=== PATIENT | female | born 1955 | race Caucasian/White ===

== ENCOUNTER → 2018-02-16 15:56 | Outpatient (CLI) | payer OTHER, SELFPAY ==
[2018-02-16 09:47] VITALS: BMI 30.2
[2018-02-16 16:03] LABS: Glucose, Dipstick Normal (Normal); Ketone-Dipstick Negative (Negative); Leukocyte Esterase-Dipstick 100 /ul (Negative); Nitrite-Dipstick Positive (Negative); Occult Blood-Urine 250 /ul (Negative); Protein-Dipstick 30 mg/dl (Negative); Urine Clarity Sl. Cloudy (Clear); Urine Urobilinogen 12 mg/dl (Normal); Urine pH 6.5 (5.0 - 8.0)
[2018-02-16 16:20] LABS: Color, Urine SEE COMMENT BELOW (Yellow); Urine Bilirubin Dipstick 6 mg/dL (Negative)
[2018-02-16 16:24] LABS: Bacteria 2+ /hpf (None Seen); Mucous, Urine RARE /hpf (<or=2+); Red Blood Cells-Urine 5-10 SEEN /hpf (0-5); Squamous Epithelial Cells - UA 0-5 SEEN /hpf (5-10); White Blood Cells 0-5 SEEN /hpf (0-5)
== END ==
PROVIDERS: Family Provider Family Medicine; PCP Family Medicine; Referring Provider Physician Assistant Surgical; Visit Provider Physician Assistant Surgical
DX: R30.0 Dysuria (principal)
CPT/HCPCS: 81001; 87077; 87086; 87088; 87186

== ENCOUNTER → 2018-07-12 | Outpatient (CLI) | payer OTHER, SELFPAY ==
[2018-07-12 07:46] VITALS: BMI 30.8
== END | disposition home or self-care (01) ==
LOC: LABSPEC 13:54
PROVIDERS: Family Provider Family Medicine; PCP Family Medicine; Referring Provider Physician Assistant Surgical; Visit Provider Physician Assistant Surgical
DX: R30.0 Dysuria (principal)
CPT/HCPCS: 87086; 87088; 87186

== ENCOUNTER 2018-11-14 14:32 | Observation (INO) | payer OTHER, SELFPAY ==
[2018-07-12 07:46] VITALS: BMI 30.8
[2018-11-14 14:33] VITALS: BP 156/66; PULSE 76; RESP 36; TEMP 36.4; O2SAT 100; BMI 31.8
[2018-11-14 14:57] VITALS: BP 124/77; PULSE 73; RESP 18; O2SAT 100
[2018-11-14 15:16] LABS: Absolute Neutrophil Count 6.4 X10^3/uL (2.0-7.7); Basophil# 0.06 X10^3/uL; Basophil% 0.6 % (0-1); Eosinophils% 1.1 % (0-5); Lymphocyte % 23.6 % (19-41); Mean Corp Hgb Conc 28.6 g/dL (32-36); Mean Corpuscular Hgb 20.1 pg (27.0-32.0); Mean Corpuscular Volume 70.4 fL (81-99); Mean Platelet Vol. 9.6 fl (6.2-12.0); Monocyte% 5.4 % (0-10); NRBC Flagged by Analyzer 0 % (0-5); Neutrophil % 68.8 % (47-70); Platelet Count 393 K/mm3 (150-450); RBC Distribution Width CV 15.8 % (11.6-14.6); RBC Distribution Width SD 39.7 fl (35.1-43.9); Red Blood Count 4.97 M/mm3 (4.2-5.4); White Blood Count 9.3 K/mm3 (4.4-11.0)
[2018-11-14] MEDS: Ondansetron 4 MG/2 ML Vial IV (15:16)
[2018-11-14] MEDS: Meclizine HCl 25 MG Tablet PO (15:16)
[2018-11-14] MEDS: DiphenhydrAMINE 50 MG/ML Syringe 12.5 MG IV (15:16)
[2018-11-14] MEDS: 0.9% Normal Saline 1,000 ML 1000 ML IV (15:16)
--- NOTE | 2018-11-14 15:28 | ED.VISSUMM ---
- ER Visit Summary Date of Service: 11/14/18 Chief Complaint: Dizziness History of Present Illness: The patient is a 63 F who has a sudden onset of dizziness today. She was sitting and she felt like she was on a boat. She then had nausea and vomiting associated with this. She has no history of this in the past. She denies any headache. No other recent illnesses. She only takes magnesium at home. She has no cardiac history. No chest pain. Physical Examination: Vital signs reviewed. HEENT exam unremarkable, except for nystagmus bilaterally did exacerbate her symptoms. Heart is regular rate and rhythm without murmurs. Lungs are clear to auscultation. Abdomen is soft and nontender. Extremities reveal no edema. Skin exam normal. Neurologic exam normal. Test Results: Hemoglobin 10, creatinine normal. Glucose 160. Liver enzymes normal. CAT scan of the head reveals chronic changes Emergency Department Course and Treatment: The patient was given normal saline, Benadryl IV, Zofran, Phenergan, Antivert and Valium. The patient was still vertiginous and had a hard time sitting up even with these medications. When she lays on her left hand side this is improved. I feel that this is just positional vertigo. With her symptoms I feel that she needs to be admitted for further evaluation. I spoke with the hospitalist and the patient will be admitted to observation Treatment Plan: [] Disposition: Discharge Impression: Intractable vertigo This note was generated with [employer] dictation software. It may contain incorrect words, spelling, and punctuation that were not noted in review of the chart prior to signing ED Disposition - Plan for ED Patient: Disposition: Acute Care Hospital [facility]
[2018-11-14 15:32] LABS: ALB/GLOB Ratio 1.1 RATIO (0.9-2.4); AST(SGOT) 17 U/L (15-37); Alanine Aminotransfer ALT/SGPT 17 U/L (13-56); Albumin, Serum 4.1 g/dL (3.2-5.0); Alkaline Phosphatase 77 U/L (45-117); Anion Gap 9 (5-15); BUN 18 mg/dL (7-18); BUN/Creat Ratio 26.4 RATIO (10-20); Chloride 106 mmol/L (98-107); Creatinine, Serum 0.68 mg/dL (0.55-1.02); EST Glomerular Filtration Rate 92 mL/min (>60); Est Glom Filt Rate - Afr Amer 111 mL/min (>60); Estimated Creatinine Clearance 69.14 ml/min; Globulin 3.8 g/dL (2.2-4.2); Glucose 160 mg/dL (74-106); Potassium 3.6 mmol/L (3.5-5.1); Protein, Total 7.9 g/dL (6.4-8.2); Sodium Level 139 mmol/L (136-145)
--- NOTE | 2018-11-14 16:00 | CT_ITS ---
STUDY: CT BRAIN WITHOUT CONTRAST REASON FOR EXAM: Female, 63 years old. Sudden onset dizziness. Nausea and vomiting. Hypertension. RADIATION DOSAGE (If Supplied By Facility): CTDIvol = ( 44.99 ) mGy, DLP = ( 829.85 ) mGycm TECHNIQUE: Transaxial CT imaging of the brain was performed without administration of intravenous contrast material. Individualized dose optimization techniques were used for this CT. COMPARISON: No relevant priors. FINDINGS: Normal soft tissue structures. Normal calvarium. Normal size ventricles and extra-axial spaces for the patient's age. Normal white matter tracts of the cerebral hemispheres. There is a large remote infarct in the right basal ganglia. Normal left basal ganglia and bilateral thalami. Normal brainstem. Normal cerebellum. There is no intracranial hemorrhage. There are no findings of an acute ischemic infarction. There is mild mucoperiosteal reaction within the ethmoid air cells and right maxillary sinus. CT/Brain/Head without Contrast IMPRESSION: 1. Remote right basal ganglia infarct. There is no evidence of acute intracranial or calvarial abnormality. 2. Sinusitis. Electronically Signed: Salvatore Vaz DO at 16:19 EDT Tel [phone], Service support ,
[2018-11-14] MEDS: proMETHazine 25 MG/ML Syringe 12.5 MG IV (16:40)
[2018-11-14 16:41] VITALS: BP 153/65; PULSE 73; RESP 16; O2SAT 95
[2018-11-14] MEDS: diazePAM 5 MG Tablet 2.5 MG PO (17:43)
[2018-11-14 18:48] VITALS: BP 153/59; PULSE 71; RESP 18; O2SAT 99
--- NOTE | 2018-11-14 18:57 | HP.PCM_ITS ---
<Jeremi Luna - Last Filed: 11/14/18 18:57> Problem List (1) Vertigo Status: Acute (2) CVA (cerebral vascular accident) Status: Chronic (3) Asthma Status: Chronic History of Present Illness Date of Admission: 11/14/18 Chief Complaint: vertigo The patient is a 63 year old F with pmhx of asthma who presents to the ER with c/o vertigo. This began at 1000 today. She was sitting and playing with her kid when suddenly she felt that vertigo that she describes as feeling like she is on a boat. She has been very nauseous and vomiting. All movements made it worse. She laid on the floor and was able to find relief laying on her left side and not moving, with her eyes closed. She has not had any recent illness or infection. She has no slurred speech, no facial droop, no focal weakness, no numbness or tingling, and no headache. In the ER she was given benadryl, meclizine, zofran, phenergan, and valium. She has had little relief with these. CT brain shows an old stroke, she was not aware of ever having a stroke. She denies drug use. Spouse is present and reports otherwise she has seemed her normal.[] Past Medical History Past Medical History (Chronic Problems): Chronic Problems (Last Reviewed 07/12/18 @ 07:46 by Daniela Aguirre) CVA (cerebral vascular accident) (Chronic) Asthma (Chronic) Medical History: Medical History (Last Reviewed 07/12/18 @ 07:46 by Daniela Aguirre) Arthritis M19.90 Asthma J45.909 Difficulty balancing R29.818 Hay fever J30.1 History of hysterectomy Z90.710 Neck pain M54.2 Shortness of breath R06.02 Stomach ulcer K25.9 Stroke I63.9 Allergies codeine Allergy (Verified 11/14/18 14:35) Vomiting Home Medications: Ambulatory Orders Medication Instructions Recorded Magnesium Oxide [Magox 400] 1,200 mg PO DAILY 11/14/18 Surgical History: Surgical History (Last Reviewed 07/12/18 @ 07:46 by Daniela Aguirre) History of cholecystectomy Z90.49 History of tonsillectomy Z90.89 Surgical History: cholecystectomy, hysterectomy, tonsillectomy Psychiatric History: No pertinent psych hx [employer]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 Denies: Abdominal Pain, Diarrhea Genitourinary: Denies: Dysuria Musculoskeletal: Denies: Joint Pain, Joint Tenderness Skin: Denies: Rash, Wounds Neurological: Reports: - - Vertigo. Denies: Blurred vision, Double vision, Change in Speech, Slurred speech, Confusion, Difficulty swallowing, Focal weakness, Headaches, Numbness, Tingling Psychiatric: Denies: Anxiety, Depression, Homicidal Ideations, Suicidal Ideations Hematologic/ Lymphatic: Denies: Easy Bruising, Easy Bleeding VTE Information - Inpt Only VTE Present on Admission: No VTE Mechan Device Prophylaxis: None VTE Pharm Prophylaxis ordered?: Yes Patient Problems: Active and Suspected Problems (Last Reviewed 07/12/18 @ 07:46 by Daniela Aguirre) Vertigo (Acute) - Physical Exam General: Alert, Oriented x3, Cooperative HEENT: Atraumatic, PERRLA, EOMI, Normocephalic Neck: Supple, No JVD, Negative Carotid Bruits Lungs: Clear to auscultation, Normal air movement Cardiovascular: Regular rate, No murmurs Abdomen: Bowel Sounds Present, Soft, Non Tender Extremities: No edema, Capillary Refill Less than 3 Seconds Skin: No rashes, No breakdown Musculoskeletal: No Tenderness to Palpation of Joints or Extremities Neurological: Cranial nerves II-XII grossly intact Psych/Mental Status: Normal Affect, Appropriate, Alert and oriented to time, place, person, mood and affect Vital Signs Temp Pulse Resp BP Pulse Ox 97.5 F L 71 18 153/59 H 99 11/14/18 14:33 11/14/18 18:48 11/14/18 18:48 11/14/18 18:48 11/14/18 18:48 Oxygen Delivery Method Room Air Weight: 180 lb Body Mass Index (BMI) 31.8 Intake and Output for Last 24 Hours 11/12/18 11/13/18 11/14/18 23:59 23:59 23:59 Intake Total 1000 / 1000 Balance 1000 / 1000 Laboratory Tests Past 24 Hrs 11/14/18 11/14/18 14:35 14:35 WBC 9.3 RBC 4.97 Hgb 10.0 L Hct 35.0 L MCV 70.4 L MCH 20.1 L MCHC 28.6 L RDW Std Deviation 39.7 RDW Coeff of Jj 15.8 H Plt Count 393 MPV 9.6 Immature Gran % (Auto) 0.500 Neut % (Auto) 68.8 Lymph % (Auto) 23.6 Mellette % (Auto) 5.4 Eos % (Auto) 1.1 Baso % (Auto) 0.6 Absolute Neuts (auto) 6.4 Absolute Lymphs (auto) 2.20 Nucleated RBC % 0 Sodium 139 Potassium 3.6 Chloride 106 Carbon Dioxide 24.0 Anion Gap 9 BUN 18 Creatinine 0.68 Estim Creat Clear Calc 69.14 Est GFR (MDRD) Af Amer 111 Est GFR (MDRD) Non-Af 92 BUN/Creatinine Ratio 26.4 H Glucose 160 H Calcium 9.0 Total Bilirubin 0.50 AST 17 ALT 17 Alkaline Phosphatase 77 Total Protein 7.9 Albumin 4.1 Globulin 3.8 Albumin/Globulin Ratio 1.1 Assessment/Plan All Active Problems (Last Reviewed 07/12/18 @ 07:46 by Daniela Aguirre) Vertigo (Acute) Impacted cerumen, right ear (Acute) Urinary tract infection (Acute) 1. Vertigo - suspect peripheral. CT shows old stroke and sinusitis. Pt without hx of stroke. Start aspirin/statin. PTOT evals, vestibular therapy. PRN meclizine, zofran/phenergan. Consider MRI brain in AM. 2. Prior CVA - start asa/statin 3. Asthma - no exacerbation - prn albuterol 4. Microcytic anemia - check iron/tibc/ferritin 5. hyperglycemia - suspect 2/2 stress response. Reckeck in AM. Consider A1C. + fm hx Diabetes. DVT ppx: Lovenox DC planning: PTOT. This patient was seen by Jeremi Luna PA-C under the supervision of Dr. John. <Bahman John F - Last Filed: 11/14/18 20:54> History of Present Illness The patient is a 63 year old F [] Past Medical History Medical History: Medical History (Last Reviewed 07/12/18 @ 07:46 by Daniela Aguirre) Arthritis M19.90 Asthma J45.909 Difficulty balancing R29.818 Hay fever J30.1 History of hysterectomy Z90.710 Neck pain M54.2 Shortness of breath R06.02 Stomach ulcer K25.9 Stroke I63.9 Allergies codeine Allergy (Verified 11/14/18 14:35) Vomiting Surgical History: Surgical History (Last Reviewed 07/12/18 @ 07:46 by Daniela Aguirre) History of cholecystectomy Z90.49 History of tonsillectomy Z90.89 - Physical Exam Vital Signs Temp Pulse Resp BP Pulse Ox 97.8 F 83 16 151/64 H 98 11/14/18 19:29 11/14/18 19:29 11/14/18 19:29 11/14/18 19:29 11/14/18 19:29 Oxygen Delivery Method Room Air Weight: 195 lb 1.745 oz Body Mass Index (BMI) 34.5 Intake and Output for Last 24 Hours 11/12/18 11/13/18 11/14/18 23:59 23:59 23:59 Intake Total 1000 / 1000 Balance 1000 / 1000 Laboratory Tests Past 24 Hrs 11/14/18 11/14/18 14:35 14:35 WBC 9.3 RBC 4.97 Hgb 10.0 L Hct 35.0 L MCV 70.4 L MCH 20.1 L MCHC 28.6 L RDW Std Deviation 39.7 RDW Coeff of Jj 15.8 H Plt Count 393 MPV 9.6 Immature Gran % (Auto) 0.500 Neut % (Auto) 68.8 Lymph % (Auto) 23.6 Mellette % (Auto) 5.4 Eos % (Auto) 1.1 Baso % (Auto) 0.6 Absolute Neuts (auto) 6.4 Absolute Lymphs (auto) 2.20 Nucleated RBC % 0 Sodium 139 Potassium 3.6 Chloride 106 Carbon Dioxide 24.0 Anion Gap 9 BUN 18 Creatinine 0.68 Estim Creat Clear Calc 69.14 Est GFR (MDRD) Af Amer 111 Est GFR (MDRD) Non-Af 92 BUN/Creatinine Ratio 26.4 H Glucose 160 H Calcium 9.0 Total Bilirubin 0.50 AST 17 ALT 17 Alkaline Phosphatase 77 Total Protein 7.9 Albumin 4.1 Globulin 3.8 Albumin/Globulin Ratio 1.1 Code Visit Addendum: Dr. John I personally examined the patient and reviewed the chart. I agree with the above. 63-year-old female with sudden onset of dizziness today. She said that she felt like she was on a boat. Her symptoms resolve if she lies on her left side. She does have a horizontal nystagmus on exam however she does not tolerate a lot of manipulation to be able to do any type of other diagnostic work-up or manipulation such as a Lyric-Hallpike and Pat maneuver. She states that she would like to see how tonight goes with the meclizine and rest does not improve then try those maneuvers in the morning. She did receive multiple doses of medications in the ER and still remains vertiginous therefore will monitor. Also of note she has microcytic anemia, her hemoglobin is 10 and in 2014 he was in range of 14. We will check a fecal occult stool and proceed with iron studies. OBSV E&M: [id number] Initial observation care L2
[2018-11-14 19:22] VITALS: BMI 34.5
[2018-11-14 19:25] VITALS: BMI 34.6
[2018-11-14 19:29] VITALS: BP 151/64; PULSE 83; RESP 16; TEMP 36.6; O2SAT 98
[2018-11-14] MEDS: 0.9% Normal Saline 1,000 ML 100 ML IV (20:52)
[2018-11-15] MEDS: Meclizine HCl 25 MG Tablet PO ×3 (00:19→18:03)
[2018-11-15] MEDS: 0.9% NaCl Peripheral Flush Adult/Peds IV ×4 (00:19→18:04)
[2018-11-15] MEDS: Ondansetron 4 MG/2 ML Vial IV ×2 (00:19→10:04)
[2018-11-15 01:55] VITALS: BP 146/57; PULSE 72; RESP 16; TEMP 36.7; O2SAT 95
[2018-11-15 06:09] LABS: Absolute Neutrophil Count 4.8 X10^3/uL (2.0-7.7); Basophil# 0.05 X10^3/uL; Basophil% 0.7 % (0-1); Eosinophil# 0.12 X10^3/uL; Eosinophils% 1.7 % (0-5); Hemoglobin 8.7 g/dL (12.0-15.0); Lymphocyte % 23.4 % (19-41); Mean Corp Hgb Conc 28.1 g/dL (32-36); Mean Corpuscular Hgb 19.7 pg (27.0-32.0); Mean Corpuscular Volume 70.3 fL (81-99); Mean Platelet Vol. 9.6 fl (6.2-12.0); Monocyte# 0.59 X10^3/uL; Monocyte% 8.1 % (0-10); NRBC Flagged by Analyzer 0 % (0-5); Neutrophil # 4.78 X10^3/uL (2.7-7.7); Neutrophil % 65.7 % (47-70); Platelet Count 293 K/mm3 (150-450); RBC Distribution Width CV 15.9 % (11.6-14.6); RBC Distribution Width SD 40.1 fl (35.1-43.9); Red Blood Count 4.41 M/mm3 (4.2-5.4); White Blood Count 7.3 K/mm3 (4.4-11.0)
[2018-11-15] MEDS: 0.9% Normal Saline 1,000 ML 100 ML IV (06:31)
[2018-11-15 06:32] LABS: Anion Gap 6 (5-15); BUN 11 mg/dL (7-18); BUN/Creat Ratio 22.6 RATIO (10-20); Calcium,Total 8.2 mg/dL (8.5-10.1); Chloride 110 mmol/L (98-107); Creatinine, Serum 0.49 mg/dL (0.55-1.02); EST Glomerular Filtration Rate 136 mL/min (>60); Est Glom Filt Rate - Afr Amer 165 mL/min (>60); Estimated Creatinine Clearance 95.95 ml/min; Ferritin 4 ng/mL (8-252); Glucose 91 mg/dL (74-106); Iron 16 ug/dL (50-170); Iron Binding Capacity,Total 368 ug/dL (250-450); PERCENT IRON SATURATION 4.3 % (15.0-55.0); Potassium 3.8 mmol/L (3.5-5.1); Sodium Level 143 mmol/L (136-145)
[2018-11-15 07:20] VITALS: BP 160/51; PULSE 59; RESP 14; TEMP 36.9; O2SAT 95
[2018-11-15 07:26] VITALS: PULSE 59; RESP 14; O2SAT 95
--- NOTE | 2018-11-15 08:39 | MRI_ITS ---
STUDY: MRI BRAIN WITHOUT CONTRAST REASON FOR EXAM: Female, 63 years old. Vertigo TECHNIQUE: Standardized multiplanar fat and water weighted pulse sequences were obtained. COMPARISON: CT November 14, 2018 FINDINGS: Normal size of the ventricles and extra-axial spaces for the patient's age. There are a limited number of small white matter hyperintensities, distributed throughout the deep white matter tracts of the cerebral hemispheres, consistent with mild chronic white matter ischemic changes. There is no evidence for recent intracranial ischemia or other cause of cytotoxic edema on diffusion weighted imaging (DWI). Normal T2* images of the brain without demonstrated susceptibility artifact. There is no demonstrated hemosiderin stain. There is a 1.2 cm dilated perivascular space or colloid cyst of the right temporal lobe and basal ganglia. Normal thalami. There is no extra-axial fluid accumulation. Normal flow voids within the major intracranial circulation suggesting patency by spin echo criteria. Normal sella turcica, pituitary gland, infundibular stalk, optic chiasm and hypothalamus. Normal tectal plate and pineal gland. Normal midbrain, juli and medulla. Normal cerebellum. Normal basal cisterns. Normal bilateral temporal bones. Normal bilateral internal auditory canals. No demonstrated orbital abnormality, within the constraints of a routine brain study. Normal visualized paranasal sinuses. Normal calvarium and skull base. Normal visualized soft tissue structures. Normal visualized upper cervical spine. MRI/Brain without Contrast IMPRESSION: Involutional changes of the brain, as described above. No acute intracranial abnormality. Sinusitis. Electronically Signed: Ta Martinez MD at 12:55 EDT , Service support ,
[2018-11-15] MEDS: Enoxaparin 40 MG/0.4 ML Syringe SC (10:04)
--- NOTE | 2018-11-15 10:15 | CASEMGMT ---
RN CM NURSERY MANAGER CM to room to meet with patient for initial transition planning/care coordination assessment. ARNIE RIVERA introduced self and role at [facility]. Pt voices understanding and consents to assessment at this time. Pt resting in bed in no distress at this time. Pt is A/O at this time and answers all questions appropriately. Care providers, pharmacy, and demographics verified/updated at this time. PCP: [facility] used to see Dr Alexsander Browne but states has not been in to see him for about 4 years. Pt states this is who she would like to see after discharge for any follow-up appts. Pt made aware she may not be currently active with them as a patient and she may need to get established as a new patient. She voices understanding. Specialists: None Preferred [facility]acy: [facility] Insurance: [employer] Prescription Benefit: Yes Living Will/HPOA: has LW and HCPOA, who is her , Bjorn Ha LNOK: Living Arrangements: Lives in 2-story home. Has bedroom and bathroom on 2nd floor. States I take the stairs slowly. Independent prior to vertigo and hospitalization. Transportation: Pt states drives self and states no transportation concerns at this time. also drives. DME: Denies using any DME and denies needs. HHC/SNF: No history of either and denies needs. No needs identified. Discussed OP therapy and she states she may be agreeable, depending on how much insurance covers and her [id number] cost. She states she does not know what OP therapy facility she would go to. Pt made aware script for OP therapy could be obtained from MD and given to her and she can decide where she would like to go and discuss financials with OP facility and make decision then. She voices understanding. Pt wishes to return home and states has no concerns with going home at time of discharge. CM to follow for further discharge planning/needs. Pt voices no further concerns/needs at this time. Advised pt to ask for CM if any further questions/concerns/needs arise. Voices understanding. PLAN: Home w/spousal support and possible OP therapy. Gracie BRAND RN, CM
[2018-11-15 10:22] VITALS: BP 148/56; PULSE 60; RESP 16; TEMP 36.9; O2SAT 97
[2018-11-15] MEDS: LORazepam 2 MG/ML Syringe 1 MG IV (11:19)
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
[2018-11-15 14:46] VITALS: BP 150/58; PULSE 60; RESP 16; TEMP 36.9; O2SAT 99
[2018-11-15 20:50] VITALS: BP 157/58; PULSE 63; RESP 16; TEMP 37.2; O2SAT 95
[2018-11-16] MEDS: Meclizine HCl 25 MG Tablet PO ×3 (03:26→21:00)
[2018-11-16 03:27] VITALS: BP 155/60; PULSE 63; RESP 16; TEMP 36.6; O2SAT 96
[2018-11-16 10:10] VITALS: BP 131/49; PULSE 87; RESP 16; TEMP 36.8; O2SAT 98
[2018-11-16] MEDS: Enoxaparin 40 MG/0.4 ML Syringe SC (10:14)
[2018-11-16] MEDS: Iron Polysaccharide Complex 150 MG CAPSULE PO (10:14)
--- NOTE | 2018-11-16 10:49 | DCINST_ITS ---
- Discharge Diagnoses Current Active Problems: Current Active and Chronic Problems (Last Reviewed 07/12/18 @ 07:46 by Daniela Aguirre) Vertigo (Acute) CVA (cerebral vascular accident) (Chronic) Asthma (Chronic) You will use the following diet at home:: Cardiac Your food should be the consistency of: Regular Your liquids should be the consistency of: Regular/Thin Discharge Activity: Return to Normal Activity, - - May not drive if experiencing vertigo or requiring meclizine. Additional Instructions: Pursue outpatient PT and OT for additional vestibular therapy. Allergies/Adverse Reactions: Allergies codeine Allergy (Verified 11/14/18 14:35) Vomiting Medications to take at Discharge Magnesium Oxide [Magox 400] 1,200 mg PO DAILY 11/14/18 Iron Polysaccharide Complex [Ferrex 150] 150 mg PO DAILYCM #30 cap 11/16/18 Meclizine HCl [Antivert] 25 mg PO TID PRN PRN #30 tab 11/16/18 Ondansetron HCl [Zofran] 4 mg PO Q6H PRN PRN #20 tab 11/16/18 The following prescriptions were given: Meclizine HCl [Antivert] 25 mg PO TID PRN PRN #30 tab PRN Reason: Vertigo [facility] Iron Polysaccharide Complex [Ferrex 150] 150 mg PO DAILYCM #30 cap Transmission Status: [facility] Ondansetron HCl [Zofran] 4 mg PO Q6H PRN PRN #20 tab PRN Reason: Nausea [facility] Primary Care Physician: Alexsander Browne DO [Primary Care Provider] - Please follow up with your Primary Care Physician in: 1-2 weeks Test Results: Test results from this visit will be discussed in further detail at your follow- up appointment, if applicable. Proposed Discharge Date: 11/16/18
--- NOTE | 2018-11-16 13:12 | DS.PCM_ITS ---
<Jeremi Luna - Last Filed: 11/16/18 13:12> Discharge Date and Diagnosis - Problem List Patient Problems: Active and Suspected Problems (Last Reviewed 07/12/18 @ 07:46 by Daniela Aguirre) Vertigo (Acute) Date of Admission: 11/14/18 Date of Discharge: 11/16/18 - Primary Discharge Diagnosis Active and Suspected Problems (Last Reviewed 07/12/18 @ 07:46 by Daniela Aguirre) Vertigo (Acute) - BPPV Iron deficiency anemia Hx CVA Asthma - Secondary Discharge Diagnosis Chronic Problems (Last Reviewed 07/12/18 @ 07:46 by Daniela Aguirre) CVA (cerebral vascular accident) (Chronic) Asthma (Chronic) Hospital Course and Treatment Imaging Results: CT/Brain/Head without Contrast IMPRESSION: 1. Remote right basal ganglia infarct. There is no evidence of acute intracranial or calvarial abnormality. 2. Sinusitis. MRI/Brain without Contrast IMPRESSION: Involutional changes of the brain, as described above. No acute intracranial abnormality. Sinusitis. Operations: None Procedures: None Summary of Care Provided: Hospital course: The patient is a 63 year old F with past medical history of asthma who presented to the emergency room with complaints of vertigo. This began suddenly the day of presentation at about 10:00 in the morning. She was sitting and playing with her kids when she suddenly felt a sensation described as being like she was on a boat. She had severe nausea and was vomiting. She had to sit completely still laying on her left side in order to cut herself from feeling this. She denied recent illness or infection. She had no slurred speech, facial droop, focal weakness, numbness or tingling, no headache. She came to the emergency room was given Benadryl meclizine, Zofran, Phenergan and Valium with little relief. She had severe nystagmus on exam. CT of the brain demonstrated that she had an old stroke that she was unaware of. The patient was admitted with concern for acute CVA versus peripheral vertigo. She underwent an MRI the following day which did not show any acute stroke. Patient had some mild improvement with vestibular therapy and with PRN medications. She was kept for another day as she still had marked positional vertigo especially with sitting up and standing making walking difficult. PT and OT were provided. Outpatient PT and OT were recommended. She was given a prescription for outpatient PT and OT following day and was discharged home in stable condition. She will need follow-up with her PCP in 1 to 2 weeks. This patient was seen by Jeremi Luna PA-C under the supervision of Doctor Hughes. [] Patient Problems: Active and Suspected Problems (Last Reviewed 07/12/18 @ 07:46 by Daniela Aguirre) Vertigo (Acute) - Physical Exam General: Alert, Oriented x3, Cooperative HEENT: Atraumatic, PERRLA, EOMI, Normocephalic Neck: Supple, No JVD, Negative Carotid Bruits Lungs: Clear to auscultation, Normal air movement Cardiovascular: Regular rate, No murmurs Abdomen: Bowel Sounds Present, Soft, Non Tender Extremities: No edema, Capillary Refill Less than 3 Seconds Skin: No rashes, No breakdown Musculoskeletal: No Tenderness to Palpation of Joints or Extremities Neurological: Cranial nerves II-XII grossly intact Psych/Mental Status: Normal Affect, Appropriate, Alert and oriented to time, place, person, mood and affect Vital Signs Temp Pulse Resp BP Pulse Ox 98.2 F 87 16 131/49 H 98 11/16/18 10:10 11/16/18 10:10 11/16/18 10:10 11/16/18 10:10 11/16/18 10:10 Oxygen Delivery Method Room Air Weight: 195 lb 1.745 oz Body Mass Index (BMI) 34.5 Intake and Output for Last 24 Hours 11/14/18 11/15/18 11/16/18 23:59 23:59 23:59 Intake Total 1000 / 1200 2583.33 / 2820.33 337 / 337 Output Total 1999 / 2900 900 / 900 Balance 1000 / 1200 583.33 / -79.67 -563 / -563 Discharge Diet: Low fat/ Low Cholesterol, 2000 mg Sodium Diet Discharge Activity: Return to Normal Activity, - - May not drive if experiencing vertigo or requiring meclizine. Home Medications: Medications to take at Discharge Magnesium Oxide [Magox 400] 1,200 mg PO DAILY 11/14/18 Iron Polysaccharide Complex [Ferrex 150] 150 mg PO DAILYCM #30 cap 11/16/18 Meclizine HCl [Antivert] 25 mg PO TID PRN PRN #30 tab 11/16/18 Ondansetron HCl [Zofran] 4 mg PO Q6H PRN PRN #20 tab 11/16/18 Following Prescrptions Were Given to Patient: Meclizine HCl [Antivert] 25 mg PO TID PRN PRN #30 tab PRN Reason: Vertigo [facility] Iron Polysaccharide Complex [Ferrex 150] 150 mg PO DAILYCM #30 cap Transmission Status: Received by [facility] 181 Ondansetron HCl [Zofran] 4 mg PO Q6H PRN PRN #20 tab PRN Reason: Nausea Transmission Status: Received by [facility] 181 Primary Care Physician: Alexsander Browne DO [Primary Care Provider] - Please follow up with your Primary Care Physician in: 1-2 weeks Additional Instructions: Report for outpatient PT and OT as soon as possible. Disposition: Home Minutes spent on discharge:: 35 Patient Condition:: Stable Medical Necessity - Tobacco Use Smoking Status: Never smoker Tobacco Use: Non-smoker, Secondhand Meaningful Use Info Meaningful Use Diagnoses (Choose all that apply): None applicable <Angel Hughes Yeni - Last Filed: 11/16/18 13:47> Discharge Date and Diagnosis - Primary Discharge Diagnosis Active and Suspected Problems (Last Reviewed 07/12/18 @ 07:46 by Daniela Aguirre) Vertigo (Acute) - Secondary Discharge Diagnosis Chronic Problems (Last Reviewed 07/12/18 @ 07:46 by Daniela Aguirre) CVA (cerebral vascular accident) (Chronic) Asthma (Chronic) Hospital Course and Treatment Summary of Care Provided: Hospitalist note: Discharge summary above reviewed and I concur with the above discharge and treatment plan. Patient was admitted for vertigo which is probably due to peripheral vertigo secondary to BPPV. There is a concern that patient may have acute stroke because of the significant vertigo and also imbalance and tendency to fall to the left side. CT scan brain done on admission and showed no acute findings. Because of her history of stroke and concerning symptoms of vertigo with imbalance, MRI brain done and again showed no evidence of acute infarct or hemorrhage. Patient was treated with Antivert, IV fluids and antiemetics. Her symptoms improved. She had no focal deficit on physical examination. She was found to have iron deficiency anemia. She was asymptomatic and she denied shortness of breath, weakness, palpitation or dizziness except the spinning sensation which was related to the vertigo. Patient denies any bleeding from body orifices including melena, hematochezia or hematemesis. Her serum iron, iron saturation and ferritin was very low. She was started on iron supplement. It was recommended that she should go to see her PCP and she should be referred to GI as outpatient for work-up for anemia. Patient discharged home in a stable medical condition, discharged on Antivert as needed, discharged on iron supplement, recommended to have a PCP as outpatient in 1 to 2 weeks and referral to GI as outpatient for work-up for anemia. This note was generated with [employer] dictation software. It may contain incorrect words, spelling, and punctuation that were not noted in checking the note before signing. - Physical Exam Vital Signs Temp Pulse Resp BP Pulse Ox 98.2 F 87 16 131/49 H 98 11/16/18 10:10 11/16/18 10:10 11/16/18 10:10 11/16/18 10:10 11/16/18 10:10 Oxygen Delivery Method Room Air Weight: 195 lb 1.745 oz Body Mass Index (BMI) 34.5 Intake and Output for Last 24 Hours 11/14/18 11/15/18 11/16/18 23:59 23:59 23:59 Intake Total 1000 / 1200 2583.33 / 2820.33 337 / 337 Output Total 2000 / 2900 900 / 900 Balance 1000 / 1200 583.33 / -79.67 -563 / -563 Disposition: Home Minutes spent on discharge:: 25 Patient Condition:: Stable Meaningful Use Info Meaningful Use Diagnoses (Choose all that apply): None applicable Code Visit OBSV E&M: 04498 Observation care discharge
[2018-11-16 15:30] VITALS: BP 165/57; PULSE 79; RESP 16; TEMP 36.9; O2SAT 97
[2018-11-16] MEDS: Acetaminophen 325 MG Tablet 650 MG PO (15:40)
--- NOTE | 2018-11-16 16:05 | PN_ITS ---
<Jeremi Luna - Last Filed: 11/16/18 16:05> Patient Problems: Active and Suspected Problems (Last Reviewed 07/12/18 @ 07:46 by Daniela Aguirre) Vertigo (Acute) Subjective: Patient with improved vertigo. However later before she planned for discharge, she was unsteady and dizzy sitting up on the side of the bed and could not ambulate. Pat maneuver failed with therapy. Ongoing nausea. She said she would crawl everywhere if she went home. - Physical Exam General: Alert, Oriented x3, Cooperative HEENT: Atraumatic, PERRLA, EOMI, Normocephalic Neck: Supple, No JVD, Negative Carotid Bruits Lungs: Clear to auscultation, Normal air movement Cardiovascular: Regular rate, No murmurs Abdomen: Bowel Sounds Present, Soft, Non Tender Extremities: No edema, Capillary Refill Less than 3 Seconds Skin: No rashes, No breakdown Musculoskeletal: No Tenderness to Palpation of Joints or Extremities Neurological: Cranial nerves II-XII grossly intact Psych/Mental Status: Normal Affect, Appropriate Vital Signs Temp Pulse Resp BP Pulse Ox 98.2 F 87 16 131/49 H 98 11/16/18 10:10 11/16/18 10:10 11/16/18 10:10 11/16/18 10:10 11/16/18 10:10 Oxygen Delivery Method Room Air Weight: 195 lb 1.745 oz Body Mass Index (BMI) 34.5 Intake and Output for Last 24 Hours 11/14/18 11/15/18 11/16/18 23:59 23:59 23:59 Intake Total 1000 / 1200 2583.33 / 2820.33 837 / 837 Output Total 1999 / 2900 900 / 900 Balance 1000 / 1200 583.33 / -79.67 -63 / -63 Medical Necessity - Tobacco Use Smoking Status: Never smoker Tobacco Use: Non-smoker, Secondhand Assessment/Plan All Active Problems (Last Reviewed 07/12/18 @ 07:46 by Daniela Aguirre) Vertigo (Acute) 1. Vertigo - BPPV. Continue PTOT, Pat maneuvers, prn meclizine and antiemetics. Stroke ruled out. No further nystagmus noted today. Unfortunately too dizzy to walk. 2. Prior CVA - start asa/statin 3. Asthma - no exacerbation - prn albuterol 4. Microcytic anemia - iron studies c/w iron deficiency. Continue iron. Stool occult pending. Outpatient follow up for referral to gastroenterology. 5. hyperglycemia - suspect 2/2 stress response. resolved. DVT ppx: Lovenox DC planning: PTOT. Pt cannot walk, she may need to go to long-term. This patient was seen by Jeremi Luan PA-C under the supervision of Dr. Hughes. <Angel Hughes E - Last Filed: 11/17/18 10:17> - Physical Exam Vital Signs Temp Pulse Resp BP Pulse Ox 98.5 F 72 16 152/54 H 98 11/17/18 08:42 11/17/18 08:42 11/17/18 08:42 11/17/18 08:42 11/17/18 08:42 Oxygen Delivery Method Room Air Weight: 195 lb 1.745 oz Body Mass Index (BMI) 34.5 Intake and Output for Last 24 Hours 11/15/18 11/16/18 11/17/18 23:59 23:59 23:59 Intake Total 2583.33 / 2820.33 1437 / 1687 450 / 450 Output Total 2000 / 2900 900 / 1500 600 / 600 Balance 583.33 / -79.67 537 / 187 -150 / -150 Assessment/Plan Hospitalist note: This note is for encounter on November 16, 2018. Patient was discharged home but when she was n about to go home, she started feeling dizzy, spinning with nausea and difficulty ambulating. Discharge was canceled. Hospitalist note: I am seeing this patient in conjunction with Jeremi Luna. I independently seen and examined the patient. Initially, patient was seen and examined and she mentioned that she feels better. She was discharged but when she was about to go home, she started feeling dizzy again, spinning sensation with nausea and vomiting and she had very difficult time to ambulate. Discharge was canceled. Her vital signs were stable. - Physical Exam General: Alert, Oriented x3, Cooperative, No apparent distress. HEENT: Atraumatic, PERRLA, EOMI. Neck: Supple, No JVD, Negative Carotid Bruits, Trachea Midline, Thyroid Normal. Lungs: Clear to auscultation, Normal air movement, No rhonchi, No wheeze, No rales. Cardiovascular: Regular rate, Regular Rhythm, Normal S1, Normal S2, PMI Normal. Abdomen: Bowel Sounds Present, Soft, Non Tender, Non-Distended, No Hepato-splenomegaly. Extremities: No clubbing, No cyanosis, No edema Skin: No rashes, No breakdown Neurological: Cranial nerves are intact, minimal nystagmus on the right side, normal power and tone of all limbs. Assessment and plan: #1 vertigo: Likely due to BPPV, peripheral. CT scan brain without acute findings, revealed old/remote stroke. She has no focal deficit on physical exam. MRI performed and showed no acute infarct or hemorrhage. Plan to continue Antivert. #2 iron deficiency anemia: It is microcytic anemia. Patient did mention that she does have hemorrhoids and sometimes she has minimal streaks of blood covering her stool. No major bleeding. Her iron studies are low including serum iron, ferritin and iron saturation. She states that she does use ibuprofen for arthritis but not heavily and she complains of occasional heartburn and epigastric discomfort. She denied melena. Recommended to avoid using NSAIDs, follow-up with a PCP and referral to GI as outpatient for upper EGD. #3 other chronic medical problems: Stable, continue current medications as above. This note was generated with [employer] dictation software. It may contain incorrect words, spelling, and punctuation that were not noted in checking the note before signing. Code Visit OBSV E&M: 08416 Subsequent observation care L2
[2018-11-16 21:00] VITALS: BP 138/84; PULSE 64; RESP 16; TEMP 36.8; O2SAT 95
[2018-11-17 03:50] VITALS: BP 146/56; PULSE 63; RESP 16; TEMP 36.5; O2SAT 95
[2018-11-17] MEDS: Meclizine HCl 25 MG Tablet PO ×2 (03:57→11:04)
[2018-11-17 08:42] VITALS: BP 152/54; PULSE 72; RESP 16; TEMP 36.9; O2SAT 98
[2018-11-17] MEDS: Enoxaparin 40 MG/0.4 ML Syringe SC (08:44)
[2018-11-17] MEDS: Iron Polysaccharide Complex 150 MG CAPSULE PO (08:44)
[2018-11-17] MEDS: Ondansetron ODT 4 MG Tablet PO (11:04)
[2018-11-17 13:27] VITALS: BP 161/64; PULSE 76; RESP 16; TEMP 36.8; O2SAT 98
== END 2018-11-17 13:40 | disposition home or self-care (01) ==
LOC: ED 15:27 → MS3 20:24
PROVIDERS: Admitting Provider Family Medicine; Emergency Provider Emergency Medicine; Family Provider Family Medicine; PCP Family Medicine; Referring Provider Family Medicine; Visit Provider Hospitalist
DX: H81.10 Benign paroxysmal vertigo, unspecified ear (principal); J44.9 Chronic obstructive pulmonary disease, unspecified; M19.90 Unspecified osteoarthritis, unspecified site; Z86.73 Personal history of transient ischemic attack (TIA), and cerebral infarction without residual deficits; D50.9 Iron deficiency anemia, unspecified; R73.9 Hyperglycemia, unspecified; K64.9 Unspecified hemorrhoids
CPT/HCPCS: 36415; 70450; 70551; 80048; 80053; 82728; 83540; 83550; 85025; 96361; 96365; 96372; 96375; 96376; 97116; 97162; 97530; 99218; 99285; J1756; J7030; A4216; G0378; J2405

== ENCOUNTER 2018-12-06 12:00 | Outpatient (RCR) | payer OTHER, SELFPAY ==
--- NOTE | 2018-11-20 15:37 | HP.PTEVAL_ITS ---
Patient's Visit Information ELIS MCARTHUR is a 63 year old F referred to Physical Therapy by JEZ Dunn with a diagnosis of vertigo. Date of Evaluation: 11/20/18 Physical Therapist: Harish Valdez, AARONT, OCS, CSCS - Visit Plan Frequency: 2x /Week Duration: 4-6 Weeks Plan: 2x/week for 4-6 weeks as needed for ... 1. progression of VOR and adaptation, monitor positional as I did treat her with R kelsey today. 2. MSQ as needed and when tolerated. 3. Balance safety and training. - Subjective Findings: Trying to stay upright. Last morning last week she started spinning while sitting. Without warning or reason. Lied on floor and called . Lied on floor with left side down and spinning stopped but came back if she moved. Got nauseous. Went to ER adn they did Catscan and MRI. No stroke. Given meds for nausea and vertigo whcih helped. Was in hospital and relesed Sunday afternoon due to insurance. Still unable to walk. Now 3 days later is walking slightly better but still needs walker. Can feel OK if head is still. 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 No falls. No need for walker prior to this. - Pain ROLON Pain Intensity (Out of 10): 0 Pain Intensity Range: 0, 2 - Objective Balance is poor in stand and sit but Ok at walker. Even sitting balance after being dizzy is off and tends to the right. Trasnfers require UE adn CGA. Ambulation with walker requires CGA. c/s AROM is hesitant but ROM is WFL. Doesn't want to mve head. UE AROM WFL and strength is symmetrical. Sensation EU WNL to gross light touch. - B hallpike but dizzy with R hallpike and treated with R kelesy today. Oculomotor: no nystagmus with gaze or head turns. c onvergence is normal. - skew eye deviation. Pursuit adn saccades are slow and asymptomatic. VOR is immediately symptomatic and 4/10 for 1 minute horizontal after 30 seconds. Vertical is 7/10 for 3-5 minutes. 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 Goal Time Frame: 4-6 Weeks Goal 4:: Ascend and descend steps without rail safely Goal Time Frame: 4-6 Weeks - Rehabilitation Potential Physical Therapy Diagnosis: Likely vestibular hypofunction. Rehabilitation Potential: Good - Anticipated Interventions Patient/Client Instruction: Educate patient on: Condition, Plan of Care For the Purpose of:: To increase tolerance to activity/condition/position, To improve ability of physical actions for home/community/work/leisure, To improve balance Therapeutic Exercise to Include: Balance training, Gait and locomotor training Comment: adaptationa dn habituation For the Purpose of:: To increase tolerance to activity/condition/position, To improve balance, To improve safety with gait Thank you for the opportunity to evaluate your patient. For Medicare and Medicare HMO plans, please review the plan of care and approve it. It will need to be FAXED BACK to us at [phone] for Medicare purposes. For Medicare only, by signing this I certify the plan of care. Please let me know if there are questions or concerns regarding this plan of care. Physician Signature: Date:
--- NOTE | 2019-01-30 16:40 | HP.PTDCNRP_ITS ---
HP - Discharge Summary (1) - Patient Information ELIS MCARTHUR was seen in my office for initial evaluation on 11/20/18. The following Plan of Care was established for this patient: Initial Frequency: 2x /Week Initial Duration: 4-6 Weeks - Anticipated Interventions Patient/Client Instruction: Educate patient on: Condition, Plan of Care For the Purpose of:: To increase tolerance to activity/condition/position, To im prove ability of physical actions for home/community/work/leisure, To improve balance Therapeutic Exercise to Include: Balance training, Gait and locomotor training For the Purpose of:: To increase tolerance to activity/condition/position, To improve balance, To improve safety with gait This patient was last seen in our office 12/06/18. Pertinent comments regarding their Physical therapy will appear below: Pt seen for 5 visits of POC and was 95% better. She was to f/u one last time two weeks later but did not attend. At this point, it has been over 6 weeks and I will discontinue due to nonattendance At this point I will be discontinuing this patient from physical therapy. I would be happy to see this patient again in the future if found appropriate by the physician. Thank you! Harish Valdez, DPT, OCS, CSCS
== END 2018-12-06 19:00 | disposition home or self-care (01) ==
LOC: PT 12:00
PROVIDERS: Family Provider Family Medicine; PCP Family Medicine; Referring Provider Physician Assistant; Visit Provider Physician Assistant
DX: R42 Dizziness and giddiness (principal); Z86.73 Personal history of transient ischemic attack (TIA), and cerebral infarction without residual deficits
CPT/HCPCS: 97110; 97162; 97530

== ENCOUNTER → 2018-12-27 | Outpatient (CLI) | payer OTHER, SELFPAY ==
[2018-12-26 16:01] VITALS: BMI 34.5
--- NOTE | 2018-12-27 08:50 | EKG12_ITS ---
Test Reason : Blood Pressure : / mmHG Vent. Rate : 074 BPM Atrial Rate : 074 BPM P-R Int : 144 ms QRS Dur : 092 ms QT Int : 376 ms P-R-T Axes : 014 039 051 degrees QTc Int : 417 ms Normal sinus rhythm Normal ECG Confirmed by NUBIA SINGH, GREGG ([id number]), loan expeditor MEGAN GARSIA ([id number]) on 12/30/2018 9:41:35 AM Referred By: Adam Husain Confirmed By:GREGG DELACRUZ MD
[2018-12-27 13:00] LABS: Cholesterol 197 mg/dL (200); High Density Lipoprotein 60 mg/dL; Triglycerides 122 mg/dL; Very Low Density Lipoprotein 24 mg/dL (5-40)
== END | disposition home or self-care (01) ==
PROVIDERS: Family Provider Internal Medicine; PCP Internal Medicine; Referring Provider Internal Medicine; Visit Provider Internal Medicine
DX: I10 Essential (primary) hypertension (principal)
CPT/HCPCS: 36415; 80061; 93005

== ENCOUNTER → 2019-01-13 | Outpatient (CLI) | payer OTHER, SELFPAY ==
[2018-12-26 16:01] VITALS: BMI 34.5
--- NOTE | 2019-01-13 16:07 | BI_ITS ---
MAMMOGRAPHY - BILATERAL SCREENING REASON FOR EXAM: Female, 63 years old. Routine annual screening examination. PERTINENT HISTORY: Aunt with breast cancer. Right breast lump. TECHNIQUE: Digital bilateral breast lashae (3D mammographic acquisition) in the CC and MLO projections. 2-D mediolateral oblique (MLO) and craniocaudad (CC) views of both breasts were obtained. CAD: Full Field Digital Mammography with Computer Added Detection was performed. COMPARISON: Comparison is made with prior study dated April 08, 2007. FINDINGS: Breast Composition: There are scattered areas of fibroglandular density. There are no dominant masses or suspicious calcifications. No other significant abnormalities are identified. There has been no significant change since the prior study. BI/SCREEN MAMM (CAD) W/LASHAE BILAT IMPRESSION: Stable bilateral screening mammogram. With the patient's history of a palpable lump in the retroareolar region of the right breast, correlation with ultrasound is recommended. ASSESSMENT CATEGORY: BIRADS Category 0: Incomplete. Need additional imaging evaluation. A letter regarding these results will be sent to the patient by the facility within 30 days. Approximately 10% of breast cancers are not detected by mammography. A normal mammogram should not delay biopsy of a clinically suspicious abnormality. [id number] Electronically Signed: Derek Gould, at 8:21 EST , Service support ,
== END | disposition home or self-care (01) ==
LOC: OPBI 16:06
PROVIDERS: Family Provider Internal Medicine; PCP Internal Medicine; Referring Provider Internal Medicine; Visit Provider Internal Medicine
DX: Z12.31 Encounter for screening mammogram for malignant neoplasm of breast (principal)
CPT/HCPCS: 77063; 77067

== ENCOUNTER → 2019-01-15 14:26 | Outpatient (CLI) | payer OTHER, SELFPAY ==
[2018-12-26 16:01] VITALS: BMI 34.5
--- NOTE | 2019-01-15 14:28 | US_ITS ---
STUDY: ULTRASOUND BREAST - RIGHT REASON FOR EXAM: Female, 63 years old. Palpable lump in the right breast. TECHNIQUE: Axial and longitudinal images of the RIGHT breast were performed with a high resolution ultrasound transducer. # OF IMAGES: 9 COMPARISON: Comparison is made with prior mammogram dated January 13, 2019. FINDINGS: RIGHT Breast: There is a 3 mm x 5 mm x 2 mm cyst at the 9:00 position of the breast at 1 cm from the nipple. US/Breast Limited Unilateral IMPRESSION: 3 mm x 5 mm x 2 mm cyst at the 9:00 position of the breast at 1 cm from nipple. ASSESSMENT CATEGORY: BIRADS Category 2: Benign. A letter regarding these results will be sent to the patient by the facility within 30 days. Electronically Signed: Derek Gould, at 13:17 EST , Service support ,
== END ==
PROVIDERS: Family Provider Internal Medicine; PCP Internal Medicine; Referring Provider Internal Medicine; Visit Provider Internal Medicine
DX: N63.10 Unspecified lump in the right breast, unspecified quadrant (principal)
CPT/HCPCS: 76642

== ENCOUNTER → 2019-01-22 17:35 | Outpatient (CLI) | payer OTHER, SELFPAY ==
[2019-01-22 16:30] VITALS: BMI 34.5
[2019-01-22 17:36] LABS: Bacteria 0 SEEN /hpf (None Seen); Mucous, Urine 0 SEEN /hpf (<or=2+); Red Blood Cells-Urine 0 SEEN /hpf (0-5)
[2019-01-22 18:24] LABS: Color, Urine Yellow (Yellow); Glucose, Dipstick Normal (Normal); Ketone-Dipstick Negative (Negative); Leukocyte Esterase-Dipstick 25 /ul (Negative); Nitrite-Dipstick Negative (Negative); Occult Blood-Urine Negative /ul (Negative); Protein-Dipstick Negative (Negative); Specific Gravity, Urine 1.015 (1.002-1.030); Urine Bilirubin Dipstick Negative (Negative); Urine Clarity Clear (Clear); Urine Urobilinogen Normal (Normal); Urine pH 6.5 (5.0 - 8.0)
[2019-01-22 18:36] LABS: Squamous Epithelial Cells - UA 0-5 SEEN /hpf (5-10); White Blood Cells 0-5 SEEN /hpf (0-5)
== END ==
PROVIDERS: Family Provider Internal Medicine; PCP Internal Medicine; Visit Provider Internal Medicine
DX: R30.0 Dysuria (principal)
CPT/HCPCS: 81001; 87086

== ENCOUNTER → 2019-01-31 08:59 | Outpatient (CLI) | payer OTHER, SELFPAY ==
[2019-01-22 16:30] VITALS: BMI 34.5
[2019-01-31 12:23] LABS: Anion Gap 1 (5-15); BUN 16 mg/dL (7-18); BUN/Creat Ratio 30.4 RATIO (10-20); Calcium,Total 8.5 mg/dL (8.5-10.1); Chloride 105 mmol/L (98-107); Creatinine, Serum 0.53 mg/dL (0.55-1.02); EST Glomerular Filtration Rate 124 mL/min (>60); Est Glom Filt Rate - Afr Amer 150 mL/min (>60); Glucose 92 mg/dL (74-106); Potassium 3.9 mmol/L (3.5-5.1); Sodium Level 139 mmol/L (136-145)
== END ==
PROVIDERS: Family Provider Internal Medicine; PCP Internal Medicine; Visit Provider Internal Medicine
DX: I10 Essential (primary) hypertension (principal)
CPT/HCPCS: 36415; 80048

== ENCOUNTER → 2019-02-11 13:36 | Outpatient (CLI) | payer OTHER, SELFPAY ==
[2019-01-22 16:30] VITALS: BMI 34.5
--- NOTE | 2019-02-11 13:54 | CT_ITS ---
STUDY: CT ABDOMEN AND PELVIS WITH CONTRAST REASON FOR EXAM: Female, 63 years old. Ileal cecal cancer. RADIATION DOSAGE (If Supplied By Facility): CTDIvol = ( 15.33 ) mGy, DLP = ( 1060.67 ) mGycm TECHNIQUE: Transaxial images were obtained from the dome of the diaphragm to the symphysis pubis with oral contrast. 100ML ISOVUE 370 was administered. Sagittal and coronal images were reconstructed. Individualized dose optimization techniques were used for this CT. COMPARISON: None. FINDINGS: The visualized lung bases are unremarkable. The visualized portions of the heart are within normal limits. Normal liver. There are surgical clips in the gallbladder fossa consistent with a prior cholecystectomy. Normal spleen. Normal pancreas. Normal bilateral adrenal glands. No acute abnormalities of the kidneys. Very numerous small bilateral renal cysts. No hydronephrosis. No gross stones. Symmetric contrast enhancement. Normal visualized stomach. Normal small intestine. Normal colon. There may be thickening in the area of the ileocecal valve which could represent the neoplasm found on colonoscopy, but there is no adnexal mass. No evidence for local invasion or adenopathy. The appendix is visualized and appears normal. There is diffuse atherosclerotic calcification of the abdominal aorta, without a demonstrated aneurysm. Normal inferior vena cava. Normal retroperitoneum. Nondistended urinary bladder. There is absence of the uterus consistent with a prior hysterectomy. Normal abdominal wall. Normal osseous structures. CT/Abdomen/Pelvis WITH Contrast IMPRESSION: No definite acute abnormality. Possible thickening in the area of the ileocecal valve, but no actual mass or local invasion. Correlate with colonoscopy findings. Electronically Signed: David Shi MD at 21:32 EST , Service support ,
[2019-02-11 14:49] LABS: Hematocrit 38.9 % (37-47); Hemoglobin 11.7 g/dL (12.0-15.0); Mean Corp Hgb Conc 30.1 g/dL (32-36); Mean Corpuscular Hgb 22.4 pg (27.0-32.0); Mean Corpuscular Volume 74.4 fL (81-99); Mean Platelet Vol. 9.2 fl (6.2-12.0); Platelet Count 387 K/mm3 (150-450); Red Blood Count 5.23 M/mm3 (4.2-5.4); White Blood Count 8.7 K/mm3 (4.4-11.0)
[2019-02-11 15:15] LABS: ALB/GLOB Ratio 1.1 RATIO (0.9-2.4); AST(SGOT) 19 U/L (15-37); Alanine Aminotransfer ALT/SGPT 19 U/L (13-56); Albumin, Serum 4.2 g/dL (3.2-5.0); Alkaline Phosphatase 85 U/L (45-117); Anion Gap 4 (5-15); BUN 11 mg/dL (7-18); BUN/Creat Ratio 15.9 RATIO (10-20); Chloride 98 mmol/L (98-107); Creatinine, Serum 0.69 mg/dL (0.55-1.02); EST Glomerular Filtration Rate 91 mL/min (>60); Est Glom Filt Rate - Afr Amer 110 mL/min (>60); Globulin 3.9 g/dL (2.2-4.2); Glucose 90 mg/dL (74-106); Potassium 3.9 mmol/L (3.5-5.1); Protein, Total 8.1 g/dL (6.4-8.2); Sodium Level 134 mmol/L (136-145)
[2019-02-13 14:05] LABS: Carcinoembryonic Antigen 4.7 ng/mL (0.0-4.7)
== END ==
PROVIDERS: Family Provider Internal Medicine; PCP Internal Medicine; Referring Provider Colon & Rectal Surgery; Visit Provider Colon & Rectal Surgery
DX: C18.0 Malignant neoplasm of cecum (principal)
CPT/HCPCS: 36415; 74177; 80053; 82378; 85027; Q9967

== ENCOUNTER → 2019-02-20 23:12 | Outpatient (CLI) | payer OTHER, SELFPAY ==
[2019-01-22 16:30] VITALS: BMI 34.5
== END ==
PROVIDERS: Family Provider Internal Medicine; PCP Internal Medicine; Referring Provider Internal Medicine; Visit Provider Internal Medicine
DX: G47.30 Sleep apnea, unspecified (principal)
CPT/HCPCS: 95811

== ENCOUNTER → 2019-02-25 12:32 | Outpatient (CLI) | payer OTHER, SELFPAY ==
[2019-01-22 16:30] VITALS: BMI 34.5
--- NOTE | 2019-02-25 12:36 | ECHOD_ITS ---
Reason For Study: MURMUR Procedure This was a 2D Doppler, Color Flow transthoracic echocardiogram. The study was technically difficult. Exam performed in department. Left Ventricle Normal LV size. Mild concentric left ventricular hypertrophy. Left ventricular systolic function is normal. The estimated ejection fraction is 70 %. Diastolic function is indeterminate. No regional wall motion abnormalities noted. Right Ventricle Normal RV size. Normal systolic function. Atria Normal left atrium. Normal right atrium. No doppler evidence for ASD. Mitral Valve There is mild to moderate mitral annular calcification. Extension of the mitral annular calcification onto the base of the posterior mitral valve leaflet. Mild focal mitral valve calcification of the anterior leaflet. Mild (1+) mitral valve insufficiency. Tricuspid Valve Normal tricuspid valve. Trivial tricuspid valve insufficiency. Right ventricular systolic pressure estimated to be 17 mmHg. Aortic Valve Trisinus/trileaflet aortic valve. Mild focal aortic valve thickening. Mild focal aortic valve calcification. Mild aortic stenosis. Pulmonic Valve The pulmonic valve is not well visualized. Trivial pulmonic valve insufficiency. Great Vessels Normal sized aortic root. Pericardium/Pleural No pericardial effusion. MMode/2D Measurements & Calculations LVIDd: 3.9 cm IVSd: 1.4 cm LVOT diam: 2.0 cm LVIDs: 1.8 cm LVPWd: 1.4 cm LVOT area: 3.2 cm2 RVDd: 3.2 cm FS: 52.6 % Ao root diam: 3.0 cm LAV(MOD-bp): 32.7 ml Aortic Valve Planimetry: 1.7 cm2 LAV(MOD-bp) Indexed: 17.5 ml/m2 LAV(MOD-sp2): 39.6 ml LAV(MOD-sp4): 23.4 ml LA dimension(2D): 3.7 cm LA A4 area: 11.1 cm2 RA A4 area: 10.8 cm2 Time Measurements MV dec time: 0.34 sec Doppler Measurements & Calculations MV E max jhonathan: 69.5 cm/sec Lat Peak E' Jhonathan: 8.0 cm/sec Med Peak E' Jhonathan: 3.9 cm/sec MV A max jhonathan: 95.2 cm/sec E/E' lat: 8.7 E/E' med: 18.0 MV E/A: 0.73 Ao V2 max: 213.0 cm/sec LV V1 max: 115.2 cm/sec SV(LVOT): 71.7 ml Ao max P.2 mmHg LV V1 max P.3 mmHg Ao V2 mean: 160.8 cm/sec LV V1 mean P.9 mmHg Ao mean P.1 mmHg LV V1 mean: 81.1 cm/sec Ao V2 VTI: 43.0 cm LV V1 VTI: 22.8 cm XIOMY(I,D): 1.7 cm2 XIOMY(V,D): 1.7 cm2 PA V2 max: 113.6 cm/sec TR max jhonathan: 187.0 cm/sec TR max P.0 mmHg Interpretation Summary The study was technically difficult. Left ventricular systolic function is normal. The estimated ejection fraction is 70 %. Mild concentric left ventricular hypertrophy. There is mild to moderate mitral annular calcification. Extension of the mitral annular calcification onto the base of the posterior mitral valve leaflet. Mild focal mitral valve calcification of the anterior leaflet. Mild (1+) mitral valve insufficiency. Trivial tricuspid valve insufficiency. Mild aortic stenosis. Trivial pulmonic valve insufficiency. Right ventricular systolic pressure estimated to be 17 mmHg. Diastolic function is indeterminate. Ordering Physician: Efren Prescott Referring Physician: Adam Husain Performed By: Yokasta Arriaza, IGLESIA, RVT
== END ==
PROVIDERS: Family Provider Internal Medicine; PCP Internal Medicine; Referring Provider Colon & Rectal Surgery; Visit Provider Colon & Rectal Surgery
DX: R01.1 Cardiac murmur, unspecified (principal)
CPT/HCPCS: 93306

== ENCOUNTER → 2019-04-09 | Outpatient (CLI) | payer OTHER, SELFPAY ==
[2019-03-26 15:56] VITALS: BMI 33.0
== END | disposition home or self-care (01) ==
PROVIDERS: PCP Internal Medicine; Referring Provider Nurse Practitioner Acute Care; Visit Provider Nurse Practitioner Acute Care
DX: J45.909 Unspecified asthma, uncomplicated (principal)
CPT/HCPCS: 87633

== ENCOUNTER → 2019-06-18 08:24 | Outpatient (CLI) | payer MEDICARE, OTHER, SELFPAY ==
[2019-03-17 09:08] VITALS: BMI 33.0
[2019-03-26 15:56] VITALS: BMI 33.0
--- NOTE | 2019-06-19 08:03 | PFT ---
INTRODUCTION: The patient is a 64-year-old female that presents for pulmonary function studies secondary to a diagnosis of asthma. Respiratory therapy reports good patient effort. Bronchodilators were used during testing. INTERPRETATION: Forced expiration spirometry demonstrates the presence of a mild large airways obstructive ventilatory defect. There was a significant response to aerosolized bronchodilators noted both in FEV1 and FVC. Spirograms are of good quality and plateau normally. Body plethysmography was performed and reveals lung volumes to be within normal limits. Diffusing capacity by single breath CO is also within normal limits. IMPRESSION: Fully reversible mild large airways obstructive ventilatory defect with preserved lung volumes and diffusing capacity, consistent with a diagnosis of asthma.
== END ==
PROVIDERS: PCP Internal Medicine; Referring Provider Nurse Practitioner Acute Care; Visit Provider Nurse Practitioner Acute Care
DX: J45.909 Unspecified asthma, uncomplicated (principal)
CPT/HCPCS: 94060; 94726; 94729

== ENCOUNTER → 2019-08-27 | Outpatient (CLI) | payer MEDICARE, OTHER, SELFPAY ==
[2019-08-27 10:43] VITALS: BMI 33.0
--- NOTE | 2019-08-27 11:48 | RAD_ITS ---
STUDY: X-RAY - PELVIS AND LEFT HIP REASON FOR EXAM: Left hip pain, mostly posterior, for one year, no specific injury. TECHNIQUE: 2 views of the pelvis and hip. COMPARISON: None. FINDINGS: There are pelvic phleboliths. There is enthesopathy of the left greater trochanter. Normal bilateral iliac wings, sacroiliac joints and visualized sacrum. Normal bilateral superior and inferior pubic rami. Normal pubic symphysis. Normal bilateral ischial tuberosities. Normal visualized femoral head. Normal acetabulum. There are marginal osteophytes of the left femoral head and medial left hip joint space narrowing. RAD/HIP, UNI W/ Pelvis 2-3 Views IMPRESSION: Left hip arthrosis. Electronically Signed: Dimas Olivas MD at 14:33 EDT Tel , Service support ,
[2019-08-27 12:40] LABS: Hemoglobin 13.2 g/dL (12.0-15.0); Mean Corp Hgb Conc 30.7 g/dL (32-36); Mean Corpuscular Hgb 25.4 pg (27.0-32.0); Mean Corpuscular Volume 82.9 fL (81-99); Mean Platelet Vol. 9.9 fl (6.2-12.0); Platelet Count 276 K/mm3 (150-450); RBC Distribution Width CV 15.8 % (11.6-14.6); RBC Distribution Width SD 45.5 fl (35.1-43.9); Red Blood Count 5.19 M/mm3 (4.2-5.4); White Blood Count 6.7 K/mm3 (4.4-11.0)
[2019-08-27 12:42] LABS: Erythrocyte Sedimentation Rate 11 mm/hr (0-30)
[2019-08-27 13:29] LABS: CRP 4.78 mg/L (0.0-3.0); Rheumatoid Factor < 10.0 IU/mL (<15)
[2019-08-27 13:30] LABS: ALB/GLOB Ratio 1.2 RATIO (0.9-2.4); AST(SGOT) 22 U/L (15-37); Alanine Aminotransfer ALT/SGPT 20 U/L (13-56); Albumin, Serum 4.3 g/dL (3.2-5.0); Alkaline Phosphatase 85 U/L (45-117); Anion Gap 8 (5-15); BUN 21 mg/dL (7-18); BUN/Creat Ratio 31.5 RATIO (10-20); Calcium,Total 8.9 mg/dL (8.5-10.1); Chloride 98 mmol/L (98-107); Creatinine, Serum 0.67 mg/dL (0.55-1.02); EST Glomerular Filtration Rate 95 mL/min (>60); Est Glom Filt Rate - Afr Amer 114 mL/min (>60); Globulin 3.6 g/dL (2.2-4.2); Glucose 92 mg/dL (74-106); Potassium 4.2 mmol/L (3.5-5.1); Protein, Total 7.9 g/dL (6.4-8.2); Sodium Level 136 mmol/L (136-145)
[2019-08-30 16:10] LABS: Carcinoembryonic Antigen 1.3 ng/mL (0.0-4.7)
== END | disposition home or self-care (01) ==
PROVIDERS: Colon & Rectal Surgery; PCP Internal Medicine; Referring Provider Internal Medicine; Visit Provider Internal Medicine
DX: M19.90 Unspecified osteoarthritis, unspecified site (principal); M25.552 Pain in left hip; Z85.038 Personal history of other malignant neoplasm of large intestine
CPT/HCPCS: 36415; 73502; 80053; 82378; 85027; 85652; 86140; 86431

== ENCOUNTER → 2019-09-08 | Outpatient (CLI) | payer MEDICARE, OTHER, SELFPAY ==
[2019-08-27 10:43] VITALS: BMI 33.0
--- NOTE | 2019-09-08 12:22 | RAD_ITS ---
STUDY: X-RAY - LUMBAR SPINE REASON FOR EXAM: Female, 64 years old. LEFT HIP PAIN RADIATING DOWN LEG TECHNIQUE: 3 view(s) of the lumbar spine were obtained. COMPARISON: None FINDINGS: Normal lumbar lordosis. There is no substantial scoliosis. There is a grade 1 anterolisthesis of L4 relative to L5. There is diffuse demineralization with multi-level endplate spondylosis. There is narrowing of the L4-5 and L5-S1 disc spaces. There are calcified plaques of the abdominal aorta and common iliac arteries. RAD/Lumbar Spine 2 or 3 Views IMPRESSION: Degenerative changes of the spine, as detailed above. Grade 1 anterolisthesis of L4 relative to L5. Electronically Signed: Bjorn Rios MD at 23:47 EDT , Service support ,
== END | disposition home or self-care (01) ==
LOC: RAD 12:20
PROVIDERS: PCP Internal Medicine; Referring Provider Anesthesiology Pain Medicine; Visit Provider Anesthesiology Pain Medicine
DX: M54.5 Low back pain (principal)
CPT/HCPCS: 72100

== ENCOUNTER → 2019-11-27 | Outpatient (CLI) | payer MEDICARE, OTHER, SELFPAY ==
[2019-11-26 09:05] VITALS: BMI 33.0
--- NOTE | 2019-11-27 16:08 | CT_ITS ---
STUDY: CT ABDOMEN AND PELVIS WITH CONTRAST REASON FOR EXAM: Female, 64 years old. ABDOMINAL PAIN. hx of colon ca RADIATION DOSAGE (If Supplied By Facility): CTDIvol = ( 16.64 ) mGy, DLP = ( 1129.56 ) mGycm TECHNIQUE: Transaxial images were obtained from the dome of the diaphragm to the symphysis pubis with oral contrast. Oral and IV Readi-CAT and 100mL Isovue-300 was administered. Sagittal and coronal images were reconstructed. Individualized dose optimization techniques were used for this CT. COMPARISON: 02/11/2019 FINDINGS: The visualized lung bases are unremarkable. The visualized portions of the heart are within normal limits. Normal liver. There are surgical clips in the gallbladder fossa consistent with a prior cholecystectomy. Normal spleen. Normal pancreas. Normal bilateral adrenal glands. Normal right kidney. Normal left kidney. Normal visualized stomach. Normal small intestine. Normal colon. There is non-visualization of the appendix. Normal abdominal aorta. Normal inferior vena cava. Normal retroperitoneum. Normal urinary bladder. Moderate-sized umbilical hernia containing fat and a short segment of small bowel without bowel obstruction. Normal osseous structures. CT/Abdomen/Pelvis WITH Contrast IMPRESSION: No acute abnormality. Electronically Signed: Cristi Gillespie MD at 17:07 EDT Tel , Service support ,
[2019-11-27 16:10] LABS: CREATININE FINGERSTICK < 0.6 mg/dL (0.55-1.02); EGFR FINGERSTICK > 60.0000 mL/min (>60)
== END | disposition home or self-care (01) ==
LOC: CT 15:40
PROVIDERS: PCP Internal Medicine; Referring Provider Nurse Practitioner Family; Visit Provider Nurse Practitioner Family
DX: C18.9 Malignant neoplasm of colon, unspecified (principal); K46.9 Unspecified abdominal hernia without obstruction or gangrene; R10.9 Unspecified abdominal pain
CPT/HCPCS: 74177; Q9967

== ENCOUNTER 2019-12-19 12:00 | Outpatient (RCR) | payer MEDICARE, OTHER, SELFPAY ==
[2019-11-26 09:05] VITALS: BMI 33.0
--- NOTE | 2019-12-05 15:44 | HP.PTEVAL_ITS ---
Patient's Visit Information ELIS MCARTHUR is a 64 year old F referred to Physical Therapy by Dr. Juanjo Carpenter MD with a diagnosis of BACK PAIN AND HIP PAIN. Date of Evaluation: 12/05/19 Physical Therapist: Samy Olivarez PT, Cert MDT, OCS - Visit Plan Frequency: 1-2x /Week Duration: 2-4 Weeks Plan: PT INTERVETIONS FOCUS ON HEP FOR DLS,POSTURAL EX'S,ROM HIP AND STRENGTHENING. WILL RECHECK IN 2 WEEKS FOR HEP - Subjective This 64 y/o female presents with physical therapy with hip and back pain.Patient has hip pain for about 1 year and back pain many years but has been intermttant. Patient location of hip pain in groin region and L-S symmtrical. Patient seen DR Whitt did injection in hip. Prescribed melocicam. Did x-rays in hip spurs and DDD in lumbar .Patient has lateral thigh parathesia.Aggraveting walking,standing,carry buckets ,bending lifting. Alleviation factors sitting,resting. Patient sleeping is affects . Patient has no trauma except fx sacral. Bowel/bladder -. Coughing/sneezing-. 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 SOCAIL: . 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 GAIT: reciprocal pattern,antalgic left leg. NEURO: parathesia left lateral thigh,reflexes L3-4,L4-5,L5-S1 1/3. PROM HIP: hip flexion 100 degrees ,ER 25 degrees,IR 45 degrees,hip abd 35 degrees. LUMBAR ROM: flexion min loss,extension min loss,side glides min loss. MMT: quads/hams 4/5,hip flexion /abd 4-/5,ankle 5/5 - Special Tests L/S Slump test left side: Negative L/S Slump test right side: Negative L/S Left Straight Leg Raise: Negative L/S Right Straight Leg Raise: Negative Lumbar Standing: Flexion - Mechanical Response: No effect Lumbar Standing: Flexion - Symptoms During Testing: No effect Lumbar Standing: Flexion - Symptoms After Testing: No effect Lumbar Standing: Extension - Mechanical Response: No effect Lumbar Standing: Extension - Symptoms During Testing: Increases Lumbar Standing: Extension - Symptoms After Testing: Worse Lumbar Standing: Right Side Glides - Mechanical Response: No effect Lumbar Standing: Right Side Barlow - Symptoms During Testing: No effect Lumbar Standing: Right Side Barlow - Symptoms After Testing: No effect Lumbar Standing: Left Side Barlow - Mechanical Response: No effect Lumbar Standing: Left Side Barlow - Symptoms During Testing: No effect Lumbar Standing: Left Side Barlow - Symptoms After Testing: No effect L Hip Scour: Positive L Hip Quadrant - Intraarticular Pathology: Negative L Hip FADDIR - Labrum: Negative L Hip Trendelenberg - Glut Medius: Negative L Hip Allyn - IT Band: Negative L Hip Resisted Exernal Derotation Test - GT Pain Syndrome: Positive - Goals Goal 1:: Patient to be I with HEP Goal Time Frame: 4-6 Weeks Goal 2:: Patient to improve gait pattern with less antalgic gait by 75% or > to improve function. Goal Time Frame: 4-6 Weeks Goal 3:: Patient decrease hip and back by 50% or > to improve function with walking and standing Goal Time Frame: 4-6 Weeks Goal 4:: Patient to improve hip and lumbar ROM for function of recovery with less pain. Goal Time Frame: 4-6 Weeks Goal 5:: Patient to improve LFES score 5 points or > to improve function and ADL'S Goal Time Frame: 4-6 Weeks - Rehabilitation Potential Physical Therapy Diagnosis: Patient has left hip pain with x-rays showing narrowing and osteophytes with decrease ROM ,decrease strength and antalgic gait along with lumbar pain affects ADL's and function thus benifit from skilled PT Rehabilitation Potential: Good - Anticipated Interventions Patient/Client Instruction: Educate patient on: Condition, Plan of Care For the Purpose of:: To decrease pain, To increase ROM, To improve muscle performance and motor function, To increase tolerance to activity/condition/position, To improve performance and independence with ADL's, To improve ability of physical actions for home/community/work/leisure, To improve gait and locomotor functions, To improve health of tissue, To decrease soft tissue restriction, To increase flexibility/ROM, To improve ability to perform tasks related to life management Therapeutic Exercise to Include: Strength training, Endurance training, Flexibilty training, Active ROM, Dynamic Lumbar Stabilization For the Purpose of:: To decrease pain, To increase ROM, To improve muscle performance and motor function, To increase tolerance to activity/condition/position, To improve ability of physical actions for home/community/work/leisure, To improve health of tissue, To decrease soft tissue restriction, To increase flexibility/ROM, To reduce risk of recurrence, To improve ability to perform tasks related to life management Thank you for the opportunity to evaluate your patient. For Medicare and Medicare HMO plans, please review the plan of care and approve it. It will need to be FAXED BACK to us at [phone] for Medicare purposes. For Medicare only, by signing this I certify the plan of care. Please let me know if there are questions or concerns regarding this plan of care. Physician Signature: Date:
--- NOTE | 2019-12-19 12:27 | HP.PTDCSUM ---
It has been my pleasure to treat ELIS MCARTHUR referred by Dr. Juanjo Carpenter MD, with the diagnosis of BACK PAIN AND HIP PAIN for a total of 2 visit(s). Discharge Date: 12/19/19 Please see the following information for a summary of their discharge status. Subjective: Patient plans to have abdomiinal surgery for hernia. THus had to modified ex's with no abdominal activation Bilateral Back Pain Intensity (Out of 10): 2 Right Hip Pain Intensity (Out of 10): 2 % Improvement: 25 Objective/Function: POSTURE: MILD FOWARD POSTURE. GAIT: RECIPRACLA PATTERN. MMT: 4/5,hips 4-/5 Goal 1:: Patient to be I with HEP Goal Progress: Progressing Goal 2:: Patient to improve gait pattern with less antalgic gait by 75% or > to improve function. Goal Progress: Progressing Goal 3:: Patient decrease hip and back by 50% or > to improve function with walking and standing Goal Progress: Progressing Goal 4:: Patient to improve hip and lumbar ROM for function of recovery with less pain. Goal Progress: Progressing Goal 5:: Patient to improve LFES score 5 points or > to improve function and ADL'S Goal Progress: Progressing Plan: D/C Discharge Comments: d/c from abdominal surgery If there are questions or concerns regarding this patient's physical therapy, please feel free to call me at [phone]. Thank you for the referral of this patient. Sincerely, Samy Olivarez, PT, Cert MDT, OCS
== END 2019-12-19 19:00 | disposition home or self-care (01) ==
LOC: PT 12:00
PROVIDERS: PCP Internal Medicine; Referring Provider Anesthesiology Pain Medicine; Visit Provider Anesthesiology Pain Medicine
DX: M54.9 Dorsalgia, unspecified (principal); M25.559 Pain in unspecified hip
CPT/HCPCS: 97110; 97162; 97164

== ENCOUNTER 2020-01-19 09:43 | Inpatient (IN) | payer MEDICARE, OTHER, SELFPAY ==
[2019-12-18 07:57] VITALS: BMI 35.9
--- NOTE | 2020-01-07 10:30 | EKG12_ITS ---
Test Reason : PRE OP Blood Pressure : / mmHG Vent. Rate : 070 BPM Atrial Rate : 070 BPM P-R Int : 136 ms QRS Dur : 092 ms QT Int : 388 ms P-R-T Axes : 031 054 054 degrees QTc Int : 419 ms Normal sinus rhythm Normal ECG Confirmed by NUBIA SINGH, GREGG ([id number]), editor city MEGAN GARSIA ([id number]) on 01/08/2020 12:53:02 PM Referred By: Chase Wooetn Confirmed By:GREGG DELACRUZ MD
[2020-01-07 11:18] LABS: Hematocrit 46.1 % (37-47); Hemoglobin 14.7 g/dL (12.0-15.0); Mean Corp Hgb Conc 31.9 g/dL (32-36); Mean Corpuscular Volume 84.7 fL (81-99); Mean Platelet Vol. 9.3 fl (6.2-12.0); Platelet Count 292 K/mm3 (150-450); RBC Distribution Width CV 13.9 % (11.6-14.6); RBC Distribution Width SD 42.8 fl (35.1-43.9); Red Blood Count 5.44 M/mm3 (4.2-5.4); White Blood Count 7.8 K/mm3 (4.4-11.0)
[2020-01-07 11:42] LABS: Anion Gap 6 (5-15); BUN 19 mg/dL (7-18); BUN/Creat Ratio 28.9 RATIO (10-20); Chloride 104 mmol/L (98-107); Creatinine, Serum 0.66 mg/dL (0.55-1.02); EST Glomerular Filtration Rate 96 mL/min (>60); Est Glom Filt Rate - Afr Amer 116 mL/min (>60); Glucose 91 mg/dL (74-106); Sodium Level 140 mmol/L (136-145)
[2020-01-19] VITALS (11 sets, daily range): BP systolic 96–148; BP diastolic 51–88; PULSE 62–92; RESP 16–18; TEMP 36.1–37.3; O2SAT 94–100; BMI 35.6; BMI 38.0
--- NOTE | 2020-01-19 | HERN_PTH ---
PATIENT: ELIS MCARTHUR LOC: MS3 U#:[id number] AGE/SX: 64/F ROOM: NH318 RE01/20/[address]: Dr. Chase Wooten MD : [id number] BED: 1 DIS: 01/21/2020 SPEC #: [id number] RECD: 01/19/20 11:16 STATUS: RIKI REAdolfo #: [id number] ENID: 01/19/20 00:[address]: Chase Wooten DEPT: SURGICAL PATHOLOGY RECD BY: Rudy Do ENTERED: 01/19/20 11:16 SP TYPE: Hernia OTHR DR: Dr. Adam Husain MD Tissues: HERNIA Procedures: Surgery Specimen Level II HEADER OPERATION: ERAS, open with conversion to laparoscopic incisional ventral PRE-OP DIAGNOSIS: Ventral incisional hernia TISSUE SUBMITTED: Incisional ventral hernia sac and skin MICROSCOPIC DIAGNOSIS Soft tissue of ventral abdomen, excision: Skin with chronic inflammation and suture granulomas. Hernia sac with fibrosis and mild chronic inflammation. AM:johann 01/20/20 MICROSCOPIC DESCRIPTION Slides are reviewed. GROSS DESCRIPTION Received in fixative is one container labeled with the patient's name and designated incisional ventral hernia sac and skin. The specimen consists of an irregular fragment of elongated light kumar skin measuring 5.2 x 0.5 cm. Attached to this is an irregular fragment of pink-kumar soft tissue that on sectioning does not reveal mass lesions. Also present in the specimen container is an irregular fragment of pink-kumar fibrofatty tissue measuring 4 cm in length and 0.2 cm in average diameter. The fragment of skin measures 6.5 x 4 x 2 cm. Rn Surgery sections are submitted in one cassette. / AM:johann 01/19/20 TC:3 CPT: 95751
--- NOTE | 2020-01-19 06:15 | PCM.HP.BLA ---
Problem List (1) Ventral incisional hernia without obstruction or gangrene Status: Acute History and Physical Date of Admission: 01/19/20 Intake Visit Reasons: UMBILICAL HERNIA Chief Complaint: hernia [employer] Required: No Is patient in pain?: No Allergies codeine Allergy (Verified 12/18/19 07:58) Vomiting Medications aspirin 81 mg tablet,delayed release 81 mg PO DAILY 12/17/18 [History Confirmed 12/18/19] krill oil 500 mg capsule mg PO cap 12/17/18 [History Confirmed 12/18/19] albuterol sulfate 90 mcg/actuation aerosol inhaler 2 puff INHALATION Q6H PRN 12/26/18 [History Confirmed 12/18/19] blood pressure monitor See Rx Instructions .ROUTE .MEDSUPPLY #1 ea 12/26/18 [Rx Confirmed 12/18/19] hydrochlorothiazide 25 mg tablet 25 mg PO DAILY #90 tab 02/25/19 [Rx Confirmed 12/18/19] naproxen 500 mg tablet 500 mg PO BID PRN #180 tab 06/25/19 [Rx Confirmed 12/18/19] albuterol sulfate 90 mcg/actuation aerosol inhaler 2 puff INHALATION Q4H PRN #3 ea 07/30/19 [Rx Confirmed 12/18/19] losartan 100 mg tablet 100 mg PO DAILY #90 tab 08/27/19 [Rx Confirmed 12/18/19] amlodipine 5 mg tablet 5 mg PO DAILY #90 tab 10/03/19 [Rx Confirmed 12/18/19] loratadine 10 mg tablet 10 mg PO DAILY 11/26/19 [History Confirmed 12/18/19] PENDING SALE TO [facility] Medical History (Updated 12/18/19 @ 16:[address] Chase Wooten MD) Ventral incisional hernia without obstruction or gangrene (Acute) High blood pressure (Chronic) Frequent headaches (Chronic) Chronic bronchitis (Chronic) UTI (urinary tract infection) (Resolved) Arthritis (Chronic) Shortness of breath (Acute) Hay fever (Chronic) Stomach ulcer (Acute) Stroke (Acute) Asthma (Chronic) Difficulty balancing (Acute) Neck pain (Chronic) Colon cancer (Acute) removal of ascending colon (Acute) Surgical History (Updated 12/18/19 @ 07:56 by Krystin Franks) S/P colectomy (Acute) History of cystocele (Acute) History of ankle surgery (Acute) History of cholecystectomy (Acute) History of hysterectomy (Acute) History of tonsillectomy (Acute) Family History Mother Arthritis Parkinson disease Hypertension Father Heart disease Hypertension Social History (Updated 12/18/19 @ 16:[address] Cahse Wooten MD) Smoking Status: Never smoker alcohol intake: never substance use type: does not use what type of physical activity do you participate in: none HPI HPI HPI: ELIS MCARTHUR, is a 64 F who presents to the office today for surgical consultation regarding a ventral incisional hernia. The patient is referred by her primary care physician Dr. Husain and a written copy my surgical consult recommendations will return to her. Patient apparently had a colonoscopy done by Dr. Kwame Castaneda then was referred to Dr. Prescott. Apparently he did an open right colectomy February 2019. This was for stage II colon cancer. The patient did not require additional treatment. Unfortunately the patient has had a complete dehiscence of her abdominal incision. She has had a remote cholecystectomy in the year 1999. She had a CT scan done of the abdomen at the [facility] November 27, 2019. This suggested a moderate sized umbilical hernia containing fat and short segment of small bowel. However on my review the patient actually has complete disruption of her ventral incision. She had a vertical supraumbilical midline incision. The patient is noted to be 203 pounds with a BMI of 35.9. 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 She has to do significant lifting and straining. She was instructed immediately after her colon surgery that she could lift up to 40 pounds. HPI HPI HPI: ELIS MCARTHUR, is a 64 F who presents to the office today for ROS General General: Yes weight change, fatigue and colon cancer; no appetite, breast cancer or weakness HEENT HEENT: No difficulty swallowing, eye injury, eye surgery, swollen glands or hoarseness Endo Endocrine: No thyroid disease, diabetes mellitus, thyroid cancer, Hair loss, heat intolerance or cold intolerance Skin Skin: No rash or changing moles Breast Breast: No left breast lump, right breast lump, nipple discharge, breast pain, abnormal mammogram, abnormal US or breast enlargement Musc Musculoskeletal: Yes back problems and arthritis; no rheumatoid arthritis, gout or joint pain Cardio Cardiovascular: Yes murmur and high blood pressure; no pacemaker, heart disease, atrial fibrillation, heart attack, heart stent, palpitations, shortness of breat with exertion or chest pain Psych Psychiatric: No depression, anxiety or hearing voices Resp Respiratory: No shortness of breath, Yes sleep apnea, Yes cough, No COPD, Yes asthma, No emphysema, No wheezing Gastro Gastrointestinal: No abdominal pain, No nausea or vomiting, Yes diarrhea, Yes constipation, No blood in stool, Yes acid reflux, No hemorrhoids, No ulcers, No gallbladder problem, No black,tarry stools Josesito Hematologic: No blood thinners, No blood disorders, No bleeding, No anemia, No blood clots Neuro Neurologic: No system reviewed and no additional complaints, except as docu, No as per HPI, No abnormal walking, No abnormal hearing, No abnormal movements, No abnormal speech, No behavioral changes, No burning sensations, No confusion, No seizure-like activity, No unsteadiness, No dizziness, No localized weakness, No frequent falls, No headache(s), No lack of coordination, No loss of vision, No memory loss, Yes numbness, No other visual disturbances, No radiating pain, No restless legs, No sensory deficit, No fainting, Yes tingling, No tremor(s), No weakness, No other Exam Const General: cooperative, comfortable, no acute distress Nutritional Appearance: obese Orientation: alert, awake [facility] Head: normal to inspection Eyes General: appearance normal, both eyes and all related structures Neck Neck: normal visual inspection Chest Breast Palpation: No nipple discharge Resp Effort & Inspection: normal respiratory effort Auscultation: clear to auscultation bilaterally Cardio Rate: regular rate Rhythm: regular rhythm Heart Sounds: murmur GI Other: Supraumbilical midline incision almost toward the xiphoid. Complete disruption of the repair with a large ventral hernia. Fascial defect noted. No hepatomegaly. Nontender. Bowel sounds present unremarkable. Other: Groin solid Musc Cervical Spine: normal cervical lordosis Skin General: no rashes or lesions noted Neuro Cognition: normal cognition Extrem General: no calf tenderness Psych Affect: normal affect Assessment & Plan Problems 1. Ventral incisional hernia without obstruction or gangrene K43.2 Plan Postoperative ventral incisional hernia related to outside hospital open right colectomy. I discussed with the patient recommendations for hybrid approach. I would want to get clean uncomplicated access to the abdomen through a small vertical incision likely close to the umbilicus. I then anticipate converting to a laparoscopic approach. I anticipate approximation of the fascia and then likely placement of mesh in a laparoscopic fashion. I have extensively discussed with her technique, benefit, risk, alternatives. The patient is aware that her body habitus does place her at increased risk. I would anticipate performing a tap block at the same time to facilitate her comfort. I anticipate using components of an ERAS technique to facilitate her recovery. She has had an opportunity to ask and have questions answered. We will schedule procedure at her discretion. I anticipate utilizing abdominal binder post procedure and she will have an extended weight lifting restriction. I appreciate the opportunity of assisting with her surgical care. We will schedule procedure at her discretion. Copy: Dr. Adam Wooten M.D., F.A.C.S. Coding Level of Care Code 59044 Diagnoses Ventral incisional hernia without obstruction or gangrene K43.2 Patient denies any changes in her health or wellbeing. She has not had any episodes of bowel obstruction. She otherwise states that she feels well. She has had an additional opportunity to ask and have questions answered. We will proceed with hybrid open and laparoscopic ventral incisional herniorrhaphy. We will utilize a ERAS technique Chase Wooten M.D., F.A.C.S. Procedure Criteria Procedure Type: Elective COVID Risk Discussion: The surgeon/proceduralist and patient have discussed in detail the risk of exposure to and/or potential harm posed by the COVID-19 virus with having a surgery/procedure at this time versus the risk of delaying the surgery/procedure. It is not possible to know either the risk of delaying the surgery or procedure or chance of getting an infection with perfect accuracy, but a joint decision was made between the patient and the surgeon/proceduralist to proceed at this time with the scheduled surgery/procedure as indicated on the consent form.
--- NOTE | 2020-01-19 06:18 | DCINST_ITS ---
Discharge Diet: Light diet - advance as tolerated - if you have questions about your diet instructions, please talk to you doctor. Discharge Activity: May Not Drive - for 1 week or while taking narcotic pain medicine. May shower in (days): 1 Lifting Restrictions: 10 pounds Call your doctor if your incision/area has: Continuous Slow Oozing, Sudden Increased Bleeding, Increased Pain/ Swelling, Increased Redness, Foul Smelling Discharge Call your doctor if you observe: Fever of 101 or Higher Suture Line Care: Avoid Pulling/Pushing, Avoid Pinching/Bending Additional Dressing/Incision Instructions:: Change or remove dressing in 2 days. Leave steri-strips in place for 1 week. Allergies/Adverse Reactions: Allergies codeine Allergy (Verified 01/02/20 13:52) Vomiting hydroxyzine [From Vistaril] Adverse Reaction (Verified 01/02/20 14:17) Vomiting meperidine [From Demerol] Adverse Reaction (Verified 01/02/20 14:17) Vomiting PAIN MEDS Adverse Reaction (Uncoded 01/02/20 14:17) Vomiting Medications to take at Discharge aspirin 81 mg tablet,delayed release 81 mg PO DAILY 12/17/18 krill oil 500 mg capsule 500 mg PO DAILY cap 12/17/18 hydrochlorothiazide 25 mg tablet 25 mg PO DAILY #90 tab 02/25/19 naproxen 500 mg tablet 500 mg PO BID PRN #180 tab 06/25/19 albuterol sulfate 90 mcg/actuation aerosol inhaler 2 puff INHALATION Q4H PRN #3 ea 07/30/19 losartan 100 mg tablet 100 mg PO DAILY #90 tab 08/27/19 amlodipine 5 mg tablet 5 mg PO DAILY #90 tab 10/03/19 loratadine 10 mg tablet 10 mg PO DAILY 11/26/19 Meloxicam [Mobic] 7.5 mg PO DAILY 01/02/20 Primary Care Physician: Adam Husain MD [Primary Care Provider] - Test Results: Test results from this visit will be discussed in further detail at your follow- up appointment, if applicable. Please Follow Up With: Chase Wooten MD - [phone] When: Call for appt. May be virtual or phone or onsite
[2020-01-19 06:36] LABS: Bedside Glucose 104 mg/dL (70-110)
[2020-01-19] MEDS: Lactated Ringers 1,000 ML 40 ML IV (07:07)
[2020-01-19] MEDS: Magnesium Sulfate 4gm/100mL 4 GM/100 ML IV.SOLN. IV (07:08)
[2020-01-19] MEDS: Gabapentin 600 MG Tablet PO (07:12)
[2020-01-19] MEDS: Acetaminophen 500 MG Tablet 1000 MG PO (07:13)
[2020-01-19] MEDS: Cefazolin 2 GM in 0.9% Normal Saline 100 ML IV (07:25)
--- NOTE | 2020-01-19 09:48 | OP.PCM_ITS ---
Problem List (1) Ventral incisional hernia without obstruction or gangrene Status: Acute Report of Operation Date of Procedure: 01/19/20 Pre-Operative Diagnosis: Symptomatic epigastric ventral incisional hernia Post-Operative Diagnosis: Complete fascial dehiscence supra umbilical ventral incisional hernia Surgery/Procedure Performed:: Hybrid open with conversion to laparoscopic ventral incisional herniorrhaphy. Bilateral tap block. Ventral light ST mesh, size 20.3 cm x 25.4 cm, reference [id number]. Lot number [id number]. Expiry date 04/25/2020 Description of Surgical Findings:: Timeout and informed consent was obtained. 64-year-old female was taken to the operating place upon the table underwent general endotracheal intubation esthesia. Ancef 2 g were given intravenously. The abdomen was sterilely prepped and draped. Ioban draping was used as well. Throughout the procedure Exparel 20 cc mixed with 30 cc of 0.25% Marcaine diluted to 100 cc was used as a local anesthetic and utilized for the bilateral tap block. At the umbilicus a vertical incision was created approximately 2 cm sharp dissection was used to identify the hernia sac the son catheter was inserted exploration laparoscopically revealed that the entire epigastric ventral incision that had been used by an outside hospital had completely dehisced. I placed 3 5 mm ports in direct visitation in the left lateral abdomen. I then performed a bilateral tap block with a local. This was done with a 25-gauge needle and carefully inspected laparoscopically. Having accomplished that I then attempted to appr oximate the fascial defect using a 0 V-Loc suture. That suture however fractured and it became apparent that due to the patient's body habitus that this was not going to be effective. So I then converted back to an open procedure excising some of the skin scar and hernia sac just high enough to where I could see the apex of the defect. I used a #1 Prolene in a running fashion approximated the fascia. I then inserted the mesh after placing 4 corner sutures of 2-0 Prolene. I finished closing the fascial defect with the Prolene the abdomen was then reinsufflated. The mesh was unfurled assuring that the nonadherent side was adjacent to the bowel. Using an 11 blade and made stab incisions and parachuted the mesh up to the abdominal wall using the 4 corner sutures of 2-0 Prolene. Excellent positioning was achieved. Those knots were then secured. I then used secure strap at 2 cm intervals around the entire periphery of the mesh. As this was a very sizable piece of mesh I did have to use a third secure strap in order to complete the mesh and assure good fixation. The patient's body habitus places her at increased risk for recurrence. The fascial defect correct was quite sizable at an estimated 12 x 8 cm. At the completion the mesh appeared to be in very good position with excellent apposition. The mesh was copiously irrigated with saline to activate the surface. The greater omentum nicely placed overlying the small bowel. The abdomen was then allowed to deflate through an antiviral valve. Trochars were removed. Skin edges approximated with running or interrupted subdermal 4-0 Monocryl. Steri-Strips Telfa OpSite dressings applied. Sponge and instrument and needle counts were reported the surgeon to be correct. Blood loss minimal. Specimen includes a portion of skin and hernia sac. Drains none. Blood loss minimal. The patient was taken to the recovery room in satisfactory condition without apparent complication. Chase Wooten M.D., F.A.C.S. Type of Anesthesia:: General Anesthesiologist: Gary Wylie
[2020-01-19] MEDS: BUPIVACAINE LIPOSOME/PF 20 ML VIAL OPERA.SITE (09:55)
[2020-01-19] MEDS: Bupivacaine 0.25% 30 ML Vial ×2 (09:55)
[2020-01-19] MEDS: 0.9% Normal Saline (Pres. free 10 ML Vial (09:55)
[2020-01-19] MEDS: Lactated Ringers 1,000 ML 60 ML IV (12:20)
[2020-01-19] MEDS: Naproxen 250 MG Tablet 500 MG PO (14:39)
[2020-01-19] MEDS: Ondansetron 4 MG/2 ML Vial IV (15:56)
[2020-01-19] MEDS: Morphine 2 MG/ML Syringe IV ×2 (15:57→21:27)
--- NOTE | 2020-01-19 16:01 | NURSING ---
pt stood at bedside and became nauseas w/ dry heaves, extremely painful, pt felt like she was going to pass out (visual frausto darkening) pt assisted back to bed w/ 2 assists, medicated for nausea, then pain when pain was still rating high after 7-8 minutes back in bed pt did do I.S. while dangling at beside
--- NOTE | 2020-01-19 16:33 | PCM.PN.BLA ---
Progress Note With attempt to get out of bed patient became vasovagal. She has some mild right mid lateral abdominal pain. The left side is asymptomatic. She is not been able to urinate yet Mild nausea no vomiting We will continue with care. Clearly she needs to be hospitalized overnight. Ongoing need for IV fluids and observation and pain management. Chase Wooten M.D., F.A.C.S. STROKE Vital Signs/Narrative: Vital Signs Temp Pulse Resp BP Pulse Ox 01/19/20 14:20 97.9 F 92 18 137/68 H 95
[2020-01-20] VITALS (8 sets, daily range): BP systolic 113–143; BP diastolic 48–68; PULSE 66–91; RESP 16–18; TEMP 36.8–37.1; O2SAT 92–96
[2020-01-20] MEDS: Morphine 2 MG/ML Syringe IV ×2 (05:02→09:44)
[2020-01-20] MEDS: Enoxaparin 40 MG/0.4 ML Syringe SC (05:11)
--- NOTE | 2020-01-20 06:09 | PCM.PN.SRG ---
Patient Problems: Active and Suspected Problems (Last Updated 12/18/19 @ 07:57 by Krystin Franks) Ventral incisional hernia without obstruction or gangrene (Acute) Subjective: Having right lateral abdominal wall pain from an incomplete tap block. Mid abdomen and left is extremely comfortable. No current nausea. Some light headedness when standing. No flatus. - Physical Exam Vitals/I&O's: Vital Signs Temp Pulse Resp BP Pulse Ox 98.3 F 73 18 143/68 H 94 01/20/20 02:30 01/20/20 02:30 01/20/20 02:30 01/20/20 02:30 01/20/20 02:30 Oxygen Flow Rate (L/min) 2 Oxygen Delivery Method CPAP Weight: 214 lb 8.156 oz Body Mass Index (BMI) 38.0 Intake and Output for Last 24 Hours 01/18/20 01/19/20 01/20/20 23:59 23:59 23:59 Intake Total 788.67 / 788.67 Output Total 150 / 150 200 / 200 Balance 638.67 / 638.67 -180 / -180 General: Alert, Oriented x3, Cooperative, No apparent distress Abdomen: Soft, Non Tender, Hypoactive Bowel Sounds Laboratory Results 01/19/20 06:32: POC Glucose 104 Current Medications Acetaminophen (Acetaminophen 325 Mg Tablet) 650 mg PO Q6H PRN PRN PRN Reason: Pain Score 1-10 Albuterol Sulfate (Albuterol 2.5 Mg/3 Ml Vial.Neb.) 2.5 mg INHALATION Q4H PRN PRN Reason: shortness of breath or wheezin Amlodipine Besylate (Amlodipine 5 Mg Tablet) 5 mg PO DAILY [facility] Aspirin (Aspirin E.C. 81 Mg Tablet) 81 mg PO DAILY [facility] Enoxaparin Sodium (Enoxaparin 40 Mg/0.4 Ml Syringe) 40 mg SC DAILY@0600 [facility] Last Admin: 01/20/20 05:11 Dose: 40 mg Documented by: Hydrochlorothiazide (Hydrochlorothiazide 25 Mg Tablet) 25 mg PO DAILY [facility] Lactated Ringer's () 1,000 mls @ 60 mls/hr IV .[id number] [facility] Last Admin: 01/19/20 12:20 Dose: 60 mls/hr Documented by: Loratadine (Loratadine 10 Mg Tablet) 10 mg PO DAILY [facility] Losartan Potassium (Losartan Potassium 100 Mg Tablet) 100 mg PO DAILY [facility] Meloxicam (Meloxicam 7.5 Mg Tablet) 7.5 mg PO DAILY [facility] Morphine Sulfate (Morphine 2 Mg/Ml Syringe) 2 - 4 mg IV Q2H PRN PRN PRN Reason: Pain Score 1-10 Last Admin: 01/20/20 05:02 Dose: 2 mg Documented by: Morphine Sulfate (Morphine 4 Mg/Ml Syringe) 2 - 4 mg IV Q2H PRN PRN PRN Reason: Pain Score 1-10 Naproxen (Naproxen 250 Mg Tablet) 500 mg PO BID PRN PRN Reason: pain 1-10 Last Admin: 01/19/20 14:39 Dose: 500 mg Documented by: Ondansetron HCl (Ondansetron 4 Mg/2 Ml Vial) 4 mg IV Q8H PRN PRN PRN Reason: NAUSEA Last Admin: 01/19/20 15:56 Dose: 4 mg Documented by: Oxycodone HCl (Oxycodone 5 Mg Tablet) 5 - 10 mg PO Q4H PRN PRN PRN Reason: Pain Score 6-10 Sodium Chloride (0.9% Saline Lock 10 Ml Syringe) 10 - 40 ml IV UD PRN PRN Reason: SALINE FLUSH Medical Necessity - Tobacco Use Smoking Status: Never smoker Tobacco Use: Non-smoker Assessment/Plan All Active Problems (Last Updated 12/18/19 @ 07:57 by Krystin Franks) Ventral incisional hernia without obstruction or gangrene (Acute) S/P colectomy (Acute) History of cystocele (Acute) History of ankle surgery (Acute) Colon cancer (Acute) RAHEEL (obstructive sleep apnea) (Acute) UTI (urinary tract infection) (Resolved) Shortness of breath (Acute) Stomach ulcer (Acute) Stroke (Acute) Difficulty balancing (Acute) Vertigo (Acute) Will initiate clear liquids. Need to mobilize patient. Patient was encouraged to work through the discomfort. Pending progress possible discharge later today. Chase Wooten M.D., F.A.C.S.
[2020-01-20] MEDS: Lactated Ringers 1,000 ML 60 ML IV ×2 (07:38→22:54)
[2020-01-20] MEDS: Losartan Potassium 100 MG Tablet PO (09:44)
[2020-01-20] MEDS: Naproxen 250 MG Tablet 500 MG PO (09:44)
[2020-01-20] MEDS: 0.9% Saline Lock 10 ML Syringe IV ×2 (09:44→09:58)
[2020-01-20] MEDS: Meloxicam 7.5 MG Tablet PO (09:44)
[2020-01-20] MEDS: hydroCHLOROthiazide 25 MG Tablet PO (09:44)
[2020-01-20] MEDS: amLODIPine 5 MG Tablet PO (09:44)
[2020-01-20] MEDS: Aspirin E.C. 81 MG Tablet PO (09:44)
[2020-01-20] MEDS: Loratadine 10 MG Tablet PO (09:45)
[2020-01-20] MEDS: Ondansetron 4 MG/2 ML Vial IV (09:58)
[2020-01-20] MEDS: Lactulose 20 GM/30 ML UDC PO (12:19)
[2020-01-20] MEDS: Acetaminophen 325 MG Tablet 650 MG PO ×2 (13:15→20:19)
[2020-01-20] MEDS: traMADol 50 MG Tablet PO ×2 (14:45→21:52)
--- NOTE | 2020-01-20 20:31 | NURSING ---
01/19 pt walked in hallways, tolerated well; however stating she feels an increase in pain with movement. pt medicated with tylenol after ambulation
[2020-01-21 02:20] VITALS: BP 143/55; PULSE 66; RESP 18; TEMP 36.6; O2SAT 95
--- NOTE | 2020-01-21 03:47 | NURSING ---
Addendum entered by José Miguel Mejias 01/21/20 04:44: this RN went back in to medicate pt for nausea. pt was asleep and did not receive zofran Original Note: 01/[address] pt amb[address] hallways at this time with [employer]CHARD [employer]. pt stated that she felt nauseous with movement, but no real increase in pain. zofran on APR available to be given
[2020-01-21] MEDS: Enoxaparin 40 MG/0.4 ML Syringe SC (05:31)
[2020-01-21] MEDS: Acetaminophen 325 MG Tablet 650 MG PO (05:34)
--- NOTE | 2020-01-21 06:07 | PN.SURG_ITS ---
Patient Problems: Active and Suspected Problems (Last Updated 12/18/19 @ 07:57 by Krystin Franks) Ventral incisional hernia without obstruction or gangrene (Acute) Subjective: She states that she is feeling much better. She is comfortable at rest. She has had flatus and a bowel movement. Nausea has resolved. - Physical Exam Vitals/I&O's: Vital Signs Temp Pulse Resp BP Pulse Ox 97.9 F 66 18 143/55 H 95 01/21/20 02:20 01/21/20 02:20 01/21/20 02:20 01/21/20 02:20 01/21/20 02:20 Oxygen Flow Rate (L/min) 2 Oxygen Delivery Method Bi-pap Weight: 214 lb 8.156 oz Body Mass Index (BMI) 38.0 Intake and Output for Last 24 Hours 01/19/20 01/20/20 01/21/20 23:59 23:59 23:59 Intake Total 788.67 / 788.67 3556 / 3556 300 / 300 Output Total 150 / 150 1850 / 1850 Balance 638.67 / 638.67 1706 / 1706 300 / 300 Abdomen: Soft, Non Tender Current Medications Acetaminophen (Acetaminophen 325 Mg Tablet) 650 mg PO Q6H PRN PRN PRN Reason: Pain Score 1-10 Last Admin: 01/21/20 05:34 Dose: 650 mg Documented by: Albuterol Sulfate (Albuterol 2.5 Mg/3 Ml Vial.Neb.) 2.5 mg INHALATION Q4H PRN PRN Reason: shortness of breath or wheezin Amlodipine Besylate (Amlodipine 5 Mg Tablet) 5 mg PO DAILY [facility] Last Admin: 01/20/20 09:44 Dose: 5 mg Documented by: Aspirin (Aspirin E.C. 81 Mg Tablet) 81 mg PO DAILY [facility] Last Admin: 01/20/20 09:44 Dose: 81 mg Documented by: Enoxaparin Sodium (Enoxaparin 40 Mg/0.4 Ml Syringe) 40 mg SC DAILY@0600 [facility] Last Admin: 01/21/20 05:31 Dose: 40 mg Documented by: Hydrochlorothiazide (Hydrochlorothiazide 25 Mg Tablet) 25 mg PO DAILY [facility] Last Admin: 01/20/20 09:44 Dose: 25 mg Documented by: Loratadine (Loratadine 10 Mg Tablet) 10 mg PO DAILY [facility] Last Admin: 01/20/20 09:45 Dose: 10 mg Documented by: Losartan Potassium (Losartan Potassium 100 Mg Tablet) 100 mg PO DAILY [facility] Last Admin: 01/20/20 09:44 Dose: 100 mg Documented by: Meloxicam (Meloxicam 7.5 Mg Tablet) 7.5 mg PO DAILY [facility] Last Admin: 01/20/20 09:44 Dose: 7.5 mg Documented by: Morphine Sulfate (Morphine 2 Mg/Ml Syringe) 2 - 4 mg IV Q2H PRN PRN PRN Reason: Pain Score 1-10 Last Admin: 01/20/20 09:44 Dose: 2 mg Documented by: Morphine Sulfate (Morphine 4 Mg/Ml Syringe) 2 - 4 mg IV Q2H PRN PRN PRN Reason: Pain Score 1-10 Ondansetron HCl (Ondansetron 4 Mg/2 Ml Vial) 4 mg IV Q8H PRN PRN PRN Reason: NAUSEA Last Admin: 01/20/20 09:58 Dose: 4 mg Documented by: Oxycodone HCl (Oxycodone 5 Mg Tablet) 5 - 10 mg PO Q4H PRN PRN PRN Reason: Pain Score 6-10 Sodium Chloride (0.9% Saline Lock 10 Ml Syringe) 10 - 40 ml IV UD PRN PRN Reason: SALINE FLUSH Last Admin: 01/20/20 09:58 Dose: 10 ml Documented by: Tramadol HCl (Tramadol 50 Mg Tablet) 50 - 100 mg PO Q6H PRN PRN PRN Reason: Pain Score 6-10 Last Admin: 01/20/20 21:52 Dose: 50 mg Documented by: Medical Necessity - Tobacco Use Smoking Status: Never smoker Tobacco Use: Non-smoker Assessment/Plan All Active Problems (Last Updated 12/18/19 @ 07:57 by Krystin Franks) Ventral incisional hernia without obstruction or gangrene (Acute) S/P colectomy (Acute) History of cystocele (Acute) History of ankle surgery (Acute) Colon cancer (Acute) RAHEEL (obstructive sleep apnea) (Acute) UTI (urinary tract infection) (Resolved) Shortness of breath (Acute) Stomach ulcer (Acute) Stroke (Acute) Difficulty balancing (Acute) Vertigo (Acute) Plan for discharge today. The patient has been given extensive discharge instructions. Follow-up in the office at 10 days possible virtual visit.
[2020-01-21] MEDS: 0.9% Saline Lock 10 ML Syringe IV ×2 (07:43→10:24)
[2020-01-21 07:44] VITALS: BP 119/55; PULSE 71; RESP 18; TEMP 36.7; O2SAT 96
[2020-01-21] MEDS: traMADol 50 MG Tablet PO (07:51)
[2020-01-21 08:45] VITALS: PULSE 72
[2020-01-21] MEDS: Ondansetron 4 MG/2 ML Vial IV (10:24)
--- NOTE | 2020-01-21 10:25 | CASEMGMT ---
RN CM Face to Face with patient for initial transition planning/care coordination assessment. RN CM introduced self and role at [facility]. Patient sitting in chair, alert and oriented. Patient willing to participate in assessment and is able to answer all questions appropriately. Care providers, pharmacy, and demographics verified. Patient wishes to discharge home, denies need for home health at this time. Patient states she has no further needs or concerns at this time. CM to follow for discharge planning needs that may arise. PCP: Lisha Specialists: Sugar, surgeon Obed [facility] Benefit: yes Living Will/HPOA: yes, Bjorn Ha LNOK: Living Arrangements: Patient lives with in a 2 story home. Patient states she is independent and able to ambulate stairs. Transportation: self/ DME/HHC: Patient states she has cane, walker, shower chair, and cpap at home. Patient denies previous HHC. Disposition Plan: Patient to discharge home with family support and follow-up plans in place. Noris BRAND, RN, CM
[2020-01-21 10:39] VITALS: BP 130/58; PULSE 80; RESP 18; TEMP 36.5; O2SAT 91
--- NOTE | 2020-01-21 11:52 | PHA.DC.MC ---
Pharmacy Service has performed discharge medication reconciliation and counseling for this patient. 1. ONDANSETRON 4MG PO Q8H PRN NAUSEA 2. TRAMADOL 50MG PO Q6H PRN PAIN/FEVER FOR 4 DAYS The patient's discharge medication list was reviewed for discrepancies and discrepancies were resolved. Home Medications aspirin 81 mg tablet,delayed release 81 mg PO DAILY 12/17/18 krill oil 500 mg capsule 500 mg PO DAILY cap 12/17/18 hydrochlorothiazide 25 mg tablet 25 mg PO DAILY #90 tab 02/25/19 naproxen 500 mg tablet 500 mg PO BID PRN #180 tab 06/25/19 albuterol sulfate 90 mcg/actuation aerosol inhaler 2 puff INHALATION Q4H PRN #3 ea 07/30/19 losartan 100 mg tablet 100 mg PO DAILY #90 tab 08/27/19 amlodipine 5 mg tablet 5 mg PO DAILY #90 tab 10/03/19 loratadine 10 mg tablet 10 mg PO DAILY 11/26/19 Meloxicam [Mobic] 7.5 mg PO DAILY 01/02/20 Ondansetron HCl [Zofran] 4 mg PO Q8H PRN PRN #10 tab 01/21/20 traMADol [Ultram] 50 mg PO Q6H PRN PRN 4 Days #16 tab 01/21/20 The patient was counseled on the following discharge medications and changes in medications for homegoing were reviewed. The Reason for Use, instructions for use, and potential side effects were reviewed for all new medications. The patient's questions regarding all of their medications were answered. The patient was able to verbally demonstrate an understanding of their discharge medications.
== END 2020-01-21 12:38 | disposition home or self-care (01) | DRG 354 ==
LOC: SDC 01-20 09:46 → MS3 01-20 09:46
PROVIDERS: Admitting Provider Surgery; PCP Internal Medicine; Referring Provider Surgery; Visit Provider Surgery
PROC: 0WQF4ZZ Repair Abdominal Wall, Percutaneous Endoscopic Approach (ICD-10-PCS; CPT 49560; principal; 2020-01-19 07:10)
DX: K43.2 Incisional hernia without obstruction or gangrene (principal); T81.32XA Disruption of internal operation (surgical) wound, not elsewhere classified, initial encounter; I10 Essential (primary) hypertension; M19.90 Unspecified osteoarthritis, unspecified site; J45.909 Unspecified asthma, uncomplicated; Z86.73 Personal history of transient ischemic attack (TIA), and cerebral infarction without residual deficits; Z90.49 Acquired absence of other specified parts of digestive tract; Z79.51 Long term (current) use of inhaled steroids; Z79.899 Other long term (current) drug therapy; Z85.038 Personal history of other malignant neoplasm of large intestine; E66.9 Obesity, unspecified; D50.9 Iron deficiency anemia, unspecified; Z68.35 Body mass index [BMI] 35.0-35.9, adult
CPT/HCPCS: 49560; 49568; 36415; 80048; 82962; 85027; 87426; 88302; 93005; 99251; C9803; J7050; J7120; A4216; C1781; G0463; J2405; J3490

== ENCOUNTER → 2020-02-03 17:23 | Outpatient (CLI) | payer MEDICARE, OTHER, SELFPAY ==
[2020-02-03 10:54] VITALS: BMI 33.0
== END ==
PROVIDERS: PCP Internal Medicine; Referring Provider Internal Medicine Critical Care Medicine; Visit Provider Internal Medicine Critical Care Medicine
DX: J45.909 Unspecified asthma, uncomplicated (principal)
CPT/HCPCS: 87633; 87635; C9803; U0002

== ENCOUNTER → 2020-02-23 09:16 | Outpatient (CLI) | payer MEDICARE, OTHER, SELFPAY ==
[2020-02-06 14:04] VITALS: BMI 34.5
[2020-02-23 12:16] LABS: Hematocrit 46.3 % (37-47); Hemoglobin 14.3 g/dL (12.0-15.0); Mean Corp Hgb Conc 30.9 g/dL (32-36); Mean Corpuscular Hgb 26.6 pg (27.0-32.0); Mean Corpuscular Volume 86.2 fL (81-99); Mean Platelet Vol. 9.1 fl (6.2-12.0); Platelet Count 291 K/mm3 (150-450); RBC Distribution Width CV 13.8 % (11.6-14.6); RBC Distribution Width SD 43.2 fl (35.1-43.9); Red Blood Count 5.37 M/mm3 (4.2-5.4); White Blood Count 7.8 K/mm3 (4.4-11.0)
[2020-02-23 12:31] LABS: AST(SGOT) 12 U/L (15-37); Alanine Aminotransfer ALT/SGPT 14 U/L (13-56); Albumin, Serum 3.7 g/dL (3.2-5.0); Alkaline Phosphatase 79 U/L (45-117); Anion Gap 6 (5-15); BUN 15 mg/dL (7-18); BUN/Creat Ratio 24.5 RATIO (10-20); Calcium,Total 8.9 mg/dL (8.5-10.1); Chloride 105 mmol/L (98-107); Creatinine, Serum 0.61 mg/dL (0.55-1.02); EST Glomerular Filtration Rate 104 mL/min (>60); Est Glom Filt Rate - Afr Amer 126 mL/min (>60); Globulin 3.7 g/dL (2.2-4.2); Glucose 118 mg/dL (74-106); Potassium 3.4 mmol/L (3.5-5.1); Protein, Total 7.4 g/dL (6.4-8.2); Sodium Level 142 mmol/L (136-145)
[2020-02-24 11:39] LABS: Carcinoembryonic Antigen 1.4 ng/mL (0.0-4.7)
== END ==
PROVIDERS: PCP Internal Medicine; Referring Provider Colon & Rectal Surgery; Visit Provider Colon & Rectal Surgery
DX: Z85.038 Personal history of other malignant neoplasm of large intestine (principal)
CPT/HCPCS: 36415; 80053; 82378; 85027

== ENCOUNTER → 2020-03-03 | Outpatient (CLI) | payer MEDICARE, OTHER, SELFPAY ==
[2020-03-03 11:25] LABS: Mucous, Urine 0 SEEN /hpf (<or=2+); Red Blood Cells-Urine 0 SEEN /hpf (0-5)
[2020-03-03 13:03] LABS: Color, Urine Yellow (Yellow); Glucose, Dipstick Normal (Normal); Ketone-Dipstick Negative (Negative); Leukocyte Esterase-Dipstick 25 /ul (Negative); Nitrite-Dipstick Negative (Negative); Occult Blood-Urine Negative /ul (Negative); Protein-Dipstick Negative (Negative); Specific Gravity, Urine 1.015 (1.002-1.030); Urine Bilirubin Dipstick Negative (Negative); Urine Clarity Clear (Clear); Urine Urobilinogen Normal (Normal); Urine pH 6.5 (5.0 - 8.0)
[2020-03-03 14:29] LABS: Bacteria 1+ /hpf (None Seen); Squamous Epithelial Cells - UA 0-5 SEEN /hpf (5-10); Transitional Epithelial - Ur 0-5 SEEN /hpf (0-5); White Blood Cells 0-5 SEEN /hpf (0-5)
== END | disposition home or self-care (01) ==
LOC: LABSPEC 11:06
PROVIDERS: PCP Internal Medicine; Referring Provider Nurse Practitioner Family; Visit Provider Nurse Practitioner Family
DX: N30.00 Acute cystitis without hematuria (principal); R30.0 Dysuria
CPT/HCPCS: 81001; 87077; 87086; 87088; 87186

== ENCOUNTER 2020-04-29 15:43 | Outpatient (RCR) | payer MEDICARE, OTHER, SELFPAY ==
[2020-04-29] MEDS: COVID-19 VACC, MRNA(PFIZER)/PF 30 MCG/0.3 ML SYRINGE IM (11:31)
[2020-05-20] MEDS: COVID-19 VACC, MRNA(PFIZER)/PF 30 MCG/0.3 ML SYRINGE IM (07:04)
== END 2020-04-29 23:59 ==
LOC: IMMUN 15:43
PROVIDERS: PCP Internal Medicine; Visit Provider Family Medicine
DX: Z23 Encounter for immunization (principal)
CPT/HCPCS: 0001A; 0002A

== ENCOUNTER → 2020-05-05 11:02 | Outpatient (CLI) | payer MEDICARE, OTHER, SELFPAY ==
[2020-05-05 10:11] VITALS: BMI 37.0
[2020-05-05 12:28] LABS: Absolute Lymphocyte Count 1.73 X10^3/uL (0.83-4.51); Absolute Neutrophil Count 3.8 X10^3/uL (2.0-7.7); Basophil# 0.09 X10^3/uL; Basophil% 1.3 % (0-1); Eosinophil# 0.42 X10^3/uL; Eosinophils% 6.2 % (0-5); Hematocrit 45.6 % (37-47); Hemoglobin 14.5 g/dL (12.0-15.0); Lymphocyte # 1.73 X10^3/ul (4.0); Lymphocyte % 25.6 % (19-41); Mean Corp Hgb Conc 31.8 g/dL (32-36); Mean Corpuscular Hgb 27.6 pg (27.0-32.0); Mean Corpuscular Volume 86.9 fL (81-99); Mean Platelet Vol. 9.6 fl (6.2-12.0); Monocyte# 0.72 X10^3/uL; Monocyte% 10.6 % (0-10); NRBC Flagged by Analyzer 0 % (0-5); Neutrophil # 3.78 X10^3/uL (2.7-7.7); Neutrophil % 55.9 % (47-70); Platelet Count 290 K/mm3 (150-450); RBC Distribution Width CV 14.7 % (11.6-14.6); RBC Distribution Width SD 47.2 fl (35.1-43.9); Red Blood Count 5.25 M/mm3 (4.2-5.4); White Blood Count 6.8 K/mm3 (4.4-11.0)
[2020-05-08 03:07] LABS: Bermuda Grass <0.10 kU/L (Class 0); Bluegrass, Kentucky 0.82 kU/L (Class II); Cat Hair/Dander, Standard <0.10 kU/L (Class 0); D farinae Mite 6.26 kU/L (Class IV); D pteronyssinus 8.43 kU/L (Class IV); Dog Epithelia <0.10 kU/L (Class 0); Elm, American White <0.10 kU/L (Class 0); Oak, White <0.10 kU/L (Class 0); Plantain, English <0.10 kU/L (Class 0); Ragweed, Short/Common 0.88 kU/L (Class II)
[2020-05-08 08:46] LABS: Mouse Urine 0.16 kU/L (Class 0/I)
[2020-05-09 16:07] LABS: Aspirgillus flavus Negative (Neg:<1:1); Aspirgillus fumigatus Negative (Neg:<1:1); Aspirgillus niger Negative (Neg:<1:1); Cytoplasmic Ab (C-ANCA) <1:20 titer (Neg:<1:20)
[2020-05-10 07:31] LABS: Immunoglobulin E 63 IU/mL (6-495); Perinuclear Ab (P-ANCA) <1:20 titer (Neg:<1:20)
== END ==
PROVIDERS: PCP Internal Medicine; Referring Provider Nurse Practitioner Acute Care; Visit Provider Nurse Practitioner Acute Care
DX: J45.909 Unspecified asthma, uncomplicated (principal); K43.2 Incisional hernia without obstruction or gangrene
CPT/HCPCS: 36415; 82785; 85025; 86003; 86256; 86606

== ENCOUNTER → 2020-07-23 11:00 | Outpatient (CLI) | payer MEDICARE, OTHER, SELFPAY ==
[2020-05-19 12:43] VITALS: BMI 37.2
[2020-07-23 11:07] LABS: Bacteria 0 SEEN /hpf (None Seen); Mucous, Urine 0 SEEN /hpf (<or=2+); White Blood Cells 0 SEEN /hpf (0-5)
[2020-07-23 11:28] LABS: Color, Urine Yellow (Yellow); Glucose, Dipstick Normal (Normal); Ketone-Dipstick Negative (Negative); Leukocyte Esterase-Dipstick Negative /ul (Negative); Nitrite-Dipstick Negative (Negative); Occult Blood-Urine 10 /ul (Negative); Protein-Dipstick Negative (Negative); Urine Bilirubin Dipstick Negative (Negative); Urine Clarity Clear (Clear); Urine Urobilinogen Normal (Normal)
[2020-07-23 11:33] LABS: Squamous Epithelial Cells - UA 0-5 SEEN /hpf (5-10)
[2020-07-23 11:34] LABS: Red Blood Cells-Urine 0-5 SEEN /hpf (0-5)
== END ==
PROVIDERS: PCP Internal Medicine
DX: R31.9 Hematuria, unspecified (principal)
CPT/HCPCS: 36415; 81001

== ENCOUNTER → 2020-08-04 08:50 | Outpatient (CLI) | payer MEDICARE, OTHER, SELFPAY ==
[2020-07-27 10:20] VITALS: BMI 37.7
--- NOTE | 2020-08-04 08:53 | US_ITS ---
STUDY: THYROID ULTRASOUND REASON FOR EXAM: Female, 65 years old. Left thyroid nodule. TECHNIQUE: Ultrasound evaluation of the thyroid was performed with real-time and static ramsey-scale imaging. COMPARISON: None. FINDINGS: RIGHT LOBE: The right lobe of the thyroid gland measures 3.9 cm x 1.2 cm x 1.2 cm. There is a homogeneous echotexture. There is a 3 mm x 3 mm x 8 mm hypoechoic solid nodule in the upper pole of the right lobe. LEFT LOBE: The left lobe of the thyroid gland measures 3.7 cm x 1.5 cm x 0.9 cm. There is a homogeneous echotexture. There are no demonstrated solid, cystic or complex lesions. ISTHMUS: The isthmus measures 2.1 mm. There is a 1.3 cm x 0.6 cm x 0.3 cm benign appearing lymph node lateral to the left lobe of the thyroid. US/Thyroid IMPRESSION: 3 mm x 3 mm x 8 mm hypoechoic solid nodule in the upper pole of the right lobe of the thyroid. Benign appearing 1.3 cm x 0.6 cm x 0.3 cm lymph node lateral to the left lobe of the thyroid. Electronically Signed: Derek Gould MD at 15:30 EDT , Service support ,
--- NOTE | 2020-08-04 08:58 | BI_ITS ---
MAMMOGRAPHY - BILATERAL SCREENING REASON FOR EXAM: Female, 65 years old. Routine annual screening examination. PERTINENT HISTORY: Aunt with breast cancer. TECHNIQUE: Digital bilateral breast lashae (3D mammographic acquisition) in the CC and MLO projections. 2-D mediolateral oblique (MLO) and craniocaudad (CC) views of both breasts were obtained. CAD: Full Field Digital Mammography with Computer Added Detection was performed. COMPARISON: Comparison is made with prior examination dated 01/13/2019 . FINDINGS: Breast Composition: There are scattered areas of fibroglandular density. There are no dominant masses or suspicious calcifications. No other significant abnormalities are identified. There has been no significant change since the prior study. BI/SCRN MAMM (CAD)W/LASHAE BILAT IMPRESSION: Stable bilateral screening mammogram. Yearly follow-up mammogram recommended. (A) ASSESSMENT CATEGORY: BIRADS Category 1: Negative. A letter regarding these results will be sent to the patient by the facility within 30 days. Approximately 10% of breast cancers are not detected by mammography. A normal mammogram should not delay biopsy of a clinically suspicious abnormality. [id number] Electronically Signed: Derek Gould MD at 10:02 EDT , Service support ,
== END ==
PROVIDERS: PCP Internal Medicine; Referring Provider Nurse Practitioner Family; Visit Provider Nurse Practitioner Family
DX: E04.1 Nontoxic single thyroid nodule (principal); I10 Essential (primary) hypertension; Z12.31 Encounter for screening mammogram for malignant neoplasm of breast; Z85.038 Personal history of other malignant neoplasm of large intestine
CPT/HCPCS: 36415; 76536; 77063; 77067; 80053; 82378; 84439; 84443; 85027

== ENCOUNTER → 2020-08-04 09:55 | Outpatient (CLI) | payer MEDICARE, OTHER, SELFPAY ==
[2020-07-27 10:20] VITALS: BMI 37.7
[2020-08-04 12:04] LABS: Hematocrit 44.7 % (37-47); Hemoglobin 14.2 g/dL (12.0-15.0); Mean Corp Hgb Conc 31.8 g/dL (32-36); Mean Corpuscular Volume 88.2 fL (81-99); Mean Platelet Vol. 9.7 fl (6.2-12.0); Platelet Count 271 K/mm3 (150-450); RBC Distribution Width CV 13.5 % (11.6-14.6); RBC Distribution Width SD 43.4 fl (35.1-43.9); Red Blood Count 5.07 M/mm3 (4.2-5.4); White Blood Count 6.3 K/mm3 (4.4-11.0)
[2020-08-04 12:24] LABS: ALB/GLOB Ratio 1.1 RATIO (0.9-2.4); AST(SGOT) 16 U/L (15-37); Alanine Aminotransfer ALT/SGPT 19 U/L (13-56); Albumin, Serum 3.8 g/dL (3.2-5.0); Alkaline Phosphatase 68 U/L (45-117); Anion Gap 6 (5-15); BUN 17 mg/dL (7-18); BUN/Creat Ratio 27.2 RATIO (10-20); Calcium,Total 9.1 mg/dL (8.5-10.1); Chloride 105 mmol/L (98-107); Creatinine, Serum 0.62 mg/dL (0.55-1.02); EST Glomerular Filtration Rate 101 mL/min (>60); Est Glom Filt Rate - Afr Amer 123 mL/min (>60); Globulin 3.5 g/dL (2.2-4.2); Glucose 105 mg/dL (74-106); Potassium 3.8 mmol/L (3.5-5.1); Protein, Total 7.3 g/dL (6.4-8.2); Sodium Level 141 mmol/L (136-145)
[2020-08-04 12:26] LABS: T4 Free Direct 0.76 ng/dL (0.76-1.46); Thyroid Stim Hormone (TSH) 2.24 uIU/mL (0.358-3.74)
[2020-08-05 08:43] LABS: Carcinoembryonic Antigen 1.1 ng/mL (0.0-4.7)
== END ==
PROVIDERS: Nurse Practitioner Family; PCP Internal Medicine; Referring Provider Colon & Rectal Surgery; Visit Provider Colon & Rectal Surgery
DX: Z85.038 Personal history of other malignant neoplasm of large intestine (principal)
CPT/HCPCS: 36415; 80053; 82378; 84439; 84443; 85027

== ENCOUNTER 2020-09-03 10:37 | Emergency (ER) | payer MEDICARE, OTHER, SELFPAY ==
[2020-08-16 06:31] VITALS: BMI 39.3
[2020-09-03 10:41] VITALS: BP 166/109; PULSE 90; RESP 16; TEMP 36.6; O2SAT 98; BMI 79.4
--- NOTE | 2020-09-03 10:50 | RAD_ITS ---
STUDY: X-RAY - LEFT KNEE REASON FOR EXAM: Female, 65 years old. Knee pain TECHNIQUE: 4 view(s) of the knee. COMPARISON: None. FINDINGS: Normal visualized distal femur. Normal visualized proximal tibia and fibula. Normal proximal tibiofibular articulation. Normal medial femorotibial compartment. Normal lateral femorotibial compartment. Normal patellofemoral articulation. The soft tissue structures are unremarkable. RAD/Knee 4 or More Views IMPRESSION: Normal x-ray examination of the knee. Electronically Signed: Derek Gould MD at 12:49 EDT , Service support ,
--- NOTE | 2020-09-03 10:51 | VDLE_ITS ---
Reason For Study: Swlling Procedure LEFT This is a venous duplex using B-mode, color GSV is normal. flow and spectral Doppler. CFV is compressible, spontaneous, phasic, Exam performed portable in ED. competent, and demonstrates normal A preliminary report was called and/or faxed augmentation. to [facility]. FV is compressible, spontaneous, phasic, competent and demonstrates normal augmentation. POP V is compressible, spontaneous, phasic, competent and demonstrates normal augmentation. T/P Trunk is compressible. PTV is compressible. LT PerV is compressible. Acute deep vein thrombosis is noted in the left SoleusV. Nonvascularized structure noted in the left popliteal fossa measuring approximently 1.87 x 2.17 x 4.87 cm. VL/Venous Duplex US, Unilateral Interpretation Summary Left great saphenous vein appears patent and compressible segmentally. Acute de ep venous thrombosis left soleus vein Complex nonvascular left popliteal fossa structure measuring 1.87 x 2.17 x 4.87 cm. This would be consistent with a complex Escamilla's cyst. Clinical correlation would be appropria te Ordering Physician: Delon Roblero Referring Physician: Adam Husain Performed By: Noris Zaldivar RVT
--- NOTE | 2020-09-03 10:51 | ED.VIS.LOWEX ---
HPI History of Present Illness Chief Complaint: Lower Extremity Injury Narrative Narrative: 65-year-old female presenting with left knee pain. She states that it started behind her knee and now radiates down her leg. She is ambulatory with antalgic gait. She admits to a history of arthritis. Yesterday she felt as if she twisted her knee awkwardly. Patient denies history of DVT/PE. She has no numbness or tingling. [facility] Medical History Arthritis Asthma Chronic bronchitis Colon cancer Difficulty balancing Frequent headaches Hay fever High blood pressure HTN (hypertension) Neck pain removal of ascending colon Shortness of breath Stomach ulcer Stroke Thyroid nodule UTI (urinary tract infection) Ventral incisional hernia without obstruction or gangrene Home Medications aspirin 81 mg tablet,delayed release 81 mg PO DAILY 12/17/18 [History Last Taken 01/18/20] krill oil 500 mg capsule 500 mg PO DAILY cap 12/17/18 [History Last Taken 01/18/20] naproxen 500 mg tablet 500 mg PO BID PRN #180 tab 06/25/19 [Rx Last Taken 01/18/20] loratadine 10 mg tablet 10 mg PO DAILY 11/26/19 [History Last Taken 01/18/20] meloxicam 7.5 mg PO DAILY 01/02/20 [History Last Taken 01/18/20] albuterol sulfate 90 mcg/actuation aerosol inhaler 2 puff INHALATION Q4H PRN #8.5 g 02/03/20 [Rx Last Taken Unknown] hydrochlorothiazide 25 mg tablet 25 mg PO DAILY #90 tab 02/06/20 [Rx Last Taken Unknown] losartan 100 mg tablet 100 mg PO DAILY #90 tab 02/06/20 [Rx Last Taken Unknown] fluticasone propionate 50 mcg/actuation nasal spray,suspension 2 spray INTRANASAL DAILY #16 gm 05/19/20 [Rx Last Taken Unknown] amlodipine 5 mg tablet 10 mg PO DAILY tab 08/16/20 [History Last Taken Unknown] fluticasone propionate 220 mcg/actuation HFA aerosol inhaler 2 puff INHALATION BID #12 g 08/16/20 [Rx Last Taken Unknown] montelukast 10 mg tablet 10 mg PO DAILY #30 tab 08/16/20 [Rx Last Taken Unknown] apixaban [Eliquis DVT-PE Treat 30D Start] 5 mg PO BID 30 Days #60 tab 09/03/20 [Rx Last Taken Unknown] Allergy/AdvReac Type Severity Reaction Status Date / Time codeine Allergy Vomiting Verified 09/03/20 10:39 hydroxyzine [From Vistaril] AdvReac Vomiting Verified 09/03/20 10:39 meperidine [From Demerol] AdvReac Vomiting Verified 09/03/20 10:39 PAIN MEDS AdvReac Vomiting Uncoded 09/03/20 10:39 Family History Mother Arthritis Parkinson disease Hypertension Father Heart disease Hypertension Surgical History History of ankle surgery History of cholecystectomy History of cystocele History of hysterectomy History of tonsillectomy S/P colectomy Social History Smoking Status: Never smoker alcohol intake: never substance use type: does not use what type of physical activity do you participate in: none ROS ROS ED Constitutional Constitutional ED: Denies fever(s) or subjective Eyes Eyes: Denies blurry vision or diplopia ENT ENT ED: Denies rhinorrhea or sore throat Cardiovascular Cardiovascular: Denies chest pain or palpitations Respiratory/Chest Respiratory/Chest: Denies cough or dyspnea Gastrointestinal Gastrointestinal: Denies abdominal pain, nausea or vomiting Genitourinary Genitourinary ED: Denies dysuria or hematuria Musculoskeletal Musculoskeletal: Reports other Details: Left knee and calf pain Integumentary Denies abscess or rash Neurologic Neurologic: Denies headache(s) or paresthesias Psychiatric Psychiatric: Denies anxiety or depression EXAM Physical Exam Const Vital Signs: 09/03/20 10:41 Temperature 97.9 F Temperature Source Temporal Pulse Rate 90 Respiratory Rate 16 Blood Pressure 166/109 H Blood Pressure Mean 128 Pulse Ox 98 Oxygen Delivery Method Room Air Positive well nourished General Appearance ED: NAD HEENT normocephalic and atraumatic Eyes PERRL Resp normal respiratory effort and clear to auscultation bilaterally Cardio regular rate, regular rhythm and no murmurs GI non-tender Palpation: soft Extremity Extremity Narrative: Tenderness to palpation posterior left knee. There is also tenderness in the medial aspect of the calf. No cords palpated. Compartments are soft. Neuro oriented x3 Sensorium / Orientation: alert Psych mental status grossly normal Skin Lesions: no lesions Rashes: no rashes MDM MDM MDM Narrative Medical decision making narrative: Patient presenting with left knee pain which is now descended into her leg. She has trouble walking secondary to pain. X-ray of the left knee on my interpretation shows no acute bony abnormality. Patient had venous Doppler of the left lower extremity which showed acute venous thrombosis of the left soleus vein as well as a popliteal Escamilla's cyst. Patient will be started on Eliquis with first dose in the ED. I did speak with her primary care physician to arrange follow-up. Patient given precautions given that she will be on a anticoagulant. Patient stable for discharge at this time. Impression 1. Acute left soleus DVT Radiography Diagnostic Testing: Radiology Impression Knee X-Ray 09/03/20 10:50 IMPRESSION: Normal x-ray examination of the knee. Electronically Signed: Derek Gould MD at 12:49 EDT , Service support , Venous Doppler Study 09/03/20 10:51 Interpretation Summary Left great saphenous vein appears patent and compressible segmentally. Acute deep venous thrombosis left soleus vein Complex nonvascular left popliteal fossa structure measuring 1.87 x 2.17 x 4.87 cm. This would be consistent with a complex Escamilla's cyst. Clinical correlation would be appropriate Ordering Physician: Delon Roblero Referring Physician: Adam Husain Performed By: Noris Zaldivar RVT Discharge Plan Triage Chief Complaint: Lower Extremity Injury ED Provider: Delon Roblero Dx/Rx/DC Orders Instructions: ED Deep Vein Thrombosis (DVT) Prescriptions: New Kait DVT-PE Treat 30D Start 5 mg (74 tabs) tablets,dose pack 5 mg PO BID 30 Days Qty: 60 RF: 0 No Action aspirin [Adult Low Dose Aspirin] 81 mg tablet,delayed release (DR/EC) 81 mg PO DAILY RF: 0 krill oil 500 mg capsule 500 mg PO DAILY RF: 0 naproxen 500 mg tablet 500 mg PO BID PRN (Reason: pain) Qty: 180 RF: 3 albuterol sulfate [Ventolin HFA] 90 mcg/actuation HFA aerosol inhaler 2 puff INHALATION Q4H PRN (Reason: shortness of breath or wheezing) Qty: 8.5 RF: 6 loratadine [Claritin] 10 mg tablet 10 mg PO DAILY RF: 0 hydrochlorothiazide 25 mg tablet 25 mg PO DAILY Qty: 90 RF: 3 losartan 100 mg tablet 100 mg PO DAILY Qty: 90 RF: 3 fluticasone propionate 50 mcg/actuation spray,suspension 2 spray INTRANASAL DAILY Qty: 16 RF: 3 amlodipine 5 mg tablet 10 mg PO DAILY RF: 0 Flovent HFA 220 mcg/actuation HFA aerosol inhaler 2 puff inhalation BID Qty: 12 RF: 3 montelukast [Singulair] 10 mg tablet 10 mg PO DAILY Qty: 30 RF: 3 meloxicam 7.5 MG tablet 7.5 mg PO DAILY RF: 0 Primary Care Provider: Adam Husain Referrals: Adam Husain MD [Primary Care Provider] - Disposition Disposition: Home, Self Care Discharge Date/Time: 09/03/20 13:53
--- NOTE | 2020-09-03 13:52 | ED.RN ---
pt refusing walker at this time, states she has one at home
== END 2020-09-03 13:53 | disposition home or self-care (01) ==
PROVIDERS: Emergency Provider Student in an Organized Health Care Education/Training Program; PCP Internal Medicine
DX: I82.462 Acute embolism and thrombosis of left calf muscular vein (principal); M71.22 Synovial cyst of popliteal space [Baker], left knee; M19.90 Unspecified osteoarthritis, unspecified site; Z79.51 Long term (current) use of inhaled steroids; Z79.899 Other long term (current) drug therapy
CPT/HCPCS: 73564; 93971; 99282

== ENCOUNTER → 2021-02-23 09:10 | Outpatient (CLI) | payer MEDICARE, OTHER, SELFPAY ==
--- NOTE | 2021-02-23 09:16 | BD_ITS ---
STUDY: DUAL ENERGY X-RAY ABSORPTIOMETRY / DXA REASON FOR EXAM: Female, 65 years old. Screening -- . TECHNIQUE: Bone Mineral Density (BMD) measurements of lumbar spine and bilateral hips were obtained. COMPARISON: None. FINDINGS: Lumbar Spine (L1-L4): g/cm2 (1.011) / T-score (-0.3) / Z-score (1.5) Findings are suggestive of normal bone density with a low fracture risk. Left Femur Total: g/cm2 (0.965) / T-score (0.2) / Z-score (1.5) Left Femoral Neck: g/cm2 (0.89) / T-score (0.4) / Z-score (2.0) Right Femur Total: g/cm2 (0.867) / T-score (-0.6) / Z-score (0.7) Right Femoral Neck: g/cm2 (0.746) / T-score (-0.9) / Z-score (0.7) BD/Dexa Bone Density Study IMPRESSION: The patient is considered normal as outlined below according to World [employer] Organization (WHO) criteria with a low fracture risk. Reference Information: The T-score is the number of standard deviations above or below the standard which is normal for young adults at their peak bone mineral density. The World Health Organization (WHO) interprets the T-scores as follows: Above -1 Normal bone density Between -1 and -2.5 Osteopenia Equal to / or below -2.5 Osteoporosis As a practical clinical guideline, osteopenia may be graded as follows: Mild -1 through -1.5 Moderate -1.6 through -2.0 Severe -2.1 through -2.4 The Z-score is the number of standard deviations above or below age-matched controls. A Z-score of less than -1.5 would be considered abnormal. References: 1. NIH Osteoporosis and Related Bone Diseases www osteo.org 2. International Society for Clinical Densitometry www iscd.org 3. National Osteoporosis Foundation www nof.org Electronically Signed: Derek Gould MD at 15:35 EST , Service support ,
== END ==
PROVIDERS: PCP Internal Medicine; Referring Provider Nurse Practitioner Family; Visit Provider Nurse Practitioner Family
DX: Z13.820 Encounter for screening for osteoporosis (principal); Z78.0 Asymptomatic menopausal state
CPT/HCPCS: 77080

== ENCOUNTER 2021-06-08 13:14 | Outpatient (CLI) | payer MEDICARE, OTHER, SELFPAY ==
--- NOTE | 2021-06-08 13:20 | CT_ITS ---
STUDY: CT LEFT LOWER EXTREMITY WITHOUT CONTRAST REASON FOR EXAM: Left knee osteoarthritis, surgical planning. TECHNIQUE: Transaxial CT imaging of the lower extremity was performed. Coronal and sagittal images were reformatted. Individualized dose optimization techniques were used for this CT. COMPARISON: Radiographs 09/03/2020. FINDINGS: Knee: There are marginal osteophytes and joint space narrowing of the medial femorotibial compartment (coronal reconstruction 48). There are very small marginal osteophytes with preservation of joint space of the lateral femorotibial compartment. There is joint space narrowing of the lateral aspect of the patellofemoral compartment (axial image 283). There is a small joint effusion. There is vascular calcification. Hip: There are marginal osteophytes and joint space narrowing of the left hip (coronal reconstruction 44). There is enthesopathy of the greater trochanter. Ankle: There is joint space narrowing of the posterior medial tibiotalar articulation (sagittal reconstruction 28). There are intra-articular bodies in the tibiotalar articulation (coronal reconstructions 31-33)). Normal posterior subtalar articulation. There is joint space narrowing of the talonavicular articulation (sagittal reconstruction 26). There is a posterior calcaneal enthesophyte. CT/Extremity Lower without Contra IMPRESSION: Left knee osteoarthritis. Electronically Signed: Dimas Olivas MD at 14:56 EDT ,
== END 2021-06-08 23:59 | disposition home or self-care (01) ==
LOC: CT 13:17
PROVIDERS: PCP Internal Medicine; Referring Provider Orthopaedic Surgery; Visit Provider Orthopaedic Surgery
DX: M17.12 Unilateral primary osteoarthritis, left knee (principal)
CPT/HCPCS: 73700

== ENCOUNTER 2021-07-18 14:59 | Observation (INO) | payer MEDICARE, OTHER, SELFPAY ==
--- NOTE | 2021-06-07 15:21 | NURSING ---
pre-op physician appt. cancelled today 06/07/21 per PA. no orders present at PAT
--- NOTE | 2021-06-10 12:11 | EKG12_ITS ---
Test Reason : PREOP Blood Pressure : / mmHG Vent. Rate : 081 BPM Atrial Rate : 081 BPM P-R Int : 162 ms QRS Dur : 092 ms QT Int : 364 ms P-R-T Axes : 000 010 028 degrees QTc Int : 422 ms Normal sinus rhythm Normal ECG Confirmed by CORTEZ SINGH, FRANC ([id number]), editor & co founder MEGAN GARSIA ([id number]) on 06/13/2021 1:44:23 PM Referred By: JOSE GUADALUPE Confirmed By:JUSTIN TORO MD
[2021-06-10 12:57] LABS: Hematocrit 42.5 % (37-47); Hemoglobin 13.8 g/dL (12.0-15.0); Mean Corp Hgb Conc 32.5 g/dL (32-36); Mean Corpuscular Hgb 27.4 pg (27.0-32.0); Mean Corpuscular Volume 84.3 fL (81-99); Mean Platelet Vol. 9.6 fl (6.2-12.0); Platelet Count 334 K/mm3 (150-450); RBC Distribution Width CV 14.5 % (11.6-14.6); RBC Distribution Width SD 44.3 fl (35.1-43.9); Red Blood Count 5.04 M/mm3 (4.2-5.4); White Blood Count 8.4 K/mm3 (4.4-11.0)
[2021-06-10 13:32] LABS: Anion Gap 5 (5-15); BUN 15 mg/dL (7-18); BUN/Creat Ratio 22.9 RATIO (10-20); Calcium,Total 8.9 mg/dL (8.5-10.1); Chloride 104 mmol/L (98-107); Creatinine, Serum 0.65 mg/dL (0.55-1.02); EST Glomerular Filtration Rate 96 mL/min (>60); Est Glom Filt Rate - Afr Amer 116 mL/min (>60); Glucose 91 mg/dL (74-106); Magnesium 2.2 mg/dL (1.6-2.6); Potassium 3.4 mmol/L (3.5-5.1); Sodium Level 140 mmol/L (136-145)
--- NOTE | 2021-07-11 14:34 | NURSING ---
At PAT phone interview on 07/11/21, pt states she had her MRSA/MSSA swab completed at [facility] on 07/07/21. Unable to locate results in pt's chart. Marimar in Microbiology located results; she stated it was entered incorrectly; Marimar faxed the results to [facility] and results placed on pt's paper chart. Dr Rebollar's office notified as the ordering doctor on the Lab report was not Keturah. Results faxed to Ketuarh's office. Reulsts Negative MRSA; Negative MSSA.
[2021-07-18] VITALS (21 sets, daily range): BP systolic 99–166; BP diastolic 47–88; PULSE 63–97; RESP 12–18; TEMP 36.4–37.1; O2SAT 88–100; BMI 36.3
--- NOTE | 2021-07-18 | KNEE_PTH ---
PATIENT: ELIS MCARTHUR LOC: [id number] U#:[id number] AGE/SX: 66/F [place] [facility] [facility] [place]: Dr. Jimmy Rebollar DO : 1955 BED: 1 DIS: 07/19/2021 SPEC #: [id number] RECD: 07/19/21 10:27 STATUS: RIKI REAdolfo #: [id number] ENID: 07/18/21 00:[address]: Jimmy Rebollar DEPT: SURGICAL PATHOLOGY RECD BY: Rudy Do ENTERED: 07/19/21 10:27 SP TYPE: TOTAL KNEE OTHR DR: Dr. Adam Husain MD Tissues: Knee, NOS Procedures: Decalcification bone/plaque Surgery Specimen Level IV HEADER OPERATION: ERAS, total knee replacement robotic arm assist PRE-OP DIAGNOSIS: Osteoarthritis left knee TISSUE SUBMITTED: Debrided bone and tissue left knee MICROSCOPIC DIAGNOSIS Bone and tissue of left knee, total knee resection: Degenerative joint disease. AM:johann 07/22/2021 MICROSCOPIC DESCRIPTION Slides are reviewed. GROSS DESCRIPTION Received is one container designated debrided bone and tissue left knee. The specimen consists of multiple fragments of kumar-yellow bone measuring in aggregate 9 x 10 x 3 cm. No soft tissue is identified. A number of bony fragments contain articular surfaces consistent with tibial plateau and femoral condyle and displaying prominent osteophyte formation and cartilage erosion. Appliance Service Representative sections are submitted in two cassettes after decalcification. / SJ:johann 07/19/2021 TC:5 CPT: 61605, 68601
[2021-07-18 08:01] LABS: Bedside Glucose 101 mg/dL (74-106)
[2021-07-18] MEDS: Gabapentin 600 MG Tablet PO (08:05)
[2021-07-18] MEDS: Acetaminophen 500 MG Tablet 1000 MG PO ×3 (08:05→21:41)
[2021-07-18] MEDS: Celecoxib 200 MG Capsule 400 MG PO (08:06)
[2021-07-18] MEDS: Lactated Ringers 1,000 ML 15 ML IV (08:08)
--- NOTE | 2021-07-18 09:12 | RAD_ITS ---
STUDY: X-RAY - LEFT KNEE REASON FOR EXAM: Postoperative evaluation of left total knee arthroplasty. TECHNIQUE: 2 view(s) of the knee. COMPARISON: Radiographs . FINDINGS: There is a left total knee arthroplasty without evidence of complication. There is postoperative gas in the soft tissues and overlying skin maliha. There is vascular calcification. RAD/Knee 1 or 2 Views IMPRESSION: Uncomplicated left total knee arthroplasty. Electronically Signed: Dimas Olivas MD at 12:51 EDT ,
[2021-07-18] MEDS: Cefazolin 2 GM in 0.9% Normal Saline 100 ML IV (09:54)
[2021-07-18] MEDS: Lactated Ringers 1,000 ML 125 ML IV (11:00)
--- NOTE | 2021-07-18 11:04 | PCM.OPRPT ---
Report of Operation Date of Procedure: 07/18/21 Pre-Operative Diagnosis: OA left knee Post-Operative Diagnosis: same Surgery/Procedure Performed:: Left TKR Description of Surgical Findings:: Report of Operation Date of Procedure: 07/18/2021 Preoperative Diagnosis: [left ] knee primary osteoarthritis Postoperative Diagnosis: [left ] knee primary osteoarthritis Operation: Robotic Assisted Knee Total Arthroplasty, [left ] knee Surgeon: Dr Jimmy Rebollar DO Occupational Therapist Rehab Manager: Lobo Diop PA-C Anesthesia: spinal Anesthesiologist: Marquise Hill M.D. Findings: Stable knee with good patella tracking Specimen(s): Bony cuts Complications: No intraoperative complications Estimated Blood Loss: 20 cc IV Fluids: 1000 cc crystalloid Implants Used: 1. Dionisio Triathlon press-fit CR size 4 femur 2. Dionisio Triathlon size 4 tibia 3. 35 mm patella 4. 9 mm CS polyethylene Brief History Operative Indications: [ (66 y/o female) ] with history of [ left ] knee osteoarthrosis with radiographic findings with loss of joint space, osteophyte formation and subchondral sclerosis. Failed conservative measures as mentioned in the H&P. Discussion of total knee arthroplasty as well as risk and benefits were discussed with the patient including but not limited to blood loss, DVTs, PEs, neurovascular damage, general risk of anesthesia including loss of life, and stiffness or instability were also discussed with the patient. Patient demonstrated understanding and was able to sign informed consent. Procedure: On the date of procedure, patient's [ left ] lower extremity was marked in the preoperative area. The patient was then taken back to the operating room where that patient was placed on the table in the supine position. All bony prominences were identified and well-padded. Anesthesia assumed control of the C-spine and airway throughout the remainder of the procedure. A tourniquet was placed on the [left ] upper thigh and the leg was prepped in a sterile fashion. The surgeon then scrubbed at this time. Upon reentering the room, the [ left ] lower extremity was draped in a standard orthopedic fashion. A timeout was then called and everyone agreed upon the side, the site, the procedure to be performed, patient's identity and antibiotics given. Esmarch bandage was used to exsanguinate the extremity and the tourniquet was placed up to 250 mmHg with the knee in flexion. A midline skin incision was made and a sharp dissection was taken down through skin, subcutaneous tissue and fat. The standard medial parapatellar incision was made and the patella was subluxed laterally. An appropriate deep MCL release was done and the fat pad was resected. Our attention was then directed to the patella. The patella was everted and a flat resection was made. The knee was then flexed up and 2 femoral pins were placed inside the incision and 2 tibial pins were placed outside the incision in the medial tibia bicortically. Once this was completed, the 2 checkpoints in the femur and tibia were placed. Knee was then flexed up and the bony landmarks were registered. Once the was completed, the knee taken through range of motion and manually stressed allowing us to plan for an appropriate tibial cut. The robotic arm was brought into the field sterilely and checkpoint and saw were registered. Based on the patient's deformity, the tibial cut was made in [2 degrees varus ]. At this time, the tensioner was then placed in the joint and ligament tension was checked at 90 degrees and full extension. Based on the patient's ligamentous tension, appropriate adjustments were made to the operative plan and ligament releases were done. Once we were happy with our operative plan with balanced flexion and extension gaps, our attention was directed to the femur. The robot was brought into the field sterilely and registered. Posterior condylar cuts, anterior chamfer cuts and anterior cuts were appropriately made for a [ size 4 ] femur. When these were completed, the saws were switched out in the distal femoral and posterior chamfer cuts were made. Protecting the soft tissue throughout this time. A [ size 4 ] base plate was selected. The knee was flexed to 90 degrees and soft tissues and posterior osteophytes were removed from the joint. 40 cc of the periarticular injection was injected into the posterior medial corner of the joint. The appropriate trials were then placed on the femur and tibia. A trial polyethylene was trialed to ensure proper balancing and stability of the knee. The appropriate tibial internal rotation was then marked with a bovie. Our attention was then directed to the patella. The lug holes were drilled and the patella trial was placed. Patellar tracking was checked and deemed appropriate. Once we were happy, lug holes were drilled for the femur and trial components were removed. The tibia was subluxed and pinned into place and the keel was punched and drilled appropriately. Final components were verified and opened. The wound was copiously irrigated with normal saline. The components were impacted into place with the tibia, femur and finally the patella. The trial poly component was placed and the knee was placed in full extension. The tracking, alignment and balance were verified and a [ 9 mm CS ] polyethylene component was placed. Once the final components were placed an Irrisept lavage was performed and the wound was copiously irrigated with normal saline solution and the periarticular injection was given. the wound was closed in a layer-degroot fashion using #1 vicryl interrupted sutures for the arthrotomy, 2-0 interrupted vicryl suture for the subcuticular layer and maliha for final skin closure. A sterile compressive dressing was then placed. The patient was then awakened from anesthesia, transferred to the [facility] and transferred to the PACU for recovery. My physician surgical first assistant was a vital part of this case. He was important in appropriate retraction during the case, and protection of soft tissues during bony cuts. His intimate knowledge of the case and my steps aided in safe and expedient completion of the procedure as well as appropriate position of the leg during the case. He was also vital in assisting with closure under my direct supervision. Due to the complexity of this case, robotic arm was used to assist in the surgery to improve accuracy and clinical outcomes. Post-op Plan: DVT ppx; ASA 81 mg BID, thigh high compression stockings Follow up: in office in 2 weeks for wound check PT: to start POD #0 at hospital, outpatient PT should be arranged. Preoperative antibiotic: Ancef 2 grams IV Jimmy Rebollar DO Surgeon: Jimmy Rebollar tripe cooker: Lobo Diop Type of Anesthesia: Spinal Anesthesiologist: Marquise Hill Estimated Blood Loss (mL): 20 cc Fluids Replaced: 1000 cc crystalloid Admit VTE Documentation VTE Present on Admission: No VTE Mechan Device Prophylaxis: SCD's and Thigh High RITA Hose VTE Pharm Prophylaxis ordered?: Yes
[2021-07-18] MEDS: Lactated Ringers 1,000 ML 999 ML IV (11:45)
--- NOTE | 2021-07-18 12:10 | EKG12_ITS ---
Test Reason : POSTOP CP Blood Pressure : / mmHG Vent. Rate : 082 BPM Atrial Rate : 082 BPM P-R Int : 174 ms QRS Dur : 094 ms QT Int : 416 ms P-R-T Axes : 053 022 043 degrees QTc Int : 486 ms Normal sinus rhythm Normal ECG When compared with ECG of 10-JUN-2021 12:14, QT has lengthened Confirmed by MARTIN SINGH, CK ([id number]), editor trade journal MEGAN GARSIA ([id number]) on 07/21/2021 11:32:51 AM Referred By: Jimmy Rebollar Confirmed By:CK SALAZAR MD
--- NOTE | 2021-07-18 12:10 | SUR.PHASEI ---
pt with nausea, zofran at 1147. Dr grider at bedside to do block at 1200, pt starts dry heaving and having pain at stomach area. EKG taken, NSR. pt states felt better at 1210. Pt operative knee bleeding from incision site. Per Dr Rebollar change dressing, place a weighted sand bag on knee. Dressing changed and sand bag placed on knee.
[2021-07-18] MEDS: Aspirin 81 MG TAB.CHEW PO (16:49)
[2021-07-18] MEDS: Budesonide Respules 0.5 MG/2 ML AMPUL.NEB. INHALATION (19:49)
[2021-07-18] MEDS: APIXABAN 5 MG TABLET PO (21:40)
[2021-07-18] MEDS: Losartan Potassium 100 MG Tablet PO (21:40)
[2021-07-18] MEDS: Gabapentin 300 MG Capsule PO (21:50)
[2021-07-18] MEDS: Ketorolac 15 MG/ML Vial IV (22:32)
[2021-07-18] MEDS: 0.9% Saline Lock 10 ML Syringe IV (22:32)
[2021-07-19 02:15] VITALS: BP 113/50; PULSE 68; RESP 18; TEMP 36.2; O2SAT 94
[2021-07-19 05:06] LABS: Hematocrit 34.3 % (37-47); Hemoglobin 11.1 g/dL (12.0-15.0); Mean Corp Hgb Conc 32.4 g/dL (32-36); Mean Corpuscular Hgb 27.7 pg (27.0-32.0); Mean Corpuscular Volume 85.5 fL (81-99); Mean Platelet Vol. 9.9 fl (6.2-12.0); Platelet Count 284 K/mm3 (150-450); RBC Distribution Width CV 13.6 % (11.6-14.6); Red Blood Count 4.01 M/mm3 (4.2-5.4); White Blood Count 13.9 K/mm3 (4.4-11.0)
[2021-07-19 05:27] LABS: Anion Gap 5 (5-15); BUN 10 mg/dL (7-18); BUN/Creat Ratio 21.6 RATIO (10-20); Calcium,Total 8.1 mg/dL (8.5-10.1); Chloride 103 mmol/L (98-107); Creatinine, Serum 0.46 mg/dL (0.55-1.02); EST Glomerular Filtration Rate 143 mL/min (>60); Est Glom Filt Rate - Afr Amer 173 mL/min (>60); Estimated Creatinine Clearance 47.14 ml/min; Glucose 146 mg/dL (74-106); Potassium 4.2 mmol/L (3.5-5.1); Sodium Level 137 mmol/L (136-145)
[2021-07-19] MEDS: Acetaminophen 500 MG Tablet 1000 MG PO ×2 (06:24→14:16)
[2021-07-19 07:26] VITALS: BP 120/67; PULSE 76; RESP 16; TEMP 36.5; O2SAT 97
--- NOTE | 2021-07-19 07:42 | PN.ORTHO_ITS ---
Subjective Subjective Patient sitting at bedside. Patient states her pain is been very well managed patient reports she did have some bleeding from the bottom of her incision immediately postoperatively. Patient states she has had no bleeding to her knowledge at this time. Patient denies any chest pain, shortness of breath, calf pain, nausea vomiting. Patient reports she has been up and ambulated on the knee with assistance. Patient does states she is getting occasional muscle cramps in her legs. Patient feels she is otherwise doing well and is ready for discharge home. Patient is unable to tolerate any form of narcotic pain medication due to severe uncontrollable nausea and vomiting. Patient will be using Tylenol Extra Strength 1000 mg every 8, Neurontin 300 mg 3 times daily. Patient is unable to use any type of an oral anti-inflammatory as she is on anticoagulation. Patient will also use Flexeril 10 mg for her leg cramps every 8 hours as needed Objective Data Objective Data Vital Signs: Vital Signs Temp Pulse Resp BP Pulse Ox 97.7 F L 76 16 120/67 97 07/19/21 07:26 07/19/21 07:26 07/19/21 07:26 07/19/21 07:26 07/19/21 07:26 Oxygen Flow Rate (L/min) 2 Oxygen Delivery Method Room Air Weight: 96.162 kg Body Mass Index (BMI) 36.3 Intake & Output: Intake and Output for Last 24 Hours 07/17/21 07/18/21 07/19/21 23:59 23:59 23:59 Intake Total 1562 / 1802 876 / 876 Output Total 350 / 350 Balance 1212 / 1452 876 / 876 Lab / Micro Data Result Diagrams: 07/19/21 04:29 07/19/21 04:29 Labs: Laboratory Results - last 24 hr 07/18/21 07:56: POC Glucose 101 07/19/21 04:29: WBC 13.9 H, RBC 4.01 L, Hgb 11.1 L, Hct 34.3 L, MCV 85.5, MCH 27.7, MCHC 32.4, RDW Std Deviation 43.0, RDW Coeff of Jj 13.6, Plt Count 284, MPV 9.9 07/19/21 04:29: Sodium 137, Potassium 4.2, Chloride 103, Carbon Dioxide 29.0, Anion Gap 5, BUN 10, Creatinine 0.46 L, Estim Creat Clear Calc 47.14, Est GFR (MDRD) Af Amer 173, Est GFR (MDRD) Non-Af 143, BUN/Creatinine Ratio 21.6 H, Glucose 146 H, Calcium 8.1 L Micro: Microbiology 06/10/21 12:20 Swab (Method) Nasal Screen MRSA/MSSA - Final Radiography Diagnostic Testing: Radiology Impression Knee X-Ray 07/18/21 09:12 IMPRESSION: Uncomplicated left total knee arthroplasty. Electronically Signed: Dimas Olivas MD at 12:51 EDT , Physical Exam Narrative Upon exam, I found patient sitting comfortably in a chair at bedside. Patient's left leg elevated. Patient's left knee's dressing was clean dry intact. Patient did have a Polar Care in place. Patient had no calf pain. Neurovascular she is otherwise intact. Patient did lower her leg to 90 degrees and was able to flex and extend with good motion postoperatively. Patient did develop some cramping however in her left thigh. Patient is afebrile. Patient is in no respiratory distress and speaking in full sentences. Patient has excellent range of motion of the upper extremities without limitations. Const alert and oriented x3 Eyes PERRL Neuro CN's II-XII intact bilaterally Psych mental status grossly normal and affect normal Assessment & Plan Assessment/Plan (1) Status post total knee replacement, left: PLAN: 1. Pain control, with Tylenol extra strength 1000 mg every 8 hours, gabapentin 300 mg 1 p.o. 3 times daily, Flexeril 10 mg 1 p.o. every 8 hours as needed for muscle cramps 2. Resume and continue Eliquis and aspirin as prescribed preoperatively for postop DVT prophylaxis 3. Encourage incentive spirometry 4. Discharge home today 5. Change dressing prior to discharge home 6. Begin physical therapy at [facility] as scheduled 7. Follow-up with Lobo Diop PA-C as scheduled for postop visit
[2021-07-19 07:45] VITALS: PULSE 72; RESP 18
--- NOTE | 2021-07-19 07:53 | EX.PCM.DISCH ---
Discharge Instructions Diet Discharge Diet: No restrictions Activity Discharge Activity: May Not Drive, May Shower and Use Walker May shower in (days): 3 May resume sexual activity in: No Restrictions Ice area for (Minutes): 30 Weight Bearing Status: Weight bearing as tolerated Keep extremity elevated above heart level: Operative Extremity Dressing / Incision Call your doctor if your incision/area has: Continuous Slow Oozing, Sudden Increased Bleeding, Increased Pain/ Swelling, Increased Redness, Foul Smelling Discharge and Swelling at the incision site Call your doctor if you observe: Fever of 101 or Higher and Coldness, Increased Pain Change Dressing in: do not change dressing Remove Dressing in: 1 week Follow Up Care Please Follow Up With: krystina Diop When: as scheduled Test Results: Test results from this visit will be discussed in further detail at your follow-up appointment, if applicable. Discharge Plan Admission Admit Date/Time: 07/18/21 14:59 Primary Reason for Your Visit: Left total knee replacement Attending Provider: Jimmy Rebollar Primary Care Provider: Adam Husain Discharge Orders/Prescriptions Prescriptions: New acetaminophen 500 mg Tablet 1,000 mg PO Q8 30 Days Qty: 180 RF: 0 cyclobenzaprine 10 mg Tablet 10 mg PO TID PRN PRN (Reason: Cramp) 7 Days Qty: 20 RF: 0 Continued aspirin [Adult Low Dose Aspirin] 81 mg tablet,delayed release (DR/EC) 81 mg PO DAILY RF: 0 montelukast [Singulair] 10 mg tablet 10 mg PO DAILY Qty: 90 RF: 3 loratadine [Claritin] 10 mg tablet 10 mg PO DAILY Qty: 90 RF: 3 hydrochlorothiazide 25 mg tablet 25 mg PO DAILY Qty: 90 RF: 3 d-mannose 500 mg capsule 500 mg PO BID RF: 0 gabapentin 300 mg capsule 300 mg PO BID Qty: 90 RF: 1 valsartan 320 mg tablet 320 mg PO QHS Qty: 90 RF: 3 pantoprazole [Protonix] 40 mg tablet,delayed release (DR/EC) 40 mg PO DAILY Qty: 90 RF: 3 albuterol sulfate [ProAir HFA] 90 mcg/actuation HFA aerosol inhaler 2 puff INHALATION PRN PRN (Reason: ASTHMA) RF: 0 cholecalciferol (vitamin D3) [Vitamin D3] 25 mcg (1,000 unit) Tablet 25 mcg PO DAILY RF: 0 Flovent HFA 220 mcg/actuation HFA aerosol inhaler 1 puff inhalation DAILY RF: 0 Eliquis 5 mg tablet 5 mg PO BID RF: 0 No Action amlodipine 10 mg tablet 10 mg PO DAILY RF: 0 Referrals / Follow Up: Adam Husain MD [Primary Care Provider] - Disposition Disposition (needs filled in before D/C Order can be placed): Home, Self Care
[2021-07-19] MEDS: cycloBENZAPRine HCl 10 MG Tablet PO (07:55)
[2021-07-19] MEDS: Budesonide Respules 0.5 MG/2 ML AMPUL.NEB. INHALATION (07:55)
[2021-07-19] MEDS: Aspirin 81 MG TAB.CHEW PO (07:55)
[2021-07-19] MEDS: Loratadine 10 MG Tablet PO (10:39)
[2021-07-19] MEDS: APIXABAN 5 MG TABLET PO (10:39)
[2021-07-19] MEDS: amLODIPine 10 MG Tablet PO (10:39)
[2021-07-19] MEDS: hydroCHLOROthiazide 25 MG Tablet PO (10:39)
[2021-07-19] MEDS: Montelukast 10 MG Tablet PO (10:40)
[2021-07-19] MEDS: Cholecalciferol (VIT D3) 25 MCG TABLET (1,000 UNITS) PO (10:40)
[2021-07-19] MEDS: Pantoprazole Sodium 40 MG Tablet PO (10:40)
[2021-07-19] MEDS: Gabapentin 300 MG Capsule PO (10:44)
--- NOTE | 2021-07-19 13:12 | CASEMGMT ---
ARNIE RIVERA Assessment: Face to Face with pt for initial transition planning/care coordination assessment. RN NICOLE introduced self and role at [facility], pt voices understanding and consents to assessment. Pt is A/O x4 and answers all questions appropriately at this time. Pt sitting up in chair in no distress. Care providers, pharmacy, and demographics verified/updated. Admitting Dx: L total knee robotic PCP:Lisha Specialists:Keturah, sherly; Pauline, pain mgmt; marquez Danielle Preferred Pharmacy: [facility] Retail Insurance: MCR, MMO Prescription Benefit: yes LW/HPOA: Pt states she has a LW/DPOA and it is her . She is aware this is not on file at [facility] and she may bring in to be scanned into her chart. LNOK: Bjorn Ha, Living Arrangements: Pt lives with in a two story home with 3 steps to enter. Pt reports she was I in ADL's prior to surgery. Transportation: Pt drives self and denies concerns with transportation. Pt will provide transportation until she can drive again. DME/HHC/SNF: Pt has a FWW but normally does not use [facility]. Pt denies hx of HHC or SNF stays. Pt states no concerns with going home at time of dc. SHe has her therapy set up for Sunday at [facility]. Pt states no further concerns/needs. CM to follow. Advised pt to ask CM if any further question/concerns/needs arise, voices understanding. Pt Goal: Home Plan: Home with outpt therapy set up.
[2021-07-19 13:31] VITALS: O2SAT 95
[2021-07-19 13:51] VITALS: BP 108/43; PULSE 74; RESP 16; TEMP 36.7; O2SAT 98
== END 2021-07-19 16:04 | disposition home or self-care (01) ==
LOC: SDC 15:14 → MS3 15:14
PROVIDERS: Anesthesiology; Admitting Provider Orthopaedic Surgery; PCP Internal Medicine; Referring Provider Orthopaedic Surgery; Visit Provider Orthopaedic Surgery
PROC: 0SRD0JZ Replacement of Left Knee Joint with Synthetic Substitute, Open Approach (ICD-10-PCS; CPT 27447; principal; 2021-07-18 09:30)
DX: M17.12 Unilateral primary osteoarthritis, left knee (principal); G47.33 Obstructive sleep apnea (adult) (pediatric); J45.909 Unspecified asthma, uncomplicated; Z79.899 Other long term (current) drug therapy; K21.9 Gastro-esophageal reflux disease without esophagitis; I10 Essential (primary) hypertension; Z86.718 Personal history of other venous thrombosis and embolism; Z79.01 Long term (current) use of anticoagulants
CPT/HCPCS: 27447; 01402; S2900; 64447; 36415; 73560; 80048; 82962; 83735; 85027; 87081; 88305; 88311; 93005; 94640; 96374; 97162; 97166; 97530; 99218; 99251; C1776; J7120; A4216; G0378; G0463; J3475

== ENCOUNTER → 2021-08-05 | Outpatient (CLI) | payer MEDICARE, OTHER, SELFPAY ==
--- NOTE | 2021-08-05 14:54 | US_ITS ---
STUDY: THYROID ULTRASOUND REASON FOR EXAM: Female, 66 years old. compare thyroid nodule and lymph node 2020 TECHNIQUE: Ultrasound evaluation of the thyroid was performed with real-time and static ramsey-scale imaging. COMPARISON: 6.9. FINDINGS: RIGHT LOBE: The right lobe of the thyroid gland measures 3.7 x 1.4 cm. There is a homogeneous echotexture. Single mid nodule is visualized measuring 3 x 4 x 2 mm. This has irregular margins. The lesion is solid with irregular margins and grupo nodular doppler flow. LEFT LOBE: The left lobe of the thyroid gland measures 3.4 x 1.3 cm. There is a homogeneous echotexture. There are no demonstrated solid, cystic or complex lesions. ISTHMUS: The isthmus measures 2 mm. Left neck lymph node measures 12 x 8 x 4 mm. US/Thyroid IMPRESSION: Stable right thyroid nodule. However, This nodule is solid or almost completely solid, hypoechoic, [id number], is lobulated or irregular and contains no echogenic foci. TI-RADS points: 6. TI-RADS category: TR4. This nodule is moderately suspicious but no FNA or follow-up is necessary given the small size of this nodule. Stable left neck lymph node. Electronically Signed: Morro Mendoza MD at 21:27 EDT ,
== END | disposition home or self-care (01) ==
LOC: US 14:53
PROVIDERS: PCP Internal Medicine; Referring Provider Internal Medicine Endocrinology, Diabetes & Metabolism; Visit Provider Internal Medicine Endocrinology, Diabetes & Metabolism
DX: E04.9 Nontoxic goiter, unspecified (principal)
CPT/HCPCS: 76536

== ENCOUNTER → 2021-08-23 | Outpatient (CLI) | payer MEDICARE, OTHER, SELFPAY ==
--- NOTE | 2021-08-23 07:09 | BI_ITS ---
MAMMOGRAPHY - BILATERAL SCREENING REASON FOR EXAM: Female, 66 years old. Routine annual screening examination. PERTINENT HISTORY: Aunt with breast cancer. TECHNIQUE: Digital bilateral breast lashae (3D mammographic acquisition) in the CC and MLO projections. 2-D mediolateral oblique (MLO) and craniocaudad (CC) views of both breasts were obtained. CAD: Full Field Digital Mammography with Computer Added Detection was performed. COMPARISON: Comparison is made with prior examination dated 08/04/2020 and 01/13/2019. FINDINGS: Breast Composition: The breasts are almost entirely fatty. There are no dominant masses or suspicious calcifications. No other significant abnormalities are identified. There has been no significant change since the prior study. BI/SCRN MAMM (CAD)W/LASHAE BILAT IMPRESSION: Stable bilateral screening mammogram. Yearly follow-up mammogram recommended. (A) ASSESSMENT CATEGORY: BIRADS Category 1: Negative. A letter regarding these results will be sent to the patient by the facility within 30 days. Approximately 10% of breast cancers are not detected by mammography. A normal mammogram should not delay biopsy of a clinically suspicious abnormality. [id number] Electronically Signed: Derek Gould MD at 8:31 EDT ,
--- NOTE | 2021-08-23 07:29 | CT_ITS ---
STUDY: CT CHEST, ABDOMEN T PELVIS WITH CONTRAST REASON FOR EXAM: Female, 66 years old. H/o colon cancer; surveillance. Prior colectomy. RADIATION DOSAGE (If Supplied By Facility): CTDIvol = ( 19.23 ) mGy, DLP = ( 2018.74 ) mGycm TECHNIQUE: Transaxial imaging was performed following intravenous administration of Oral and amp; IV Readi-CAT and amp; 75mL Isovue-370. Individualized dose optimization techniques were used for this CT. COMPARISON: Comparison is made with prior examination dated 11/27/2019. FINDINGS: CHEST The lungs are normal. There is no demonstrated pleural abnormality. There are calcifications of the coronary arteries. Normal mediastinum. Normal hilar regions. Normal unenhanced pulmonary arteries. There is atherosclerotic calcification of the aortic arch with tortuosity and elongation of the aortic arch and descending thoracic aorta. There are multi-level degenerative changes of the thoracic spine. Diffuse fatty infiltration of the liver. ABDOMEN There is decreased attenuation of the liver consistent with steatosis. There are surgical clips in the gallbladder fossa consistent with a prior cholecystectomy. Normal spleen. Normal pancreas. Normal bilateral adrenal glands. Right renal cysts. The largest measures 1.3 cm. There is a 9 mm cyst in the upper pole of the left kidney. 1 cm cyst in the anterior apical. Smaller cysts are also seen in the lower pole. The largest cyst measures 1.5 cm. There is a small hiatal hernia. Normal small intestine. Normal colon. There is non-visualization of the appendix. There is diffuse atherosclerotic calcification of the abdominal aorta, without a demonstrated aneurysm. Normal inferior vena cava. There is borderline retroperitoneal lymphadenopathy with enlarged nodes no greater than 10mm in the short axis diameter. PELVIS Normal urinary bladder. Patient is status post hysterectomy. There is no pelvic fluid. There is no pelvic lymphadenopathy or mass lesion. There is diffuse atherosclerotic calcification of the pelvic arteries. Normal abdominal wall. There are degenerative changes of the visualized lumbar spine. CT/CT Chest, Abd, Pel w/Contrast IMPRESSION: Diffuse fatty infiltration of the liver. Small bilateral renal cysts. Electronically Signed: Derek Gould MD at 14:03 EDT ,
== END | disposition home or self-care (01) ==
LOC: CT 07:07
PROVIDERS: PCP Internal Medicine; Visit Provider Nurse Practitioner Family
DX: Z12.31 Encounter for screening mammogram for malignant neoplasm of breast (principal); C18.9 Malignant neoplasm of colon, unspecified
CPT/HCPCS: 71260; 74177; 77063; 77067; Q9967

== ENCOUNTER → 2022-01-02 | Outpatient (CLI) | payer MEDICARE, OTHER, SELFPAY ==
--- NOTE | 2022-01-02 12:54 | CDU_ITS ---
Reason For Study: Carotid bruit, hx of CVA Rt. Velocities/BP Lt. Velocities/BP Prox CCA 65.5/13.5 cm/sec. Prox CCA 77.3/17.9 cm/sec. Mid CCA 57.9/11.6 cm/sec. Mid CCA 77.3/14.6 cm/sec. Dist CCA 55.1/12.6 cm/sec. Dist CCA 77.3/19 cm/sec. Prox ICA 57/12.6 cm/sec. Prox ICA 71.6/17.6 cm/sec. Mid ICA 60.7/16.3 cm/sec. Mid ICA 98.2/23.2 cm/sec. Dist ICA 78.9/23.4 cm/sec. Dist ICA 87.5/17 cm/sec. Rt. ICA/CCA = 1.36. Lt. ICA/CCA = 1.27. Prox ECA 104.7/12.4 cm/sec. Prox ECA 96.1/13.9 cm/sec. Rt. Vert. 78.4/12.4 cm/sec. Lt. Vert. 68.1/17 cm/sec. Right Extracranial There is heterogeneous, smooth atherosclerotic plaque noted in the right common carotid artery. There is heterogeneous, smooth atherosclerotic plaque noted in the right internal carotid artery. There is intimal thickening but no significant atherosclerotic plaque noted in the right external carotid artery. Antegrade flow is noted in the right vertebral artery. Left Extracranial There is intimal thickening but no significant atherosclerotic plaque noted in the left common carotid artery. There is intimal thickening but no significant atherosclerotic plaque noted in the left internal carotid artery. There is intimal thickening but no significant atherosclerotic plaque noted in the left external carotid artery. Antegrade flow is noted in the left vertebral artery. Procedure Carotid Duplex [id number]. This is a Carotid Duplex examination using B-mode, color flow and specral Doppler. Exam performed in department. VL/Carotid Duplex Ultrasound Interpretation Summary Mild (<50%) stenosis right extracranial internal carotid. Normal left extracranial internal carotid. Patent and antegrade vertebrals bilaterally. Ordering Physician: Adam Husain Referring Physician: Adam Husain Performed By: Noris Zaldivar RVT
== END | disposition home or self-care (01) ==
PROVIDERS: PCP Internal Medicine; Referring Provider Internal Medicine; Visit Provider Internal Medicine
DX: R09.89 Other specified symptoms and signs involving the circulatory and respiratory systems (principal); Z86.73 Personal history of transient ischemic attack (TIA), and cerebral infarction without residual deficits
CPT/HCPCS: 93880

== ENCOUNTER → 2022-03-15 | Outpatient (CLI) | payer MEDICARE, OTHER, SELFPAY ==
[2022-03-15 12:47] LABS: Absolute Lymphocyte Count 1.67 X10^3/uL (0.83-4.51); Basophil# 0.05 X10^3/uL; Basophil% 0.7 % (0-1); Eosinophil# 0.16 X10^3/uL; Eosinophils% 2.2 % (0-5); Hematocrit 46.2 % (37-47); Hemoglobin 14.6 g/dL (12.0-15.0); Lymphocyte # 1.67 X10^3/ul (0.83-4.51); Lymphocyte % 22.6 % (19-41); Mean Corp Hgb Conc 31.6 g/dL (32-36); Mean Corpuscular Hgb 26.3 pg (27.0-32.0); Mean Corpuscular Volume 83.2 fL (81-99); Mean Platelet Vol. 9.4 fl (6.2-12.0); Monocyte# 0.51 X10^3/uL; Monocyte% 6.9 % (0-10); NRBC Flagged by Analyzer 0 % (0-5); Neutrophil # 4.99 X10^3/uL (2.7-7.7); Neutrophil % 67.3 % (47-70); Platelet Count 310 K/mm3 (150-450); RBC Distribution Width CV 14.1 % (11.6-14.6); RBC Distribution Width SD 42.2 fl (35.1-43.9); Red Blood Count 5.55 M/mm3 (4.2-5.4); White Blood Count 7.4 K/mm3 (4.4-11.0)
[2022-03-15 13:27] LABS: AST(SGOT) 14 U/L (15-37); Alanine Aminotransfer ALT/SGPT 16 U/L (13-56); Alkaline Phosphatase 95 U/L (45-117); Anion Gap 6 (5-15); BUN 14 mg/dL (7-18); BUN/Creat Ratio 21.7 RATIO (10-20); Calcium,Total 9.5 mg/dL (8.5-10.1); Chloride 103 mmol/L (98-107); Creatinine, Serum 0.64 mg/dL (0.55-1.02); EST Glomerular Filtration Rate 98 mL/min (>60); Est Glom Filt Rate - Afr Amer 118 mL/min (>60); Globulin 3.9 g/dL (2.2-4.2); Glucose 102 mg/dL (74-106); Potassium 4.1 mmol/L (3.5-5.1); Protein, Total 7.9 g/dL (6.4-8.2); Sodium Level 138 mmol/L (136-145)
== END | disposition home or self-care (01) ==
LOC: BIMLAB 10:30
PROVIDERS: PCP Internal Medicine; Referring Provider Internal Medicine; Visit Provider Internal Medicine
DX: Z01.818 Encounter for other preprocedural examination (principal)
CPT/HCPCS: 36415; 80053; 85025

== ENCOUNTER 2022-04-12 12:12 | Observation (INO) | payer MEDICARE, OTHER, SELFPAY ==
--- NOTE | 2022-03-27 22:57 | PCM.HP.BLA ---
History and Physical History and Physical? Patient Name: Lety Ha : 1955 From:? CORA SMITH PA-C? DATE OF SURGERY:? 04/12/2022 SCHEDULED PROCEDURE:? Left total hip arthroplasty HISTORY OF PRESENT ILLNESS: Preoperative history and physical exam was performed on March 27, 2022.? This is a 66-year-old female who is had ongoing pain with her left hip for approximately 3 years.? She states the pain has been progressively been getting worse.? Pain has been intermittent, aching, sharp.? At worst her pain can reach 7/10.? She has increased pain going up and down stairs and standing.? She complains of left groin pain.? She does have start up pain.? Pain does occasionally wake her at nighttime.? Patient has difficulty putting on her socks and shoes due to the pain.? She also has difficulty with housework.? Patient has tripped/stumbled secondary to the pain.? She feels unsafe climbing on chairs or on long walks.? She has attempted rest, elevation and previous corticosteroid injections for both hips and lumbar spine.? She had no improvement from the injections.? She has attempted oral medications including [id number] extra strength Tylenol.? Patient has been through previous physical therapy and care tech without relief in symptoms.? She denies previous surgery on the left hip.? She has used a cane on occasion for ambulatory assistance.? After failing conservative measures and discussing treatment options with Dr. Efren Hassan, the patient does wish to proceed with a left total hip arthroplasty.? Patient has previous history of DVT, hypertension, and previous stroke.? She has had previous colon cancer and asthma.? We are obtaining surgical clearance from the primary care physician Dr. 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 She is on Eliquis in which they recommended stopping 2 days prior to surgery and resuming postoperative day #1.? Patient currently denies any recent chest pain, shortness of breath, fevers chills or recent infections.? She has had lab work obtained.? Patient has had previous narcotics for previous total knee arthroplasty and she reports severe vomiting with all narcotics.? She only use Tylenol after the total knee replacement. REVIEW OF SYSTEMS: Review Of Systems: Constitutional: Denies change in appetite, fever,or weight change. Cardiovasular: Reports heart murmur, but denies chest pain and irregular heartbeat. Respiratory: Reports cough and pneumonia, but denies shortness of breath, tuberculosis and wheezing. Gastrointestinal: Denies constipation, diarrhea, heartburn, nausea, rectal itching, bloody stools and vomiting. Genitourinary: Denies incontinence. Musculoskeletal: Reports leg swelling, but denies pain, trouble walking and weakness. Skin: Reports history of shingles, but denies Raynaud's and tattoo. Neurological: Reports difficulty with balance and numbness/tingling but denies ambulatory dysfunction, dizziness and tremor. Psychiatric: Denies anxiety, insomnia and stress. Hematologic/Lymphatic: Denies anemia, bleeding/bruising tendency and past transfusion. Reviewed and updated. PAST MEDICAL HISTORY: Advance Care Plan: Other Directive, LIVING WILL Effective Date: 10/14/2020 Other Directive, POA Effective Date: 10/14/2020 Past Medical History: Medical Problems: Arthritis, Asthma Cancer - COLON History Of Blood Clots/ DVT, High Blood Pressure, Stroke Accidents: LT Wrist FX - (09/01/2019) FALL Fracture - LT MIDDLE AND RING FINGER FX Surgical Hx: Tonsillectomy - (1962) [facility] Tubal Ligation - (1981) [facility] Hysterectomy - (1987) [facility] Gallbladder - (1999) [place] Colon Resection - ASENDING Hernia Repair - (12/2019) LT Knee, Total Joint Replacement - (07/18/2021) Dr Joseline Rebollar @ [facility] Anesthesia Complications: Nausea Difficulty Breathing - COUPLE DAYS AFTER Assistive Devices: Glasses Reviewed and updated. SOCIAL HISTORY: Social History: Marital: .Occupation: [employer].Work Status: Currently Working.Hand Dominance: Right-handed. Personal Habits:? Cigarette Use: Never Smoked Cigarettes.Smokeless Tobacco: Never Used Smokeless Tobacco.E-Cigarette Use: Never used.Alcohol: Occasionally.Drug Use: Denies Use.Enjoy Exercising: Exercises 1-3 X/Week. Reviewed, no changes. VITALS: Ht: 63.8 Wt: 193lb Wt k.545 BMI: 33.3 BP: 124/68 Pulse: 79 Resp: 16 T: 97.5 T: 36.4C Pain Level: 4 O2SatR: 99 ALLERGIES: Tramadol Hydrocodone? MEDICATIONS: Hydrochlorothiazide 25 mg 1po qday, Amlodipine Besylate 5 mg 1po qday, Valsartan 320 mg 1 by mouth every day, Montelukast Sodium 10 mg 1 by mouth every day, Flovent HFA 220 mcg/Act 1po qday, Albuterol Inhaler? 2 puffs as needed, D-Mannose 500 mg 1po qday, Claritin 10 mg by mouth once daily, Eliquis 5 mg 1 by mouth twice a day, Magnesium Oxide 400 mg 1 by mouth every day, Pantoprazole Sodium 40 mg 1 by mouth every day, Potassium Citrate ER 10 Meq (1080 MG) 99 mg once daily PRE-OP EXAM:? General appearance:NORMAL? ? ? Other: Eyes: Conjunctivae and lids: NORMAL? Pupils: ERR Ears, Nose, Mouth, and Throat: NORMAL? Other: Inspection of lips, teeth and gums: NORMAL? ?Other: Neck: Examination of neck: no masses noted. Respiratory: Assessment of respiratory effort: NORMAL? ?Other: ?Auscultation of lungs: clear to auscultation no wheezes, rhonchi or rales. Cardiovascular:? Auscultation of heart: regular rate and rhythm, no murmurs, gallops or rubs. PHYSICAL EXAMINATION: Patient does walk with an antalgic gait? left hip patient has tenderness to palpation over the lateral aspect.? She has flexion 80 with obligatory external rotation, internal rotation neutral, external rotation 20. IMAGING STUDIES: Previous x-rays of the left hip reveal joint space narrowing, subchondral sclerosis, osteophyte formation consistent with moderate to severe stage IV osteoarthritis IMPRESSION: 1.? Severe left hip osteoarthritis 2.? Asthma 3.? Hypertension 4.? History of previous DVT 5.? Stroke 6.? Previous history of colon cancer PLAN: Dr. Efren Hassan did discuss and review with the patient all treatment options including surgical versus nonsurgical options.? Patient does wish to proceed with the above-stated procedure.? Potential risks, benefits, and complications of the procedure were discussed in detail including but not limited to , infection, nerve and blood vessel damage, persistent pain, numbness, tingling, paresthesias, blood clot, pulmonary embolism, and requirement for possible further surgery.? The patient expressed full understanding and has no further questions for the doctor.? Patient does agree to proceed with the above-stated procedure and has signed the surgery consent form. We discussed the current risks associated with COVID 19.? This does include the risk of exposure while in the hospital.? Patient was reassured local hospitals have low infection rates and are taking all necessary precautions to avoid exposure to patients.? In addition, we discussed strategies that can be used to help limit exposure including those that limit the patient's time in the hospital.? Also using strategies to limit the patient's need for continued inpatient services after being discharged from the hospital.? Patient was notified that we will need to comply with any screening or testing the hospital wishes to perform or that surgery may be delayed for any positive results. This dictation was created using voice recognition software. Phonetic and/or grammatical errors may exist. ___? I have re-examined the patient.? There are no clinical changes since date of exam. ___? See progress notes for changes. ___? Dictated on admission Date: ? ? ?Time: Signature:
--- NOTE | 2022-03-31 09:07 | EKG12_ITS ---
Test Reason : PREOP Blood Pressure : / mmHG Vent. Rate : 078 BPM Atrial Rate : 078 BPM P-R Int : 146 ms QRS Dur : 082 ms QT Int : 374 ms P-R-T Axes : 013 023 032 degrees QTc Int : 426 ms Normal sinus rhythm Normal ECG Confirmed by MARTIN SINGH, CK ([id number]), editorial project manager MEGAN GARSIA ([id number]) on 04/04/2022 8:59:00 AM Referred By: Efren Hassan Confirmed By:CK SALAZAR MD
[2022-04-04 09:00] LABS: Magnesium 2.5 mg/dL (1.6-2.6)
[2022-04-05 09:59] LABS: Carcinoembryonic Antigen 1.1 ng/mL (0.0-4.7)
[2022-04-12] VITALS (14 sets, daily range): BP systolic 90–142; BP diastolic 39–66; PULSE 73–90; RESP 12–18; TEMP 36.2–37.5; O2SAT 94–100; BMI 34.0
--- NOTE | 2022-04-12 07:00 | OP.PCM_ITS ---
Report of Operation Date of Procedure: 04/12/22 Pre-Operative Diagnosis: Left hip primary osteoarthritis Post-Operative Diagnosis: Left hip primary osteoarthritis Surgery/Procedure Performed:: Left minimally invasive direct anterior hip replacement Description of Surgical Findings:: Stable hip with equal leg lengths Surgeon: Efren Hassan greenhouse or nursery transplanter: Milton Coronado Type of Anesthesia: General (Patient has history of spinal stenosis) Anesthesiologist: Tyrell Cardona Special Medications: 2 g Ancef, 2 g TXA lavage and wound prior to closure, 10 mg Decadron, joint cocktail (5 mg Duramorph, 30 mL of 0.5% Ropivicaine, 1000 units of epinephrine, 30 mg of Toradol) Specimen's removed: Bony cuts Estimated Blood Loss (mL): 250 Fluids Replaced: 1200 mL Description of Procedure: Components used: 1. Insignia Monmouth femoral stem size 2 high offset 2. Monmouth trident 2 acetabular shell size 50 mm 3. [place]mouth X3 polyethylene D 4. Dionisio Biolox delta 36 mm, -2.5 mm femoral head Brief history operative indications: 66yo female who failed conservative measures for their hip osteoarthritis. X- rays were consistent with osteoarthritis including joint space narrowing, osteophyte formation and subchondral cysts. Total hip replacement was discussed with the patient with risks and benefits including but not limited to blood loss, DVTs, PEs, neurovascular damage, dislocation, general risks of anesthesia including loss of life. Patient demonstrated an understanding medical clearance is obtained the patient was consented for surgery. Procedure: On the date of procedure the patient's L hip was marked in the preoperative area. Patient was then taken back to the operating room where anesthesia assumed control of the C-spine and airway and administered anesthetic. Patient was transferred to the operating table and placed in the supine position. The hips were placed at the break of the bed and a sacral bump was placed. L The lower extremity was then prepped out in a sterile fashion using chlorhexidine while the surgeon scrubbed. The PA was vital in the positioning of the patient. Upon reentering the room the left lower extremity was draped in the standard orthopedic fashion and the incision was marked. A timeout was called and everyone agreed upon the side, the site, the procedure be performed, antibody given, and patient's identity. At this time incision was made through skin, subcutaneous tissue, and fat down to fascia. The fascia was then incised and the TFL was retracted laterally. A retractor was placed on the lateral border of the femoral neck. Attention was directed to the inferior portion of the approach and all crossing vessels were identified and appropriately coagulated. A retractor was then placed on the medial portion of the femoral neck. The anterior capsule was then cleared of all soft tissue and then H shaped capsulotomy was made. The retractors were then placed inside the capsule. The femoral neck was identified and a cleanup cut was made. At this time a power corkscrew was used to remove the femoral head. Attention was then turned toward the acetabulum where the soft tissues were appropriately retracted and the acetabulum was sequentially reamed to 50 mm. A 50 mm cup was then selected and impacted into place. Acetabular liner was impacted into place and locking mechanism was verified. The position of the acetabular cup was then verified under live fluoroscopy. Attention was then turned to the femur. Soft tissue releases on the medial and lateral femoral neck were appropriately done, the leg was externally rotated and lateralized. A Devries retractor was placed medially and proximally to the greater trochanter this allowed appropriate visualization and exposure of the femoral canal. Rongeour was then used to remove excess lateral bone. A canal finder and entry broach were used to open the proximal canal. Once we verified we were down the femoral canal we subsequently broached up to a size 2 femur. The appropriate neck was placed in the previously selected head was trialed with a -2.5 mm neck. Traction was pulled and the hip was reduced with internal rotation. Once it was appropriately reduced and stability was checked. There was minimal shuck, equal leg lengths and appropriate stability with hyperextension and external rotation as well as with 90? flexion and internal rotation. Fluoroscopy was then also used to verify the position of the components and leg lengths using the contralateral side for comparison. The trial components were then dislocated the proximal femur was again exposed and the components were removed from the wound. The final components were verified and opened. The wound was copiously irrigated out with normal saline. The acetabulum was checked for any residual debris. The final components were placed and impacted. Traction and internal rotation were again used to reduce the hip. After adequate reduction the hip remained stable with appropriate leg lengths. The final components were once again checked with live fluoroscopy and were found to be satisfactory. The wound was then copiously irrigated with normal saline once more, and hemostasis was obtained. Closure was then done using #1 Vicryl runner to close the fascia. A 2-0 vicryl interuppted sutures were used to close the subcutaneous skin. A 3-0 Monocryl and Steri-Strips were used for final skin closure. A Silverlon dressing was placed. Patient was awakened by anesthesia and transferred to the [place]. Patient was then transferred to the PACU for recovery. During the course of the procedure the physician heel lining paster (PE) played a vital role. Their intimate knowledge of my steps in the procedure aided in safe and expedient completion of the procedure. The PE played a vital rolls in posit ioning particularly in obtaining the appropriate positioning of the sacral bump. The PE was also vital in the retraction of soft tissues during the exposure and especially the femoral work as this is a vital part of the procedure to prevent complications and fractures. The PE was also vital and protecting soft tissues during times of bony cuts and reaming. He also played a vital role in closure with my direct supervision. The PE was also important during reduction and dislocation of the joint and trials intraoperatively. Postoperative plan: Patient will get 24 hours postop antibiotics. Patient will get in-house physical therapy and will be weight-bear as tolerated. Patient will follow up in office in 2 weeks for a wound check and x-rays. DVT prophylaxis: Resume Eliquis 5 mg twice daily postop day 1. Complications No intraoperative complications Admit VTE Documentation VTE Present on Admission: No VTE Mechan Device Prophylaxis: SCD's and Thigh High RITA Hose VTE Pharm Prophylaxis ordered?: Yes
[2022-04-12] MEDS: Lactated Ringers 1,000 ML 999 ML IV (07:30)
[2022-04-12] MEDS: Magnesium 1 GM over 15 mins IV (07:40)
[2022-04-12] MEDS: Acetaminophen 500 MG Tablet 1000 MG PO ×3 (07:45→20:31)
[2022-04-12] MEDS: Celecoxib 200 MG Capsule 400 MG PO (07:45)
[2022-04-12] MEDS: Gabapentin 600 MG Tablet PO (07:46)
--- NOTE | 2022-04-12 09:40 | HIP_PTH ---
PATIENT: ELIS MCARTHUR LOC: MS3 U#:[id number] AGE/SX: 66/F ROOM: [facility] [place] RE04/12/[address]: Dr. Efren Hassan MD : 1955 BED: 1 DIS: 04/13/2022 SPEC #: [id number] RECD: 04/12/22 14:21 STATUS: RIKI REAdolfo #: [id number] ENID: 04/12/22 09:[address]: Efren Hassan DEPT: SURGICAL PATHOLOGY RECD BY: Phoebe Schuler ENTERED: 04/13/22 08:41 SP TYPE: TOTAL HIP OTHR DR: MD Dr. Lorenzo Reddy MD Dr. Prakash Chand, MD Tissues: Hip, NOS Procedures: Decalcification bone/plaque Surgery Specimen Level IV HEADER OPERATION: ERAS, direct anterior total hip arthroplasty PRE-OP DIAGNOSIS: Severe left hip osteoarthritis TISSUE SUBMITTED: Bone and soft tissue left hip MICROSCOPIC DIAGNOSIS Bone and tissue of left hip, total hip resection: Degenerative joint disease. AM:johann 04/19/2022 MICROSCOPIC DESCRIPTION Slides are reviewed. GROSS DESCRIPTION Received is one container labeled with the patient's name and designated bone and soft tissue of left hip. The specimen consists of a kumar femoral head measuring 4.5 x 4.5 x 4.0 cm. Also present in the container is a detached piece of bone consistent with femoral neck measuring 3.5 x 4.0 x 2.0 cm. The articular surface displays prominent osteophyte formation and bone erosion. Also present in the specimen container are multiple irregular fragments of bone reamings and pink-yellow soft tissue measuring in aggregate 6.5 x 5.5 x 2.0 cm. Back Maker sections are submitted in two cassettes as follows: 1 - soft tissue, 2 - bone after decalcification. / SJ:johann 04/13/2022 TC:3 CPT: 98706, 11487
[2022-04-12] MEDS: Cefazolin 2 GM in 0.9% Normal Saline 100 ML IV (09:47)
[2022-04-12] MEDS: dexAMETHasone 10 MG/ML Vial IV (09:55)
--- NOTE | 2022-04-12 10:40 | RAD_ITS ---
STUDY: X-RAY - PELVIS AND LEFT HIP REASON FOR EXAM: Female, 66 years old. Intraoperative digital documentation views of the left total hip arthroplasty. TECHNIQUE: 2 intraoperative digital documentation views of the pelvis and hip. COMPARISON: August 27, 2019. FINDINGS: 2 intraoperative digital documentation views show new left total hip arthroplasty in anatomic alignment without complications. RAD/Hip 1 view with Pelvis IMPRESSION: Intraoperative operative digital documentation views of left total hip arthroplasty. Electronically Signed: Lobo Salazar, at 12:47 EST ,
--- NOTE | 2022-04-12 12:04 | RAD_ITS ---
STUDY: X-RAY - PELVIS AND LEFT HIP REASON FOR EXAM: Female, 66 years old. Post Op -- AP both hips on single joy/lateral of op hip PACU TECHNIQUE: 3 views of the pelvis and hip. COMPARISON: None. FINDINGS: The patient is status post left total hip replacement. There is good alignment. Postoperative soft tissue changes. Degenerative changes of symphysis pubis. Calcified phleboliths. RAD/Hip Min 2 Views (Portable) IMPRESSION: Status post left total hip replacement. There is good alignment. Electronically Signed: Derek Gould MD at 12:54 EST ,
[2022-04-12] MEDS: Lactated Ringers 1,000 ML 125 ML IV (12:42)
[2022-04-12] MEDS: Montelukast 10 MG Tablet PO (14:17)
[2022-04-12] MEDS: Senna/Docusate Sodium 1 Tablet 2 TABLET PO ×2 (14:17→20:31)
[2022-04-12] MEDS: Famotidine 20 MG Tablet PO (14:18)
[2022-04-12] MEDS: hydroCHLOROthiazide 25 MG Tablet PO (14:18)
[2022-04-12] MEDS: Loratadine 10 MG Tablet PO (14:18)
--- NOTE | 2022-04-12 14:27 | PCM.PN.HOSP ---
Reason for Visit Reason for Visit: Diagnoses Encounter for other preprocedural examination (04/12/22) Subjective Subjective Consult for post-op medical management: 66-year-old with past medical history of CVA, hypertension, history of recurrent DVT who comes in for elective left total hip arthroplasty. Patient has had ongoing pain in his left hip for 3 years that has been progressive. It was affecting her activities of daily living. Patient underwent elective left hip replacement today. She was seen in the immediate postop period. She was on 4 L of oxygen, oxygen sat was 97% Objective Data Objective Data Vital Signs: Vital Signs Temp Pulse Resp BP Pulse Ox O2 Del Method O2 Flow Rate 97.5 F L 85 16 119/60 100 Nasal Cannula 4 04/12/22 14:05 04/12/22 14:05 04/12/22 14:05 04/12/22 14:05 04/12/22 14:05 04/12/22 14:05 04/12/22 14:05 Oxygen Flow Rate (L/min) 4 Oxygen Delivery Method Nasal Cannula Weight: 87 kg Body Mass Index (BMI) 34.0 Intake & Output: Intake and Output for Last 24 Hours 04/10/22 04/11/22 04/12/22 23:59 23:59 23:59 Intake Total 3332 / 3332 Balance 3332 / 3332 Lab / Micro Data Micro: Microbiology 04/04/22 08:00 Swab (Method) Nasal Screen MRSA/MSSA - Final Radiography Diagnostic Testing: Radiology Impression Hip/Pelvis X-Ray 04/12/22 10:40 IMPRESSION: Intraoperative operative digital documentation views of left total hip arthroplasty. Electronically Signed: Lobo Salazar, at 12:47 EST , Hip X-Ray 04/12/22 12:04 IMPRESSION: Status post left total hip replacement. There is good alignment. Electronically Signed: Derek Gould MD at 12:54 EST , Physical Exam Narrative Physical exam: General: Alert, Oriented x3, Cooperative, obese, on 4 L of oxygen HEENT: Atraumatic Oral: Moist Mucosa Neck: Supple Lungs: Diminished to auscultation Cardiovascular: HS I+II, regular, no murmurs Abdomen: Bowel Sounds Present, Soft, Non Tender Extremities: No edema Skin: No rashes, No breakdown Neurological: Grossly intact Psych/Mental Status: Appropriate Assessment & Plan Assessment/Plan (1) Left hip pain: PLAN: Plan 1.POD #0, status post left minimally invasive direct anterior hip replacement Pain is fairly controlled, continue with current pain regimen PT/OT to evaluate per orthopedics recommendation 2. Acute hypoxia, noted in the immediate postop., likely related to atelectasis Patient is currently on 4 L of oxygen, encourage use of incentive spirometer, wean off for SPO2 more than 94% 3. Hypertension, controlled, on continue with amlodipine, hydrochlorothiazide, losartan 4. History of DVT, off Eliquis for surgery, will follow-up on orthopedics recommendations 5. Colon cancer, status post resection in 2020, follows with oncology in the outpatient 6. History of CVA, stable 7. Asthma, not in acute exacerbation/RAHEEL, continue with home BiPAP, breathing treatments as needed 8. DVT PPx- per orthopedic team Charges/Coding Visit Charges Office Visits / Consults: 97337 OP Consult L5
[2022-04-12] MEDS: Ensure Surgery 237 ML LIQUID PO (16:53)
[2022-04-12] MEDS: Ketorolac 15 MG/ML Vial IV (16:55)
[2022-04-12] MEDS: Cefazolin 1 GM/50 ML BAG IV (17:34)
[2022-04-12] MEDS: Losartan Potassium 100 MG Tablet PO (20:31)
[2022-04-13] MEDS: Ketorolac 15 MG/ML Vial IV ×2 (00:04→12:34)
[2022-04-13] MEDS: 0.9% Saline Lock 10 ML Syringe IV ×2 (00:04→12:34)
[2022-04-13] MEDS: Cefazolin 1 GM/50 ML BAG IV (01:44)
[2022-04-13 01:49] VITALS: BP 121/49; PULSE 76; RESP 16; TEMP 36.6; O2SAT 96
[2022-04-13] MEDS: APIXABAN 5 MG TABLET PO (05:44)
[2022-04-13] MEDS: Acetaminophen 500 MG Tablet 1000 MG PO (05:44)
[2022-04-13 05:49] VITALS: BP 122/48; PULSE 64; RESP 16; TEMP 37.1; O2SAT 97
[2022-04-13 06:13] LABS: Hematocrit 35.9 % (37-47); Hemoglobin 11.5 g/dL (12.0-15.0); Mean Corpuscular Hgb 26.9 pg (27.0-32.0); Mean Corpuscular Volume 84.1 fL (81-99); Mean Platelet Vol. 9.4 fl (6.2-12.0); Platelet Count 266 K/mm3 (150-450); RBC Distribution Width CV 14.1 % (11.6-14.6); RBC Distribution Width SD 43.3 fl (35.1-43.9); Red Blood Count 4.27 M/mm3 (4.2-5.4); White Blood Count 14.3 K/mm3 (4.4-11.0)
[2022-04-13 06:49] LABS: Anion Gap 6 (5-15); BUN 13 mg/dL (7-18); Calcium,Total 8.2 mg/dL (8.5-10.1); Chloride 102 mmol/L (98-107); Creatinine, Serum 0.52 mg/dL (0.55-1.02); EST Glomerular Filtration Rate 125 mL/min (>60); Est Glom Filt Rate - Afr Amer 151 mL/min (>60); Estimated Creatinine Clearance 45.16 ml/min; Glucose 132 mg/dL (74-106); Sodium Level 139 mmol/L (136-145)
--- NOTE | 2022-04-13 07:40 | PCM.PN.HOSP ---
Reason for Visit Reason for Visit: Diagnoses Malignant neoplasm of colon, unspecified (04/12/22) Pain in left hip (04/12/22) Encounter for other preprocedural examination (04/12/22) Objective Data Objective Data Vital Signs: Vital Signs Temp Pulse Resp BP Pulse Ox O2 Del Method O2 Flow Rate 98.7 F 64 16 122/48 H 97 Room Air 4 04/13/22 05:49 04/13/22 05:49 04/13/22 05:49 04/13/22 05:49 04/13/22 05:49 04/13/22 05:49 04/12/22 15:35 Oxygen Flow Rate (L/min) 4 Oxygen Delivery Method Room Air Weight: 191 lb 12.835 oz Body Mass Index (BMI) 34.0 Intake & Output: Intake and Output for Last 24 Hours 04/11/22 04/12/22 04/13/22 23:59 23:59 23:59 Intake Total 4732.00 / 4732.00 100 / 100 Balance 4732.00 / 4732.00 100 / 100 Lab / Micro Data Result Diagrams: 04/13/22 05:40 04/13/22 05:40 Labs: Laboratory Results - last 24 hr 04/13/22 05:40: WBC 14.3 H, RBC 4.27, Hgb 11.5 L, Hct 35.9 L, MCV 84.1, MCH 26.9 L, MCHC 32.0, RDW Std Deviation 43.3, RDW Coeff of Jj 14.1, Plt Count 266, MPV 9.4 04/13/22 05:40: Sodium 139, Potassium 4.0, Chloride 102, Carbon Dioxide 31.0, Anion Gap 6, BUN 13, Creatinine 0.52 L, Estim Creat Clear Calc 45.16, Est GFR (MDRD) Af Amer 151, Est GFR (MDRD) Non-Af 125, BUN/Creatinine Ratio 25.0 H, Glucose 132 H, Calcium 8.2 L Micro: Microbiology 04/04/22 08:00 Swab (Method) Nasal Screen MRSA/MSSA - Final Radiography Diagnostic Testing: Radiology Impression Hip/Pelvis X-Ray 04/12/22 10:40 IMPRESSION: Intraoperative operative digital documentation views of left total hip arthroplasty. Hip X-Ray 04/12/22 12:04 IMPRESSION: Status post left total hip replacement. There is good alignment. Physical Exam Narrative Seen and examined. Patient is sitting on the Recliner. Very comfortable. Denies left hip pain. Physical exam General: Alert, Oriented x3, Cooperative HEENT: Atraumatic, PERRLA, EOMI, Normocephalic Oral: Oral mucosa moist. No Gingival or Mucosal Lesions/ Ulcerations Neck: Supple, No JVD, Negative Carotid Bruits Lungs: Air entry diminished in bilateral lung bases. No crepitation/rhonchi Cardiovascular: Regular rate, Regular Rhythm, Normal S1, Normal S2, No murmurs Abdomen: Bowel Sounds Present, Soft, Non Tender, Non-Distended : No renal angle tenderness. No suprapubic tenderness. Extremities: No edema, Capillary Refill Less than 3 Seconds Skin: No rashes, No breakdown Musculoskeletal: Left hip surgical dressing is dry. No hematoma or bruise. No significant pain in flexion or extension left hip. Neurological: Cranial nerves II-XII grossly intact, DTR 2+/4 and Symmetrical, Neuro grossly intact Psych/Mental Status: Normal Affect, Appropriate. Assessment & Plan Assessment/Plan (1) Left hip pain: PLAN: Plan This is a 66-year-old female was admitted under orthopedic service for elective left total hip arthroplasty 1.left hip primary osteoarthritis, resistant to medical management, status post left minimally invasive direct anterior hip replacement: Pain is well controlled. Patient is ready for going home. PT and OT. Orthopedic surgery note reviewed. Patient is medically stable for discharge. Outpatient follow-up with orthopedic surgeon. 2. Acute hypoxia, noted in the immediate postop., likely related to atelectasis: Patient was on 4 L of oxygen yesterday. Acute hypoxia resolved. Advised to continue incentive spirometry. 3. Hypertension, controlled, on continue with amlodipine, hydrochlorothiazide, losartan 4. History of DVT, off Eliquis for surgery, will follow-up on orthopedics recommendations 5. Colon cancer, status post resection in 2020, follows with oncology in the outpatient 6. History of CVA, stable 7. Asthma, not in acute exacerbation/RAHEEL, continue with home BiPAP, breathing treatments as needed 8. DVT PPx- per orthopedic team Patient is getting discharged today. Hospitalist team will sign off Charges/Coding Visit Charges Inpatient E&M: 55414 Subs Hosp L2
[2022-04-13 07:50] VITALS: O2SAT 96
[2022-04-13] MEDS: Ensure Surgery 237 ML LIQUID PO ×2 (07:53→12:35)
[2022-04-13] MEDS: Cholecalciferol (VIT D3) 25 MCG TABLET (1,000 UNITS) PO (09:07)
[2022-04-13] MEDS: Montelukast 10 MG Tablet PO (09:07)
[2022-04-13] MEDS: Senna/Docusate Sodium 1 Tablet 2 TABLET PO (09:07)
[2022-04-13] MEDS: Loratadine 10 MG Tablet PO (09:07)
[2022-04-13] MEDS: Pantoprazole Sodium 40 MG Tablet PO (09:07)
[2022-04-13] MEDS: hydroCHLOROthiazide 25 MG Tablet PO (09:07)
[2022-04-13] MEDS: Famotidine 20 MG Tablet PO (09:07)
[2022-04-13] MEDS: amLODIPine 10 MG Tablet PO (09:07)
[2022-04-13 09:31] VITALS: O2SAT 98
--- NOTE | 2022-04-13 09:36 | PCM.PN.ORT ---
Subjective Subjective The patient was sitting in bedside chair upon examination. Patient denies any chest pain, shortness of breath, dizziness, lightheadedness, nausea or vomiting, or calf pain. Pain is controlled on medications. No adverse overnight events. Patient had some postoperative hypoxia yesterday but has been saturating at 96% on room air. Denies any chest pain or shortness of breath. She has been working on incentive spirometer. She does have history of sleep apnea. Patient did tolerate therapy yesterday well. She has severe side effects to all narcotics and is only taking Tylenol. She does state soreness in the left thigh. She denies any calf pain. She does have previous history of DVT in which she takes Eliquis. Objective Data Objective Data Vital Signs: Vital Signs Temp Pulse Resp BP Pulse Ox O2 Del Method O2 Flow Rate 98.7 F 64 16 122/48 H 96 Room Air 4 04/13/22 05:49 04/13/22 05:49 04/13/22 05:49 04/13/22 05:49 04/13/22 07:50 04/13/22 09:32 04/12/22 15:35 Oxygen Flow Rate (L/min) 4 Oxygen Delivery Method Room Air Weight: 87 kg Body Mass Index (BMI) 34.0 Intake & Output: Intake and Output for Last 24 Hours 04/11/22 04/12/22 04/13/22 23:59 23:59 23:59 Intake Total 4732.00 / 4732.00 100 / 100 Balance 4732.00 / 4732.00 100 / 100 Lab / Micro Data Result Diagrams: 04/13/22 05:40 04/13/22 05:40 Labs: Laboratory Results - last 24 hr 04/13/22 05:40: WBC 14.3 H, RBC 4.27, Hgb 11.5 L, Hct 35.9 L, MCV 84.1, MCH 26.9 L, MCHC 32.0, RDW Std Deviation 43.3, RDW Coeff of Jj 14.1, Plt Count 266, MPV 9.4 04/13/22 05:40: Sodium 139, Potassium 4.0, Chloride 102, Carbon Dioxide 31.0, Anion Gap 6, BUN 13, Creatinine 0.52 L, Estim Creat Clear Calc 45.16, Est GFR (MDRD) Af Amer 151, Est GFR (MDRD) Non-Af 125, BUN/Creatinine Ratio 25.0 H, Glucose 132 H, Calcium 8.2 L Micro: Microbiology 04/04/22 08:00 Swab (Method) Nasal Screen MRSA/MSSA - Final Radiography Diagnostic Testing: Radiology Impression Hip/Pelvis X-Ray 04/12/22 10:40 IMPRESSION: Intraoperative operative digital documentation views of left total hip arthroplasty. Electronically Signed: Lobo Salazar, at 12:47 EST , Hip X-Ray 04/12/22 12:04 IMPRESSION: Status post left total hip replacement. There is good alignment. Electronically Signed: Derek Gould MD at 12:54 EST , Physical Exam Narrative Vital signs stable and afebrile. Left thigh is soft and supple RITA hose and SCDs are in place bilaterally Patient is able to plantarflex and dorsiflex actively. Sensation is intact to light touch to saphenous, sural, superficial and deep peroneal, and tibial distribution. Dressing is clean dry and intact. There is some reactive erythema over the proximal incision. I did explain to the patient that once the Mepilex dressing is removed she should use a 4 x 4 gauze pad to protect the proximal incision for 4 weeks postoperatively. Negative Homans bilaterally, negative signs and symptoms of DVT. Const alert, oriented x3 and no apparent distress Assessment & Plan Assessment/Plan (1) S/P total left hip arthroplasty: PLAN: 1. S/P left direct anterior total hip arthroplasty POD #1 2. Continue Pain Medications: Tylenol only. Patient has severe reactions to all narcotics. She is also on Eliquis and has history of previous stroke and are avoiding nonsteroidal anti-inflammatories postoperatively. 3. DVT Prophylaxis: Patient has resumed her Eliquis 4. PT/OT: Weightbearing as tolerated with walker 5. H & H: 11.5/35.9, asymptomatic. Postoperative anemia secondary to acute blood loss from surgery without any intra operative complications. 6. Reactive leukocytosis: Currently 14.3, afebrile. Patient did receive Decadron intraoperatively 7. Continue postoperative medical treatment per medicine 8. Encouraged Incentive Spirometry 9. Disposition: Patient overall is doing very well this morning. Plan will be for discharge home today as long as patient tolerates physical therapy, pain is well controlled, and medically stable. Patient does have outpatient physical therapy established. She will follow-up per postop instructions. I did explain to her that if she has any complications upon discharge she is to contact our office. Also discussed her Mepilex dressing and after removing it 5 days postoperatively she will use a 4 x 4 dressing over the proximal incision to protect this from the skin pannus. I have reviewed the [place] Automated Rx Reporting System (OARRS) report for this patient for refill pattern and other prescriber involvement as part of the appropriate surveillance for the provision of acute and chronic controlled medications. The report was requested and reviewed on the date of this entry and was considered in the prescribing process. This dictation was created using voice recognition software. Phonetic and/or grammatical errors may exist.
[2022-04-13 09:40] VITALS: BP 125/51; PULSE 67; RESP 14; TEMP 36.8; O2SAT 97
--- NOTE | 2022-04-13 09:41 | DCINST_ITS ---
Discharge Instructions Diet Discharge Diet: No restrictions Activity Discharge Activity: May Not Drive (while taking narcotic pain medications.) May shower in (days): 1 (only if incision is dry and without drainage. Do NOT soak/submerge in tub/pool/anthony/stream/hot tub.)) Ice area for (Minutes): 20 (Every 1-2 hours while awake[address] place barrier between ice and skin.) Weight Bearing Status: Weight bearing as tolerated Keep extremity elevated above heart level: Operative Extremity Additional Activity Instructions:: Follow [facility] Post-op Instructions. Once postoperative dressing has been removed only use gentle soap and water over the incision. Do not use any ointments, Neosporin, salves, alcohol pads over the incision for 6 weeks postoperatively. Do not submerge underwater for 6 weeks postoperatively. Wear elastic stockings for 2 weeks. Do NOT use alcohol with narcotic pain medication. Do NOT make important decisions while taking narcotic medication. If you have problems with taking your medication (rash, itching, nausea, etc.) call the office at once. Dressing / Incision Call your doctor if your incision/area has: Continuous Slow Oozing, Sudden Increased Bleeding, Increased Pain/ Swelling, Increased Redness and Foul Smelling Discharge Call your doctor if you observe: Fever of 101 or Higher, Shortness of breath, Chest pain, Calf discomfort and Uncontrolled pain Remove Dressing in: 4 days (Remove dressing on April 17, 2022. After dressing has been removed use 4 x 4 gauze pad to protect the proximal incision for 4 weeks postoperatively) Additional Dressing/Incision Instructions:: Follow [facility] Post-op Instructions. Once postoperative dressing has been removed, only use gentle soap and water over the incision. Do not use any ointments, Neosporin, salves, alcohol pads over the incision for 6 weeks postoperatively. Do not submerge underwater for 6 weeks postoperatively. Continue with RITA hose/elastic stockings for 2 weeks postoperatively. May remove at nighttime but needs to be placed back on the leg during the day. Do NOT use alcohol with narcotic pain medication. Do NOT make important decisions while taking narcotic medication. If you have p roblems with taking your medication (rash, itching, nausea, etc.) call the office at once. Follow Up Care Test Results: Test results from this visit will be discussed in further detail at your follow- up appointment, if applicable. Discharge Plan Admission Admit Date/Time: 04/12/22 12:12 Attending Provider: Efren Hassan Primary Care Provider: Adam Husain Consulting Providers: Lorenzo Larose ; Ian Campbell Discharge Orders/Prescriptions Prescriptions: New acetaminophen 500 mg Tablet 1,000 mg PO Q8 14 Days Qty: 84 0RF Rx Instructions: Do not take more than 3000 mg Tylenol in a 24-hour period. sennosides-docusate sodium [Stool Softener-Stimulant Laxat] 8.6-50 mg Tablet 2 tab PO BID Qty: 0 0RF Rx Instructions: Take until first bowel movement, then as needed Continued d-mannose 500 mg capsule 500 mg PO BID pantoprazole [Protonix] 40 mg tablet,delayed release (DR/EC) 40 mg PO DAILY Qty: 90 3RF hydrochlorothiazide 25 mg tablet 25 mg PO DAILY Qty: 90 3RF albuterol sulfate [ProAir HFA] 90 mcg/actuation HFA aerosol inhaler 2 puff INHALATION PRN PRN (Reason: ASTHMA) Label Comments: INHALE 2 PUFFS BY MOUTH EVERY 4 TO 6 HOURS cholecalciferol (vitamin D3) [Vitamin D3] 25 mcg (1,000 unit) Tablet 25 mcg PO DAILY fluticasone propionate [Flovent HFA] 220 mcg/actuation HFA aerosol inhaler 1 inh inhalation PRN PRN (Reason: SOB) amlodipine 10 mg tablet 10 mg PO DAILY Qty: 90 3RF loratadine [Claritin] 10 mg tablet 10 mg PO DAILY Qty: 90 3RF montelukast [Singulair] 10 mg tablet 10 mg PO DAILY Qty: 90 3RF valsartan 320 mg tablet 320 mg PO QHS Qty: 90 3RF Eliquis 5 mg tablet 5 mg PO BID Qty: 180 0RF Referrals / Follow Up: Physical,Therapy [Other] - 04/17/22 10:30 am Adam Husain MD [Primary Care Provider] - Milton Coronado PA-C [Med Staff - [facility] Practice [facility]] - 04/27/22 3:15 pm Disposition Disposition (needs filled in before D/C Order can be placed): Home, Self Care
--- NOTE | 2022-04-13 10:20 | CASEMGMT ---
ARNIE RIVERA DC Planning Assessment: Face to Face with patient for initial transition planning/care coordination assessment. ARNIE RIVERA introduced self and role at [facility], pt voices understanding.?Pt alert, sitting up in chair, oriented x4, and agreeable to participating in assessment. Care providers, pharmacy,?and demographics verified. ? Admitting dx: Lt total hip PCP: Lisha Specialists: Kiran (oncology), Shashi (pulmonary) Preferred Pharmacy: [facility] Insurance: MCR A/B, MMO Prescription Benefit:?yes Living Will/HPOA: None. Pt states she is interested in completing these but will do so after discharge. 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 Pt states she has a half bath on the first floor and plans to sleep in her recliner and stay on the first floor upon returning home. Pt states she also has three small steps to enter and denies any concerns with navigating. Transportation: Pt drives and her spouse also able to assist. DME: wheeled walker, cane, raised toilet seat, ice handler and sock aid. cpap HHC/SNF: denies Plan: Pt plans to return home at discharge. States she has an oupt tx appointment scheduled for Sunday morning. Pt denies any additional questions or concerns at this time. Pt also states she has been on Eliquis prior to admission and denies any concern with paying the co-pay. No additional needs identified. Jamie Nick RN CM
--- NOTE | 2022-04-13 10:29 | PHA.DC.MR ---
Pharmacy Service has performed discharge medication reconciliation for this patient. The patient's discharge medication list was reviewed for discrepancies and discrepancies were resolved. Home Medications d-mannose 500 mg capsule 500 mg PO BID urinary 03/01/21 albuterol sulfate 90 mcg/actuation aerosol inhaler (ProAir HFA) 2 puff inhalation PRN PRN ASTHMA 06/07/21 cholecalciferol (vitamin D3) 25 mcg (1,000 unit) tablet (Vitamin D3) 25 mcg PO DAILY 06/07/21 pantoprazole 40 mg tablet,delayed release (Protonix) 40 mg PO DAILY #90 tabs 06/14/21 amlodipine 10 mg tablet 10 mg PO DAILY #90 tabs 08/04/21 loratadine 10 mg tablet (Claritin) 10 mg PO DAILY #90 tabs 08/16/21 montelukast 10 mg tablet (Singulair) 10 mg PO DAILY #90 tabs 08/16/21 valsartan 320 mg tablet 320 mg PO QHS #90 tabs 10/20/21 hydrochlorothiazide 25 mg tablet 25 mg PO DAILY #90 tabs 12/07/21 apixaban 5 mg tablet (Eliquis) 5 mg PO BID #180 tabs 02/01/22 fluticasone propionate 220 mcg/actuation HFA aerosol inhaler (Flovent HFA) 1 inh inhalation PRN PRN SOB 03/29/22 acetaminophen 500 mg tablet 1,000 mg PO Q8 14 days #84 tabs 04/13/22 sennosides 8.6 mg-docusate sodium 50 mg tablet (Stool Softener-Stimulant Laxative) 2 tab PO BID #0 tabs 04/13/22
--- NOTE | 2022-04-13 11:43 | CASEMGMT ---
Social Work Per RNCM assessment, pt does not have advance directives and does not want to speak with SW to receive information during this hospital visit. GIL Mcmahon
[2022-04-13 12:30] VITALS: BP 112/54; PULSE 83; RESP 14; TEMP 37.1; O2SAT 100
== END 2022-04-13 13:35 | disposition home or self-care (01) ==
LOC: SDC 12:12 → MS3 12:12
PROVIDERS: Anesthesiology; Internal Medicine Hematology & Oncology; Admitting Provider Specialist; PCP Internal Medicine; Referring Provider Specialist; Visit Provider Specialist
PROC: (CPT 27284; principal; 2022-04-12 09:15)
DX: M16.12 Unilateral primary osteoarthritis, left hip (principal); Z96.659 Presence of unspecified artificial knee joint; I10 Essential (primary) hypertension; Z79.899 Other long term (current) drug therapy; J45.909 Unspecified asthma, uncomplicated; Z86.718 Personal history of other venous thrombosis and embolism; Z79.01 Long term (current) use of anticoagulants; Z85.038 Personal history of other malignant neoplasm of large intestine; Z86.73 Personal history of transient ischemic attack (TIA), and cerebral infarction without residual deficits
CPT/HCPCS: 27130; 01214; 36415; 73501; 73502; 76000; 80048; 82378; 83735; 85027; 87081; 88305; 88311; 93005; 94668; 94762; 96361; 96365; 96366; 96375; 96376; 97110; 97116; 97162; 97166; 97535; 99221; 99252; C1776; J7120; A4216; G0378; G0463; J3475

== ENCOUNTER → 2022-06-19 | Outpatient (CLI) | payer MEDICARE, OTHER, SELFPAY ==
[2022-06-19 12:18] LABS: Absolute Lymphocyte Count 2.18 X10^3/uL (0.83-4.51); Absolute Neutrophil Count 4.9 X10^3/uL (2.0-7.7); Basophil# 0.08 X10^3/uL; Eosinophil# 0.29 X10^3/uL; Eosinophils% 3.6 % (0-5); Hematocrit 46.6 % (37-47); Hemoglobin 14.5 g/dL (12.0-15.0); Lymphocyte # 2.18 X10^3/ul (0.83-4.51); Lymphocyte % 26.8 % (19-41); Mean Corp Hgb Conc 31.1 g/dL (32-36); Mean Corpuscular Hgb 26.2 pg (27.0-32.0); Mean Corpuscular Volume 84.3 fL (81-99); Mean Platelet Vol. 9.2 fl (6.2-12.0); Monocyte# 0.62 X10^3/uL; Monocyte% 7.6 % (0-10); NRBC Flagged by Analyzer 0 % (0-5); Neutrophil # 4.93 X10^3/uL (2.7-7.7); Neutrophil % 60.8 % (47-70); Platelet Count 345 K/mm3 (150-450); RBC Distribution Width CV 13.3 % (11.6-14.6); Red Blood Count 5.53 M/mm3 (4.2-5.4); White Blood Count 8.1 K/mm3 (4.4-11.0)
[2022-06-19 13:03] LABS: T4 Free Direct 0.92 ng/dL (0.76-1.46); Thyroid Stim Hormone (TSH) 1.77 uIU/mL (0.358-3.74)
== END | disposition home or self-care (01) ==
LOC: BIMLAB 10:52
PROVIDERS: PCP Internal Medicine; Visit Provider Internal Medicine
DX: R42 Dizziness and giddiness (principal); I10 Essential (primary) hypertension; Z13.29 Encounter for screening for other suspected endocrine disorder
CPT/HCPCS: 36415; 84439; 84443; 85025

== ENCOUNTER → 2022-07-12 | Outpatient (CLI) | payer MEDICARE, OTHER, SELFPAY ==
--- NOTE | 2022-07-12 15:50 | RAD_ITS ---
EXAM: XR LUMBOSACRAL SPINE, 2 OR 3 VIEWS CLINICAL INDICATION: RADICULOPATHY TECHNIQUE: Frontal and lateral views of the lumbar spine and sacrum. COMPARISON: No relevant prior studies available. FINDINGS: VERTEBRAE: Grade 1 degenerative anterolisthesis of L4 on L5 and of L5 on S1 with moderate degenerative disease L5-S1. Preserved vertebral body height. No fracture. No spondylolisthesis. Preservation of the normal lumbar lordosis. No significant facet arthropathy. DISC SPACES: No acute findings. Disc spaces are maintained. VASCULATURE: Atherosclerotic calcifications of the nonenlarged abdominal aorta. Multiple phlebolith in the pelvis. Cartilage intact. GASTROINTESTINAL TRACT: Unremarkable as visualized. Included bowel gas pattern is non-obstructive. OTHER FINDINGS: Left total hip arthroplasty identified, incompletely imaged on this study. RAD/Lumbar Spine 2 or 3 Views IMPRESSION: 1. No acute or healing fracture. 2. Grade 1 degenerative anterolisthesis at the lower levels of lumbar spine with moderate degenerative disease L5-S1. If concerned for radiculopathy, consider further investigation with MRI lumbar spine . Electronically Signed: Moy Metcalf MD at 4:21 EDT ,
== END | disposition home or self-care (01) ==
LOC: MTRAD 15:48
PROVIDERS: PCP Internal Medicine; Referring Provider Physician Assistant Surgical; Visit Provider Physician Assistant Surgical
DX: M54.16 Radiculopathy, lumbar region (principal)
CPT/HCPCS: 72100

== ENCOUNTER → 2022-08-16 | Outpatient (CLI) | payer MEDICARE, OTHER, SELFPAY ==
[2022-08-16 16:44] LABS: Creatinine, Serum 0.57 mg/dL (0.55-1.02); EST Glomerular Filtration Rate 113 mL/min (>60); Est Glom Filt Rate - Afr Amer 136 mL/min (>60)
== END | disposition home or self-care (01) ==
LOC: BIMLAB 14:44
PROVIDERS: PCP Internal Medicine; Referring Provider Physician Assistant Surgical; Visit Provider Physician Assistant Surgical
DX: N28.9 Disorder of kidney and ureter, unspecified (principal)
CPT/HCPCS: 36415; 82565

== ENCOUNTER → 2022-08-21 | Outpatient (CLI) | payer MEDICARE, OTHER, SELFPAY ==
--- NOTE | 2022-08-21 12:45 | RAD_ITS ---
CLINICAL HISTORY: Female, 67 years old. Chronic right hip pain. PROCEDURE: ARTHROGRAM - RIGHT HIP CONSENT: The procedure as well as the benefits and possible complications including infection and bleeding which point the patient. Informed consent was obtained. FLUOROSCOPY TIME (if supplied): (42nd) minutes/seconds. 6.39 mGy Injection Information: 10 cc of dilute MR contrast. Number of images obtained: One TECHNIQUE: (All elements of maximal sterile barrier technique followed, including US elements as applicable) The patient was in the supine position. The overlying skin was prepped and draped in usual sterile fashion. Under direct fluoroscopic guidance, a 22-gauge spinal needle was placed into the hip joint. 2 cc of Isovue-300 was injected for confirmation. Following this, 10 cc of dilute MR contrast was injected. RAD/Arthrogram Hip IMPRESSION: Right hip arthrogram for MRI examination. Electronically Signed: Derek Gould MD at 14:12 EDT ,
[2022-08-21] MEDS: Lidocaine 2% (5ml sdv) 5 ML VIAL.MPF INFILT (12:55)
[2022-08-21] MEDS: Gadoterate meglumine 2.5 MMOL 10 ML, Iopamidol 5 ML, Lidocaine 1% (20 ml mdv) 5 ML, Epi... INTRAARTIC (12:55)
[2022-08-21] MEDS: Iopamidol 10 ML in Syringe 1 EACH 600 ML INTRAARTIC (12:55)
--- NOTE | 2022-08-21 13:29 | MRI_ITS ---
STUDY: MRI ARTHROGRAM OF RIGHT HIP REASON FOR EXAM: Female, 67 years old. Pain. TECHNIQUE: Standardized fat and water weighted pulse sequences were obtained in all 3 orthogonal planes. COMPARISON: Pelvis and hip x-rays dated June 30, 2022 showing left total hip arthroplasty. FINDINGS: Adequate joint distention with contrast. Mild arthrosis of the right hip with a small left hip joint effusion. Normal gluteus minimus, medius and iliopsoas tendons and distal insertions. Minimal greater trochanteric bursitis (coronal series 4 image 6). Normal superior and inferior pubic rami. Normal pubic symphysis. Normal ischial tuberosity. Normal origin of the hamstring tendons. Normal visualized iliac wing, sacroiliac joint, and sacral ala. Normal visualized soft tissue structures of the pelvis. MRI/Lower Ext/Jt Only/W Contrast IMPRESSION: Minimal right greater trochanteric bursitis. Mild arthrosis of the right hip with small joint effusion. No other abnormality. Electronically Signed: Lobo Salazar MD at 12:24 EDT ,
== END | disposition home or self-care (01) ==
LOC: RAD 12:05
PROVIDERS: PCP Internal Medicine; Referring Provider Physician Assistant Surgical; Visit Provider Physician Assistant Surgical
DX: S70.01XD Contusion of right hip, subsequent encounter (principal); M25.551 Pain in right hip; X58.XXXD Exposure to other specified factors, subsequent encounter; G89.29 Other chronic pain
CPT/HCPCS: 27093; 73525; 73722; Q9967

== ENCOUNTER → 2022-08-25 | Outpatient (CLI) | payer MEDICARE, OTHER, SELFPAY ==
--- NOTE | 2022-08-25 09:37 | BI_ITS ---
MAMMOGRAPHY - BILATERAL SCREENING REASON FOR EXAM: Female, 67 years old. Routine annual screening examination. PERTINENT HISTORY: Aunt with breast cancer. TECHNIQUE: Digital bilateral breast lashae (3D mammographic acquisition) in the CC and MLO projections. 2-D mediolateral oblique (MLO) and craniocaudad (CC) views of both breasts were obtained. CAD: Full Field Digital Mammography with Computer Added Detection was performed. COMPARISON: Comparison is made with prior study August 23, 2021 and August 04, 2020. FINDINGS: Breast Composition: The breasts are almost entirely fatty. There are no dominant masses or suspicious calcifications. No other significant abnormalities are identified. There has been no significant change since the prior study. BI/SCRN MAMM (CAD)W/LASHAE BILAT IMPRESSION: Stable bilateral screening mammogram. Yearly follow-up mammogram recommended. (A) ASSESSMENT CATEGORY: BIRADS Category 1: Negative. A letter regarding these results will be sent to the patient by the facility within 30 days. Approximately 10% of breast cancers are not detected by mammography. A normal mammogram should not delay biopsy of a clinically suspicious abnormality. [id number] Electronically Signed: Derek Gould MD at 11:10 EDT ,
== END | disposition home or self-care (01) ==
PROVIDERS: PCP Internal Medicine; Referring Provider Internal Medicine Hematology & Oncology; Visit Provider Internal Medicine Hematology & Oncology
DX: Z12.31 Encounter for screening mammogram for malignant neoplasm of breast (principal)
CPT/HCPCS: 77063; 77067

== ENCOUNTER → 2022-08-28 | Outpatient (CLI) | payer MEDICARE, OTHER, SELFPAY ==
[2022-08-28 12:27] LABS: Absolute Lymphocyte Count 1.97 X10^3/uL (0.83-4.51); Absolute Neutrophil Count 4.2 X10^3/uL (2.0-7.7); Basophil# 0.07 X10^3/uL; Eosinophils% 2.8 % (0-5); Hematocrit 44.4 % (37-47); Hemoglobin 14.1 g/dL (12.0-15.0); Lymphocyte # 1.97 X10^3/ul (0.83-4.51); Lymphocyte % 27.9 % (19-41); Mean Corp Hgb Conc 31.8 g/dL (32-36); Mean Corpuscular Hgb 26.5 pg (27.0-32.0); Mean Corpuscular Volume 83.5 fL (81-99); Mean Platelet Vol. 9.2 fl (6.2-12.0); Monocyte# 0.56 X10^3/uL; Monocyte% 7.9 % (0-10); NRBC Flagged by Analyzer 0 % (0-5); Neutrophil # 4.22 X10^3/uL (2.7-7.7); Neutrophil % 59.8 % (47-70); Platelet Count 317 K/mm3 (150-450); RBC Distribution Width SD 45.1 fl (35.1-43.9); Red Blood Count 5.32 M/mm3 (4.2-5.4); White Blood Count 7.1 K/mm3 (4.4-11.0)
[2022-08-28 12:49] LABS: ALB/GLOB Ratio 0.9 RATIO (0.9-2.4); AST(SGOT) 15 U/L (15-37); Alanine Aminotransfer ALT/SGPT 12 U/L (13-56); Albumin, Serum 3.6 g/dL (3.2-5.0); Alkaline Phosphatase 85 U/L (45-117); Anion Gap 3 (5-15); BUN 13 mg/dL (7-18); Calcium,Total 9.2 mg/dL (8.5-10.1); Chloride 106 mmol/L (98-107); Creatinine, Serum 0.59 mg/dL (0.55-1.02); EST Glomerular Filtration Rate 108 mL/min (>60); Est Glom Filt Rate - Afr Amer 130 mL/min (>60); Globulin 3.8 g/dL (2.2-4.2); Glucose 107 mg/dL (74-106); Potassium 4.3 mmol/L (3.5-5.1); Protein, Total 7.4 g/dL (6.4-8.2); Sodium Level 140 mmol/L (136-145)
== END | disposition home or self-care (01) ==
LOC: BIMLAB 10:16
PROVIDERS: PCP Internal Medicine; Referring Provider Internal Medicine; Visit Provider Internal Medicine
DX: K58.9 Irritable bowel syndrome, unspecified (principal)
CPT/HCPCS: 36415; 80053; 85025

== ENCOUNTER → 2022-10-19 | Outpatient (CLI) | payer MEDICARE, OTHER, SELFPAY ==
--- NOTE | 2022-10-19 16:28 | CT_ITS ---
ACR Level 3 findings have been noted. An addendum which confirms receipt of the report will follow. STUDY: CT CHEST, ABDOMEN T PELVIS WITH CONTRAST REASON FOR EXAM: Female, 67 years old. h/o colon ca; bilat lower quad abd pain; rectal bleeding RADIATION DOSAGE (If Supplied By Facility): CTDIvol = ( 19.53 ) mGy, DLP = ( 1824.55 ) mGycm TECHNIQUE: Transaxial imaging was performed following intravenous administration of Oral and amp; IV Gastrografin and amp; 100mL Isovue-300. Individualized dose optimization techniques were used for this CT. COMPARISON: 11/27/2019 CT abdomen and pelvis, 08/23/2021 CT chest FINDINGS: CHEST Stable 10 mm smoothly marginated nodule posterior lingula. No new nodules or pulmonary masses. No consolidations. No pleural effusions. Normal heart and pericardium. Normal mediastinum. Normal hilar regions. Normal aorta arch and descending thoracic aorta. No acute or aggressive osseous abnormality. ABDOMEN Normal liver. Cholecystectomy. Normal spleen. Normal pancreas. Normal bilateral adrenal glands. Normal right kidney. Normal left kidney. Normal visualized stomach. Normal small intestine. Surgical changes to the right colon. Sigmoid diverticulosis with mild wall thickening and minimal adjacent stranding, partially obscured by artifact from the left hip prosthesis. Appendix is not seen, likely resected. Normal abdominal aorta. Normal inferior vena cava. Normal retroperitoneum. Small fat-containing supraumbilical hernia. No acute or aggressive osseous abnormality. PELVIS 1.2 cm soft tissue lesion in the bladder near the right trigone with 5 mm lesion near the left trigone. There is no pelvic fluid. There is no pelvic lymphadenopathy or mass lesion. Normal visualized pelvic arteries. Normal lower abdominal wall. No acute or aggressive osseous abnormality. Interval left hip replacement with significant beam hardening artifact. CT/CT Chest, Abd, Pel w/Contrast IMPRESSION: No acute findings in the thorax. Stable 10 mm smoothly marginated nodule in the posterior lingula. With history of colon cancer a further follow-up chest CT is recommended in 6 and 12 months. Sigmoid diverticulosis with mild changes of acute sigmoid diverticulitis. No abscess or free air. Abnormal soft tissue lesions in the bladder. Recommend cystoscopic correlation to exclude neoplasia. Electronically Signed: Ad Cifuentes MD at 15:54 EDT ,
== END | disposition home or self-care (01) ==
LOC: CT 16:27
PROVIDERS: PCP Internal Medicine; Referring Provider Nurse Practitioner Family; Visit Provider Nurse Practitioner Family
DX: Z85.038 Personal history of other malignant neoplasm of large intestine (principal); R10.32 Left lower quadrant pain; R10.31 Right lower quadrant pain
CPT/HCPCS: 71260; 74177; Q9967

== ENCOUNTER 2022-11-28 09:01 | Outpatient (CLI) | payer MEDICARE, OTHER, SELFPAY ==
[2022-11-28 09:46] LABS: Hematocrit 45.7 % (37-47); Hemoglobin 14.2 g/dL (12.0-15.0); Mean Corp Hgb Conc 31.1 g/dL (32-36); Mean Corpuscular Hgb 26.5 pg (27.0-32.0); Mean Corpuscular Volume 85.4 fL (81-99); Mean Platelet Vol. 9.3 fl (6.2-12.0); Platelet Count 376 K/mm3 (150-450); RBC Distribution Width CV 13.7 % (11.6-14.6); RBC Distribution Width SD 42.6 fl (35.1-43.9); Red Blood Count 5.35 M/mm3 (4.2-5.4); White Blood Count 8.1 K/mm3 (4.4-11.0)
[2022-11-28 10:35] LABS: Anion Gap 4 (5-15); BUN 16 mg/dL (7-18); Calcium,Total 9.2 mg/dL (8.5-10.1); Chloride 104 mmol/L (98-107); Creatinine, Serum 0.59 mg/dL (0.55-1.02); EST Glomerular Filtration Rate 107 mL/min (>60); Est Glom Filt Rate - Afr Amer 130 mL/min (>60); Glucose 113 mg/dL (74-106); Potassium 4.1 mmol/L (3.5-5.1); Sodium Level 138 mmol/L (136-145)
== END 2022-11-28 23:59 | disposition home or self-care (01) ==
PROVIDERS: PCP Internal Medicine; Referring Provider Urology; Visit Provider Urology
DX: Z01.812 Encounter for preprocedural laboratory examination (principal); D41.4 Neoplasm of uncertain behavior of bladder
CPT/HCPCS: 36415; 80048; 85027

== ENCOUNTER → 2022-12-15 | Outpatient (CLI) | payer MEDICARE, OTHER, SELFPAY ==
--- NOTE | 2022-12-15 09:15 | BLA_PTH ---
PATIENT: ELIS MCARTHUR LOC: [facility] U#:[id number] AGE/SX: 67/F ROOM: RE12/15/[address]: Dr. Michael Sen MD : 1955 BED: DIS: 12/15/2022 SPEC #: [id number] RECD: 12/15/22 10:53 STATUS: RIKI REAdolfo #: [id number] ENID: 12/15/22 09:[address]: Michael Sen DEPT: SURGICAL PATHOLOGY RECD BY: Rudy Do ENTERED: 12/18/22 10:54 SP TYPE: BLADDER BX OTHR DR: Dr. Adam Husain MD [facility] Tissues: Urinary bladder, NOS Procedures: Surgery Specimen Level V HEADER OPERATION: Bilateral transurethral resection of medium bladder tumor with Olymp[employer] PRE-OP DIAGNOSIS: Neoplasm of bladder TISSUE SUBMITTED: Bladder biopsy MICROSCOPIC DIAGNOSIS Urinary bladder tumor, transurethral resection: Papillary urothelial carcinoma. See synoptic report below. AM:johann 12/19/2022 COMMENT BLADDER CANCER (TUR) SUMMARY Procedure: Transurethral resection of bladder tumor (TURBT) Tumor site: Not specified Histologic type: Papillary urothelial carcinoma Associated epithelial lesions: None identified Histologic grade: 1/3 (WHO low grade) Tumor configuration: Papillary Muscularis propria presence: Not present Lymphvascular invasion: Not identified Tumor extension: Tumor confined to urothelium. Additional pathologic findings: Focal dystrophic microcalcifications. PATHOLOGIC STAGE: Ta Nx Mx The above summary is in compliance with [employer] of [place] [employer] (CAP) Cancer Protocols Checklist and [place] Joint Committee on Cancer (AJCC), Staging Manual, 8th Ed. Case has been reviewed in consultation with Dr. Hernandez who concurs with the above diagnosis. IDC:SJ MICROSCOPIC DESCRIPTION Slides are reviewed. GROSS DESCRIPTION Received in fixative is one container labeled with the patient's name and designated bladder biopsy. The specimen consists of multiple irregular fragments of kumar-brown soft tissue that in aggregate measure 2.5 x 1.0 x 0.2 cm. The specimen is totally submitted in one cassette. / SJ:johann 12/18/2022 TC:0 CPT: 10184
== END | disposition home or self-care (01) ==
PROVIDERS: PCP Internal Medicine; Visit Provider Urology
DX: D09.0 Carcinoma in situ of bladder (principal)
CPT/HCPCS: 88305; 88307

== ENCOUNTER 2023-01-16 07:10 | Day surgery (SDC) | payer MEDICARE, OTHER, SELFPAY ==
[2023-01-16] VITALS (7 sets, daily range): BP systolic 96–139; BP diastolic 55–100; PULSE 71–83; RESP 16–18; TEMP 36.7–37; O2SAT 96–100; BMI 36.3
--- NOTE | 2023-01-16 07:21 | PCM.HP.BLA ---
History and Physical Date of Admission: 01/16/23 Date of Service: 01/05/23 MR#: [id number] Acct: [id number] Name: ELIS MCARTHUR Rep #: [id number] : 1955 Provider: Dr. Julieta Leblanc MD Age/Sex: 67/F Location: [facility] Status: Signed Intake Vital Signs 10/24/2308:34 01/05/2313:56 Height 5 ft 4 in 5 ft 4 in Weight: 215 lb BMI 36.8 BP 156/78 H Blood Pressure Location Rt brachial Position Sitting Respiration 17 Pulse 88 Pulse Source Monitor Pulse Oximetry (%) 97 Oxygen Delivery Method room air Intake Visit Reasons: COLONOSCOPY Chief Complaint: colonoscopy Allergies codeine Allergy (Verified 01/08/23 08:37) VomitingOpioids - Morphine Analogues Allergy (Verified 01/08/23 08:37) Vomitinghydroxyzine [From Vistaril] Adverse Reaction (Verified 01/08/23 08:37) Vomitingmeperidine [From Demerol] Adverse Reaction (Verified 01/08/23 08:37) Vomiting Medications d-mannose 500 mg capsule 500 mg PO BID urinary 03/01/21 [History Confirmed 01/08/23] albuterol sulfate 90 mcg/actuation aerosol inhaler (ProAir HFA) 2 puff inhalation PRN PRN ASTHMA 06/07/21 [History Confirmed 01/08/23] cholecalciferol (vitamin D3) 25 mcg (1,000 unit) tablet (Vitamin D3) 25 mcg PO DAILY 06/07/21 [History Confirmed 01/08/23] amlodipine 10 mg tablet 10 mg PO DAILY #90 tabs 06/19/22 [Rx Confirmed 01/08/23] apixaban 5 mg tablet (Eliquis) 5 mg PO BID #180 tabs 06/19/22 [Rx Confirmed 01/08/23] hydrochlorothiazide 25 mg tablet 25 mg PO DAILY #90 tabs 06/19/22 [Rx Confirmed 01/08/23] loratadine 10 mg tablet (Claritin) 10 mg PO DAILY #90 tabs 06/19/22 [Rx Confirmed 01/08/23] montelukast 10 mg tablet (Singulair) 10 mg PO DAILY #90 tabs 06/19/22 [Rx Confirmed 01/08/23] pantoprazole 40 mg tablet,delayed release (Protonix) 40 mg PO DAILY #90 tabs 06/19/22 [Rx Confirmed 01/08/23] valsartan 320 mg tablet 320 mg PO QHS #90 tabs 06/19/22 [Rx Confirmed 01/08/23] fluticasone propionate 220 mcg/actuation HFA aerosol inhaler (Flovent HFA) 1 inh inhalation BID #12 grams 08/10/22 [Rx Confirmed 01/08/23] calcium carbonate 600 mg calcium (1,500 mg) tablet (Calcium) 600 mg PO DAILY 12/28/22 [History Confirmed 01/08/23] magnesium oxide 400 mg PO DAILY 12/28/22 [History Confirmed 01/08/23] [facility] Medical History Ambulates with cane Anemia Arthritis Asthma Asthma Back pain Escamilla's cyst of knee Bladder cancer Cancer Carotid bruit Chronic bronchitis Chronic cough CPAP (continuous positive airway pressure) dependence Cramp in lower leg Difficulty balancing DVT (deep venous thrombosis) Elevated d-dimer Enlarged lymph node in neck Flu vaccine need Frequent headaches Gastric reflux GERD (gastroesophageal reflux disease) Hay fever High blood pressure History of colon cancer History of colon cancer History of CVA (cerebrovascular accident) History of echocardiogram History of edema History of IBS History of irregular heartbeat History of steroid therapy History of stress test HTN (hypertension) IBS (irritable bowel syndrome) Injury of head and neck Left knee pain Left leg DVT Leg cramps Leukocytosis Malaise and fatigue Migraine headache Neck pain Nodular goiter Non-smoker Obesity (BMI 30-39.9) Petechiae Post-menopausal Preoperative evaluation to rule out surgical contraindication Recurrent deep vein thrombosis (DVT) removal of ascending colon Restless legs Restless legs syndrome Screening for thyroid disorder Shortness of breath Stomach ulcer Stroke Stroke/cerebrovascular accident Thyroid nodule UTI (urinary tract infection) Ventral incisional hernia without obstruction or gangrene Wears glasses Surgical History History of ankle surgery History of cholecystectomy History of cystocele History of hip replacement, total History of hysterectomy History of tonsillectomy Hx of total knee arthroplasty S/P colectomy Status post total knee replacement, left Family History Mother Arthritis Parkinson disease HypertensionFather Heart disease Hypertension Social History Smoking Status: Never smoker alcohol intake: never substance use type: does not use what type of physical activity do you participate in: none HPI HPI HPI: 67-year-old female presents for colonoscopy, history of colon cancer. Patient had colon cancer back in 2019 and had a right hemicolectomy at [facility]. Patient had a repeat screening in [address] Castaneda which was negative. Patient states has been having issues with diarrhea and constipation states in July she had increased diarrhea and did have some blood but patient does have internal hemorrhoids. Patient states her diarrhea is improved but she still has a cycle between constipation and diarrhea. Patient is also on Eliquis due to good left leg DVT in 2020 with no identify but will cause. Patient states she does occasionally get some lower abdominal pressure which typically improves after bowel movement. Patient states 3 weeks ago she was also diagnosed with bladder cancer and had a cystoscopy for removal. ROS General General: Yes weight change, fatigue and colon cancer; No appetite or breast cancer HEENT HEENT: No difficulty swallowing, eye injury, eye surgery, swollen glands or hoarseness Endo Endocrine: No thyroid disease, diabetes mellitus, thyroid cancer, Hair loss, heat intolerance or cold intolerance Skin Skin: No rash or changing moles Musc Musculoskeletal: Yes back problems and arthritis; No rheumatoid arthritis, gout or joint pain Cardio Cardiovascular: Yes murmur and high blood pressure; No pacemaker, heart disease, atrial fibrillation, heart attack, heart stent, palpitations, shortness of breat with exertion or chest pain Psych Psychiatric: No depression, anxiety or hearing voices Resp Respiratory: No shortness of breath, Yes sleep apnea, Yes cough, No COPD, Yes asthma, No emphysema and No wheezing Gastro Gastrointestinal: No abdominal pain, No nausea or vomiting, Yes diarrhea, Yes constipation, No blood in stool, Yes acid reflux, Yes hemorrhoids, No ulcers, No gallbladder problem and No black,tarry stools Josesito Hematologic: Yes blood thinners, No blood disorders, No bleeding, No anemia and Yes blood clots Neuro Neurologic: No numbness and No tingling Exam Const General: cooperative, healthy appearing, comfortable and no acute distress [facility] Head: normocephalic and atraumatic Neck Neck: supple Resp Effort & Inspection: normal respiratory effort Cardio Rate: regular rate GI Inspection: non-distended Palpation: soft, no hernias and nontender Skin General: no rashes or lesions noted Neuro General: CN's II-XI intact bilaterally Extrem General: normal to inspection Psych Mental Status: mental status grossly normal Attitude: cooperative Assessment and Plan Assessment and Plan (1) Colon cancer: Status: Chronic Qualifiers: Colon location: unspecified part of colon Qualified Code(s): C18.9 - Malignant neoplasm of colon, unspecified Comment: stage II-node neg--2019 right hemicolectomy, with normal colonoscopy 2020 (2) Diarrhea: Status: Acute (3) Constipation: Status: Acute Orders: Orders Colonoscopy 01/16/23 Plan Patient has been having diarrhea/constipation/change in bowel habits we will plan to do a colonoscopy sooner than her scheduled one in 2023. I have discussed the above with the patient. I have offered the patient colonoscopy for evaluation. I have explained the risks/benefits of the procedure and described the procedure. I have discussed the risks with the patient, including but not limited to: infection, bleeding, perforation of the GI tract requiring emergency surgery, inability to complete the procedure, injury to any internal organs, complications of anesthesia, etc. - the patient understands and agrees to proceed. I have answered all the patient's questions to the patient's satisfaction and the patient has no further questions. The patient has been given instructions for the colon cleansing preparation.1 day clears MiraLAX Dulcolax split prep Julieta Leblanc M.D. Pager: [phone] [facility] [address] [place] [address], [address] [place] [address] Office: [phone] Coding Level of Care Code Off vis,new,level 3 Diagnoses Malignant neoplasm of colon, unspecified part of colon C18.9 Colon location: unspecified part of colon Diarrhea R19.7 Constipation K59.00 01/08/23 1043 <Electronically signed by Julieta Leblanc MD> Date Julieta Leblanc MD
[2023-01-16] MEDS: Lactated Ringers 1,000 ML 15 ML IV (07:46)
--- NOTE | 2023-01-16 09:09 | OP.CCLET_ITS ---
01/16/2023 Adam Husain MD [address] [place] [address] [place] [address] Re : Colonoscopy procedure for Lety Leland Dear Dr. Husain This procedure was performed on Monday, January 16, 2023. My impressions and recommendations are as follows: Impressions : - Hemorrhoids found on perianal exam. - Non-bleeding internal hemorrhoids. - The examination was otherwise normal. - No specimens collected. Recommendations : - Discharge patient to home. - Resume previous diet. - Continue present medications. - Repeat colonoscopy in 3 - 5 years for surveillance. My findings are described in the full procedure note, which is enclosed. If I can be of further assistance, please feel free to contact me at Doctor phone number(s): , Work: . Sincerely, MD Julieta Arroyo MD 01/16/2023 9:09:33 AM This report has been signed electronically.
--- NOTE | 2023-01-16 09:09 | OP.COLON_ITS ---
Patient Name: Lety Ha Procedure Date: 01/16/2023 8:36 AM Date of : 1955 Age: 67 Procedure: Colonoscopy Indications: Constipation, Diarrhea Providers: Julieta Leblanc MD Medicines: Monitored Anesthesia Care Patient Profile: This is a 67 year old female. Last Colonoscopy: 2020. Complications: No immediate complications. Procedure: Pre-Anesthesia Assessment: - Prior to the procedure, a History and Physical was performed, and patient medications and allergies were reviewed. The patient's tolerance of previous anesthesia was also reviewed. The risks and benefits of the procedure and the sedation options and risks were discussed with the patient. All questions were answered, and informed consent was obtained. Prior Anticoagulants: The patient has taken no anticoagulant or antiplatelet agents. ASA Grade Assessment: Per anesthesia. After reviewing the risks and benefits, the patient was deemed in satisfactory condition to undergo the procedure. After I obtained informed consent, the scope was passed under direct vision. Throughout the procedure, the patient's blood pressure, pulse, and oxygen saturations were monitored continuously. The Colonoscope was introduced through the anus and advanced to the ileocolonic anastomosis. The colonoscopy was performed without difficulty. The patient tolerated the procedure well. The quality of the bowel preparation was good. Scope In: 8:45:54 AM Scope Withdrawal Time 0 hours 7 minutes 5 seconds Scope Out: 9:00:52 AM Total Procedure Duration Time 0 hours 14 minutes 58 seconds Findings: Hemorrhoids were found on perianal exam. Non-bleeding internal hemorrhoids were found. The hemorrhoids were Grade I (internal hemorrhoids that do not prolapse). The exam was otherwise without abnormality. Impression: - Hemorrhoids found on perianal exam. - Non-bleeding internal hemorrhoids. - The examination was otherwise normal. - No specimens collected. Recommendation: - Discharge patient to home. - Resume previous diet. - Continue present medications. - Repeat colonoscopy in 3 - 5 years for surveillance. Procedure Code(s): --- Professional --- 04620, Colonoscopy, flexible; diagnostic, including collection of specimen(s) by brushing or washing, when performed (separate procedure) Diagnosis Code(s): --- Professional --- K64.0, First degree hemorrhoids K59.00, Constipation, unspecified R19.7, Diarrhea, unspecified CPT copyright 2021 [employer]. All rights reserved. The codes documented in this report are preliminary and upon community midwife review may be revised to meet current compliance requirements. MD Julieta Arroyo MD 01/16/2023 9:09:33 AM This report has been signed electronically. Number of Addenda: 0 Note Initiated On: 01/16/2023 8:36 AM
== END 2023-01-16 09:39 | disposition home or self-care (01) ==
LOC: EN 07:11 → AC 07:12
PROVIDERS: PCP Internal Medicine; Referring Provider Internal Medicine; Visit Provider Surgery
PROC: 0DJD8ZZ Inspection of Lower Intestinal Tract, Via Natural or Artificial Opening Endoscopic (ICD-10-PCS; CPT 45378; principal; 2023-01-16 08:25)
DX: K64.0 First degree hemorrhoids (principal); E66.9 Obesity, unspecified; Z68.36 Body mass index [BMI] 36.0-36.9, adult; I10 Essential (primary) hypertension; Z79.899 Other long term (current) drug therapy; J45.909 Unspecified asthma, uncomplicated; Z85.038 Personal history of other malignant neoplasm of large intestine; Z79.01 Long term (current) use of anticoagulants; Z86.718 Personal history of other venous thrombosis and embolism; K21.9 Gastro-esophageal reflux disease without esophagitis; Z98.0 Intestinal bypass and anastomosis status; Z85.51 Personal history of malignant neoplasm of bladder
CPT/HCPCS: 45378; J7120; J2405

== ENCOUNTER → 2023-03-27 | Outpatient (CLI) | payer MEDICARE, OTHER, SELFPAY ==
--- OUTSIDE RECORDS SUMMARY | 2023-03-27 09:23 | XMS RPT_ITS | CCD ---
Author Name Unknown Address [address] [place] [address] Organization [employer] Allergies Allergy Classification Reported Allergen(s) Allergy Type Date of Onset Reaction(s) Facility (1 source) codeine; Translations: [CODEINE] Drug Allergy 5 [facility] Repository (1 source) Grass pollen; Translations: [GRASS POLLEN] Propensity to adverse reactions to drug (disorder) 5 [facility] Repository (1 source) meperidine; Translations: [OPIOIDS-MEPERID INE AND RELATED] Drug Allergy 5 [facility] Repository (1 source) mold extract; Translations: [MOLD] Drug Allergy 5 [facility] Repository Results Test Name Value Interpretation Reference Range Facil ity Encounters Encounter Date Encounter Type Care Provider Facility Start: 11-30-2016 End: 12-01-2016 [facility] Summary Purpose Family History No Family History Records FoundNo Family History Records Found Advance Directives No Advanced Directives Records FoundNo Advanced Directives Records Found Additional Source Comments INFORMATION SOURCE (unrecogn ized section and content) DATE CREATED AUTHOR AUTHOR'S ORGANIZ ATION 03/12/2019 [facility] ([place]) FOR RECORDS PERTAINING TO PATIENTS WHO ARE OR HAVE BEEN ENROLLED IN A CHEMICAL DEPENDENCY/SUBSTANCEABUSE PROGRAM, SOME INFORMATION MAY BE OMITTED. This clinical summary was aggregated from multiple sources. Caution should be exercised in using it in the provision of clinical care. This summary normalizes information from multiple sources, and as a consequence, information in this document may materially change the coding, format and clinical context of patient data. In addition, data may be omitted in some cases. CLINICAL DECISIONS SHOULD BE BASED ON THE PRIMARY CLINICAL RECORDS. [employer] [facility]. provides no warranty or guarantee of the accuracy or completeness of information in this document.
[2023-03-27 12:11] LABS: Absolute Lymphocyte Count 1.85 X10^3/uL (0.83-4.51); Absolute Neutrophil Count 4.3 X10^3/uL (2.0-7.7); Basophil# 0.07 X10^3/uL; Eosinophil# 0.14 X10^3/uL; Hematocrit 45.5 % (37-47); Hemoglobin 14.1 g/dL (12.0-15.0); Lymphocyte # 1.85 X10^3/ul (0.83-4.51); Lymphocyte % 26.2 % (19-41); Mean Corpuscular Hgb 26.5 pg (27.0-32.0); Mean Corpuscular Volume 85.4 fL (81-99); Mean Platelet Vol. 9.8 fl (6.2-12.0); Monocyte# 0.63 X10^3/uL; Monocyte% 8.9 % (0-10); NRBC Flagged by Analyzer 0 % (0-5); Neutrophil # 4.33 X10^3/uL (2.7-7.7); Neutrophil % 61.3 % (47-70); Platelet Count 332 K/mm3 (150-450); RBC Distribution Width CV 13.6 % (11.6-14.6); RBC Distribution Width SD 42.3 fl (35.1-43.9); Red Blood Count 5.33 M/mm3 (4.2-5.4); White Blood Count 7.1 K/mm3 (4.4-11.0)
[2023-03-27 12:44] LABS: BNP,B-Type NATRIURETIC PEPTIDE 11.7 pg/mL (0-100)
[2023-03-27 12:53] LABS: Anion Gap 8 (5-15); BUN 13 mg/dL (7-18); Calcium,Total 9.6 mg/dL (8.5-10.1); Chloride 103 mmol/L (98-107); Creatinine, Serum 0.65 mg/dL (0.55-1.02); EST Glomerular Filtration Rate 96 mL/min (>60); Est Glom Filt Rate - Afr Amer 116 mL/min (>60); Glucose 126 mg/dL (74-106); Potassium 3.8 mmol/L (3.5-5.1); Sodium Level 139 mmol/L (136-145)
== END | disposition home or self-care (01) ==
LOC: BIMLAB 09:02
PROVIDERS: PCP Internal Medicine; Referring Provider Nurse Practitioner; Visit Provider Nurse Practitioner
DX: R42 Dizziness and giddiness (principal); R06.09 Other forms of dyspnea; D64.9 Anemia, unspecified; I10 Essential (primary) hypertension
CPT/HCPCS: 36415; 80048; 83880; 85025

== ENCOUNTER → 2023-04-04 | Outpatient (CLI) | payer MEDICARE, OTHER, SELFPAY ==
--- NOTE | 2023-04-04 13:07 | CT_ITS ---
STUDY: CT CHEST WITHOUT CONTRAST REASON FOR EXAM: Female, 67 years old. Lung nodule f/u, dyspnea. History of colon carcinoma. RADIATION DOSAGE (If Supplied By Facility): CTDIvol = ( 14.92 ) mGy, DLP = ( 440.73 ) mGycm TECHNIQUE: Transaxial imaging was performed without the administration of intravenous contrast material. Multiplanar coronal and sagittal images were reformatted. Individualized dose optimization techniques were used for this CT. COMPARISON: Comparison is made with prior study October 19, 2022. FINDINGS: CHEST Once again, there is a 1 cm well-defined marginated nodule in the posterior aspect of the left upper lobe as seen on axial image #37 and coronal image #51. There is no demonstrated pleural abnormality. There are calcifications of the coronary arteries. Normal mediastinum. Normal hilar regions. Normal unenhanced pulmonary arteries. There is atherosclerotic calcification of the aortic arch. There are multi-level degenerative changes of the thoracic spine. Fatty infiltration of the liver. Small hiatal hernia. CT/Chest without Contrast IMPRESSION: Stable 1 cm well-defined nodule in the posterior aspect of the left upper lobe. Fatty infiltration of the liver. Electronically Signed: Derek Gould MD at 13:55 EST ,
--- OUTSIDE RECORDS SUMMARY | 2023-04-04 17:46 | XMS RPT_ITS | CCD ---
Author Name Unknown Address [address] [place] [address] Organization [employer] Allergies Allergy Classification Reported Allergen(s) Allergy Type Date of Onset Reaction(s) Facility (1 source) codeine; Translations: [CODEINE] Drug Allergy 5 [facility] Repository (1 source) Grass pollen; Translations: [GRASS POLLEN] Propensity to adverse reactions to drug (disorder) 5 [facility] Repository (1 source) meperidine; Translations: [OPIOIDS-MEPERID INE AND RELATED] Drug Allergy 5 [facility] Repository (1 source) mold extract; Translations: [MOLD] Drug Allergy 5 [facility] Repository Results Test Name Value Interpretation Reference Range Facil ity Encounters Encounter Date Encounter Type Care Provider Facility Start: 11-30-2016 End: 12-01-2016 [facility] Summary Purpose Family History No Family History Records FoundNo Family History Records Found Advance Directives No Advanced Directives Records FoundNo Advanced Directives Records Found Additional Source Comments INFORMATION SOURCE (unrecogn ized section and content) DATE CREATED AUTHOR AUTHOR'S ORGANIZ ATION 03/12/2019 [facility] ([place]) FOR RECORDS PERTAINING TO PATIENTS WHO ARE [...] BE BASED ON THE PRIMARY CLINICAL RECORDS. [employer] [facility]. provides no warranty or guarantee of the accuracy or completeness of information in this document.
== END | disposition home or self-care (01) ==
LOC: CT 13:06
PROVIDERS: PCP Internal Medicine; Referring Provider Nurse Practitioner; Visit Provider Nurse Practitioner
DX: R91.1 Solitary pulmonary nodule (principal)
CPT/HCPCS: 71250

== ENCOUNTER 2023-04-16 08:56 | Outpatient (CLI) | payer MEDICARE, OTHER, SELFPAY ==
--- OUTSIDE RECORDS SUMMARY | 2023-04-16 09:20 | XMS RPT_ITS | CCD ---
Author Name Unknown Address [address] [place] [address] Organization [facility] Allergies Allergy Classification Reported Allergen(s) Allergy Type Date of Onset Reaction(s) Facility (1 source) codeine; Translations: [CODEINE] Drug Allergy 5 [facility] Repository (1 source) Grass pollen; Translations: [GRASS POLLEN] Propensity to adverse reactions to drug (disorder) 5 [facility] Repository (1 source) meperidine; Translations: [OPIOIDS-MEPERID INE AND RELATED] Drug Allergy 5 [facility] Repository (1 source) mold extract; Translations: [MOLD] Drug Allergy 5 [facility] Repository Results Test Name Value Interpretation Reference Range Facil ity Encounters Encounter Date Encounter Type Care Provider Facility Start: 11-30-2016 End: 12-01-2016 [facility] Summary Purpose Family History No Family History Records FoundNo Family History Records Found Advance Directives No Advanced Directives Records FoundNo Advanced Directives Records Found Additional Source Comments INFORMATION SOURCE (unrecogn ized section and content) DATE CREATED AUTHOR AUTHOR'S ORGANIZ ATION 03/12/2019 [facility] ([place]) FOR RECORDS PERTAINING TO [...] BE BASED ON THE PRIMARY CLINICAL RECORDS. [employer] [facility]. provides no warranty or guarantee of the accuracy or completeness of information in this document.
[2023-04-16 12:43] LABS: AST(SGOT) 21 U/L (15-37); Alanine Aminotransfer ALT/SGPT 21 U/L (13-56); Albumin, Serum 3.8 g/dL (3.2-5.0); Alkaline Phosphatase 75 U/L (45-117); Bilirubin, Direct 0.15 mg/dL (0.00-0.30); Cholesterol 197 mg/dL (200); Globulin 3.6 g/dL (2.2-4.2); High Density Lipoprotein 54 mg/dL; Protein, Total 7.4 g/dL (6.4-8.2); Triglycerides 179 mg/dL; Very Low Density Lipoprotein 36 mg/dL (5-40)
[2023-04-16 12:49] LABS: Hemoglobin A1c 5.8 % (3.8-5.6)
[2023-04-17 04:07] LABS: Carcinoembryonic Antigen 1.2 ng/mL (0.0-4.7)
== END 2023-04-16 23:59 | disposition home or self-care (01) ==
LOC: BIMLAB 08:57
PROVIDERS: Internal Medicine Hematology & Oncology; PCP Internal Medicine; Referring Provider Nurse Practitioner; Visit Provider Nurse Practitioner
DX: C18.9 Malignant neoplasm of colon, unspecified (principal); K76.0 Fatty (change of) liver, not elsewhere classified; Z79.899 Other long term (current) drug therapy
CPT/HCPCS: 36415; 80061; 80076; 82378; 83036

== ENCOUNTER → 2023-04-26 | Outpatient (CLI) | payer MEDICARE, OTHER, SELFPAY ==
--- NOTE | 2023-04-26 07:18 | ECHOCS_ITS ---
Reason For Study: Chest Pain Procedure This was a 2D Doppler, Color Flow transthoracic echocardiogram. The study was technically difficult. Contrast injection was performed. Exam performed in department. Left Ventricle Normal LV size. Left ventricular systolic function is normal. The estimated ejection fraction is 65 %. No regional wall motion abnormalities noted. Right Ventricle Normal RV size. Normal systolic function. Atria Normal left atrium. Normal right atrium. Mitral Valve There is mild to moderate mitral annular calcification. Tricuspid Valve Normal tricuspid valve. Mild tricuspid valve insufficiency. Pulmonary artery systolic pressure is 21 mmHg. Aortic Valve Trisinus/trileaflet aortic valve. Mild focal aortic valve calcification. Peak aortic valve gradient 20 mmHg. Mean aortic valve gradient 11 mmHg. Pulmonic Valve The pulmonic valve is not well visualized. Great Vessels Normal aortic root. The pulmonary artery is normal size. Normal inferior vena cava. Pericardium/Pleural No pericardial effusion. Medication 20 gauge I.V. with prn adaptor inserted into right arm. Diluted definity 1ml given slow IV push to enhance endocardial definition. Performed a rapid injection of agitated mix of 9 cc saline and 1cc air to assess for atrial septal defect. MMode/2D Measurements & Calculations LVIDd: 4.2 cm IVSd: 1.1 cm LVOT diam: 2.0 cm LVIDs: 2.2 cm LVPWd: 0.98 cm RVDd: 3.5 cm FS: 46.9 % LVOT area: 3.1 cm2 Ao root diam: 3.2 cm LAV(MOD-bp): 62.1 ml LVAd ap4: 31.9 cm2 LA dimension: 4.2 cm LAV(MOD-bp) Indexed: 30.8 ml/m2 LVLd ap4: 7.4 cm LAV(MOD-sp2): 65.3 ml EDV(MOD-sp4): 110.6 ml LAV(MOD-sp4): 58.0 ml EDV(sp4-el): 116.7 ml LVAs ap4: 16.0 cm2 LVLs ap4: 5.9 cm ESV(MOD-sp4): 37.3 ml ESV(sp4-el): 36.5 ml EF(MOD-sp4): 66.2 % EF(sp4-el): 68.7 % SV(MOD-sp4): 73.3 ml SV(sp4-el): 80.2 ml LA A4 area: 19.5 cm2 RA A4 area: 15.1 cm2 TAPSE: 2.2 cm Time Measurements MV dec time: 0.23 sec Doppler Measurements & Calculations MV E max jhonathan: 105.6 cm/sec Lat Peak E' Jhonathan: 10.2 cm/sec Med Peak E' Jhonathan: 8.0 cm/sec MV A max johnathan: 103.6 cm/sec E/E' lat: 10.3 E/E' med: 13.2 MV E/A: 1.0 MV V2 max: 117.3 cm/sec MV P1/2t max jhonathan: 116.8 cm/sec Ao V2 max: 226.4 cm/sec MV max P.5 mmHg MV P1/2t: 74.0 msec Ao max P.6 mmHg MV V2 mean: 68.4 cm/sec MV dec slope: 462.7 cm/sec2 Ao V2 mean: 153.3 cm/sec MV mean P.2 mmHg MVA(P1/2t): 3.0 cm2 Ao mean P.9 mmHg MV V2 VTI: 32.1 cm Ao V2 VTI: 53.0 cm MVA(VTI): 2.9 cm2 AV (velocity ratio): 0.57 XIOMY(I,D): 1.8 cm2 XIOMY(V,D): 1.7 cm2 LV V1 max: 126.2 cm/sec SV(LVOT): 94.0 ml PA V2 max: 112.4 cm/sec LV V1 max P.4 mmHg PA V2 mean: 74.7 cm/sec LV V1 mean P.4 mmHg LV V1 mean: 88.1 cm/sec LV V1 VTI: 30.1 cm TR max jhonathan: 213.6 cm/sec TR max P.3 mmHg ECHO/Echo Complete W/ Contrast Interpretation Summary Normal LV size. Left ventricular systolic function is normal. The estimated ejection fraction is 65 %. Mild tricuspid valve insufficiency. Mean aortic valve gradient 11 mmHg. Contrast injection was performed. Ordering Physician: Mickie Domínguez Referring Physician: Mickie Domínguez Performed By: Pawel Winter RCS
--- OUTSIDE RECORDS SUMMARY | 2023-04-26 07:25 | XMS RPT_ITS | CCD ---
Author Name Unknown Address [address] [place] [address] Organization [facility] Allergies Allergy Classification Reported Allergen(s) Allergy Type Date of Onset Reaction(s) Facility (1 source) codeine; Translations: [CODEINE] Drug Allergy 5 [facility] Repository (1 source) Grass pollen; Translations: [GRASS POLLEN] Propensity to adverse reactions to drug (disorder) 5 [facility] Repository (1 source) meperidine; Translations: [OPIOIDS-MEPERID INE AND RELATED] Drug Allergy 5 [facility] Repository (1 source) mold extract; Translations: [MOLD] Drug Allergy 5 [facility] Repository Results Test Name Value Interpretation Reference Range Facil ity Encounters Encounter Date Encounter Type Care Provider Facility Start: 11-30-2016 End: 12-01-2016 [facility] Summary Purpose Family History No Family History Records FoundNo Family History Records Found Advance Directives No Advanced Directives Records FoundNo Advanced Directives Records Found Additional Source Comments INFORMATION SOURCE (unrecogn ized section and content) DATE CREATED AUTHOR AUTHOR'S ORGANIZ ATION 03/12/2019 Counts include 234 beds at the [facility] ([place]) FOR RECORDS PERTAINING TO PATIENTS WHO ARE [...] BE BASED ON THE PRIMARY CLINICAL RECORDS. [employer] [facility]. provides no warranty or guarantee of the accuracy or completeness of information in this document.
--- NOTE | 2023-04-26 17:21 | STRESSREP ---
Stress Test Report Pharmacologic myocardial perfusion stress test. 67-year-old lady with a history of chest pain and dyspnea Resting EKG demonstrates sinus rhythm with a rate of 76 bpm. Resting blood pressure is 118/66 mmHg. 0.4 mg of regadenoson was infused per usual protocol followed by rapid intravenous saline flush injection. Continuous EKG monitoring was performed. The maximum heart rate was 105 bpm which was 69% of max impacted heart rate the maximum workload was 1 metabolic equivalent. At rest there were no ST or T wave changes noted to suggest ischemia and at peak infusion nonspecific ST changes were noted which did not meet the criteria for ischemia. No clinical angina is noted. The final blood pressure was 122/64 mmHg. Myocardial perfusion protocol. 14.1 mCi of technetium 99m sestamibi was injected at rest. 0.4 mg of regadenoson was infused per usual protocol. At peak infusion 44.6 mCi of technetium 99m sestamibi was injected stress images were obtained stress and rest images were reconstructed and compared in the short axis vertical long and horizontal long axis. Gated images were also obtained. Perfusion SPECT analysis: Review of the stress images demonstrate normal uptake of tracer noted in all areas of the myocardium. The resting images similar demonstrated normal uptake of tracer noted in all areas of the myocardium. No areas of reversibility are noted to suggest ischemia and no previous infarct is noted. Gated SPECT analysis: The gated ejection fraction is over 80%. Conclusion: Normal pharmacologic myocardial perfusion stress test. Preserved ejection fraction.
== END | disposition home or self-care (01) ==
LOC: CVS 07:17
PROVIDERS: PCP Internal Medicine; Referring Provider Nurse Practitioner; Visit Provider Nurse Practitioner
DX: R07.9 Chest pain, unspecified (principal); R06.09 Other forms of dyspnea
CPT/HCPCS: 78452; 93017; 93306; A9500; Q9957; A4216; C8929; J2785

== ENCOUNTER → 2023-05-07 | Outpatient (CLI) | payer MEDICARE, OTHER, SELFPAY ==
--- OUTSIDE RECORDS SUMMARY | 2023-05-07 09:46 | XMS RPT_ITS | CCD ---
Author Name Unknown Address [address] [place] [address] Organization [facility] Allergies Allergy Classification Reported Allergen(s) Allergy Type Date of Onset Reaction(s) Facility (1 source) codeine; Translations: [CODEINE] Drug Allergy 5 [facility] Repository (1 source) Grass pollen; Translations: [GRASS POLLEN] Propensity to adverse reactions to drug (disorder) 5 [facility] Repository (1 source) meperidine; Translations: [OPIOIDS-MEPERID INE AND RELATED] Drug Allergy 5 [facility] Repository (1 source) mold extract; Translations: [MOLD] Drug Allergy 5 [facility] Repository Results Test Name Value Interpretation Reference Range Facil ity Encounters Encounter Date Encounter Type Care Provider Facility Start: 11-30-2016 End: 12-01-2016 Ambulatory [facility] Summary Purpose Family History No Family History Records FoundNo Family History Records Found Advance Directives No Advanced Directives Records FoundNo Advanced Directives Records Found Additional Source Comments INFORMATION SOURCE (unrecogn ized section and content) DATE CREATED AUTHOR AUTHOR'S ORGANIZ ATION 03/12/2019 Formerly [facility] ([place]) FOR RECORDS PERTAINING TO PATIENTS WHO ARE [...] BE BASED ON THE PRIMARY CLINICAL RECORDS. [employer] [address] [facility]. provides no warranty or guarantee of the accuracy or completeness of information in this document.
[2023-05-07 12:54] LABS: Vitamin B12 408 pg/mL (211-911)
== END | disposition home or self-care (01) ==
LOC: BIMLAB 09:25
PROVIDERS: PCP Internal Medicine; Visit Provider Internal Medicine
DX: M54.10 Radiculopathy, site unspecified (principal)
CPT/HCPCS: 36415; 82607

== ENCOUNTER → 2023-05-15 | Outpatient (CLI) | payer MEDICARE, OTHER, SELFPAY ==
--- NOTE | 2023-05-15 06:37 | MRI_ITS ---
STUDY: MRI RIGHT MIDFOOT REASON FOR EXAM: Female, 67 years old. CHARCOT ARTHROPATHY, MID FOOT JOINTS AFFECTED TECHNIQUE: Standardized fat and water weighted pulse sequences were obtained in all 3 orthogonal planes. COMPARISON: Right foot radiographs dated 05/08/2023. FINDINGS: Normal talonavicular articulation. Normal calcaneocuboid articulation. Normal navicular-cuneiform articulations. There is degenerative arthrosis of the intercuneiform joints as well as second through fifth tarsometatarsal joints, with joint space narrowing, articular surface irregularity, and subchondral edema/cyst formation. Normal Lisfranc ligament. Intact first through fifth metatarsi. There is no demonstrated fracture of the metatarsal bones. Normal tibialis anterior tendon. Normal extensor hallucis longus tendon. Normal extensor digitorum longus tendons. Normal peroneus longus tendon and distal insertion. Normal peroneus brevis tendon and distal insertion. Normal intrinsic muscles of the mid and forefoot region. Normal extensor digitorum brevis muscle. There is mild subcutaneous soft tissue edema along the dorsum of the foot. MRI/Lower Ext/No Jt/w/o IMPRESSION: Degenerative arthrosis of the intercuneiform joints as well as second through fifth tarsometatarsal joints. Mild subcutaneous soft tissue edema along the dorsum of the foot. Electronically Signed: Tripp Carranza MD at 10:16 EDT ,
== END | disposition home or self-care (01) ==
LOC: MRI 06:16
PROVIDERS: PCP Internal Medicine; Referring Provider Podiatrist; Visit Provider Podiatrist
DX: A52.16 Charcot's arthropathy (tabetic) (principal)
CPT/HCPCS: 73718

== ENCOUNTER 2023-07-02 05:57 | Day surgery (SDC) | payer MEDICARE, OTHER, SELFPAY ==
[2023-07-02 06:24] VITALS: BP 150/67; PULSE 86; RESP 16; TEMP 36.6; O2SAT 97; BMI 37.4
[2023-07-02] MEDS: Lactated Ringers 1,000 ML 15 ML IV (06:26)
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
--- NOTE | 2023-07-02 07:30 | EGD_PTH ---
PATIENT: ELIS MCARTHUR LOC: [facility] U#:[id number] AGE/SX: 68/F ROOM: RE07/02/[address]: Dr. Julieta Leblanc MD : 1955 BED: DIS: 07/02/2023 SPEC #: [id number] RECD: 07/02/23 09:53 STATUS: RIKI TAYLOR #: [id number] ENID: 07/02/23 07:[address]: Julieta Leblanc DEPT: SURGICAL PATHOLOGY RECD BY: Zhanna Weir ENTERED: 07/02/23 12:25 SP TYPE: EGD BIOPSY EULALIA DR: Dr. Adam Husain MD Tissues: A - Gastric mucous membrane B - Stomach, NOS Procedures: Surgery Specimen Level IV HEADER OPERATION: EGD biopsy PRE-OP DIAGNOSIS: GERD, Anticoagulant long-term use TISSUE SUBMITTED: A- Gastric antrum, B- Gastroesophageal junction biopsy MICROSCOPIC DIAGNOSIS A. Gastric antrum, biopsy: Mild gastritis. See microscopic description and comment. B. Gastroesophageal junction, biopsy: A fragment of gastric mucosa with chronic inflammation. Intestinal metaplasia (goblet cell metaplasia) not identified. See comment. MISAEL/ 07/03/23 COMMENT A. The results of immunohistochemistry for Helicobacter pylori will be reported separately ([id number]). B. Alcian blue/PAS stain with matched control is used in the evaluation of the specimen. MICROSCOPIC DESCRIPTION Slides are reviewed. A. The specimen shows fragments of gastric mucosa with chronic inflammatory cell infiltrates in the lamina propria consisting of lymphocytes and plasma cells, consistent with mild chronic gastritis. GROSS DESCRIPTION A. Received in fixative is one container labeled with the patient's name and designated Gastric antrum. The specimen consists of one irregular fragment of light kumar soft tissue that measures 0.5 x 0.2 x 0.2 cm. The specimen is totally submitted in one cassette. B. Received in fixative is one container labeled with the patient's name and designated GE junction biopsy. The specimen consists of one irregular fragment of light kumar soft tissue that measures 0.5 x 0.5 x 0.2 cm. The specimen is totally submitted in one cassette. MISAEL/ 07/02/23 TC:3 CPT:49881s6,73827
--- NOTE | 2023-07-02 07:30 | IMM_PTH ---
PATIENT: ELIS MCARTHUR LOC: [facility] U#:[id number] AGE/SX: 68/F ROOM: RE07/02/[address]: Dr. Julieta Leblanc MD : 1955 BED: DIS: 07/02/2023 SPEC #: [id number] RECD: 07/03/23 09:12 STATUS: RIKI REAdolfo #: [id number] ENID: 07/02/23 07:[address]: Julieta Leblanc DEPT: IMMUNOHISTOCHEMISTRY RECD BY: Nabil Veliz ENTERED: 07/03/23 09:13 SP TYPE: IMMUNO OTHR DR: Dr. Adam Husain MD Tissues: A - Stomach, NOS Procedures: H Pylori (initial) PHYSICIAN & INSTITUTION [place] [id number] SPECIMEN INFORMATION: Tissue Source: A- Gastric antrum biopsy Clinical Info: GERD, Anticoagulant long-term use Specimen Number: [id number] CPT code: 91683 METHODOLOGY: Deparaffinized sections of prefer/formalin-fixed tissue or PAP/DQ stained slides are incubated with monoclonal/polyclonal antibodies/oligonucleotide probes. Localization is made via biotin free immunoperoxidase method. Appropriate controls are performed and reacted as expected. Results on target cell population are indicated in the following table: RESULTS: ANTIBODY / CLONE RESULT H Pylori (polyclonal) negative These tests were developed and their performance characteristics determined by [facility]. They may not have been cleared or approved by the U.S. Food and Drug Administration. The FDA has determined that such clearance or approval is not necessary. The above immunohistochemical/dualISH markers are ordered and reviewed by the Pathologist. INTERPRETATION: A. Gastric antrum, biopsy: Negative for Helicobacter pylori organisms. MISAEL/ 07/03/23
--- NOTE | 2023-07-02 07:44 | OP.CCLET_ITS ---
07/02/2023 Adam Husain MD [address] [place] [address] [place] [address] Re : Upper GI endoscopy procedure for Lety Ha Dear Dr. Husain This procedure was performed on Sunday, July 02, 2023. My impressions and recommendations are as follows: Impressions : - Z-line variable, 40 cm from the incisors. Biopsied. - Erythematous mucosa in the antrum. Biopsied. - A few gastric polyps. - Normal examined duodenum. - Medium-sized hiatal hernia. Recommendations : - Await pathology results. - Discharge patient to home. - Use sucralfate tablets 1 gram PO QID for 4 weeks. - Continue present medications. My findings are described in the full procedure note, which is enclosed. If I can be of further assistance, please feel free to contact me at Doctor phone number(s): , Work: . Sincerely, MD Julieta Arroyo MD 07/02/2023 7:44:11 AM This report has been signed electronically.
--- NOTE | 2023-07-02 07:44 | OP.EGD_ITS ---
Patient Name: Lety Ha Procedure Date: 07/02/2023 7:18 AM Date of : 1955 Age: 68 Procedure: Upper GI endoscopy Indications: Heartburn Providers: Julieta Leblanc MD Referring MD: Adam Husain MD Medicines: Monitored Anesthesia Care Patient Profile: This is a 68 year old female. Complications: No immediate complications. Procedure: Pre-Anesthesia Assessment: - Prior to the procedure, a History and Physical was performed, and patient medications and allergies were reviewed. The patient's tolerance of previous anesthesia was also reviewed. The risks and benefits of the procedure and the sedation options and risks were discussed with the patient. All questions were answered, and informed consent was obtained. Prior Anticoagulants: The patient has taken Eliquis (apixaban), last dose was 3 days prior to procedure. ASA Grade Assessment: Per anesthesia. After reviewing the risks and benefits, the patient was deemed in satisfactory condition to undergo the procedure. After obtaining informed consent, the endoscope was passed under direct vision. Throughout the procedure, the patient's blood pressure, pulse, and oxygen saturations were monitored continuously. The gastroscope was introduced through the mouth, and advanced to the second part of duodenum. The upper GI endoscopy was accomplished without difficulty. The patient tolerated the procedure well. Scope In: 7:34:03 AM Scope Out: 7:38:44 AM Total Procedure Duration Time 0 hours 4 minutes 41 seconds Findings: The Z-line was variable and was found 40 cm from the incisors. Biopsies were taken with a cold forceps for histology. Moderately erythematous mucosa without bleeding was found in the gastric antrum. Biopsies were taken with a cold forceps for histology. Biopsies were taken with a cold forceps for Helicobacter pylori cultures. A few less than 5 mm sessile polyps with no bleeding and no stigmata of recent bleeding were found in the gastric body. The examined duodenum was normal. A medium-sized hiatal hernia was present. Impression: - Z-line variable, 40 cm from the incisors. Biopsied. - Erythematous mucosa in the antrum. Biopsied. - A few gastric polyps. - Normal examined duodenum. - Medium-sized hiatal hernia. Recommendation: - Await pathology results. - Discharge patient to home. - Use sucralfate tablets 1 gram PO QID for 4 weeks. - Continue present medications. Procedure Code(s): --- Professional --- 24490, Esophagogastroduodenoscopy, flexible, transoral; with biopsy, single or multiple Diagnosis Code(s): --- Professional --- K22.89, Other specified disease of esophagus K31.89, Other diseases of stomach and duodenum K31.7, Polyp of stomach and duodenum K44.9, Diaphragmatic hernia without obstruction or gangrene R12, Heartburn CPT copyright 2021 [employer]. All rights reserved. The codes documented in this report are preliminary and upon vascular neurologist review may be revised to meet current compliance requirements. MD Julieta Arroyo MD 07/02/2023 7:44:11 AM This report has been signed electronically. Number of Addenda: 0 Note Initiated On: 07/02/2023 7:18 AM
[2023-07-02 07:45] VITALS: BP 121/65; BP 150/67; PULSE 82; RESP 16; TEMP 36.5; O2SAT 97
[2023-07-02 07:50] VITALS: BP 129/62; BP 150/67; PULSE 82; RESP 16; O2SAT 98
[2023-07-02 07:57] VITALS: BP 130/63; BP 150/67; PULSE 79; RESP 16; TEMP 37; O2SAT 98
[2023-07-02 08:09] VITALS: BP 150/67
== END 2023-07-02 08:27 | disposition home or self-care (01) ==
LOC: EN 05:57 → AC 05:57
PROVIDERS: PCP Internal Medicine; Referring Provider Internal Medicine; Visit Provider Surgery
PROC: 0DJ08ZZ Inspection of Upper Intestinal Tract, Via Natural or Artificial Opening Endoscopic (ICD-10-PCS; CPT 43235; principal; 2023-07-02 07:25)
DX: K21.00 Gastro-esophageal reflux disease with esophagitis, without bleeding (principal); K44.9 Diaphragmatic hernia without obstruction or gangrene; K31.7 Polyp of stomach and duodenum; I10 Essential (primary) hypertension; Z79.899 Other long term (current) drug therapy; J45.909 Unspecified asthma, uncomplicated; Z79.01 Long term (current) use of anticoagulants; K29.70 Gastritis, unspecified, without bleeding; Z86.718 Personal history of other venous thrombosis and embolism; Z87.19 Personal history of other diseases of the digestive system; Z86.73 Personal history of transient ischemic attack (TIA), and cerebral infarction without residual deficits
CPT/HCPCS: 43239; 88305; 88342; J7120; J2405

== ENCOUNTER → 2023-08-31 | Outpatient (CLI) | payer MEDICARE, OTHER, SELFPAY ==
--- NOTE | 2023-08-31 13:43 | CT_ITS ---
STUDY: CT ABDOMEN AND PELVIS WITHOUT CONTRAST REASON FOR EXAM: Female, 68 years old. Abdominal pain -- w/o IV contrast RADIATION DOSAGE (If Supplied By Facility): CTDIvol = ( 19.73 ) mGy, DLP = ( 1018.65 ) mGycm TECHNIQUE: Transaxial images were obtained from the dome of the diaphragm to the symphysis pubis with oral contrast, and without intravenous contrast. Sagittal and coronal images were reconstructed. Individualized dose optimization techniques were used for this CT. COMPARISON: 10/19/2022 FINDINGS: The visualized lung bases are unremarkable. The visualized portions of the heart are within normal limits. Normal liver. There are surgical clips in the gallbladder fossa consistent with a prior cholecystectomy. Normal spleen. Normal pancreas. Normal bilateral adrenal glands. No obstructive uropathy or suspicious solid renal lesion, stable simple bilateral renal cysts. Normal visualized stomach. Normal small intestine. Normal colon. There is non-visualization of the appendix. There is diffuse atherosclerotic calcification of the abdominal aorta, without a demonstrated aneurysm. Normal inferior vena cava. Normal retroperitoneum. Bladder is incompletely distended There is absence of the uterus consistent with a prior hysterectomy. Normal abdominal wall. There are diffuse degenerative changes of the visualized lumbar spine, and pelvis. CT/Abdomen/Pel W ORAL Cont Only IMPRESSION: No suspicious solid organ abnormality, stable simple bilateral renal cysts, no specific follow-up needed. No free intraperitoneal fluid, air, or suspicious adenopathy Retained stool in the colon Degenerative bony changes No significant interval change Electronically Signed: Yg Lane MD at 14:09 EDT ,
== END | disposition home or self-care (01) ==
LOC: CT 13:41
PROVIDERS: PCP Internal Medicine; Referring Provider Surgery; Visit Provider Surgery
DX: R59.0 Localized enlarged lymph nodes (principal)
CPT/HCPCS: 74176

== ENCOUNTER → 2023-09-04 | Outpatient (CLI) | payer MEDICARE, OTHER, SELFPAY ==
--- NOTE | 2023-09-04 12:33 | BI_ITS ---
MAMMOGRAPHY - BILATERAL SCREENING REASON FOR EXAM: Female, 68 years old. Routine annual screening examination. PERTINENT HISTORY: Aunt with breast cancer. TECHNIQUE: Digital bilateral breast lashae (3D mammographic acquisition) in the CC and MLO projections. 2-D mediolateral oblique (MLO) and craniocaudad (CC) views of both breasts were obtained. CAD: Full Field Digital Mammography with Computer Added Detection was performed. COMPARISON: Comparison is made with prior study dated August 25, 2022 and August 23, 2021. FINDINGS: Breast Composition: The breasts are almost entirely fatty. There are no dominant masses or suspicious calcifications. No other significant abnormalities are identified. There has been no significant change since the prior study. BI/SCRN MAMM (CAD)W/LASHAE BILAT IMPRESSION: Stable bilateral screening mammogram. Yearly follow-up mammogram recommended. (A) ASSESSMENT CATEGORY: BIRADS Category 1: Negative. A letter regarding these results will be sent to the patient by the facility within 30 days. Approximately 10% of breast cancers are not detected by mammography. A normal mammogram should not delay biopsy of a clinically suspicious abnormality. [id number] Electronically Signed: Derek Gould MD at 14:11 EDT ,
--- NOTE | 2023-09-04 12:34 | US_ITS ---
STUDY: SUPERFICIAL ULTRASOUND - PALPABLE LUMP IN THE LEFT CERVICAL REGION. REASON FOR EXAM: Female, 68 years old. Left cervical lymphadenopathy -- palpable lump left neck TECHNIQUE: A superficial ultrasound was performed with real-time and static ramsey-scale imaging. COMPARISON: None. FINDINGS: The palpable lump corresponds to a 5 mm x 6 mm x 3 mm cyst. Adjacent to this, there are 2 benign-appearing lymph nodes. The largest lymph node measures 1.2 cm x 0.8 cm x 0.3 cm. US/Head/Neck Soft Tissue IMPRESSION: The palpable lump corresponds to a 5 mm x 6 mm x 3 mm cyst. Incidental note is made of 2 small benign-appearing lymph nodes. Electronically Signed: Derek Gould MD at 9:43 EDT ,
== END | disposition home or self-care (01) ==
LOC: OPBI 12:33
PROVIDERS: PCP Internal Medicine; Referring Provider Surgery; Visit Provider Surgery
DX: Z12.31 Encounter for screening mammogram for malignant neoplasm of breast (principal); R59.0 Localized enlarged lymph nodes
CPT/HCPCS: 76536; 77063; 77067

== ENCOUNTER → 2023-10-22 | Outpatient (CLI) | payer MEDICARE, OTHER, SELFPAY ==
--- NOTE | 2023-10-22 | BLA_PTH ---
PATIENT: ELIS MCARTHUR LOC: [facility] U#:[id number] AGE/SX: 68/F ROOM: RE10/22/[address]: Dr. Michael Sen MD : 1955 BED: DIS: 10/22/2023 SPEC #: [id number] RECD: 10/22/23 15:01 STATUS: RIKI TAYLOR #: [id number] ENID: 10/22/23 00:[address]: Michael Sen DEPT: SURGICAL PATHOLOGY RECD BY: Rudy Do ENTERED: 10/23/23 09:55 SP TYPE: BLADDER BX OTHR DR: Dr. 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 Mild chronic inflammation. See comment. KERON/ 10/24/2023 COMMENT The lesion is confined to the urothelium. The lambda propria is free of neoplasm. Detrusor muscle is represented in the biopsy and free of neoplasm. Clinical correlation is suggested. Case has been reviewed in consultation with Dr. Hernandez who concurs with the above diagnosis. IDC:MISAEL MICROSCOPIC DESCRIPTION Slides are reviewed. GROSS DESCRIPTION Received in fixative is one container labeled with the patient's name and designated Bladder biopsy. The specimen consists of three fragments of kumar soft tissue measuring in aggregate 0.4 x 0.2 x 0.1cm. The entire specimen is submitted in one cassette. MISAEL/ 10/23/2023 TC:? CPT:74229
== END | disposition home or self-care (01) ==
LOC: LABSPEC 17:02
PROVIDERS: PCP Internal Medicine; Referring Provider Urology; Visit Provider Urology
DX: D41.4 Neoplasm of uncertain behavior of bladder (principal); N30.20 Other chronic cystitis without hematuria
CPT/HCPCS: 88305

== ENCOUNTER → 2024-03-24 | Outpatient (CLI) | payer MEDICARE, OTHER, SELFPAY | END | disposition home or self-care (01) | LOC: LABSPEC 10:37 | PROVIDERS: PCP Internal Medicine; Referring Provider Physician Assistant; Visit Provider Physician Assistant | DX: R30.0 Dysuria (principal) | CPT/HCPCS: 87086; 87088 ==

== ENCOUNTER → 2024-04-14 | Outpatient (CLI) | payer MEDICARE, OTHER, SELFPAY ==
[2024-04-14 16:03] LABS: Cholesterol 205 mg/dL (200); High Density Lipoprotein 57 mg/dL; Triglycerides 344 mg/dL; Very Low Density Lipoprotein 69 mg/dL (5-40)
[2024-04-16 04:07] LABS: Carcinoembryonic Antigen 1.2 ng/mL (0.0-4.7)
== END | disposition home or self-care (01) ==
LOC: BIMLAB 13:06
PROVIDERS: PCP Internal Medicine; Referring Provider Internal Medicine Hematology & Oncology; Visit Provider Internal Medicine Hematology & Oncology
DX: I10 Essential (primary) hypertension (principal); C18.9 Malignant neoplasm of colon, unspecified
CPT/HCPCS: 36415; 80061; 82378

== ENCOUNTER → 2024-04-22 | Outpatient (CLI) | payer MEDICARE, OTHER, SELFPAY ==
[2024-04-22 10:29] LABS: Erythrocyte Sedimentation Rate 13 mm/hr (0-30)
[2024-04-23 02:31] LABS: CPK Total, Creatine Kinase 78 U/L (24-195)
[2024-04-23 02:45] LABS: CRP 7.37 mg/L (0.0-3.0); Rheumatoid Factor < 10.0 IU/mL (<15)
[2024-04-23 02:57] LABS: LDH 211 U/L (84-246)
[2024-04-23 12:08] LABS: Anti-Centromere B Ab <0.2 AI (0.0-0.9); Anti-Chromatin <0.2 AI (0.0-0.9); Anti-Jo <0.2 AI (0.0-0.9); Anti-Scleroderma-70 AB <0.2 AI (0.0-0.9); Anti-dsDNA Ab <1 IU/mL (0-9); RNP Ab <0.2 AI (0.0-0.9); SJOGREN'S Anti-SS-A test < 0.2 AI (0.0-0.9); SJOGREN'S Anti-SS-B test < 0.2 AI (0.0-0.9); Smith Ab <0.2 AI (0.0-0.9)
[2024-04-28 14:08] LABS: ACCA 14 units (0-90); ALCA 6 units (0-60); AMCA 12 units (0-100); Albumin 3.8 g/dL (2.9-4.4); Alpha-1-Globulins 0.2 g/dL (0.0-0.4); Alpha-2-Globulins 0.8 g/dL (0.4-1.0); CCP IgG Antibodies 3 units (0-19); Cytoplasmic Ab (C-ANCA) <1:20 titer (Neg:<1:20); Endomysial Antibody IgA Negative (Negative); Gamma Globulin 1.1 g/dL (0.4-1.8); Immunoglobulin A 250 mg/dL (87-352); Immunoglobulin G 1163 mg/dL (586-1602); Immunoglobulin M 72 mg/dL (26-217); Perinuclear Ab (P-ANCA) <1:20 titer (Neg:<1:20); QNTFERON TB Mitogen Value > 10.00 IU/mL (.); QNTFERON TB Nil Value 0.14 IU/mL (.); QNTFERON TB1+ Ag Value 0.14 IU/mL (.); QNTFERON TB2+ Ag Value 0.13 IU/mL (.); QNTIFERON TB Positive Criteria Negative (Negative); gASCA 25 units (0-50); t-Transglutaminase IgA <2 U/mL (0-3)
== END | disposition home or self-care (01) ==
LOC: LAB 09:55
PROVIDERS: PCP Internal Medicine; Referring Provider Internal Medicine Gastroenterology; Visit Provider Internal Medicine Gastroenterology
DX: R10.13 Epigastric pain (principal); R19.7 Diarrhea, unspecified
CPT/HCPCS: 36415; 82085; 82550; 82784; 83516; 83615; 84165; 85652; 86036; 86037; 86140; 86200; 86225; 86235; 86255; 86334; 86431; 86480; 86671

== ENCOUNTER 2024-04-30 10:30 | Outpatient (RCR) | payer MEDICARE, OTHER, SELFPAY ==
--- NOTE | 2024-04-09 14:04 | HP.SP.EV_ITS ---
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 History Attending Doctor: Referring Doctor: Reason for Referral: [facility] Medical Diagnosis: Functional Dysphonia Date of Onset of Diagnosis: 04-02-24 Previous speech therapy: No Other Relevant Medical History/Diagnoses/Surgery: Obstructive sleep apnea (CPAP), Asthma, COVID-19, GERD Medications related to this diagnosis: n/a Smoking Status: Never smoker Diagnosis Diagnosis: Dysphonia Pain Is pain an issue with your current prescribed condition?: No Personal Preferred language: [place] Patient Allergies Allergies Allergies: Allergies codeine Allergy (Verified 03/28/24 08:30) Vomiting Opioids - Morphine Analogues Allergy (Verified 03/28/24 08:30) Vomiting hydroxyzine (From Vistaril) Adverse Reaction (Verified 03/28/24 08:30) Vomiting meperidine (From Demerol) Adverse Reaction (Verified 03/28/24 08:30) Vomiting Voice Handicap Index (VHI) VHI VHI Administered: Yes VHI: Patient completed the Voice Handicap Index, which is a 30 item, self administered questionnaire that asks an individual to describe their voice and the effects of their voice on their life. Three subscales cover the areas of functional, emotional, and physical aspects of the voice disorders. Points from the questions can be combined to assign a total score, or they can be combined by subscale. Results for the VHI are as follows: Date: 04/09/24 VHI Test Functional: 36 Physical: 17 Emotional: 24 Total Severity Rating: Severe (61-120) Comments Comments:: -: 68 y/o female patient has been experiencing dysphonia since 01-24-24 following COVID, as only able to speak in a whisper. Patient initially treated by quality control assessor with steroids and ATB, and instructed ?it will just take time?. Patient experienced no changes in voicing despite multiple courses of steroids a nd vocal rest. Patient scheduled consult with Dr. Cooper, ENT with spouse?s encouragement. Patient diagnosed with ?Hoarseness after COVID/Functional Dysphonia? with ?no anatomical or physiological abnormalities?. Patient unable to achieve true phonation in all therapeutic attempts, all attempts in whisper: humming, cervical posture changes, easy onset, extended vocal fold adduction. Patient endorses increased dyspnea and exertion in attempt to ?verbally communicate?. Reference: Neuro-QoL instrument Radiation Oncology Patient Plan Plan Plan: Treatment of speech-voice as Resonant Voice Therapy, patient education on vocal hygiene and condition management, laryngeal and cervical relaxation ther ex Recommendations Treatment Warranted: Yes Treatment Warranted: Voice Progress Prognosis: Excellent Frequency Frequency: 1x/Week Duration: 2 Months Patient/Family Goal Patient/Family Goal: Get my voice back Goals that are Established Determination:: Goals will be added/modified as deemed necessary and appropriate. Therapy will be discontinued when results of re-evaluation indicate therapy is no longer needed or lack of progress has been documented. Goal #1-5 Goal #1: To reduce laryngeal tension impacting production of true phonation, Pt will demonstrate relaxation techniques with greater than 90% acc independently. Goal #2: To reduce laryngeal tension impacting production of true phonation, Pt will demonstrate relaxation ther ex with greater than 90% acc independently. Goal #3: Patient will achieve true voicing in structure therapeutic tasks at least 6x in a session. Education Patient has Indicated that the Following Identified Educational Needs: None The Patient has indicated that they have no educational or learning abilities that may effect their care.: Yes Patient Instruction Patient Education: Diagnosis, Treatment Plan, Goals and Home Exercise Program Person Taught: Patient Teaching Method: Discussion, Demonstration and Handout Response to teaching: Verbalize Understanding and Reinforcement Needed
--- NOTE | 2024-04-30 12:01 | HP.SP.DC ---
ST Discharge Summary Discharged: Discharge: Patient received treatment of speech-voice for a total of 3 sessions targeting glottal squeeze with functional whisper. Patient had been aphonic since 01/19. Skilled treatment included patient education for vocal hygiene, vocal relaxation techniques, and Myofascial Release to laryngeal musculature. Patient completed prescribed ther ex and MFR techniques multiple times each day, with break through voicing occurring at times following MFR. Patient reports she woke up 04/26/24 with her normal voice, and has not experienced any vocal fatigue, pitch breaks, or return to aphonia or glottal squeeze x5 days. >30 spontaneous sentences in conversation. Vocal volume >60 db with WNL quality and pitch. No dyspnea or stridor during conversation. Discharge instructions included monitoring for changes in voice, vocal hygiene, and changes in voice which may require referral to ST. Patient has achieved all goals, reports voice is back to normal, and denies further needs at this time.
== END 2024-04-30 19:00 | disposition home or self-care (01) ==
LOC: SP 10:30
PROVIDERS: PCP Internal Medicine; Referring Provider Otolaryngology; Visit Provider Otolaryngology
DX: R49.0 Dysphonia (principal)
CPT/HCPCS: 92507; 92524

== ENCOUNTER → 2024-05-09 | Outpatient (CLI) | payer MEDICARE, OTHER, SELFPAY ==
[2024-05-12 15:08] LABS: Pancreatic Elastase, Fecal 492 (>200)
[2024-05-12 17:07] LABS: Calprotectin, Stool 74 ug/g (0-120); Fats, Neutral Normal (.); Fats, Total Normal (.)
== END | disposition home or self-care (01) ==
LOC: LABSPEC 09:27
PROVIDERS: PCP Internal Medicine; Referring Provider Internal Medicine Gastroenterology; Visit Provider Internal Medicine Gastroenterology
DX: R19.7 Diarrhea, unspecified (principal); K58.9 Irritable bowel syndrome, unspecified; R10.13 Epigastric pain
CPT/HCPCS: 82274; 82653; 82705; 83630; 83993; 87177; 87209; 87329; 87493

== ENCOUNTER → 2024-05-26 | Outpatient (CLI) | payer MEDICARE, OTHER, SELFPAY ==
--- NOTE | 2024-05-26 09:04 | MRI_ITS ---
EXAM: MRI abdomen/pelvis with IV contrast (MR enterography). CLINICAL HISTORY: Diarrhea. Noninfective gastroenteritis/colitis. History of prior ascending colon cancer, with removal. Lower abdominal pain. COMPARISON: CT abdomen/pelvis 08/31/2023. TECHNIQUE: Multi planar, multisequence MRI images of the abdomen/pelvis were obtained without and with intravenous contrast. 19 cc Clariscan IV contrast was administered. FINDINGS: Mild degenerative changes in the spine, greatest at the L5-S1 level. Magnetic susceptibility artifact from left total hip arthroplasty. Proximal right femur grossly intact there is moderate fluid signal in the stomach. Included lower lungs clear. The gallbladder appears to be absent. No abnormal dilation of the biliary tree. The urinary bladder is not well distended, grossly unremarkable. The uterus is absent. No adnexal mass. No abdominal/pelvic adenopathy or ascites. Abdominal aorta normal in caliber. The liver, adrenal glands, spleen, and pancreas show no specific abnormality. There are numerous small T2 hyperintense lesions of the kidneys, which do not appear to enhance with IV contrast, most compatible with cysts. The largest is present at the inferior lateral margin left kidney measuring 2 cm. No definite enhancing renal mass or obstructive uropathy. The portal vein appears patent. No large abdominal wall defect. There are a few scattered subcentimeter left retroperitoneal/para-aortic lymph nodes, not significantly changed from the comparison CT scan of 08/31/2023. No gross mesenteric or omental tumor implants. Surgical changes from prior partial right hemicolectomy. Scattered patchy wall thickening of the residual colon may be due to lack of distention versus peristalsis. No discrete colonic mass. No gross bowel wall thickening or mesenteric inflammatory changes. No drainable abdominal/pelvic fluid collection. MRI/Enterography Abd/Pel IMPRESSION: Prior partial right hemicolectomy. No acute findings in the abdomen/pelvis. N o evidence of active inflammatory bowel disease. No findings to suggest malignancy or metastatic disease in the abdomen/pelvis. Numerous small T2 hyperintense nonenhancing renal lesions, compatible with cyst s, the largest on the left at 2 cm. Some of these renal lesions likely represent small proteinaceous cysts. Prior cholecystectomy, without abnormal dilation of the biliary tree. Reading Location: [facility]
[2024-05-26 09:29] VITALS: BP 168/69; PULSE 83; RESP 18; O2SAT 94; BMI 37.8
[2024-05-26] MEDS: Glucagon 1 MG/ML Syringe IV (11:08)
[2024-05-26 11:26] VITALS: BP 156/63; PULSE 82; RESP 16; O2SAT 95
== END | disposition home or self-care (01) ==
LOC: MRI 08:54
PROVIDERS: PCP Nurse Practitioner Family; Referring Provider Internal Medicine Gastroenterology; Visit Provider Internal Medicine Gastroenterology
DX: R19.7 Diarrhea, unspecified (principal); R10.13 Epigastric pain
CPT/HCPCS: 74183; 96374; A9575; J1610

== ENCOUNTER → 2024-06-18 | Outpatient (CLI) | payer MEDICARE, OTHER, SELFPAY | END | disposition home or self-care (01) | LOC: BIMLAB 08:51 | PROVIDERS: PCP Nurse Practitioner Family; Referring Provider Internal Medicine Gastroenterology; Visit Provider Internal Medicine Gastroenterology | DX: T78.40XA Allergy, unspecified, initial encounter (principal) | CPT/HCPCS: 36415; 86003; 86005 ==

== ENCOUNTER → 2024-09-16 | Outpatient (CLI) | payer MEDICARE, OTHER, SELFPAY ==
--- NOTE | 2024-09-16 09:34 | BI_ITS ---
EXAM: SCRN MAMM (CAD)W/LASHAE BILAT DATE: 09/16/2024 CLINICAL HISTORY: F, Age 69 y/o , ANNUAL SCREENING TECHNIQUE: SCRN MAMM (CAD)W/LASHAE BILAT COMPARISON: Prior exam(s) were compared FINDINGS: TISSUE DENSITY: There are scattered areas of fibroglandular density. Bilateral Breast Mammographic Findings: No suspicious masses, calcifications or other abnormalities are identified. BI/SCRN MAMM (CAD)W/LASHAE BILAT IMPRESSION: No mammographic evidence of malignancy. OVERALL FINAL ASSESSMENT BI-RADS 1: NEGATIVE. RECOMMENDATION: Routine annual follow-up in 1 Year A letter with findings and recommendations will be mailed to the patient. Reading Location: [id number]
--- NOTE | 2024-09-16 10:15 | BD_ITS ---
PROCEDURE: DEXA BONE DENSITY STUDY 09/16/2024 REASON FOR EXAM: F, age 69 y/o . Postmenopausal. TECHNIQUE: DEXA BONE DENSITY STUDY COMPARISON: Priors were compared FINDINGS: BMD and T-SCORES Lumbar spine: 1.067 g/cm2, T-score 0.2 Levels: L1 through L4 Left femoral neck: 0.669 g/cm2, T-score -1.6 BD/Dexa Bone Density Study IMPRESSION: Patient's bone density reveals osteopenia with an estimated 10 year risk for hi p fracture of 3.8% and for a Major osteoporotic fracture of 23%. this fracture risk estimate was calculated using FRAX version 3.08. Reading Location: [id number]
== END | disposition home or self-care (01) ==
PROVIDERS: PCP Nurse Practitioner Family; Referring Provider Nurse Practitioner Family; Visit Provider Nurse Practitioner Family
DX: Z12.31 Encounter for screening mammogram for malignant neoplasm of breast (principal); Z78.0 Asymptomatic menopausal state
CPT/HCPCS: 77063; 77067; 77080

== ENCOUNTER → 2025-01-05 | Outpatient (CLI) | payer MEDICARE, OTHER, SELFPAY ==
--- NOTE | 2025-01-05 07:11 | MRI_ITS ---
PROCEDURE: SPINE LUMBAR (ROUTINE) 01/05/2025 REASON FOR EXAM: PAIN, STENOSIS, DDD TECHNIQUE: Procedure Code: MRISPL Modality: MR Procedure: SPINE LUMBAR (ROUTINE) COMPARISON: December 22, 2024, May 11, 2021 FINDINGS: Vertebrae: Vertebral body height is preserved. Some bone marrow edema is seen at the opposing endplates posteriorly at L4/5 on the right as well as the L5 pedicles and right L4 pedicle. See below description. Alignment: Grade 1 anterolisthesis L4 on L5 is 6 mm related to facet hypertrophy. Normal lumbar lordosis. Conus Medullaris: Terminates at L1. No abnormal signal. L1-2: Normal L2-3: Mild facet hypertrophy. Minimal synovial cyst deep to the ligamentum flavum on the right. No central stenosis. No exit foraminal narrowing. L3-4: Minimal, diffuse disc bulge. [id number] right facet hypertrophy. Mild left facet hypertrophy. Mild thickening of ligamentum flavum. Borderline exit foraminal narrowing from disc and facet disease bilaterally. Correlate with L3 radiculopathy. L4-5: Mild disc desiccation. Grade 1 anterolisthesis of L4 on L5. Diffuse disc bulge is mild with some disc uncovering. Severe facet hypertrophy, [id number]-left. Hypertrophic facets create an extradural defect right posteriorly. This compromises the right sub foraminal zone. Additionally, there is bilateral exit foraminal narrowing. Correlate with bilateral L4 radiculopathy and right L5 radiculopathy. L5-S1: Mild disc desiccation. Mild loss of disc height. Posterior annular defect right foraminal and sub foraminal region. Diffuse disc osteophyte protrusion. Moderate bilateral facet hypertrophy. No central stenosis. Right exit foraminal narrowing from disc osteophyte and facet. There may be contact at the undersurface of the exiting nerve root from disc osteophyte on the left. Correlate with [id number]-[id number]-kwqk-left L5 radiculopathy. Incidental finding: Atrophy of the psoas muscle on the left. Bilateral renal cortical cysts are seen, but are compromised by motion artifact. These are statistically benign but non-specific. MRI/Spine Lumbar (Routine) IMPRESSION: 1. While partially imaged there is some atrophy of the left psoas muscle adjac ent to the spine. 2. Mild straightening of the lumbar lordosis. Grade 1 anterolisthesis L4 on L 5. 3. Multilevel degenerative changes greatest at L3/4, L4/5 and L5/S1. See abov e descriptions. 4. Bilateral renal cysts. Incompletely imaged. These are seen on prior CTs d ated August 31, 2023, August 23, 2021. Reading Location: [id number]
--- OUTSIDE RECORDS SUMMARY | 2025-01-05 07:13 | XMS RPT_ITS | CCD ---
Author Organization [facility] CliniSyms Care Team Providers Care Paper Plate Machine Tender Name Role Phone Dr. Adam Husain Primary Care Provider [phone] Dr. Adam Husain Referring Provider [phone] Dr. Lorenzo Larose Attending Provider Dr. Adam Husain Attending Provider [phone] Dr. Juan Carlos Shah Attending Provider Dr. Lazaro Buenrostro Attending Provider Dr. Max Danielle Attending Provider Dr. Adam Husain Primary Care Provider [phone] Dr. Adam Husain Referring Provider [phone] Dr. Lorenzo Larose Attending Provider Dr. Mone Whitfield Attending Provider Dr. Jimmy Rebollar Referring Provider [phone] Dr. Adam Husain Primary Care Provider [phone] Dr. Adam Husain Referring Provider [phone] Dr. Smooth Tomas Attending Provider Dr. Adam Husain Primary Care Provider [phone] Dr. Adam Husain Referring Provider [phone] Dr. Adam Husain Attending Provider [phone] Aries LVN LPN, CYRUS Sanhcez Attending Provider Dr. Chase Wooten Attending Provider Dr. Adam Husain Primary Care Provider [phone] Dr. Adam Husain Attending Provider [phone] Lisha, Dr. Medina Referring Provider [phone] Dr. Lorenzo Larose Attending Provider Dr. Harish Wang Attending Provider [phone] Dr. Adam Husain Primary Care Provider [phone] Lisha, Dr. Medina Attending Provider [phone] Dr. Adam Husain Referring Provider [phone])2 Dr. Lazaro Buenrostro Attending Provider [phone] Dr. Efren Hassan Referring Provider Dr. Lorenzo Larose Attending Provider Dr. Efren Hassan Admit Provider Dr. Efren Hassan Other Provider Dr. Lorenzo Larose Other Provider Dr. Terese Brumfield Attending Provider Dr. Terese Brumfield Other Provider Dr. Ian Campbell Attending Provider Dr. Ian Campbell Other Provider Chung LVN LPN, LVN LPN-C Cristin Attending Provider [phone] Dr. Adam Husain Primary Care Provider [phone]) Dr. Adam Husain Referring Provider [phone] Dr. Adam Husain Attending Provider [phone] CYRUS Colvin Attending Provider Dr. Lazaro Buenrostro Attending Provider [phone] Adam Husain Primary Care Provider [phone] Lisha, Dr. Medina Referring Provider [phone] Lisha, Dr. Medina Attending Provider [phone] Aries LVN LPN, LVN LPN-C Laura Attending Provider Dr. Lorenzo Larose Attending Provider Lisha, Dr. Medina Primary Care Provider [phone] Oleghyeni, Dr. Medina Referring Provider [phone] Oleghe, Dr. Medina Primary Care Provider [phone] Olemiah, Dr. Medina Referring Provider [phone] Aries LVN LPN, LVN LPN-C Laura Attending Provider Dr. Lorenzo Larose Attending Provider Dr. Julieta Leblanc Attending Provider [phone] Olemiah, Dr. Medina Attending Provider [phone] Dr. Julieta Leblanc Other Provider Dr. Adam Husain Primary Care Provider [phone] Olemiah, Dr. Medina Referring Provider [phone] CYRUS Domínguez Attending Provider [phone] Dr. Loernzo Larose Attending Provider Dr. Lazaro Buenrostro Attending Provider Dr. Adam Husain Primary Care Provider [phone] Lisha, Dr. Medina Referring Provider [phone] Dr. Julieta Leblanc Attending Provider Dr. Julieta Leblanc Other Provider CYRUS Domínguez Attending Provider [phone] Dr. Lorenzo Larose Attending Provider Dr. Lazaro Buenrostro Attending Provider Dr. Lazaro Buenrostro Referring Provider Dr. Adam Husain Attending Provider [phone] Sheldon EPNA NP-C Cristin Attending Provider Dr. Adam Husain Primary Care Provider [phone] Dr. Adam Husain Referring Provider [phone] Dr. Julieta Leblanc Attending Provider Dr. Julieta Leblanc Other Provider Lisha SINGH, Dr. Medina Primary Care Provider Lisha SINGH, Dr. Medina Attending Provider [phone] Lisha SINGH, Dr. Medina Referring Provider Efren Jones Attending Provider Efren Jones Referring Provider Roddy Martin Attending Provider Thuan SINGH, Dr. Ventura Attending Provider Dr. Lorenzo Larose MD Referring Provider Dr. Manny Das DO Attending Provider Dr. Manny Das DO Referring Provider Dr. Kyle Cooper MD Attending Provider Dr. Kyle Cooper MD Referring Provider Dr. Manny Das DO Attending Provider Dr. Manny Das DO Referring Provider Natividad Porras Primary Care Provider Dr. Adam Husain MD Referring Provider Dr. Lona Gordillo MD Attending Provider Thuan SINGH, Dr. Ventura Other Provider Natividad Porras Attending Provider José Miguel LVN LPN-C, Natividad Referring Provider Dr. Manny Das DO Attending Provider José Miguel LVN LPN-C, Natividad Primary Care Provider Dr. oLna Gordillo MD Attending Provider Sheldon LVN LPN-C, Cristin Attending Provider Oleghe, Efewongbe Referring Unavailable José Miguel, Natividad Primary Care Unavailable Cristin Chung NP Attending Unavailable José Miguel, Natividad Primary Care Unavailable Lazaro Buenrostro Attending Unavailable Oleghe, Efewongbe Primary Care Unavailable Oleghe, Efewongbe Referring Unavailable Efren Jones Attending Unavailable Roddy Martin Attending Unavailable Oleghe, Efewongbe Referring Unavailable Oleghe, Efewongbe Primary Care Unavailable Oleghe, Efewongbe Referring Unavailable Manny Das Attending Unavailable José Miguel, Natividad Primary Care Unavailable José Miguel, Natividad Referring Unavailable Lars, Sandra Attending Unavailable José Miguel, Natividad Primary Care Unavailable Oleghe, Efewongbe Referring Unavailable Oleghe, Efewongbe Primary Care Unavailable Isckarus, Mansour Attending Unavailable Oleghe, Efewongbe Referring Unavailable Manny Das Attending Unavailable Oleghe, Efewongbe Primary Care Unavailable Oleghe, Efewongbe Primary Care Unavailable Oleghe, Efewongbe Referring Unavailable Oleghe, Efewongbe Attending Unavailable Manny Das Attending Unavailable Manny Das Referring Unavailable José Miguel, Natividad Primary Care Unavailable Lars, Sandra Referring Unavailable Lars Sandra Attending Unavailable José Miguel, Natividad Primary Care Unavailable José Miguel, Natividad Attending Unavailable José Miguel, Natividad Primary Care Unavailable Isckarus, Mansour Consulting Unavailable José Miguel, Natividad Referring Unavailable Oleghe, Efewongbe Primary Care Unavailable Efren Jones Referring Unavailable Efren Jones Attending Unavailable Kyle Cooper Referring Unavailable Kyle Cooper Attending Unavailable Oleghe, Efewongbe Primary Care Unavailable Oleghe, Efewongbe Primary Care Unavailable Isckarus, Mansour Referring Unavailable Serenakarus Mansour Attending Unavailable Friend, Manny Referring Unavailable Friend, Manny Attending Unavailable Adam Husain Primary Care Unavailable José MiguelNatividad de Primary Care Unavailable Friend, Manny Referring Unavailable Thiago, Manny Attending Unavailable Adam Husain Primary Care Unavailable Friend, Manny Attending Unavailable Thiago, Manny Referring Unavailable Natividad Valdez Referring Unavailable Manny Das Attending Unavailable José MiguelNatividad de Primary Care Unavailable Allergies Allergy Classification Reported Allergen(s) Allergy Type Date of Onset Reaction(s) Facility (20 sources) codeine; Translations: [CODEINE] Drug Allergy 5 [facility] Repository (1 source) Grass pollen; Translations: [GRASS POLLEN] Propensity to adverse reactions to drug (disorder) [address] [facility] Repository (1 source) meperidine; Translations: [OPIOIDS-MEPERI DINE AND RELATED] [facility] mold extract; Translations: [MOLD] Drug Allergy [address] [facility] Repository (20 sources) hydrOXYzine Drug Allergy 2 [facility] (20 sources) Meperidine Drug Allergy 2 [facility] (11 sources) PAIN MEDS Propensity to adverse reactions 2 [facility] (15 sources) Opioids - Morphine Analogues Allergy to substance 3 [facility] (1 source) hydrOXYzine Drug Allergy 5 [facility] Repository (1 source) Meperidine Drug Allergy 5 [facility] Repository (1 source) Opioids - Morphine Analogues Drug allergy (disorder) 5 [facility] Repository Medications Current Medications Medication Drug Class(es) Dates Sig (Normalized) Sig (Original) Albuterol Sulfate (20 sources) beta2-Adrenergic Agonist Start: 06-07-2021 Albuterol Sulfate (Proair Hfa) 90 mcg/actuation HFA aerosol inhaler Active 2 PUFF INHALATION NEEDED June 07, 2021 2:46pm Start: 06-07-2021 Albuterol Sulf ate (Proair Hfa) 90 mcg/actuation HFA aerosol inhaler Active 2 NMA INHALATION NEEDED as needed for ASTHMA June 07, 2021 12:00am Start: 06-07-2021 Albuterol Sulf ate (Proair Hfa) 90 mcg/actuation HFA aerosol inhaler Active 2 PUFF INHALATION NEEDED June 07, 2021 12:00am Start: 07-30-2019 End: 12-23-2020 Albuterol Sulfate (Ventolin Hfa) 90 mcg/actuation HFA aerosol inhaler Discontinued 2 NMA INHALATION Q4H as needed for shortness of breath or wheezing 8.5 6 February 03, 2020 1:00am December 23, 2020 10:29am Start: 07-30-2019 End: 12-23-2020 take 1 puff(s) by inhalation every four hours Albuterol Sulfate (Ventolin Hfa) 90 mcg/actuation HFA aerosol inhaler Discontinued 2 PUFF INHALATION Q4H 8.5 February 03, 2020 1:00am December 23, 2020 10:29am Cholestyramine Resin (3 sources) Bile Acid Sequestrant Start: 07-18-2024 take 1 dose by mouth twice daily Cholestyramine (With Sugar) 4 gram powder Active 4 g PO TWICE A DAY 378 July 18, 2024 12:00am administer w/meal; avoid other meds within 1hr before or 4-6hr after dose D-Mannose (20 sources) Start: 03-01-2021 take 500 mg by mouth twice daily D-Mannose Active 500 MG PO TWICE A DAY March 01, 2021 2:12pm Start: 03-01-2021 take 1 capsule by mo [facility] twice daily D-Mannose 500 mg capsule Active 500 mg PO TWICE A DAY March 01, 2021 1:00am urinary Start: 03-01-2021 take 1 capsule by mo ut twice daily D-Mannose 500 mg capsule Active 500 mg PO TWICE A DAY March 01, 2021 1:00am Start: 03-01-2021 take 500 mg by mouth twice ajay ly D-Mannose Active 500 MG PO TWICE A DAY March 01, 2021 12:00am Start: 03-01-2021 take 500 mg by mouth twice ajay ly D-Mannose Active 500 MG PO TWICE A DAY March 01, 2021 1:00am Fluticasone Propion-Salmeterol (9 sources) Corticosteroid, beta2-Adrenergic Agonist Start: 11-11-2024 Fluticasone Propion-Salmeterol (Advair Hfa) 230-21 mcg/actuation HFA aerosol inhaler Active 2 NMA INHALATION TWICE A DAY 3 3 November 11, 2024 12:00am Start: 05-07-2023 End: 06-27-2023 Fluticasone Propion-Salmeter ol (Advair Hfa) 230-21 mcg/actuation HFA aerosol inhaler Discontinued 2 NMA INHALATION TWICE A DAY 1 May 07, 2023 12:00am June 27, 2023 9:18am Start: 05-07-2023 End: 06-27-2023 Fluticasone Propion-Salmeter ol (Advair Hfa) 230-21 mcg/actuation HFA aerosol inhaler Discontinued 2 NMA INHALATION TWICE A DAY 1 May 07, 2023 12:00am June 27, 2023 9:18am Start: 05-07-2023 End: 06-27-2023 Fluticasone Propion-Salmeter ol (Advair Hfa) 230-21 mcg/actuation HFA aerosol inhaler Discontinued 2 INH INHALATION TWICE A DAY 1 May 07, 2023 12:00am June 27, 2023 9:18am Start: 05-07-2023 Fluticasone Pr opion-Salmeterol (Advair Hfa) 230-21 mcg/actuation HFA aerosol inhaler Active 2 INH INHALATION TWICE A DAY 1 May 07, 2023 12:00am hydrocortisone 25 mg/ml topical cream (10 sources) Corticosteroid Start: 08-06-2023 End: 08-14-2023 Hydrocortisone 2.5 % cream Active 1 NMA TOPICAL TWICE A DAY as needed for rash 30 2 August 14, 2023 9:45pm magnesium oxide 400 mg oral tablet (20 sources) Start: 11-07-2023 Magnesium Oxid e 400 mg magnesium tablet Active 1000 mg PO DAILY November 07, 2023 1:57pm Start: 12-28-2022 End: 11-07-2023 take 1 tablet by mouth once daily Magnesium Oxide 400 mg magnesium tablet Discontinued 400 mg PO DAILY December 28, 2022 12:00am November 07, 2023 1:57pm Start: 11-14-2018 End: 12-26-2018 take 3 tablets by mouth once daily Magnesium Oxide 400 MG tablet Discontinued 1200 mg PO DAILY November 14, 2018 12:00am December 26, 2018 4:06pm leg cramps Start: 11-14-2018 End: 12-26-2018 take 1200 mg by mouth once daily Magnesium Oxide Discontinued 1200 MG PO DAILY November 14, 2018 12:00am December 26, 2018 4:06pm pantoprazole 40 mg delayed release oral tablet (20 sources) Proton Pump Inhibitor Start: 04-22-2024 take 1 tablet by mouth twice daily Pantoprazole 40 mg tablet,delayed release (DR/EC) Active 40 mg PO TWICE A DAY April 22, 2024 1:00am Start: 11-07-2023 End: 04-21-2024 take 1 tablet by mouth once daily Pantoprazole (Protonix) 20 mg tablet,delayed release (DR/EC) Discontinued 20 mg PO daily November 07, 2023 12:00am April 21, 2024 12:00pm Start: 12-23-2020 End: 05-07-2023 take 1 tablet by mouth once daily Pantoprazole (Protonix) 40 mg tablet,delayed release (DR/EC) Discontinued 40 mg PO DAILY 90 3 June 19, 2022 10:45am May 07, 2023 9:19am sucralfate 1000 mg oral tablet (7 sources) Aluminum Complex Start: 10-23-2024 take 2 tablets by mouth once daily Sucralfate 1 gram tablet Active 2 g PO DAILY 120 1 October 23, 2024 12:00am Start: 07-02-2023 End: 08-06-2023 take 1 tablet by mouth four times daily 1 hour(s) before bedtime Sucralfate 1 gram tablet Discontinued 1 g PO 4 TIMES DAILY 56 1 July 02, 2023 12:00am August 06, 2023 9:37am Take 1 hour before meals and at bedtime Completed/Discontinued Medications Medication Drug Class(es) Dates Sig (Normalized) Sig (Original) acetaminophen 500 mg oral tablet (20 sources) Start: 04-13-2022 End: 08-28-2022 Acetaminophen 500 mg Tablet Discontinued 1000 mg PO EVERY 8 HOURS 84 14 0 April 13, 2022 1:00am August 28, 2022 9:49am Do not take more than 3000 mg Tylenol in a 24-hour period. Start: 04-13-2022 End: 08-28-2022 take 3000 mg by mouth every eight hours Acetaminophen Discontinued 1000 MG PO EVERY 8 HOURS 84 14 April 13, 2022 1:00am August 28, 2022 9:49am Do not take more than 3000 mg Tylenol in a 24-hour period. Start: 07-19-2021 End: 09-07-2021 take 2 tablets by mouth every eight hours Acetaminophen 500 mg Tablet Discontinued 1000 mg PO EVERY 8 HOURS 180 30 July 19, 2021 12:00am September 07, 2021 10:08am pain Start: 07-19-2021 End: 09-07-2021 take 1000 mg by mouth every eight hours Acetaminophen Discontinued 1000 MG PO EVERY 8 HOURS 180 30 July 19, 2021 12:00am September 07, 2021 10:08am albuterol 0.833 mg/ml / ipratropium bromide 0.167 mg/ml inhalation solution (5 sources) Anticholinergic, beta2-Adrenergic Agonist Start: 03-28-2024 End: 04-02-2024 take 1 mL by inhalation every six hours Ipratropium-Albuterol 0.5 mg-3 mg(2.5 mg base)/3 mL solution for nebulization Discontinued 3 mL INHALATION EVERY 6 HOURS 90 5 0 March 28, 2024 1:00am April 01, 2024 1:00am April 02, 2024 1:11am ALPRAZolam 1 mg oral tablet (3 sources) Benzodiazepine Start: 05-22-2024 End: 10-21-2024 take 1 tablet by mouth twice daily as needed for anxiety Alprazolam 1 mg tablet Discontinued 1 mg PO TWICE A DAY as needed for anxiety 2 0 May 22, 2024 12:00am October 21, 2024 9:37am amLODIPine 10 mg oral tablet (20 sources) Dihydropyridine Calcium Channel Alea Start: 10-27-2020 End: 08-14-2024 take 1 tablet by mouth once daily Amlodipine 10 mg tablet Discontinued 10 mg PO DAILY 90 August 31, 2023 12:25pm February 13, 2024 5:24pm Start: 08-16-2020 End: 10-27-2020 take 2 tablets by mouth once daily Amlodipine 5 mg tablet Discontinued 10 mg PO DAILY 90 October 25, 2020 2:09pm October 27, 2020 9:34am Start: 08-16-2020 End: 10-27-2020 take 10 mg by mouth once daily Amlodipine Discontinued 10 MG PO DAILY 90 October 25, 2020 2:09pm October 27, 2020 9:34am Start: 10-03-2019 End: 08-16-2020 take 1 tablet by mouth once daily Amlodipine 5 mg tablet Discontinued 5 mg PO DAILY 90 February 06, 2020 3:22pm August 16, 2020 12:37pm amoxicillin 875 mg / clavulanate 125 mg oral tablet (5 sources) Penicillin-class Antibacterial Start: 03-11-2024 End: 03-28-2024 Amoxicillin-Pot Clavulanate 875-125 mg tablet Discontinued 1 {tbl} PO TWICE A DAY 20 March 11, 2024 1:00am March 28, 2024 9:30am apixaban 5 mg oral tablet (20 sources) Factor Xa Inhibitor Start: 06-07-2021 End: 08-10-2023 take 1 tablet by mouth twice daily Apixaban (Eliquis) 5 mg tablet Discontinued 5 mg PO TWICE A DAY 180 February 01, 2022 9:53am June 19, 2022 10:46am Start: 04-12-2021 End: 06-07-2021 take 2 tablets by mouth once daily Apixaban (Eliquis) 5 mg tablet Discontinued 10 mg PO DAILY 180 April 12, 2021 10:42am June 07, 2021 2:49pm Start: 09-08-2020 End: 04-12-2021 take 1 tablet by mouth twice daily Apixaban (Eliquis) 5 mg tablet Discontinued 5 mg PO TWICE A DAY 180 March 04, 2021 11:26am April 12, 2021 10:43am Start: 09-03-2020 End: 10-25-2020 take 2 tablets by mouth twice daily, then take 1 tablet by mouth twice daily Apixaban (Eliquis Dvt-Pe Treat 30d Start) 5 mg (74 tabs) tablets,dose pack Discontinued 5 mg PO TWICE A DAY 60 30 0 September 08, 2020 11:31am October 25, 2020 1:56pm 10 mg p.o. twice daily for 7 days and then 5 mg p.o. twice daily after aspirin 81 mg delayed release oral tablet (20 sources) Platelet Aggregation Inhibitor, Nonsteroidal Anti-inflammatory Drug Start: 12-17-2018 End: 09-07-2021 Aspirin (Adult Low Dose Aspirin) 81 mg tablet,delayed release (DR/EC) Discontinued 81 mg PO DAILY December 17, 2018 12:00am September 07, 2021 10:08am atropine sulfate 0.025 mg / diphenoxylate hydrochloride 2.5 mg oral tablet (17 sources) Anticholinergic, Cholinergic Muscarinic Antagonist, Antidiarrheal Start: 08-28-2022 End: 12-28-2022 Diphenoxylate-Atrop ine (Lomotil) 2.5-0.025 mg tablet Discontinued 1 {tbl} PO TWICE A DAY as needed for diarrhea 60 0 August 28, 2022 12:00am December 28, 2022 9:35am Irritable bowel syndrome Irritable bowel syndrome, unspecified azithromycin 250 mg oral tablet (20 sources) Macrolide Antimicrobial Start: 04-10-2019 End: 08-27-2019 take 1 tablet by mouth once daily Azithromycin 250 mg tablet Discontinued 250 mg PO daily 6 0 April 10, 2019 1:00am August 27, 2019 10:42am Blood Pressure Monitor (20 sources) Start: 12-26-2018 End: 12-26-2018 Blood Pressure Monitor Discontinued 0 .ROUTE .MEDSUPPLY December 26, 2018 4:35pm December 26, 2018 4:41pm Check blood pressure daily for hypertension I10 Start: 12-26-2018 End: 12-26-2018 Blood Pressure Monitor Disco ntinued 0 .ROUTE .MEDSUPPLY December 25, 2018 11:00pm December 26, 2018 3:41pm Check blood pressure daily for hypertension I10 Start: 12-26-2018 End: 12-26-2018 Blood Pressure Monitor Disco ntinued 0 .ROUTE .MEDSUPPLY December 26, 2018 12:00am December 26, 2018 4:41pm Check blood pressure daily for hypertension I10 Blood Pressure Monitor kit (5 sources) Start: 12-26-2018 End: 12-26-2018 Blood Pressure Monitor kit Discontinued 0 .ROUTE .MEDSUPPLY 1 December 26, 2018 12:00am December 26, 2018 4:41pm Essential (primary) hypertension Check blood pressure daily for hypertension I10 Start: 12-26-2018 End: 12-26-2018 Blood Pressure Monitor kit D iscontinued 0 .ROUTE .MEDSUPPLY 1 December 26, 2018 12:00am December 26, 2018 4:41pm Check blood pressure daily for hypertension I10 Calcium (5 sources) Phosphate Binder, Calcium Start: 04-21-2024 End: 10-21-2024 calcium 1000 Discontinued PO April 21, 2024 1:00am October 21, 2024 9:37am Start: 04-21-2024 calcium 1000 A ctive PO April 21, 2024 1:00am calcium carbonate 1500 mg oral tablet (13 sources) Start: 12-28-2022 End: 04-21-2024 take 1 tablet by mouth once daily Calcium Carbonate (Calcium 600) 600 mg calcium (1,500 mg) tablet Discontinued 600 mg PO DAILY December 28, 2022 12:00am April 21, 2024 11:59am cholecalciferol 0.025 mg oral tablet (20 sources) Vitamin D Start: 06-07-2021 End: 10-21-2024 take 1 tablet by mouth once daily Cholecalciferol (Vitamin D3) (Vitamin D3) 25 mcg (1,000 unit) Tablet Discontinued 25 ug PO DAILY June 07, 2021 12:00am October 21, 2024 9:37am ciprofloxacin 500 mg oral tablet (20 sources) Quinolone Antimicrobial Start: 03-05-2020 End: 07-27-2020 take 1 tablet by mouth twice daily Ciprofloxacin Hcl (Cipro) 500 mg tablet Discontinued 500 mg PO TWICE A DAY 14 0 March 05, 2020 1:00am July 27, 2020 10:17am cyclobenzaprine hydrochloride 10 mg oral tablet (20 sources) Muscle Relaxant Start: 06-30-2022 End: 08-28-2022 take 1 tablet by mouth three times daily as needed for muscle spasms Cyclobenzaprine 10 mg tablet Discontinued 10 mg PO THREE TIMES A DAY as needed for muscle spasm 21 June 30, 2022 12:00am August 28, 2022 9:50am Sciatica Sciatica, unspecified side Start: 07-19-2021 End: 09-07-2021 take 1 tablet by mouth three times daily as needed Cyclobenzaprine 10 mg Tablet Discontinued 10 mg PO 3 TIMES DAILY NEEDED as needed for Cramp 20 7 0 July 19, 2021 12:00am September 07, 2021 10:08am docusate sodium 50 mg / sennosides, half-way 8.6 mg oral tablet (20 sources) Start: 04-13-2022 End: 06-19-2022 Sennosides-Docusate Sodium (Stool Softener-Stimulant Laxat) 8.6-50 mg Tablet Discontinued 2 {tbl} PO TWICE A DAY 0 0 April 13, 2022 1:00am June 19, 2022 10:08am Take until first bowel movement, then as needed doxycycline hyclate 100 mg oral capsule (20 sources) Tetracyclin e-class Drug Start: 10-21-2024 End: 11-04-2024 take 1 capsule by mouth twice daily Doxycycline Hyclate 100 mg capsule Discontinued 100 mg PO TWICE A DAY 28 14 0 October 21, 2024 12:00am November 03, 2024 12:00am November 04, 2024 12:06am Start: 08-27-2019 End: 10-03-2019 Doxycycline Hyclate 100 mg c apsule Discontinued NMA PO August 27, 2019 12:00am October 03, 2019 1:02pm Start: 08-27-2019 End: 10-03-2019 Doxycycline Hyclate Disconti nued EACH PO August 27, 2019 12:00am October 03, 2019 1:02pm DULoxetine 20 mg delayed release oral capsule (20 sources) Serotonin and Norepinephrine Reuptake Inhibitor Start: 11-07-2023 End: 02-13-2024 take 1 capsule by mouth twice daily Duloxetine 20 mg capsule,delayed release(DR/EC) Discontinued 20 mg PO TWICE A DAY 60 1 November 07, 2023 12:00am February 13, 2024 3:07pm Start: 06-19-2022 End: 08-28-2022 take 1 capsule by mouth at bedtime Duloxetine 30 mg capsule,delayed release(DR/EC) Discontinued 30 mg PO AT BEDTIME 60 2 June 19, 2022 12:00am August 28, 2022 9:48am 120 actuat fluticasone propionate 0.22 mg/actuat metered dose inhaler (20 sources) Corticosteroid Start: 12-02-2021 End: 03-29-2022 Fluticasone Propionate (Flovent Hfa) 220 mcg/actuation HFA aerosol inhaler Discontinued 2 NMA INHALATION Q12H 3 December 02, 2021 11:32am March 29, 2022 10:03am Start: 12-02-2021 End: 03-29-2022 Fluticasone Propionate (Flov ent Hfa) 220 mcg/actuation HFA aerosol inhaler Discontinued 2 INH INHALATION Q12H 3 December 02, 2021 11:32am March 29, 2022 10:03am Start: 12-01-2021 End: 12-02-2021 Fluticasone Propionate (Flov ent Hfa) 220 mcg/actuation HFA aerosol inhaler Discontinued 2 INH INHALATION DAILY 3 December 02, 2021 11:16am December 02, 2021 11:32am Start: 06-07-2021 End: 12-02-2021 Fluticasone Propionate (Flov ent Hfa) 220 mcg/actuation HFA aerosol inhaler Discontinued 2 NMA INHALATION DAILY 3 December 02, 2021 11:16am December 02, 2021 11:32am Start: 06-07-2021 End: 12-01-2021 take 1 puff(s) by inhalation once daily Fluticasone Propionate (Flovent Hfa) 220 mcg/actuation HFA aerosol inhaler Discontinued 1 PUFF INHALATION DAILY November 30, 2021 1:48pm December 01, 2021 12:36pm Start: 08-16-2020 End: 06-07-2021 Fluticasone Propionate (Flov ent Hfa) 220 mcg/actuation HFA aerosol inhaler Discontinued 2 NMA INHALATION TWICE A DAY 3 3 November 17, 2020 11:06am June 07, 2021 2:49pm Start: 08-16-2020 End: 06-07-2021 take 1 puff(s) by inhalation twice daily Fluticasone Propionate (Flovent Hfa) 220 mcg/actuation HFA aerosol inhaler Discontinued 2 PUFF INHALATION TWICE A DAY 3 November 17, 2020 11:06am June 07, 2021 2:49pm Start: 05-19-2020 End: 05-11-2021 Fluticasone Propionate 50 mcg/actuation spray,suspension Discontinued 2 NMA INTRANASAL DAILY 3 3 November 17, 2020 11:06am May 11, 2021 10:31am Unspecified asthma, uncomplicated Start: 05-19-2020 End: 05-11-2021 Fluticasone Propionate Disco ntinued 2 SPRAY INTRANASAL DAILY 3 November 17, 2020 11:06am May 11, 2021 10:31am Fluticasone Propionate (Flov ent Hfa) 220 mcg/actuation HFA aerosol inhaler (20 sources) Start: 08-10-2022 End: 05-07-2023 Fluticasone Propionate (Flov ent Hfa) 220 mcg/actuation HFA aerosol inhaler Discontinued 1 NMA INHALATION TWICE A DAY 12 August 10, 2022 10:52am May 07, 2023 1:35pm Start: 08-10-2022 End: 05-07-2023 Fluticasone Propionate (Flov ent Hfa) 220 mcg/actuation HFA aerosol inhaler Discontinued 1 NMA INHALATION TWICE A DAY August 10, 2022 10:52am May 07, 2023 1:35pm Start: 08-10-2022 End: 05-07-2023 Fluticasone Propionate (Flov ent Hfa) 220 mcg/actuation HFA aerosol inhaler Discontinued 1 INH INHALATION TWICE A DAY August 10, 2022 10:52am May 07, 2023 1:35pm Start: 08-10-2022 Fluticasone Pr opionate (Flovent Hfa) 220 mcg/actuation HFA aerosol inhaler Active 1 INH INHALATION TWICE A DAY August 10, 2022 9:52am Start: 08-10-2022 Fluticasone Pr opionate (Flovent Hfa) 220 mcg/actuation HFA aerosol inhaler Active 1 INH INHALATION TWICE A DAY August 10, 2022 10:52am Start: 03-29-2022 End: 08-10-2022 Fluticasone Propionate (Flov ent Hfa) 220 mcg/actuation HFA aerosol inhaler Discontinued 1 NMA INHALATION NEEDED as needed for SOB March 29, 2022 10:02am August 10, 2022 10:52am Start: 03-29-2022 End: 08-10-2022 Fluticasone Propionate (Flov ent Hfa) 220 mcg/actuation HFA aerosol inhaler Discontinued 1 INH INHALATION NEEDED March 29, 2022 9:02am August 10, 2022 9:52am Start: 03-29-2022 End: 08-10-2022 Fluticasone Propionate (Flov ent Hfa) 220 mcg/actuation HFA aerosol inhaler Discontinued 1 INH INHALATION NEEDED March 29, 2022 10:02am August 10, 2022 10:52am Start: 03-29-2022 Fluticasone Pr opionate (Flovent Hfa) 220 mcg/actuation HFA aerosol inhaler Active 1 INH INHALATION NEEDED March 29, 2022 10:02am furosemide 20 mg oral tablet (12 sources) Loop Diuretic Start: 03-27-2023 End: 02-13-2024 take 1 tablet by mouth once daily as needed for edema Furosemide 20 mg tablet Discontinued 20 mg PO DAILY as needed for edema 30 0 March 27, 2023 1:00am February 13, 2024 3:09pm Edema Edema, unspecified gabapentin 100 mg oral capsule (20 sources) Anti-epileptic Agent Start: 05-07-2023 End: 06-27-2023 take 2 capsules by mouth twice daily Gabapentin 100 mg capsule Discontinued 200 mg PO TWICE A DAY 120 0 May 07, 2023 12:00am June 27, 2023 9:19am Start: 05-07-2023 End: 06-27-2023 take 200 mg by mouth twice daily Gabapentin Discontinued 200 MG PO TWICE A DAY 120 May 07, 2023 12:00am June 27, 2023 9:19am Start: 09-07-2021 End: 09-07-2021 take 1 capsule by mouth once Gabapentin 300 mg capsule Discontinued 300 mg PO ONCE September 07, 2021 10:09am September 07, 2021 10:27am Start: 06-14-2021 End: 03-15-2022 take 1 capsule by mouth at bedtime Gabapentin 300 mg capsule Discontinued 300 mg PO AT BEDTIME 90 2 September 07, 2021 10:28am March 15, 2022 11:02am hydroCHLOROthiazide 25 mg oral tablet (20 sources) Thiazide Diuretic Start: 01-22-2019 End: 08-14-2023 take 1 tablet by mouth once daily Hydrochlorothiazide 25 mg tablet Discontinued 25 mg PO DAILY 90 3 July 12, 2023 11:44am August 14, 2023 9:45pm Start: 12-26-2018 End: 01-22-2019 Hydrochlorothiazide 25 mg ta blet Discontinued 12.5 mg PO DAILY 30 December 26, 2018 4:40pm January 22, 2019 5:53pm Start: 12-26-2018 End: 01-22-2019 take 12.5 mg by mouth once daily Hydrochlorothiazide Discontinued 12.5 MG PO DAILY December 26, 2018 4:40pm January 22, 2019 5:53pm krill oil 500 mg oral capsule (20 sources) Start: 12-17-2018 End: 03-01-2021 take 1 capsule by mouth once daily Krill Oil 500 mg capsule Discontinued 500 mg PO DAILY December 17, 2018 12:00am March 01, 2021 2:11pm loratadine 10 mg oral tablet (20 sources) Start: 11-26-2019 End: 06-19-2022 take 1 tablet by mouth once daily Loratadine (Claritin) 10 mg tablet Discontinued 10 mg PO DAILY 90 3 August 16, 2021 7:52am June 19, 2022 10:46am LORazepam 1 mg oral tablet (5 sources) Benzodiazepine Start: 04-22-2024 End: 07-18-2024 take 1 tablet by mouth once as needed for anxiety Lorazepam (Ativan) 1 mg tablet Discontinued 1 mg PO ONCE as needed for anxiety 1 0 April 22, 2024 1:00am July 18, 2024 10:48am Patient to take prior to MRI losartan potassium 100 mg oral tablet (20 sources) Angiotensin 2 Receptor Alea Start: 08-27-2019 End: 09-08-2020 take 1 tablet by mouth once daily Losartan 100 mg tablet Discontinued 100 mg PO DAILY 90 3 February 06, 2020 3:22pm September 08, 2020 11:43am Start: 06-25-2019 End: 08-27-2019 take 1 tablet by mouth once daily Losartan 50 mg tablet Discontinued 50 mg PO DAILY 90 3 July 28, 2019 4:15pm August 27, 2019 10:58am Start: 02-05-2019 End: 06-25-2019 take 1 tablet by mouth once daily Losartan 25 mg tablet Discontinued 25 mg PO DAILY 30 2 May 07, 2019 9:23am June 25, 2019 10:43am meclizine hydrochloride 25 mg oral tablet (20 sources) Antiemetic Start: 11-16-2018 End: 12-17-2018 take 1 tablet by mouth three times daily as needed Meclizine 25 MG tablet Discontinued 25 mg PO 3 TIMES DAILY NEEDED as needed for Vertigo 30 0 November 16, 2018 12:00am December 17, 2018 7:55am meloxicam 7.5 mg oral tablet (20 sources) Nonsteroidal Anti-inflammatory Drug Start: 01-02-2020 End: 09-08-2020 take 1 tablet by mouth once daily Meloxicam 7.5 MG tablet Discontinued 7.5 mg PO DAILY January 02, 2020 1:00am September 08, 2020 11:36am montelukast 10 mg oral tablet (20 sources) Leukotriene Receptor Antagonist Start: 05-19-2020 End: 11-11-2024 take 1 tablet by mouth once daily Montelukast (Singulair) 10 mg tablet Discontinued 10 mg PO DAILY 90 3 August 16, 2021 7:52am June 19, 2022 10:46am naproxen 500 mg oral tablet (20 sources) Nonsteroidal Anti-inflammatory Drug Start: 06-25-2019 End: 09-08-2020 take 1 tablet by mouth twice daily as needed for pain Naproxen 500 mg tablet Discontinued 500 mg PO TWICE A DAY as needed for pain 180 3 June 25, 2019 12:00am September 08, 2020 11:47am nitrofurantoin, macrocrystals 25 mg / nitrofurantoin, monohydrate 75 mg oral capsule (20 sources) Nitrofuran Antibacterial Start: 03-24-2024 End: 03-29-2024 take 1 capsule by mouth every twelve hours at mealtime Nitrofurantoin Monohyd/M-Cryst (Macrobid) 100 mg capsule Discontinued 100 mg PO Q12H 10 5 0 March 24, 2024 1:00am March 28, 2024 1:00am March 29, 2024 1:16am must administer with a meal/food Start: 07-12-2018 End: 07-19-2018 take 1 capsule by mouth every twelve hours at mealtime Nitrofurantoin Monohyd/M-Cryst 100 mg capsule Discontinued 1 NMA PO Q12H 14 7 0 July 12, 2018 12:00am July 18, 2018 12:00am July 19, 2018 12:08am Urinary tract infection, site not specified administer with a meal/food; swallow whole; do not open, crush, dissolve , or chew Start: 02-16-2018 End: 02-23-2018 take 1 capsule by mouth every twelve hours at mealtime Nitrofurantoin Monohyd/M-Cryst 100 mg capsule Discontinued 1 NMA PO Q12H 14 7 0 February 16, 2018 1:00am February 22, 2018 1:00am February 23, 2018 1:07am administer with a meal/food; swallow whole; do not open, crush, dissolve , or chew nystatin 898471 unt/ml oral suspension (20 sources) Polyene Antifungal Start: 11-17-2020 End: 12-23-2020 Nystatin 100,000 unit/mL suspension Discontinued 5 mL MUCOUS MEM THREE TIMES A DAY 250 November 17, 2020 12:00am December 23, 2020 10:30am swish and swallow 5 cc three times per day for 10 days Start: 11-17-2020 End: 12-23-2020 Nystatin Discontinued 5 ML M UCOUS MEM THREE TIMES A DAY 250 November 17, 2020 12:00am December 23, 2020 10:30am swish and swallow 5 cc three times per day for 10 days omeprazole 40 mg delayed release oral capsule (18 sources) Proton Pump Inhibitor Start: 04-21-2024 End: 04-22-2024 take 1 capsule by mouth twice daily 30 minutes before breakfast Omeprazole 40 mg capsule,delayed release(DR/EC) Discontinued 40 mg PO TWICE A DAY April 21, 2024 12:00pm April 22, 2024 10:06am Take 30 minutes before breakfast Start: 05-07-2023 End: 04-21-2024 take 1 capsule by mouth once daily 30 minutes before breakfast Omeprazole 40 mg capsule,delayed release(DR/EC) Discontinued 40 mg PO DAILY 90 3 October 04, 2023 9:47am April 21, 2024 12:01pm Take 30 minutes before breakfast ondansetron 4 mg oral tablet (20 sources) Serotonin-3 Receptor Antagonist Start: 01-21-2020 End: 03-05-2020 take 1 tablet by mouth every eight hours as needed for nausea Ondansetron Hcl 4 MG tablet Discontinued 4 mg PO EVERY 8 HOURS NEEDED as needed for Nausea 10 0 January 21, 2020 11:34am March 05, 2020 9:04am Start: 11-16-2018 End: 12-17-2018 take 1 tablet by mouth every six hours as needed for nausea Ondansetron Hcl 4 MG tablet Discontinued 4 mg PO EVERY 6 HOURS NEEDED as needed for Nausea November 16, 2018 10:49am December 17, 2018 7:55am oseltamivir 75 mg oral capsule (5 sources) Neuraminidase Inhibitor Start: 03-28-2024 End: 04-02-2024 take 1 capsule by mouth every twelve hours Oseltamivir (Tamiflu) 75 mg capsule Discontinued 75 mg PO Q12H 10 5 0 March 28, 2024 1:00am April 01, 2024 1:00am April 02, 2024 1:11am phenazopyridine hydrochloride 95 mg oral tablet (20 sources) Start: 01-12-2023 End: 05-07-2023 take 1 tablet by mouth every eight hours Phenazopyridine (Azo Urinary Pain Relief) 95 mg tablet Discontinued 95 mg PO Q8H January 12, 2023 1:00am May 07, 2023 8:57am Start: 02-16-2018 End: 04-10-2018 take 1 tablet by mouth three times daily as needed Phenazopyridine (Pyridium) 100 mg tablet Discontinued 100 mg PO THREE TIMES A DAY as needed February 16, 2018 1:00am April 10, 2018 10:45am Start: 06-28-2014 End: 02-16-2018 take 1 tablet by mouth three times daily Phenazopyridine 200 MG tablet Discontinued 200 mg PO THREE TIMES A DAY 9 June 28, 2014 12:00am February 16, 2018 10:44am polysaccharide iron complex 150 mg oral capsule (20 sources) Start: 11-16-2018 End: 12-17-2018 take 1 capsule by mouth once daily at mealtime Polysaccharide Iron Complex 150 MG capsule Discontinued 150 mg PO DAILY WITH MEALS November 16, 2018 12:00am December 17, 2018 7:55am predniSONE 10 mg oral tablet (20 sources) Start: 03-11-2024 End: 04-21-2024 Prednisone 10 mg tablet Discontinued 10 mg PO daily 30 March 11, 2024 1:00am April 21, 2024 12:00pm take 4 tabs for three days, then 3 tabs for three days, then 2 tabs for three days, then 1 tab for 3 days Start: 01-25-2024 End: 02-13-2024 Prednisone 10 mg tablet Disc ontinued 10 mg PO daily 30 January 25, 2024 1:00am February 13, 2024 3:08pm take 4 tabs for three days, then 3 tabs for three days, then 2 tabs for three days, then 1 tab for 3 days Start: 06-30-2022 End: 08-28-2022 take 3 tablets by mouth once daily Prednisone 20 mg tablet Discontinued 60 mg PO DAILY June 30, 2022 12:00am August 28, 2022 9:48am Sciatica Sciatica, unspecified side Start: 06-30-2022 End: 08-28-2022 take 60 mg by mouth once daily Prednisone Discontinued 60 MG PO DAILY June 30, 2022 12:00am August 28, 2022 9:48am Start: 05-05-2020 End: 07-27-2020 Prednisone 10 mg tablet Disc ontinued 10 mg PO daily 30 May 05, 2020 1:00am July 27, 2020 10:17am take 4 tabs for three days, then 3 tabs for three days, then 2 tabs for three days, then 1 tab for 3 days Start: 02-03-2020 End: 02-08-2020 take 2 tablets by mouth once daily Prednisone 20 mg tablet Discontinued 40 mg PO DAILY 10 February 03, 2020 1:00am February 07, 2020 1:00am February 08, 2020 1:03am Start: 02-03-2020 End: 02-08-2020 take 40 mg by mouth once daily Prednisone Discontinued 40 MG PO DAILY 11 30February 03, 2020 1:00am February 08, 2020 1:03am Start: 04-09-2019 End: 08-27-2019 Prednisone 10 mg tablet Disc ontinued 10 mg PO daily 30 April 09, 2019 1:00am August 27, 2019 10:42am take 4 tabs for three days, then 3 tabs for three days, then 2 tabs for three days, then 1 tab for 3 days sulfamethoxazole 800 mg / trimethoprim 160 mg oral tablet (20 sources) Dihydrofolate Reductase Inhibitor Antibacterial, Sulfonamide Antimicrobial Start: 06-28-2014 End: 02-16-2018 Sulfamethoxazole-Trimethopri m 1 TABLET tablet Discontinued 1 {tbl} PO TWICE A DAY 6 June 28, 2014 12:00am February 16, 2018 10:45am Start: 06-28-2014 End: 02-16-2018 take 1 tablet by mouth twice daily Sulfamethoxazole-Trimethoprim Discontinu ed 1 TABLET PO TWICE A DAY June 28, 2014 12:00am February 16, 2018 10:45am tiZANidine 4 mg oral capsule (20 sources) Central alpha-2 Adrenergic Agonist Start: 04-12-2021 End: 05-11-2021 take 1 capsule by mouth at bedtime as needed Tizanidine 4 mg capsule Discontinued 4 mg PO AT BEDTIME as needed April 12, 2021 1:00am May 11, 2021 10:31am traMADol hydrochloride 50 mg oral tablet (20 sources) Opioid Agonist Start: 01-21-2020 End: 01-25-2020 take 1-10 tablets by mouth every six hours as needed for pain Tramadol 50 MG tablet Discontinued 50 mg PO EVERY 6 HOURS NEEDED as needed for Pain 1-10 Or Fever 16 4 January 21, 2020 1:00am January 24, 2020 1:00am January 25, 2020 1:03am valsartan 320 mg oral tablet (20 sources) Angiotensin 2 Receptor Alea Start: 09-08-2020 End: 05-23-2023 take 1 tablet by mouth at bedtime Valsartan 320 mg tablet Discontinued 320 mg PO AT BEDTIME 90 3 October 20, 2021 8:28am June 19, 2022 10:46am Problems Active Problems Problem Classification Problem Date Documented Da te Episodic/Chronic Abdominal hernia (20 sources) Ventral incisional hernia; Translations: [Incisional hernia without obstruction or gangrene] 12-18-2019 Episodic Acute cerebrovascular disease (20 sources) Cerebrovascular accident; Translations: [Cerebral infarction, unspecified] 06-07-2021 Chronic Comment on above: NO DEFICITS Asthma (20 sources) Asthma; Translations: [Unspecified asthma, uncomplicated] Chronic Comment on above: CONTROLLED, INHAER Cancer of bladder (18 sources) Malignant tumor of urinary bladder; Translations: [Malignant neoplasm of bladder, unspecified] 01-08-2023 Chronic Cancer of colon (20 sources) Malignant tumor of colon; Translations: [Malignant neoplasm of colon, unspecified] 03-17-2019 Chronic Comment on above: stage II-node neg--2 020 right hemicolectomy, with normal colonoscopy 2020 Cancer of colon (20 sources) History of malignant neoplasm of colon; Translations: [Personal history of other malignant neoplasm of large intestine] Episodic Chronic obstructive pulmonary disease and bronchiectasis (20 sources) Chronic bronchitis; Translations: [Unspecified chronic bronchitis] 01-19-2020 Chronic Coagulation and hemorrhagic disorders (20 sources) Petechiae; Translations: [Spontaneous ecchymoses] Episodic Conditions associated with dizziness or vertigo (20 sources) Vertigo; Translations: [Dizziness and giddiness] 01-19-2020 Episodic Deficiency and other anemia (20 sources) Anemia; Translations: [Anemia, unspecified] 08-25-2021 Episodic Deficiency and other anemia (2 sources) Anemia, unspecified; Translations: [Anemia, unspecified] Episodic Diabetes mellitus without complication (5 sources) Prediabetes; Translations: [Prediabetes] 08-06-2023 Episodic Diseases of white blood cells (20 sources) Leukocytosis; Translations: [Elevated white blood cell count, unspecified] Chronic Esophageal disorders (20 sources) Gastroesophageal reflux disease; Translations: [Gastro-esophageal reflux disease without esophagitis] Onset: 4 12-23-2020 Chronic Esophageal disorders (2 sources) Esophageal disorders Essential hypertension (20 sources) Hypertensive disorder; Translations: [Essential (primary) hypertension] Onset: 5 Chronic Comment on above: CONTROLLED ON MED Gastroduodenal ulcer (except hemorrhage) (20 sources) Gastric ulcer; Translations: [Gastric ulcer, unspecified as acute or chronic, without hemorrhage or perforation] 12-17-2018 Chronic Headache; including migraine (20 sources) Frequent headache; Translations: [Frequent headaches] 01-19-2020 Episodic Immunizations and screening for infectious disease (20 sources) Antineutrophil cytoplasmic antibody positive; Translations: [Other specified abnormal immunological findings in serum] Episodic Influenza (7 sources) Influenza due to Influenza A virus; Translations: [Influenza due to other identified influenza virus with other respiratory manifestations] 03-28-2024 Episodic Lymphadenitis (20 sources) Lymphadenopathy of head AND/OR neck; Translations: [Localized enlarged lymph nodes] Episodic Malaise and fatigue (20 sources) Malaise and fatigue; Translations: [Other malaise] 06-19-2022 Episodic Mycoses (20 sources) Candidiasis of mouth; Translations: [Candidal stomatitis] 11-17-2020 Episodic Nonspecific chest pain (19 sources) Chest pain; Translations: [Chest pain, unspecified] 03-27-2023 Episodic Osteoarthritis (20 sources) Osteoarthritis of left hip joint; Translations: [Unilateral primary osteoarthritis, left hip] Chronic Other acquired deformities (1 source) Spondylolisthesis, lumbar region; Translations: [Spondylolisthesis, lumbar region] Onset: Episodic Other aftercare (7 sources) Long-term current use of anticoagulant; Translations: [rodent exterminator (current) use of anticoagulants] 05-18-2023 Episodic Other aftercare (3 sources) rodent exterminator (current) use of anticoagulants; Translations: [Long-term (current) use of anticoagulants] 05-16-2023 Episodic Other circulatory disease (20 sources) Carotid bruit; Translations: [Other specified symptoms and signs involving the circulatory and respiratory systems] 12-07-2021 Episodic Other circulatory disease (20 sources) History of cerebrovascular accident; Translations: [Personal history of transient ischemic attack (TIA), and cerebral infarction without residual deficits] 12-07-2021 Episodic Other circulatory disease (2 sources) Other specified symptoms and signs involving the circulatory and respiratory systems; Translations: [Other symptoms involving cardiovascular system] Episodic Other circulatory disease (2 sources) Personal history of transient ischemic attack (TIA), and cerebral infarction without residual deficits; Translations: [Personal history of transient ischemic attack (TIA), and cerebral infarction without residual deficits] Episodic Other connective tissue disease (20 sources) History of total knee arthroplasty; Translations: [Presence of left artificial knee joint] 08-01-2021 Chronic Other connective tissue disease (3 sources) Presence of left artificial knee joint; Translations: [Knee joint replacement] Chronic Other connective tissue disease (20 sources) History of total hip arthroplasty; Translations: [Presence of left artificial hip joint] 04-13-2022 Chronic Other connective tissue disease (1 source) Presence of left artificial hip joint; Translations: [Hip joint replacement] 04-13-2022 Chronic Other connective tissue disease (20 sources) Difficulty balancing; Translations: [Other symptoms and signs involving the nervous system] 12-17-2018 Episodic Other connective tissue disease (20 sources) Synovial cyst of knee; Translations: [Synovial cyst of popliteal space [[place]], unspecified knee] 09-08-2020 Episodic Other connective tissue disease (20 sources) Cramp in lower leg ; Translations: [Cramp and spasm] 04-12-2021 Episodic Other connective tissue disease (3 sources) Cramp and spasm; Translations: [Cramp of limb] Episodic Other connective tissue disease (8 sources) Foot pain; Translations: [Pain in right foot] 05-07-2023 Episodic Other connective tissue disease (3 sources) Pain in right foot; Translations: [Pain in limb] 05-07-2023 Episodic Other gastrointestinal disorders (17 sources) Irritable bowel syndrome; Translations: [Irritable bowel syndrome without diarrhea] 08-28-2022 Chronic Other gastrointestinal disorders (4 sources) Irritable bowel syndrome without diarrhea; Translations: [Irritable bowel syndrome] 08-28-2022 Chronic Other gastrointestinal disorders (19 sources) Diarrhea; Translations: [Diarrhea, unspecified] 01-05-2023 Episodic Other gastrointestinal disorders (13 sources) Constipation; Translations: [Constipation, unspecified] 01-05-2023 Episodic Other gastrointestinal disorders (5 sources) Constipation, unspecified; Translations: [Constipation, unspecified] 01-05-2023 Episodic Other hereditary and degenerative nervous system conditions (20 sources) Restless legs; Translations: [Restless legs syndrome] 09-07-2021 Chronic Other hereditary and degenerative nervous system conditions (5 sources) Restless legs syndrome; Translations: [Restless legs syndrome (RLS)] 06-19-2022 Chronic Other liver diseases (11 sources) Steatosis of liver; Translations: [Fatty (change of) liver, not elsewhere classified] 04-05-2023 Chronic Other lower respiratory disease (20 sources) Dyspnea; Translations: [Shortness of breath] 12-17-2018 Episodic Other lower respiratory disease (12 sources) Dyspnea on exertion; Translations: [Other forms of dyspnea] 03-27-2023 Episodic Other lower respiratory disease (12 sources) Nodule of lung; Translations: [Solitary pulmonary nodule] 03-27-2023 Episodic Other lower respiratory disease (10 sources) Other forms of dyspnea; Translations: [Other respiratory abnormalities] 03-27-2023 Episodic Other lower respiratory disease (7 sources) Solitary pulmonary nodule; Translations: [Solitary pulmonary nodule] 03-27-2023 Episodic Other lower respiratory disease (7 sources) Cough; Translations: [Cough] 02-13-2024 Episodic Other nervous system disorders (10 sources) Neuropathy; Translations: [Polyneuropathy, unspecified] 05-07-2023 Chronic Other nervous system disorders (3 sources) Polyneuropathy, unspecified; Translations: [Mononeuritis of unspecified site] 05-07-2023 Chronic Other non-traumatic joint disorders (20 sources) Pain in left knee; Translations: [Left knee pain] Episodic Other non-traumatic joint disorders (20 sources) Hip pain; Translations: [Pain in left hip] 06-25-2019 Episodic Other non-traumatic joint disorders (4 sources) Pain in left hip; Translations: [Pain in joint, pelvic region and thigh] Episodic Other non-traumatic joint disorders (5 sources) Pain in unspecified hip; Translations: [Pain in joint, pelvic region and thigh] 06-30-2022 Episodic Other nutritional; endocrine; and metabolic disorders (20 sources) Body mass index 30+ - obesity; Translations: [Body mass index (BMI) 33.0-33.9, adult] 03-17-2019 Chronic Other nutritional; endocrine; and metabolic disorders (3 sources) Obesity, unspecified; Translations: [Obesity, unspecified] 05-07-2023 Chronic Other upper respiratory disease (20 sources) Allergy to pollen; Translations: [Allergic rhinitis due to pollen] 12-17-2018 Chronic Phlebitis; thrombophlebitis and thromboembolism (20 sources) Recurrent deep vein thrombosis; Translations: [Acute embolism and thrombosis of unspecified deep veins of unspecified lower extremity] Episodic Residual codes; unclassified (20 sources) Obstructive sleep apnea syndrome; Translations: [Obstructive sleep apnea (adult) (pediatric)] 03-15-2022 Chronic Comment on above: AHI 24.6 Residual codes; unclassified (19 sources) Obstructive sleep apnea (adult) (pediatric); Translations: [Obstructive sleep apnea (adult)(pediatric)] Chronic Residual codes; unclassified (20 sources) History of ankle surgery; Translations: [Other specified postprocedural states] 01-19-2020 Episodic Residual codes; unclassified (20 sources) History of colectomy; Translations: [Acquired absence of other specified parts of digestive tract] 01-19-2020 Episodic Residual codes; unclassified (12 sources) Edema; Translations: [Edema, unspecified] 03-27-2023 Episodic Spondylosis; intervertebral disc disorders; other back problems (20 sources) Degeneration of lumbar intervertebral disc; Translations: [Other intervertebral disc degeneration, lumbar region] Chronic Spondylosis; intervertebral disc disorders; other back problems (20 sources) Low back pain; Translations: [Low back pain] Onset: 5 Episodic Thyroid disorders (20 sources) Thyroid nodule; Translations: [Nontoxic single thyroid nodule] Chronic Unclassified (1 source) Other intervertebral disc degeneration, lumbar region with discogenic back pain and lower extremity pain; Translations: [Other intervertebral disc degeneration, lumbar region with discogenic back pain and lower extremity pain] Onset: 5 Unclassified (1 source) Cough, unspecified; Translations: [Cough, unspecified] Onset: 5 Urinary tract infections (20 sources) Urinary tract infectious disease; Translations: [Urinary tract infection, site not specified] 01-19-2020 Episodic Past or Other Problems Problem Classification Problem Date Documented Da te Episodic/Chronic Abdominal pain (17 sources) Epigastric pain; Translations: [Epigastric pain] Onset: 05-06-2024 07-19-2023 Episodic Allergic reactions (1 source) Allergy, unspecified, initial encounter; Translations: [Allergy, unspecified, initial encounter] Onset: 06-22-2024 Episodic Genitourinary symptoms and ill-defined conditions (20 sources) H/O: urinary disease; Translations: [Personal history of other diseases of urinary system] Onset: 04-11-2024 01-19-2020 Episodic Other gastrointestinal disorders (6 sources) Diarrhea, unspecified; Translations: [Diarrhea] Onset: 05-28-2024 01-05-2023 Episodic Other screening for suspected conditions (not mental disorders or infectious disease) (20 sources) D-dimer above reference range; Translations: [Other specified abnormal findings of blood chemistry] Onset: 09-23-2024 Episodic Unclassified (20 sources) removal of ascending colon 09-15-2021 Results Test Name Value Interpretation Reference Range Facility L/S Spine Min 4 Viewson 10- L/S Spine Min 4 Views [facility] Imaging Services [facility] [place] [address] L/S Spine Min 4 Views MR#: [id number] Acct: [id number] Name: ELIS HA Rep #: [id number] : 1955 F 69 From: Gustavo Saldivar MD PCP: CYRUS Davis Status: DEP AMB Study: L/S Spine Min 4 Views Date of Exam: 12/22/24 Exam# [id number] Ordering Dr: Sandra Sousa PROCEDURE: L/S SPINE MIN 4 VIEWS 12/22/2024 REASON FOR EXAM: CHRONIC BACK PAIN TECHNIQUE: Procedure Code: RADSPLS Modality: DX Procedure: L/S SPINE MIN 4 VIEWS COMPARISON: None FINDINGS: There is grade 1 spondylolisthesis at L4-5, 0.7 cm. There is degenerative disc disease which is most severe at L5-S1. There is severe facet sclerosis. Osteopenia is noted. Surgical clips are noted in the right upper quadrant. Hardware is partly visible in the left hip. Vascular calcifications are visible. RAD/L/S Spine Min 4 Views IMPRESSION: There is grade 1 spondylolisthesis at L4-5, 0.7 cm. There is degenerative disc disease which is most severe at L5-S1. Reading Location: PHILIPP CC: CYRUS Valdez; JEZ Kimble Guardian Family Member: Signed [facility] Orthopedic Visit Reporton Orthopedic Visit Report [facility] [address] [place] [address] OFFICE VISIT Date of Service: 12/22/24 MR#: [id number] Acct: [id number] Name: ELIS HA Rep #: [id number] : 1955 Provider: JEZ Kimble Age/Sex: 69/F Location: [facility] Status: Signed Intake Vital Signs 11/11/24 08:44 12/22/24 14:53 Height 5 ft 4 in 5 ft 4 in Weight: 219 lb 220 lb BMI 37.5 37.8 BP 147/81 H Blood Pressure Location Lt brachial Position Sitting Respiration 18 Pulse 86 Pulse Source Monitor Temp 97.2 F L Pulse Oximetry (%) 98 Oxygen Delivery Method room air Intake Visit Reasons: LUMBAR SPINE Chief Complaint: Lumbar spine pain Accompanied by: Self Is patient in pain?: Yes Pain scale (1-10): 4 Allergies codeine Allergy (Verified 12/22/24 14:56) Vomiting Opioids - Morphine Analogues Allergy (Verified 12/22/24 14:56) Vomiting hydroxyzine (From Vistaril) Adverse Reaction (Verified 12/22/24 14:56) Vomiting meperidine (From Demerol) Adverse Reaction (Verified 12/22/24 14:56) Vomiting Medications ???Medication ???Instructions ???Recorded ???Confirmed ???Type d-mannose 500 mg capsule 500 mg PO BID urinary 03/01/21 History albuterol sulfate 90 mcg/actuation 2 puff inhalation PRN PRN ASTHMA 06/07/21 12/22/24 History aerosol inhaler (ProAir HFA) loratadine 10 mg tablet (Claritin) 10 mg PO DAILY #90 tabs 06/19/22 12/22/24 Rx valsartan 320 mg tablet 320 mg PO QHS #90 TABLETS 05/23/23 12/22/24 Rx apixaban 5 mg tablet (Eliquis) 5 mg PO BID #180 tabs 08/10/23 Rx hydrochlorothiazide 25 mg tablet 25 mg PO DAILY #90 tabs 08/14/23 1 Rx magnesium oxide 1,000 mg PO DAILY 11/07/23 5 History pantoprazole 40 mg tablet,delayed 40 mg PO BID 04/22/24 12/22/24 Hi story release cholestyramine (with sugar) 4 gram 4 g PO BID #378 grams 07/18/24 1 Rx oral powder amlodipine 10 mg tablet 10 mg PO DAILY #30 tabs 08/14/24 1 Rx fluticasone propionate 230 2 inh inhalation BID #3 ea 5 12/22/24 Rx mcg-salmeterol 21 mcg/actuation HFA inhaler (Advair HFA) montelukast 10 mg tablet 10 mg PO DAILY #90 tabs 11/11/24 1 Rx (Singulair) lorazepam 1 mg tablet 1 mg PO BID PRN Claustrophobia #2 12/22/24 12/22/24 Rx tabs Have you fallen in the past year?: No PFSH Medical History Cough Borderline type 2 diabetes mellitus PONV (postoperative nausea and vomiting) Right foot pain Neuropathy Radiculopathy Hx of bladder cancer Bladder cancer IBS (irritable bowel syndrome) Malaise and fatigue Screening for thyroid disorder Restless legs Asthma Stroke/cerebrovascular accident History of steroid therapy Flu vaccine need History of CVA (cerebrovascular accident) Carotid bruit Restless legs syndrome Obesity (BMI 30-39.9) History of colon cancer Petechiae Anemia Leukocytosis Enlarged lymph node in neck History of colon cancer Nodular goiter Preoperative evaluation to rule out surgical contraindication Post-menopausal Wears glasses Cancer Ambulates with cane DVT (deep venous thrombosis) Back pain Migraine headache Injury of head and neck History of IBS Gastric reflux Non-smoker CPAP (continuous positive airway pressure) dependence Chronic cough Leg cramps History of edema History of irregular heartbeat History of stress test History of echocardiogram Recurrent deep vein thrombosis (DVT) Cramp in lower leg Elevated d-dimer GERD (gastroesophageal reflux disease) Left knee pain Escamilla's cyst of knee Left leg DVT HTN (hypertension) Thyroid nodule Ventral incisional hernia without obstruction or gangrene removal of ascending colon High blood pressure Frequent headaches Chronic bronchitis UTI (urinary tract infection) Neck pain Difficulty balancing Asthma Stroke Stomach ulcer Hay fever Shortness of breath Arthritis Surgical History History of colonoscopy History of esophagogastroduodenoscopy (EGD) History of hip replacement, total Hx of total knee arthroplasty Status post total knee replacement, left S/P colectomy History of cystocele History of ankle surgery History of cholecystectomy History of hysterectomy History of tonsillectomy Family History Mother Arthritis Parkinson disease Hypertension Father Heart disease Hypertension Social History Smoking Status: Never smoker alcohol intake: never substance use type: does not use what type of physical activity do you participa (more content not included)... [facility] Pulmonary Visit Reporton Pulmonary Visit Report [facility]monary Medicine [address] [place] [address] OFFICE VISIT Date of Service: 11/11/24 MR#: [id number] Acct: [id number] Name: ELIS HA Rep #: [id number] : 1955 Provider: CYRUS Chung Age/Sex: 69/F [facility] Status: Signed Assessment and Plan Assessment and Plan (1) Asthma: Status: Chronic Qualifiers: Asthma complication type: unspecified Asthma persistence: unspecified Asthma severity: unspecified severity Qualified Code(s): J45.909 - Unspecified asthma, uncomplicated Plan: Stable, no signs of exacerbation of asthma today. No change in maintenance medications, continue Advair HFA. No additional testing at this time. Contact the office with any signs of new or worsening symptoms. Follow-up in 1 year. (2) RAHEEL (obstructive sleep apnea): Status: Chronic Comment: AHI 24.6 Plan: She is using and benefiting from Pap therapy. No indication for titration study at this time. Contact the office for any new or worsening symptoms in the meantime. Follow-up in 1 year. (3) Obesity: Status: Chronic Qualifiers: Body mass index: BMI 37.0-37.9 Obesity classification: adult class 2 (BMI 35 - 39.9) Obesity type: due to excess calories Serious obesity comorbidity presence: with serious comorbidity Qualified Code(s): E66.812 - Obesity, class 2; E66.01 - Morbid (severe) obesity due to excess calories; Z68.37 - Body mass index [BMI] 37.0-37.9, adult Plan: Weight loss would be beneficial. Medications: New fluticasone propion-salmeterol 230-21 mcg/actuation (Advair HFA) 2 inhalations inhalation BID 3 ea 3RF Refilled montelukast (Singulair) 10 mg PO DAILY 90 tabs 3RF Plan Details Follow Up: 1 Year HPI HPI Comments Details: This patient presents to the office today for follow-up of her asthma and obstructive sleep apnea. She is ambulatory. She has not recently been seen in the ED or urgent care for any respiratory illness. She has not recently required any antibiotics or prednisone for any breathing problems. She has been compliant with the use of Advair 2 puffs twice daily. She does report rinsing her mouth out after each use. She denies any medication side effect such as sore throat or thrush. She has used albuterol rescue inhaler a few times over the summer. She is compliant with Claritin and Singulair daily. She reports shortness of breath on exertion. She denies any difficulty with wheezing, chest tightness, chest pain or palpitations. She does report an occasional dry cough. She denies any fever, chills or body aches. She wakes up feeling rested and refreshed with the use of her Pap machine. She continues to report some dry mouth. She is not requiring naps. She is not nodding off to sleep unintentionally. She is not having excessive nocturia. Compliance report for the past 30 days shows 100% compliance with average use of 8 hours and 46 minutes per night. Current setting is CPAP 7 cm of water with residual AHI 1.3 events per hour. Leaks do not appear to be an issue. Intake Vital Signs 11/06/23 08:39 11/11/24 08:44 Height 5 ft 4 in 5 ft 4 in Weight: 219 lb BMI 37.5 BP 147/81 H Blood Pressure Location Lt brachial Position Sitting Respiration 18 Pulse 86 Pulse Source Monitor Temp 97.2 F L Temperature Source Temporal Artery Pulse Oximetry (%) 98 Oxygen Delivery Method room air Intake Visit Reasons: 1 Y FU Chief Complaint: Colon cancer follow-up Cut File Clerk Required: No DME Vendor: Sheryl Accompanied by: Self Allergies codeine Allergy (Verified 11/11/24 10:51) Vomiting Opioids - Morphine Analogues Allergy (Verified 11/11/24 10:51) Vomiting hydroxyzine (From Vistaril) Adverse Reaction (Verified 11/11/24 10:51) Vomiting meperidine (From Demerol) Adverse Reaction (Verified 11/11/24 10:51) Vomiting Medications ???Medication ???Instructions ???Recorded ???Confirmed ???Type d-mannose 500 mg capsule 500 mg PO BID urinary 03/01/21 History albuterol sulfate 90 mcg/actuation 2 puff inhalation PRN PRN ASTHMA 06/07/21 11/11/24 History aerosol inhaler (ProAir HFA) loratadine 10 mg tablet (Claritin) 10 mg PO DAILY #90 tabs 06/19/22 11/11/24 Rx valsartan 320 mg tablet 320 mg PO QHS #90 TABLETS 05/23/23 11/11/24 Rx apixaban 5 mg tablet (Eliquis) 5 mg PO BID #180 tabs 08/10/23 Rx hydrochlorothiazide 25 mg tablet 25 mg PO DAILY #90 tabs 08/14/23 0 11/11/24 Rx hydrocortisone 2.5 % topical cream 1 applic topical BID PRN rash #3 0 08/14/23 11/11/24 Rx grams magnesium oxide 1,000 mg PO DAILY 11/07/23 5 History pantoprazole 40 mg tablet,delayed 40 mg PO BID 04/22/24 11/11/24 Hi story release cholestyramine (with sugar) 4 gram 4 g PO BID #378 grams 07/18/24 0 9/ (more content not included)... [facility] Gastroenterology Visit Repor ton 10-21-2024 Gastroenterology Visit Report [facility] [address] [place] [address] OFFICE VISIT Date of Service: 10/21/24 MR#: [id number] Acct: [id number] Name: ELIS HA Rep #: [id number] : 1955 Provider: Manny Das DO Age/Sex: 69/F Location: [facility] Status: Signed Intake Vital Signs 05/26/24 09:29 Height 5 ft 4 in Intake Visit Reasons: 3 M FU Allergies codeine Allergy (Verified 05/26/24 09:25) Vomiting Opioids - Morphine Analogues Allergy (Verified 05/26/24 09:25) Vomiting hydroxyzine (From Vistaril) Adverse Reaction (Verified 05/26/24 09:25) Vomiting meperidine (From Demerol) Adverse Reaction (Verified 05/26/24 09:25) Vomiting Medications ???Medication ???Instructions ???Recorded ???Confirmed ???Type d-mannose 500 mg capsule 500 mg PO BID urinary 03/01/21 History albuterol sulfate 90 mcg/actuation 2 puff inhalation PRN PRN ASTHMA 06/07/21 10/21/24 History aerosol inhaler (ProAir HFA) loratadine 10 mg tablet (Claritin) 10 mg PO DAILY #90 tabs 06/19/22 10/21/24 Rx valsartan 320 mg tablet 320 mg PO QHS #90 TABLETS 05/23/23 10/21/24 Rx apixaban 5 mg tablet (Eliquis) 5 mg PO BID #180 tabs 08/10/23 Rx hydrochlorothiazide 25 mg tablet 25 mg PO DAILY #90 tabs 08/14/23 0 10/21/24 Rx hydrocortisone 2.5 % topical cream 1 applic topical BID PRN rash #3 0 08/14/23 07/18/24 Rx grams montelukast 10 mg tablet 10 mg PO DAILY #90 tabs 11/06/23 0 10/21/24 Rx (Singulair) magnesium oxide 1,000 mg PO DAILY 11/07/23 5 History pantoprazole 40 mg tablet,delayed 40 mg PO BID 04/22/24 10/21/24 Hi story release cholestyramine (with sugar) 4 gram 4 g PO BID #378 grams 07/18/24 0 10/21/24 Rx oral powder amlodipine 10 mg tablet 10 mg PO DAILY #30 tabs 08/14/24 0 10/21/24 Rx doxycycline hyclate 100 mg capsule 100 mg PO BID 14 days #28 caps 0 10/21/24 10/21/24 Rx Have you fallen in the past year?: No PFSH Medical History Cough Borderline type 2 diabetes mellitus PONV (postoperative nausea and vomiting) Right foot pain Neuropathy Radiculopathy Hx of bladder cancer Bladder cancer IBS (irritable bowel syndrome) Malaise and fatigue Screening for thyroid disorder Restless legs Asthma Stroke/cerebrovascular accident History of steroid therapy Flu vaccine need History of CVA (cerebrovascular accident) Carotid bruit Restless legs syndrome Obesity (BMI 30-39.9) History of colon cancer Petechiae Anemia Leukocytosis Enlarged lymph node in neck History of colon cancer Nodular goiter Preoperative evaluation to rule out surgical contraindication Post-menopausal Wears glasses Cancer Ambulates with cane DVT (deep venous thrombosis) Back pain Migraine headache Injury of head and neck History of IBS Gastric reflux Non-smoker CPAP (continuous positive airway pressure) dependence Chronic cough Leg cramps History of edema History of irregular heartbeat History of stress test History of echocardiogram Recurrent deep vein thrombosis (DVT) Cramp in lower leg Elevated d-dimer GERD (gastroesophageal reflux disease) Left knee pain Escamilla's cyst of knee Left leg DVT HTN (hypertension) Thyroid nodule Ventral incisional hernia without obstruction or gangrene removal of ascending colon High blood pressure Frequent headaches Chronic bronchitis UTI (urinary tract infection) Neck pain Difficulty balancing Asthma Stroke Stomach ulcer Hay fever Shortness of breath Arthritis Surgical History History of colonoscopy History of esophagogastroduodenoscopy (EGD) History of hip replacement, total Hx of total knee arthroplasty Status post total knee replacement, left S/P colectomy History of cystocele History of ankle surgery History of cholecystectomy History of hysterectomy History of tonsillectomy Family History Mother Arthritis Parkinson disease Hypertension Father Heart disease Hypertension Social History Smoking Status: Never smoker alcohol intake: never substance use type: does not use what type of physical activity do you participate in: none HPI HPI Details: ELIS HA, is a 69 F who presents to the office today for follow up. Colonoscopy with Dr Leblanc 01.16. Hemorrhoids found on perianal exam. Non-bleeding internal hemorrhoids. The examination was otherwise normal. No specimens collected. EGD with Dr Leblanc ..24 Z-line variable, 40 cm from the incisors. Biopsied Erythematous mucosa in the antrum. Biopsied. A few gastric polyps. Normal examined duodenum. Medium-sized hiatal hernia. abd CT (more content not included)... [facility] Bone density reportOrdered B y: Heidy Zarate on 09-19-2024 Study report Skeletal system DXA [facility] Imaging Services [address] [place] [address] Dexa Bone Density Study MR#: [id number] Acct: [id number] Name: ELIS HA Rep #: [id number] : 1955 F 69 From: Reji Teague MD PCP: CYRUS Davis Status: REG C ANTOLIN Study:Dexa Bone Density Study Date of Exam: 09/16/24 Exam# [id number] Ordering Dr: Adwoa Valdez PROCEDURE: DEXA BONE DENSITY STUDY 09/16/2024 REASON FOR EXAM: F, age 69 y/o . Postmenopausal. TECHNIQUE: DEXA BONE DENSITY STUDY COMPARISON: Priors were compared FINDINGS: BMD and T-SCORES Lumbar spine: 1.067 g/cm2, T-score 0.2 Levels: L1 through L4 Left femoral neck: 0.669 g/cm2, T-score -1.6 BD/Dexa Bone Density Study IMPRESSION: Patient's bone density reveals osteopenia with an estimated 10 year risk for hipfracture of 3.8% and for a Major osteoporotic fracture of 23%. this fracture risk estimate was calculated using FRAX version 3.08. Reading Location: [id number] CC: CYRUS Valdez ~ Guardian Family Member: Signed [facility] Breast imaging reportOrdered By: Heidy Zarate on 09-16-2024 Study report [facility] Imaging Services [address] [place], [place] [address] SCRN MAMM (CAD)W/LASHAE BILAT MR#: [id number] Acct: [id number] Name: ELIS HA Rep #: [id number] : 1955 F 69 From: Reji Teague MD PCP: CYRUS Davis Status: REG Adwoa DANGELO Study:SCRN MAMM (CAD)W/LASHAE BILAT Date of Exa m: 09/16/24 Exam# [id number] Ordering Dr: Lorenzo Larose MD EXAM: SCRN MAMM (CAD)W/LASHAE BILAT DATE: 09/16/2024 CLINICAL HISTORY: F, Age 69 y/o , ANNUAL SCREENING TECHNIQUE: SCRN MAMM (CAD)W/LASHAE BILAT COMPARISON: Prior exam(s) were compared FINDINGS: TISSUE DENSITY: There are scattered areas of fibroglandular density. Bilateral Breast Mammographic Findings: No suspicious masses, calcifications or other abnormalities are identified. BI/SCRN MAMM (CAD)W/LASHAE BILAT IMPRESSION: No mammographic evidence of malignancy. OVERALL FINAL ASSESSMENT BI-RADS 1: NEGATIVE. RECOMMENDATION: Routine annual follow-up in 1 Year A letter with findings and recommendations will be mailed to the patient. Reading Location: [id number] CC: LVN LPNJarad Valdez; Dr. Lorenzo Larose MD ~ Guardian Family Member: Signed [facility] Dexa Bone Density Studyon Dexa Bone Density Study [facility] Imaging Services [address] [place] [address] Dexa Bone Density Study MR#: [id number] Acct: [id number] Name: ELIS HA Rep #: [id number] : 1955 F 69 From: Heidy Jackson i, MD PCP: CYRUS Davis Status: REG CLI Study: Dexa Bone Density Study Date of Exam: 09/16/24 Exam# [id number] Ordering Dr: Natividad Valdez PROCEDURE: DEXA BONE DENSITY STUDY 09/16/2024 REASON FOR EXAM: F, age 69 y/o . Postmenopausal. TECHNIQUE: DEXA BONE DENSITY STUDY COMPARISON: Priors were compared FINDINGS: BMD and T-SCORES Lumbar spine: 1.067 g/cm2, T-score 0.2 Levels: L1 through L4 Left femoral neck: 0.669 g/cm2, T-score -1.6 BD/Dexa Bone Density Study IMPRESSION: Patient's bone density reveals osteopenia with an estimated 10 year risk for hip fracture of 3.8% and for a Major osteoporotic fracture of 23%. this fracture risk estimate was calculated using FRAX version 3.08. Reading Location: GORDYI CC: CYRUS Valdez Guardian Family Member: Signed [facility] SCRN MAMM (CAD)W/LASHAE BILATo n 09-16-2024 SCRN MAMM (CAD)W/LASHAE BILAT [facility] Imaging Services [address] [place] [address] SCRN MAMM (CAD)W/LASHAE BILAT MR#: [id number] Acct: [id number] Name: ELIS HA Rep #: [id number] : 1955 F 69 From: Heidy Jackson i, MD PCP: VERO DavisC Status: [facility] CLI Study: SCRN MAMM (CAD)W/LASHAE BILAT Date of Exam: 08/27 04/22 Exam# [id number] Ordering Dr: Lorenzo Larose MD EXAM: SCRN MAMM (CAD)W/LASHAE BILAT DATE: 09/16/2024 CLINICAL HISTORY: F, Age 69 y/o , ANNUAL SCREENING TECHNIQUE: SCRN MAMM (CAD)W/LASHAE BILAT COMPARISON: Prior exam(s) were compared FINDINGS: TISSUE DENSITY: There are scattered areas of fibroglandular density. Bilateral Breast Mammographic Findings: No suspicious masses, calcifications or other abnormalities are identified. BI/SCRN MAMM (CAD)W/LASHAE BILAT IMPRESSION: No mammographic evidence of malignancy. OVERALL FINAL ASSESSMENT BI-RADS 1: NEGATIVE. RECOMMENDATION: Routine annual follow-up in 1 Year A letter with findings and recommendations will be mailed to the patient. Reading Location: KENDRA CC: LVN LPNJarad Valdez; Dr. Lorenzo Larose MD Guardian Family Member: Signed [facility] Gastroenterology Visit Repor ton 07-18-2024 Gastroenterology Visit Report [facility] Gastroenterology [address] [place] [address] OFFICE VISIT Date of Service: 07/18/24 MR#: [id number] Acct: [id number] Name: ELIS HA Rep #: [id number] : 1955 Provider: Manny Das DO Age/Sex: 69/F Location: [facility] Status: Signed Intake Vital Signs 04/21/24 10:58 05/26/24 09:29 Height 5 ft 4 in 5 ft 4 in Intake Visit Reasons: 3 M FU Allergies codeine Allergy (Verified 05/26/24 09:25) Vomiting Opioids - Morphine Analogues Allergy (Verified 05/26/24 09:25) Vomiting hydroxyzine (From Vistaril) Adverse Reaction (Verified 05/26/24 09:25) Vomiting meperidine (From Demerol) Adverse Reaction (Verified 05/26/24 09:25) Vomiting Medications ???Medication ???Instructions ???Recorded ???Confirmed ???Type d-mannose 500 mg capsule 500 mg PO BID urinary 03/01/21 History albuterol sulfate 90 mcg/actuation 2 puff inhalation PRN PRN ASTHMA 06/07/21 07/18/24 History aerosol inhaler (ProAir HFA) cholecalciferol (vitamin D3) 25 25 mcg PO DAILY 06/07/21 07/18/24 History mcg (1,000 unit) tablet (Vitamin D3) loratadine 10 mg tablet (Claritin) 10 mg PO DAILY #90 tabs 06/19/22 07/18/24 Rx valsartan 320 mg tablet 320 mg PO QHS #90 TABLETS 05/23/23 07/18/24 Rx apixaban 5 mg tablet (Eliquis) 5 mg PO BID #180 tabs 08/10/23 Rx hydrochlorothiazide 25 mg tablet 25 mg PO DAILY #90 tabs 08/14/23 0 07/18/24 Rx hydrocortisone 2.5 % topical cream 1 applic topical BID PRN rash #3 0 08/14/23 07/18/24 Rx grams montelukast 10 mg tablet 10 mg PO DAILY #90 tabs 11/06/23 0 07/18/24 Rx (Singulair) magnesium oxide 1,000 mg PO DAILY 11/07/23 5 History amlodipine 10 mg tablet 10 mg PO DAILY #90 tabs 02/13/24 0 07/18/24 Rx calcium 1000 PO 04/21/24 07/18/24 History pantoprazole 40 mg tablet,delayed 40 mg PO BID 04/22/24 07/18/24 Hi story release alprazolam 1 mg tablet 1 mg PO BID PRN anxiety #2 tabs 07/18/24 Rx cholestyramine (with sugar) 4 gram 4 g PO BID #378 grams 07/18/24 0 07/18/24 Rx oral powder Have you fallen in the past year?: No PFSH Medical History Cough Borderline type 2 diabetes mellitus PONV (postoperative nausea and vomiting) Right foot pain Neuropathy Radiculopathy Hx of bladder cancer Bladder cancer IBS (irritable bowel syndrome) Malaise and fatigue Screening for thyroid disorder Restless legs Asthma Stroke/cerebrovascular accident History of steroid therapy Flu vaccine need History of CVA (cerebrovascular accident) Carotid bruit Restless legs syndrome Obesity (BMI 30-39.9) History of colon cancer Petechiae Anemia Leukocytosis Enlarged lymph node in neck History of colon cancer Nodular goiter Preoperative evaluation to rule out surgical contraindication Post-menopausal Wears glasses Cancer Ambulates with cane DVT (deep venous thrombosis) Back pain Migraine headache Injury of head and neck History of IBS Gastric reflux Non-smoker CPAP (continuous positive airway pressure) dependence Chronic cough Leg cramps History of edema History of irregular heartbeat History of stress test History of echocardiogram Recurrent deep vein thrombosis (DVT) Cramp in lower leg Elevated d-dimer GERD (gastroesophageal reflux disease) Left knee pain Escamilla's cyst of knee Left leg DVT HTN (hypertension) Thyroid nodule Ventral incisional hernia without obstruction or gangrene removal of ascending colon High blood pressure Frequent headaches Chronic bronchitis UTI (urinary tract infection) Neck pain Difficulty balancing Asthma Stroke Stomach ulcer Hay fever Shortness of breath Arthritis Surgical History History of colonoscopy History of esophagogastroduodenoscopy (EGD) History of hip replacement, total Hx of total knee arthroplasty Status post total knee replacement, left S/P colectomy History of cystocele History of ankle surgery History of cholecystectomy History of hysterectomy History of tonsillectomy Family History Mother Arthritis Parkinson disease Hypertension Father Heart disease Hypertension Social History Smoking Status: Never smoker alcohol intake: never substance use type: does not use what type of physical activity do you participate in: none HPI HPI Details: ELIS HA, is a 69 F who presents to the office today for follow up. Colonoscopy with Dr Leblanc 01.16.23 Hemorrhoids found on perianal exam. Non-bleeding internal hemorrhoids. The examination was otherwise normal. No specimens collected. EGD with Dr Leblanc 07.02.23 (more content not included)... Normal [facility] Allergen, Food Profileon CLAM <0.10 Normal Class 0 [facility] Comment on above: Performed By: #### L 5500.0410, L5500.0550 ####[facility] [address] [place], [place], [address] CODFISH <0.10 Normal Class 0 [facility] Comment on above: Performed By: #### L 5500.0410, L5500.0550 ####[facility] [address] [place], [place], [address] COMMENT Comment Normal . [facility] Comment on above: Result Comment: Jazz montano of Specific IgE Class Description of Class ----- < 0.10 0 Negative 0.10 - 0.31 0/I Equivocal/Low 0.32 - 0.55 I Low 0.56 - 1.40 II Moderate 1.41 - 3.90 III High 3.91 - 19.00 IV Very High 19.01 - 100.00 V Very High >100.00 Very High Performed By: #### L 5500.0410, L5500.0550 ####[facility] [address] [place], [place], [id number] CORN <0.10 Normal Class 0 [facility] Comment on above: Performed By: #### L 5500.0410, L5500.0550 ####[facility] [address] [place], [address] EGG, WHITE <0.10 Normal Class 0 [facility] Comment on above: Performed By: #### L 5500.0410, L5500.0550 ####[facility] [address] [place], [address] MILK (COW) <0.10 Normal Class 0 [facility] Comment on above: Performed By: #### L 5500.0410, L5500.0550 ####[facility] [address] [place], [address] PEANUT <0.10 Normal Class 0 [facility] Comment on above: Performed By: #### L 5500.0410, L5500.0550 ####[facility] [address] [place], [address] SCALLOP <0.10 Normal Class 0 [facility] Comment on above: Performed By: #### L 5500.0410, L5500.0550 ####[facility] [address] [place], [address] SESAME SEED <0.10 Normal Class 0 [facility] Comment on above: Result Comment: Perf ormed at: - [facility] [id number] Volleyball Assembler: Lucas Mota MD, Phone: [phone] Performed By: #### L 5500.0410, L5500.0550 ####[facility] [address] [place], [address] SHRIMP <0.10 Normal Class 0 [facility] Comment on above: Performed By: #### L 5500.0410, L5500.0550 ####[facility] [address] [place], [address] SOYBEAN <0.10 Normal Class 0 [facility] Comment on above: Performed By: #### L 5500.0410, L5500.0550 ####[facility] [address] [place], [address] WALNUT,(Food) <0.10 Normal Class 0 [facility] Comment on above: Performed By: #### L 5500.0410, L5500.0550 ####[facility] [address] [place], [address] WHEAT <0.10 Normal Class 0 [facility] Comment on above: Performed By: #### L 5500.0410, L5500.0550 ####[facility] [address] [place], [address] L5500.0550on 06-24-2024 BEEF <0.10 Normal Class 0 [facility] Comment on above: Performed By: #### L 5500.0410, L5500.0550 ####[facility] [address] [place], [address] CHOCOLATE <0.10 Normal Class 0 [facility] Comment on above: Performed By: #### L 5500.0410, L5500.0550 ####[facility] [address] [place], [address] EGG, WHOLE <0.10 Normal Class 0 [facility] Comment on above: Performed By: #### L 5500.0410, L5500.0550 ####[facility] [address] [place], [address] MUSSELS <0.10 Normal Class 0 [facility] Comment on above: Performed By: #### L 5500.0410, L5500.0550 ####[facility] [address] [place], [address] PORK <0.10 Normal Class 0 [facility] Comment on above: Performed By: #### L 5500.0410, L5500.0550 ####[facility] [address] [place], [address] SALMON <0.10 Normal Class 0 [facility] Comment on above: Performed By: #### L 5500.0410, L5500.0550 ####[facility] [address] [place], [address] TUNA <0.10 Normal Class 0 [facility] Comment on above: Performed By: #### L 5500.0410, L5500.0550 ####[facility] [address] [place], [address] Laboratory - Miscellaneous t estsOrdered By: Manny Das on 06-18-2024 Service comment (Unsp spec) [Interp] Comment . [facility] Comment on above: Levels of Specific I gE Class Description of Class ----- < 0.10 0 Negative 0.10 - 0.31 0/I Equivocal/Low 0.32 - 0.55 I Low 0.56 - 1.40 II Moderate 1.41 - 3.90 III High 3.91 - 19.00 IV Very High 19.01 - 100.00 V Very High >100.00 Very High Serum beef IgE antibody assa y (units/volume)Ordered By: Manny Das on 06-18-2024 Beef IgE Qn (S) <0.10 kU/L Class 0 [facility] Serum black walnut IgE antib tatum assay (units/volume)Ordered By: Manny Das on 06-18-2024 [place] IgE Qn (S) <0.10 kU/L Class 0 [facility] Serum clam IgE antibody assa y (units/volume)Ordered By: Manny Das on 06-18-2024 Clam IgE Qn (S) <0.10 kU/L Class 0 [facility] Serum codfish IgE antibody a ssay (units/volume)Ordered By: Manny Das on 06-18-2024 Codfish IgE Qn (S) <0.10 kU/L Class 0 [facility] Serum corn IgE antibody assa y (units/volume)Ordered By: Manny Das on 06-18-2024 [place] IgE Qn (S) <0.10 kU/L Class 0 [facility] Serum cow milk IgE antibody assay (units/volume)Ordered By: Manny Das on 06-18-2024 Cow milk IgE Qn (S) <0.10 kU/L Class 0 [facility] Serum egg white IgE antibody assay (units/volume)Ordered By: Manny Das on 06-18-2024 Egg white IgE Qn (S) <0.10 kU/L Class 0 [facility] Serum peanut IgE antibody as say (units/volume)Ordered By: Manny Das on 06-18-2024 Peanut IgE Qn (S) <0.10 kU/L Class 0 [facility] Serum pork IgE antibody assa y (units/volume)Ordered By: Manny Das on 06-18-2024 Pork IgE Qn (S) <0.10 kU/L Class 0 [facility] Serum salmon IgE antibody as say (units/volume)Ordered By: Manny Das on 06-18-2024 [place] IgE Qn (S) <0.10 kU/L Class 0 [facility] Serum soybean IgE antibody a ssay (units/volume)Ordered By: Manny Das on 06-18-2024 Soybean IgE Qn (S) <0.10 kU/L Class 0 [facility] Serum tuna IgE antibody assa y (units/volume)Ordered By: Manny Das on 06-18-2024 Tuna IgE Qn (S) <0.10 kU/L Class 0 [facility] Serum wheat IgE antibody ass ay (units/volume)Ordered By: Manny Das on 06-18-2024 Wheat IgE Qn (S) <0.10 kU/L Class 0 [facility] Serum whole egg IgE antibody assay (units/volume)Ordered By: Manny Das on 06-18-2024 Whole Egg IgE Qn (S) <0.10 kU/L Class 0 [facility] Enterography Abd/Samir 05-26 Enterography Abd/Pel [facility] [address] [place] [address] Enterography Abd/Pel MR#: [id number] Acct: [id number] Name: ELIS HA Rep #: [id number] : 1955 F 68 From: Rich Leigh i DO PCP: Natividad Valdez, LVN LPN-C Status: REG CLI Study: Enterography Abd/Pel Date of Exam: 05/26/24 Exam# [id number] Ordering Dr: Manny Das DO EXAM: MRI abdomen/pelvis with IV contrast (MR enterography). CLINICAL HISTORY: Diarrhea. Noninfective gastroenteritis/colitis. History of prior ascending colon cancer, with removal. Lower abdominal pain. COMPARISON: CT abdomen/pelvis 08/31/2023. TECHNIQUE: Multi planar, multisequence MRI images of the abdomen/pelvis were obtained without and with intravenous contrast. 19 cc Clariscan IV contrast was administered. FINDINGS: Mild degenerative changes in the spine, greatest at the L5-S1 level. Magnetic susceptibility artifact from left total hip arthroplasty. Proximal right femur grossly intact there is moderate fluid signal in the stomach. Included lower lungs clear. The gallbladder appears to be absent. No abnormal dilation of the biliary tree. The urinary bladder is not well distended, grossly unremarkable. The uterus is absent. No adnexal mass. No abdominal/pelvic adenopathy or ascites. Abdominal aorta normal in caliber. The liver, adrenal glands, spleen, and pancreas show no specific abnormality. There are numerous small T2 hyperintense lesions of the kidneys, which do not appear to enhance with IV contrast, most compatible with cysts. The largest is present at the inferior lateral margin left kidney measuring 2 cm. No definite enhancing renal mass or obstructive uropathy. The portal vein appears patent. No large abdominal wall defect. There are a few scattered subcentimeter left retroperitoneal/para- aortic lymph nodes, not significantly changed from the comparison CT scan of 08/31/2023. No gross mesenteric or omental tumor implants. Surgical changes from prior partial right hemicolectomy. Scattered patchy wall thickening of the residual colon may be due to lack of distention versus peristalsis. No discrete colonic mass. No gross bowel wall thickening or mesenteric inflammatory changes. No drainable abdominal/pelvic fluid collection. MRI/Enterography Abd/Pel IMPRESSION: Prior partial right hemicolectomy. No acute findings in the abdomen/pelvis. No evidence of active inflammatory bowel disease. No findings to suggest malignancy or metastatic disease in the abdomen/pelvis. Numerous small T2 hyperintense nonenhancing renal lesions, compatible with cysts, the largest on the left at 2 cm. Some of these renal lesions likely represent small proteinaceous cysts. Prior cholecystectomy, without abnormal dilation of the biliary tree. Reading Location: DEV CC: CYRUS Valdez; Manny Friend, Guardian Family Member: Signed Normal [facility] M7400.3302on 05-15-2024 M7400.3302 _ TESTING PERFORMED AT [facility]. ORIGINAL REPORT ON FILE IN LAB CONTAINS ADDITIONAL TEST SITE INFORMATION. _ Giardia Lamblia EIA NEGATIVE Normal [facility] Comment on above: Performed By: #### M 100.6796, M7400.3302, M100.7900, L7000.0750, M100.0605, L7000.0300, M600.5000, L7000.0700, L3410.9998 ####[facility] [address] [place], [place], [address] Ova and Parasites 8623on OP OVA AND PARASITES EX AM, ROUTINE These results were obtained using wet preparation(s) and trichrome stained smear. This test does not include testing for Crytosporidium parvum, Cyclospora, or Microsporidia. One negative specimen does not rule out the possibility of a parasitic infection. _ TESTING PERFORMED AT [facility]. ORIGINAL REPORT ON FILE IN LAB CONTAINS ADDITIONAL TEST SITE INFORMATION. _ Ova/Parasite Exam NO OVA, CYSTS, OR PARASITES FOUND. [facility] Comment on above: Performed By: #### M 100.4196, M7400.3302, M100.7900, L7000.0750, M100.0605, L7000.0300, M600.5000, L7000.0700, L3410.9998 ####[facility] [address] [place], [address] L3410.9998on 05-14-2024 [facility] Comment on above: Order Comment: [id number] 4STOOL CULT RT Result Comment: LEXIS Ibarra CULTURE Salmonella/Shigella Screen Final Report Result 1 No Salmonella or Shigella recovered. Campylobacter Culture Final Report Result 1 No Campylobacter species isolated. E. coli Shiga Toxin EIA Negative TESTING PERFORMED AT [facility]. ORIGINAL REPORT ON FILE IN LAB CONTAINS ADDITIONAL TEST SITE INFORMATION. Performed By: #### M 100.6796, M7400.3302, M100.7900, L7000.0750, M100.0605, L7000.0300, M600.5000, L7000.0700, L3410.9998 ####[facility] [address] [place], [place], [id number] Calprotectin, Stoolon [address] 74 ug/g Normal 0-120 [facility] Comment on above: Order Comment: Test( s) 658232-Wmtu, Neutral; 282595-Xihm, Totalwas developed and its performance characteristicsdetermined by [employer]. It has not been cleared or approvedby the Food and Drug Administration. Result Comment: Conc entration Interpretation Follow-Up < 5 - 50 ug/g Normal None >50 -120 ug/g Borderline Re-evaluate in 4-6 weeks >120 ug/g Abnormal Repeat as clinically indicated Performed at: [address] [id number] Volleyball Assembler: Kwame Atkinson PhD, Phone: [phone] Performed at: [address] [id number] Volleyball Assembler: Lucas Mota MD, Phone: [phone] Performed By: #### M 100.6796, M7400.3302, M100.7900, L7000.0750, M100.0605, L7000.0300, M600.5000, L7000.0700, L3410.9998 ####[facility] [address] [place], [place], [address] Fecal Fat, Qualitativeon FATS, NEUTRAL Normal Normal . [facility] Comment on above: Order Comment: Test( s) 292051-Cjmd, Neutral; 018079-Togh, Totalwas developed and its performance characteristicsdetermined by [employer]. It has not been cleared or approvedby the Food and Drug Administration. Result Comment: Norm al (<60 Droplets/HPF) Performed By: #### M 100.6796, M7400.3302, M100.7900, L7000.0750, M100.0605, L7000.0300, M600.5000, L7000.0700, L3410.9998 ####[facility] [address] [place], [place], [phone](001) FATS, TOTAL Normal Normal . [facility] Comment on above: Order Comment: Test( s) 645834-Krkp, Neutral; 708517-Grkn, Totalwas developed and its performance characteristicsdetermined by [facility]. It has not been cleared or approvedby the Food and Drug Administration. Result Comment: Norm al (<100 Droplets/HPF) Performed By: #### M 100.6796, M7400.3302, M100.7900, L7000.0750, M100.0605, L7000.0300, M600.5000, L7000.0700, L3410.9998 ####[facility] [address] [place], [place], [phone](760) L7000.0750on 05-12-2024 P ELASTASE,FECA 492 Normal >200 [facility] Comment on above: Result Comment: Resu lt Units: ug Elast./g Severe Pancreatic Insufficiency: <100 Moderate Pancreatic Insufficiency: 100 - 200 Normal: >200 Performed at: [address] [id number] Volleyball Assembler: Lucas Mota MD, Phone: [phone] Performed By: #### M 100.6796, M7400.3302, M100.7900, L7000.0750, M100.0605, L7000.0300, M600.5000, L7000.0700, L3410.9998 #### [facility] [address] [place], [place], [address] C. difficile DNA TARSHA+probe Q l (Unsp spec)Ordered By: Manny Das on 05-09-2024 Clostridioides difficile (PCR) [facility] CDIFF (PCR)on 05-09-2024 CDIFF Reference Range: Neg ative Faveous GeneXpert: polymerase chain reaction (PCR) 027 027 NAP1-B1 Presumptive Negative *for epidemiolologic???use C. Diff PCR Negative- No toxigenic C. Diff Detected Normal [facility] Comment on above: Performed By: #### M 100.6796, M7400.3302, M100.7900, L7000.0750, M100.0605, L7000.0300, M600.5000, L7000.0700, L3410.9998 #### [facility] [place], [address] Calprotectin stoolOrdered By : Manny Das on 05-09-2024 Stool Calprotectin 74 ug/g 0-120 [facility] Comment on above: Concentration Interp retation Follow-Up< 5 - 50 ug/g Normal None>50 -120 ug/g Borderline Re-evaluate in 4-6 weeks >120 ug/g Abnormal Repeat as clinically indicatedPerformed at: [address] [id number] Director: Kwame Atkinson PhD, Phone: [phone] at: [facility] [id number] Director: Lucas Mota MD, Phone: [phone] Elastase.pancreatic (Stl) [M ass/Mass]Ordered By: Manny Das on 05-09-2024 Stool Pancreatic Elastase 492 >200 [facility] Comment on above: Result Units: ug Clarita st./g Severe Pancreatic Insufficiency: <100 Moderate Pancreatic Insufficiency: 100 - 200 Normal: >200Performed at: [facility] [id number] Director: Lucas Mota MD, Phone: [phone] Fat Ql (Stl)Ordered By: Mandy Silva on 05-09-2024 Stool Total Fats Normal . [facility] Comment on above: Normal (<100 Droplet s/HPF) Giardia lamblia antigen assa y by enzyme immunoassayOrdered By: Manny Das on 05-09-2024 Giardia Antigen (CAITLYN) [facility] Lactoferrin IA Ql (Stl)Order ed By: Manny Das on 05-09-2024 Stool Lactoferrin [facility] Lower GI hemoglobin IA Ql (S tl)Ordered By: Manny Das on 05-09-2024 Stool Occult Blood (CAITLYN) [facility] No Panel InformationOrdered By: Mannygustavo Das on 05-09-2024 Stool Neutral Fats Normal . [facility] Comment on above: Normal (<60 Droplets /HPF) Ova and parasitesOrdered By: Mannygustavo Das on 05-09-2024 Ova and Parasites [facility] Stool Lactoferrin/WBCon 04-26 WBCST Normal Reference Ran ge = Negative Fecal WBC Lactoferrin Negative: No Fecal WBC Lactoferrin present Normal [facility] Comment on above: Performed By: #### M 100.6796, M7400.3302, M100.7900, L7000.0750, M100.0605, L7000.0300, M600.5000, L7000.0700, L3410.9998 #### [facility] [address] [place], [place], [id number] Stool Occult Blood iFOBon STOB Negative Normal [facility] Comment on above: Performed By: #### M 100.6796, M7400.3302, M100.7900, L7000.0750, M100.0605, L7000.0300, M600.5000, L7000.0700, L3410.9998 #### [facility] [address] [facility] [place], [address] D/C Summary- SPon 04-30-2024 D/C Summary- SP [facility] spital Speech Pathology [address] [place] [address] / REHABILITATION SERVICES DISCHARGE SUMMARY MR#: [id number] Acct: [id number] Name: ELIS HA Rep #: [id number] : 1955 68 From: Samantha Bruno Referring Dr.: Dr. Kyle Cooper MD Status: REG RCR Insurance: MEDICARE PART A B [facility] Discharge Summary Discharged: Discharge: Patient received treatment of speech-voice for a total of 3 sessions targeting glottal squeeze with functional whisper. Patient had been aphonic since 01/19. Skilled treatment included patient education for vocal hygiene, vocal relaxation techniques, and Myofascial Release to laryngeal musculature. Patient completed prescribed ther ex and MFR techniques multiple times each day, with break through voicing occurring at times following MFR. Patient reports she woke up 04/26/24 with her normal voice, and has not experienced any vocal fatigue, pitch breaks, or return to aphonia or glottal squeeze x5 days. >30 spontaneous sentences in conversation. Vocal volume >60 db with WNL quality and pitch. No dyspnea or stridor during conversation. Discharge instructions included monitoring for changes in voice, vocal hygiene, and changes in voice which may require referral to . Patient has achieved all goals, reports voice is back to normal, and denies further needs at this time. 04/30/24 1202 CC: Dr. Adam Husain MD; Dr. Kyle Cooper MD TLM Signed Normal [facility] ANCAon 04-28-2024 Atypical pANCA 1:40 Abnormal Neg:<1:20 [facility] Comment on above: Result Comment: The atypical pANCA pattern has been observed in a significant percentage of patients with ulcerative colitis, primary sclerosing cholangitis and autoimmune hepatitis. Performed By: #### L 504.2610, L3100.3425, L3100.5440, L3100.7000, L2100.0000, L501.3620, L101.9900, L501.6710, L505.7010, L3410.2400, L4600.0100, L3400.8000, L3300.1200 ####[facility] [address] [place], [place], [address] Cytoplasmic Ab <1:20 Normal Neg:<1:20 [facility] Comment on above: Performed By: #### L 504.2610, L3100.3425, L3100.5440, L3100.7000, L2100.0000, L501.3620, L101.9900, L501.6710, L505.7010, L3410.2400, L4600.0100, L3400.8000, L3300.1200 ####[facility] [address] [place], [place], [address] Perinuclear Ab. <1:20 Normal Neg:<1:20 [facility] Comment on above: Result Comment: The presence of positive fluorescence exhibiting P-ANCA or C-ANCA patterns alone is not specific for the diagnosis of Jamarcus's Granulomatosis (WG) or microscopic polyangiitis. Decisions about treatment should not be based solely on ANCA IFA results. The International ANCA Group Consensus recommends follow up testing of positive sera with both AK- 3 and MPO-ANCA enzyme immunoassays. As many as 5% serum samples are positive only by EIA. Ref. AM J Clin Pathol 1999;111:507-513. Performed By: #### L 504.2610, L3100.3425, L3100.5440, L3100.7000, L2100.0000, L501.3620, L101.9900, L501.6710, L505.7010, L3410.2400, L4600.0100, L3400.8000, L3300.1200 ####[facility] [address] [place], [place], [address] Aldolaseon 04-28-2024 ALDOLASE 5.0 U/L Normal 3.3-10.3 [facility] Comment on above: Result Comment: Perf ormed at: [facility] [address] [id number] Volleyball Assembler: Kwame Atkinson PhD, Phone: [phone] Performed at: [facility] [address] [id number] Volleyball Assembler: Lucas Mota MD, Phone: [phone] Performed By: #### L 504.2610, L3100.3425, L3100.5440, L3100.7000, L2100.0000, L501.3620, L101.9900, L501.6710, L505.7010, L3410.2400, L4600.0100, L3400.8000, L3300.1200 ####[facility] [address] [place], [place], [id number] CCP IgG Antibodieson 025 CCP IgG Ab. 3 units Normal 0-19 [facility] Comment on above: Result Comment: Nega tive <20 Weak positive 20 - 39 Moderate positive 40 - 59 Strong positive >59 Performed By: #### L 504.2610, L3100.3425, L3100.5440, L3100.7000, L2100.0000, L501.3620, L101.9900, L501.6710, L505.7010, L3410.2400, L4600.0100, L3400.8000, L3300.1200 ####[facility] [address] [place], [address] Celiac Disease Profileon ENDOMYSIAL IGA Negative Normal Negative [facility] Comment on above: Performed By: #### L 504.2610, L3100.3425, L3100.5440, L3100.7000, L2100.0000, L501.3620, L101.9900, L501.6710, L505.7010, L3410.2400, L4600.0100, L3400.8000, L3300.1200 ####[facility] [address] [place], [place], [id number] tTG IGA <2 Normal 0-3 [facility] Comment on above: Result Comment: Nega tive 0 - 3 Weak Positive 4 - 10 Positive >10 Tissue Transglutaminase (tTG) has been identified as the endomysial antigen. Studies have demonstr- ated that endomysial IgA antibodies have over 99% specificity for gluten sensitive enteropathy. Performed By: #### L 504.2610, L3100.3425, L3100.5440, L3100.7000, L2100.0000, L501.3620, L101.9900, L501.6710, L505.7010, L3410.2400, L4600.0100, L3400.8000, L3300.1200 ####[facility] [address] [place], [place], [phone](679) SUNNY + Protein Elect, Serumon 04-28-2024 Albumin [Mass/Vol] 3.8 g/dL Normal 2.9-4.4 [facility] Comment on above: Order Comment: N Performed By: #### L 504.2610, L3100.3425, L3100.5440, L3100.7000, L2100.0000, L501.3620, L101.9900, L501.6710, L505.7010, L3410.2400, L4600.0100, L3400.8000, L3300.1200 ####[facility] [address] [place], [place], [phone](739) Albumin/Globulin [Mass ratio] 1.2 {ratio} Normal 0.7-1.7 [facility] Comment on above: Order Comment: N Performed By: #### L 504.2610, L3100.3425, L3100.5440, L3100.7000, L2100.0000, L501.3620, L101.9900, L501.6710, L505.7010, L3410.2400, L4600.0100, L3400.8000, L3300.1200 ####[facility] [address] [place], [place], [phone] XHHIM-6-BJNF 0.2 g/dL Normal 0.0-0.4 [facility] Comment on above: Order Comment: N Performed By: #### L 504.2610, L3100.3425, L3100.5440, L3100.7000, L2100.0000, L501.3620, L101.9900, L501.6710, L505.7010, L3410.2400, L4600.0100, L3400.8000, L3300.1200 ####[facility] [address] [place], [place], [phone](467) CGQCM-9-VHLV 0.8 g/dL Normal 0.4-1.0 [facility] Comment on above: Order Comment: N Performed By: #### L 504.2610, L3100.3425, L3100.5440, L3100.7000, L2100.0000, L501.3620, L101.9900, L501.6710, L505.7010, L3410.2400, L4600.0100, L3400.8000, L3300.1200 ####[facility] [address] [place], [address] BETA GLOBULIN 1.1 g/dL Normal 0.7-1.3 [facility] Comment on above: Order Comment: N Performed By: #### L 504.2610, L3100.3425, L3100.5440, L3100.7000, L2100.0000, L501.3620, L101.9900, L501.6710, L505.7010, L3410.2400, L4600.0100, L3400.8000, L3300.1200 ####[facility] [address] [place], [place], [phone](218) GAMMA GLOBULIN 1.1 g/dL Normal 0.4-1.8 [facility] Comment on above: Order Comment: N Performed By: #### L 504.2610, L3100.3425, L3100.5440, L3100.7000, L2100.0000, L501.3620, L101.9900, L501.6710, L505.7010, L3410.2400, L4600.0100, L3400.8000, L3300.1200 ####[facility] [address] [place], [address] Globulin (S) [Mass/Vol] 3.2 g/dL Normal 2.2-3.9 [facility] Comment on above: Order Comment: N Performed By: #### L 504.2610, L3100.3425, L3100.5440, L3100.7000, L2100.0000, L501.3620, L101.9900, L501.6710, L505.7010, L3410.2400, L4600.0100, L3400.8000, L3300.1200 ####[facility] [address] [place], [place], [address] SUNNY RESULT,S Comment Normal . [facility] Comment on above: Order Comment: N Result Comment: No m onoclonality detected. Performed By: #### L 504.2610, L3100.3425, L3100.5440, L3100.7000, L2100.0000, L501.3620, L101.9900, L501.6710, L505.7010, L3410.2400, L4600.0100, L3400.8000, L3300.1200 ####[facility] [address] [place], [address] IMMUNOGLOB A QN 250 mg/dL Normal 87-352 [facility] Comment on above: Order Comment: N Performed By: #### L 504.2610, L3100.3425, L3100.5440, L3100.7000, L2100.0000, L501.3620, L101.9900, L501.6710, L505.7010, L3410.2400, L4600.0100, L3400.8000, L3300.1200 ####[facility] [address] [place], [place], [address] IMMUNOGLOB G QN 1163 mg/dL Normal 586-1602 [facility] Comment on above: Order Comment: N Performed By: #### L 504.2610, L3100.3425, L3100.5440, L3100.7000, L2100.0000, L501.3620, L101.9900, L501.6710, L505.7010, L3410.2400, L4600.0100, L3400.8000, L3300.1200 ####[facility] [address] [place], [place], [address] IMMUNOGLOB M QN 72 mg/dL Normal 26-217 [facility] Comment on above: Order Comment: N Performed By: #### L 504.2610, L3100.3425, L3100.5440, L3100.7000, L2100.0000, L501.3620, L101.9900, L501.6710, L505.7010, L3410.2400, L4600.0100, L3400.8000, L3300.1200 ####[facility] [address] [place], [place], [id number] M-Lázaro Not Observed Normal Not Observed [facility] Comment on above: Order Comment: N Performed By: #### L 504.2610, L3100.3425, L3100.5440, L3100.7000, L2100.0000, L501.3620, L101.9900, L501.6710, L505.7010, L3410.2400, L4600.0100, L3400.8000, L3300.1200 ####[facility] [address] [place], [place], [id number] NOTE: Comment Normal . [facility] Comment on above: Order Comment: N Result Comment: Prot ein electrophoresis scan will follow via computer, mail, or carpenter assistant installer delivery. Performed By: #### L 504.2610, L3100.3425, L3100.5440, L3100.7000, L2100.0000, L501.3620, L101.9900, L501.6710, L505.7010, L3410.2400, L4600.0100, L3400.8000, L3300.1200 ####[facility] [address] [place], [place], [id number] Protein [Mass/Vol] 7.0 g/dL Normal 6.0-8.5 [facility] Comment on above: Order Comment: N Performed By: #### L 504.2610, L3100.3425, L3100.5440, L3100.7000, L2100.0000, L501.3620, L101.9900, L501.6710, L505.7010, L3410.2400, L4600.0100, L3400.8000, L3300.1200 ####[facility] [address] [place], [address] L2100.0000on 04-28-2024 ACCA 14 units Normal 0-90 [facility] Comment on above: Result Comment: Nega tive: <80 Equivocal: 80-90 Positive: >90 Performed By: #### L 504.2610, L3100.3425, L3100.5440, L3100.7000, L2100.0000, L501.3620, L101.9900, L501.6710, L505.7010, L3410.2400, L4600.0100, L3400.8000, L3300.1200 ####[facility] [address] [place], [address] ALCA 6 units Normal 0-60 [facility] Comment on above: Result Comment: Nega tive:<55 Equivocal: 55-60 Positive: >60 Performed By: #### L 504.2610, L3100.3425, L3100.5440, L3100.7000, L2100.0000, L501.3620, L101.9900, L501.6710, L505.7010, L3410.2400, L4600.0100, L3400.8000, L3300.1200 ####[facility] [address] [place], [address] AMCA 12 units Normal 0-100 [facility] Comment on above: Result Comment: Nega tive: <90 Equivocal: 90-100 Positive: >100 This test was developed and its performance characteristics determined by [employer]. It has not been cleared or approved by the Food and Drug Administration. The FDA has determined that such clearance or approval is not necessary. Performed By: #### L 504.2610, L3100.3425, L3100.5440, L3100.7000, L2100.0000, L501.3620, L101.9900, L501.6710, L505.7010, L3410.2400, L4600.0100, L3400.8000, L3300.1200 ####[facility] [address] [place], [address] Atypical pANCA Positive Abnormal Negative [facility] Comment on above: Performed By: #### L 504.2610, L3100.3425, L3100.5440, L3100.7000, L2100.0000, L501.3620, L101.9900, L501.6710, L505.7010, L3410.2400, L4600.0100, L3400.8000, L3300.1200 ####[facility] [address] [place], [address] COMMENT Comment Abnormal . [facility] Comment on above: Result Comment: Sugg estive of Ulcerative Colitis Performed By: #### L 504.2610, L3100.3425, L3100.5440, L3100.7000, L2100.0000, L501.3620, L101.9900, L501.6710, L505.7010, L3410.2400, L4600.0100, L3400.8000, L3300.1200 ####[facility] [address] [place], [place], [phone] Brittany 25 units Normal 0-50 [facility] Comment on above: Result Comment: Nega tive: <45 Equivocal: 45-50 Positive: >50 Performed By: #### L 504.2610, L3100.3425, L3100.5440, L3100.7000, L2100.0000, L501.3620, L101.9900, L501.6710, L505.7010, L3410.2400, L4600.0100, L3400.8000, L3300.1200 ####[facility] [address] [place], [address] Quantiferon TB-Gold+on 04-28 QFT MITOGEN NHI > 10.00 Normal . [facility] Comment on above: Performed By: #### L 504.2610, L3100.3425, L3100.5440, L3100.7000, L2100.0000, L501.3620, L101.9900, L501.6710, L505.7010, L3410.2400, L4600.0100, L3400.8000, L3300.1200 ####[facility] [address] [place], [place], [phone] QFT NIL VALUE 0.14 IU/mL Normal . [facility] Comment on above: Performed By: #### L 504.2610, L3100.3425, L3100.5440, L3100.7000, L2100.0000, L501.3620, L101.9900, L501.6710, L505.7010, L3410.2400, L4600.0100, L3400.8000, L3300.1200 ####[facility] [address] [place], [address] QFT TB GOLD+ Comment Normal . [facility] Comment on above: Result Comment: Bernardo tiFERON-TB Gold Plus is a qualitative indirect test for M tuberculosis infection (including disease) and is intended for use in conjunction with risk assessment, radiography, and other medical and diagnostic evaluations. The QuantiFERON-TB Gold Plus result is determined by subtracting the Nil value from either TB antigen (Ag) value. The Mitogen tube serves as a control for the test. Performed By: #### L 504.2610, L3100.3425, L3100.5440, L3100.7000, L2100.0000, L501.3620, L101.9900, L501.6710, L505.7010, L3410.2400, L4600.0100, L3400.8000, L3300.1200 ####[facility] [address] [place], [address] QFT TB POS CRIT Negative Normal Negative [facility] Comment on above: Result Comment: No r esponse to M tuberculosis antigens detected. Infection with M tuberculosis is unlikely, but high risk individuals should be considered for additional testing (ATS/IDSA/CDC Clinical Practice Guidelines, 2017). The reference range is an Antigen minus Nil result of <0.35 IU/mL. The specimen received for QuantiFERON testing was incubated by the ordering institution. Specific procedures outlined in our Directory of Services and in the package insert for the QuantiFERON Gold (In Tube) test must be followed to enable for proper stimulation of cells for the production of interferon gamma. Chemiluminescence immunoassay methodology Performed By: #### L 504.2610, L3100.3425, L3100.5440, L3100.7000, L2100.0000, L501.3620, L101.9900, L501.6710, L505.7010, L3410.2400, L4600.0100, L3400.8000, L3300.1200 ####[facility] [address] [place], [place], [id number] QFT TB1+ AG NHI 0.14 IU/mL Normal . [facility] Comment on above: Performed By: #### L 504.2610, L3100.3425, L3100.5440, L3100.7000, L2100.0000, L501.3620, L101.9900, L501.6710, L505.7010, L3410.2400, L4600.0100, L3400.8000, L3300.1200 ####[facility] [address] [place], [place], [phone]) QFT TB2+ AG NHI 0.13 IU/mL Normal . [facility] Comment on above: Performed By: #### L 504.2610, L3100.3425, L3100.5440, L3100.7000, L2100.0000, L501.3620, L101.9900, L501.6710, L505.7010, L3410.2400, L4600.0100, L3400.8000, L3300.1200 ####[facility] [address] [place], [place], [id number] GUILHERME Comprehensive Panelon ANTI-DNA (DS)AB <1 Normal 0-9 [facility] Comment on above: Result Comment: Nega tive <5 Equivocal 5 - 9 Positive >9 Performed By: #### L 504.2610, L3100.3425, L3100.5440, L3100.7000, L2100.0000, L501.3620, L101.9900, L501.6710, L505.7010, L3410.2400, L4600.0100, L3400.8000, L3300.1200 ####[facility] [address] [place], [place], [phone] ANTISCLERODERM <0.2 Normal 0.0-0.9 [facility] Comment on above: Performed By: #### L 504.2610, L3100.3425, L3100.5440, L3100.7000, L2100.0000, L501.3620, L101.9900, L501.6710, L505.7010, L3410.2400, L4600.0100, L3400.8000, L3300.1200 ####[facility] [address] [place], [place], [address] CPK Total, Creatine Kinaseon 04-23-2024 CPK TOTAL 78 U/L Normal 24-195 [facility] Comment on above: Performed By: #### L 504.2610, L3100.3425, L3100.5440, L3100.7000, L2100.0000, L501.3620, L101.9900, L501.6710, L505.7010, L3410.2400, L4600.0100, L3400.8000, L3300.1200 ####[facility] [address] [place], [place], [phone] CRPon 04-23-2024 C-REACTIVE PROT 7.37 mg/L High 0.0-3.0 [facility] Comment on above: Performed By: #### L 504.2610, L3100.3425, L3100.5440, L3100.7000, L2100.0000, L501.3620, L101.9900, L501.6710, L505.7010, L3410.2400, L4600.0100, L3400.8000, L3300.1200 ####[facility] [address] [place], [place], [phone] LDHon 04-23-2024 LDH 211 U/L Normal 84-246 [facility] Comment on above: Order Comment: 1 Performed By: #### L 504.2610, L3100.3425, L3100.5440, L3100.7000, L2100.0000, L501.3620, L101.9900, L501.6710, L505.7010, L3410.2400, L4600.0100, L3400.8000, L3300.1200 ####[facility] [address] [place], [place], [id number] Rheumatoid Factoron 04-23-19 25 RHEUMATOID FAC < 10.0 Normal <15 [facility] Comment on above: Performed By: #### L 504.2610, L3100.3425, L3100.5440, L3100.7000, L2100.0000, L501.3620, L101.9900, L501.6710, L505.7010, L3410.2400, L4600.0100, L3400.8000, L3300.1200 ####[facility] [address] [place], [place], [id number] ASCA IgG abOrdered By: Rose stover Friend on 04-22-2024 Saccharomyces cerevisiae (Brittany)IgG 25 units 0-50 [facility] Comment on above: Negative: <45 Equivo nelson: 45-50 Positive: >50 Addendum DocumentOrdered By: Manny Friend on 04-22-2024 Serum Immunofixation Comments Comment . [facility] Comment on above: Protein electrophore sis scan will follow via computer,mail, or carpenter assistant installer delivery. Albumin Elph [Mass/Vol]Order ed By: Manny Friend on 04-22-2024 Albumin [Mass/Vol] 3.8 g/dL 2.9-4.4 [facility] Aldolase [Catalytic activity /Vol]Ordered By: Manny Das on 04-22-2024 Aldolase 5.0 U/L 3.3-10.3 [facility] Comment on above: Performed at: [address] [id number] Director: Kwame Atkinson PhD, Phone: [phone] at: [facility] Lab[address] [id number] Director: Lucas Mota MD, Phone: [phone] Alpha 1 globulin Elph [Mass/ Vol]Ordered By: Manny Das on 04-22-2024 Ucipb-7-Idwpszglm (SUNNY) 0.2 g/dL 0.0-0.4 [facility] Msmbn-0-Knufspdlc (SUNNY) 0.8 g/dL 0.4-1.0 [facility] Atypical perinuclear antineu trophil cytoplasmic antibodies measurementOrdered By: Manny Das on 04-22-2024 Atypical p-ANCA 1:40 titer High Neg:<1:20 [facility] Comment on above: *Additional results available. Contact laboratory/see report*The atypical pANCA pattern has been observed in asignificant percentage of patients with ulcerative colitis,primary sclerosing cholangitis and autoimmune hepatitis. Beta globulin Elph [Mass/Vol ]Ordered By: Manny Das on 04-22-2024 Beta-Globulins (SUNNY) 1.1 g/dL 0.7-1.3 [facility] CRP [Mass/Vol]Ordered By: Ra petros Das on 04-22-2024 C-Reactive Protein Extended Range 7.37 mg/L High 0.0-3.0 [facility] Centromere B antibody assayO rdered By: Manny Das on 04-22-2024 Centromere B Antibody <0.2 AI 0.0-0.9 [facility] Comment on above: Previous reported re sult: TNP AIEdited by: MANDY on 04/23/24:1208 AMENDED REPORT 04/23/24 120 ANTI-CENT B previously reported as: Test not performed Chitobioside IgA IA QnOrdere d By: Manny Das on 04-22-2024 Chitobioside Carbohydrat (ACCA) IgA 14 units 0-90 [facility] Comment on above: Negative: <80 Equivo nelson: 80-90 Positive: >90 Chromatin antibody assayOrde red By: Manny Das on 04-22-2024 Antichromatin Antibodies <0.2 AI 0.0-0.9 [facility] Comment on above: Previous reported re sult: TNP AIEdited by: MANDY on 04/23/24:1208 AMENDED REPORT 04/23/24 1208 ANTICHROMATIN previously reported as: Test not performed Cyclic citrullinated peptide IgG QnOrdered By: Manny Das on 04-22-2024 Cyclic Citrullinated Peptide IgG Ab 3 units 0-19 [facility] Comment on above: Negative <20 Weak po sitive 20 - 39 Moderate positive 40 - 59 Strong positive >59 DNA double strand Ab Qn (S)O rdered By: Manny Das on 04-22-2024 Anti-Double Strand DNA Antibody <1 IU/mL 0-9 [facility] Comment on above: Negative <5 Equivoca l 5 - 9 Positive >9 Endomysial IgA antibody assa yOrdered By: Manny Das on 04-22-2024 Endomysial IgA Antibody Negative Negative [facility] Erythrocyte Sed Rateon 04-22 SED RATE 13 mm/hr Normal 0-30 [facility] Comment on above: Performed By: #### L 504.2610, L3100.3425, L3100.5440, L3100.7000, L2100.0000, L501.3620, L101.9900, L501.6710, L505.7010, L3410.2400, L4600.0100, L3400.8000, L3300.1200 ####[facility] [address] [place], [address] Erythrocyte sedimentation ra teOrdered By: Manny Das on 04-22-2024 ESR (Bld) [Velocity] 13 mm/h 0-30 [facility] Gamma globulin Elph [Mass/Vo l]Ordered By: Manny Das on 04-22-2024 Gamma Globulins (SUNNY) 1.1 g/dL 0.4-1.8 [facility] Gastroenterology Visit Repor ton 04-22-2024 Gastroenterology Visit Report [facility] [address] [place] [address] OFFICE VISIT Date of Service: 04/22/24 MR#: [id number] Acct: [id number] Name: ELIS HA Rep #: [id number] : 1955 Provider: Manny Das DO Age/Sex: 68/F Location: [facility] Status: Signed Intake Vital Signs 02/13/24 14:03 04/21/24 10:58 Height 5 ft 4 in 5 ft 4 in Weight: 217 lb 6 oz BMI 37.3 BP 140/63 H Blood Pressure Location Lt brachial Position Sitting Respiration 16 Pulse 95 Pulse Source Monitor Temp 99.3 F H Pulse Oximetry (%) 97 Oxygen Delivery Method room air Intake Visit Reasons: New PT referral from [facility] Allergies codeine Allergy (Verified 04/21/24 10:59) Vomiting Opioids - Morphine Analogues Allergy (Verified 04/21/24 10:59) Vomiting hydroxyzine (From Vistaril) Adverse Reaction (Verified 04/21/24 10:59) Vomiting meperidine (From Demerol) Adverse Reaction (Verified 04/21/24 10:59) Vomiting Medications ???Medication ???Instructions ???Recorded ???Confirmed ???Type d-mannose 500 mg capsule 500 mg PO BID urinary 03/01/21 History albuterol sulfate 90 mcg/actuation 2 puff inhalation PRN PRN ASTHMA 06/07/21 04/22/24 History aerosol inhaler (ProAir HFA) cholecalciferol (vitamin D3) 25 25 mcg PO DAILY 06/07/21 04/22/24 History mcg (1,000 unit) tablet (Vitamin D3) loratadine 10 mg tablet (Claritin) 10 mg PO DAILY #90 tabs 06/19/22 04/22/24 Rx valsartan 320 mg tablet 320 mg PO QHS #90 TABLETS 05/23/23 04/22/24 Rx apixaban 5 mg tablet (Eliquis) 5 mg PO BID #180 tabs 08/10/23 Rx hydrochlorothiazide 25 mg tablet 25 mg PO DAILY #90 tabs 08/14/23 0 04/22/24 Rx hydrocortisone 2.5 % topical cream 1 applic topical BID PRN rash #3 0 08/14/23 04/22/24 Rx grams montelukast 10 mg tablet 10 mg PO DAILY #90 tabs 11/06/23 0 04/22/24 Rx (Singulair) magnesium oxide 1,000 mg PO DAILY 11/07/23 5 History amlodipine 10 mg tablet 10 mg PO DAILY #90 tabs 02/13/24 0 04/22/24 Rx calcium 1000 PO 04/21/24 04/22/24 History lorazepam 1 mg tablet (Ativan) 1 mg PO ONCE PRN anxiety #1 TAB 04/22/24 Rx pantoprazole 40 mg tablet,delayed 40 mg PO BID 04/22/24 04/22/24 Hi story release Have you fallen in the past year?: No PFSH Medical History Cough Borderline type 2 diabetes mellitus PONV (postoperative nausea and vomiting) Right foot pain Neuropathy Radiculopathy Hx of bladder cancer Bladder cancer IBS (irritable bowel syndrome) Malaise and fatigue Screening for thyroid disorder Restless legs Asthma Stroke/cerebrovascular accident History of steroid therapy Flu vaccine need History of CVA (cerebrovascular accident) Carotid bruit Restless legs syndrome Obesity (BMI 30-39.9) History of colon cancer Petechiae Anemia Leukocytosis Enlarged lymph node in neck History of colon cancer Nodular goiter Preoperative evaluation to rule out surgical contraindication Post-menopausal Wears glasses Cancer Ambulates with cane DVT (deep venous thrombosis) Back pain Migraine headache Injury of head and neck History of IBS Gastric reflux Non-smoker CPAP (continuous positive airway pressure) dependence Chronic cough Leg cramps History of edema History of irregular heartbeat History of stress test History of echocardiogram Recurrent deep vein thrombosis (DVT) Cramp in lower leg Elevated d-dimer GERD (gastroesophageal reflux disease) Left knee pain Escamilla's cyst of knee Left leg DVT HTN (hypertension) Thyroid nodule Ventral incisional hernia without obstruction or gangrene removal of ascending colon High blood pressure Frequent headaches Chronic bronchitis UTI (urinary tract infection) Neck pain Difficulty balancing Asthma Stroke Stomach ulcer Hay fever Shortness of breath Arthritis Surgical History History of colonoscopy History of esophagogastroduodenoscopy (EGD) History of hip replacement, total Hx of total knee arthroplasty Status post total knee replacement, left S/P colectomy History of cystocele History of ankle surgery History of cholecystectomy History of hysterectomy History of tonsillectomy Family History Mother Arthritis Parkinson disease Hypertension Father Heart disease Hypertension Social History Smoking Status: Never smoker alcohol intake: never substance use type: does not use what type of physical activity do you participate in: none HPI HPI Details: ELIS HA, is a 68 F who presents to the office today for initial consult. Colonoscopy with (more content not included)... Normal [facility] IgA [Mass/Vol]Ordered By: Ra petros Das on 04-22-2024 Immunoglobulin A 250 mg/dL 87-352 [facility] IgG [Mass/Vol]Ordered By: Ra petros Das on 04-22-2024 Immunoglobulin G 1163 mg/dL 586-1602 [facility] Immunoglobulin M measurement Ordered By: Manny Das on 04-22-2024 Immunoglobulin M 72 mg/dL 26-217 [facility] Interpretation IEP [Interp]O rdered By: Manny Das on 04-22-2024 Immunofixation Screen Comment . [facility] Comment on above: No monoclonality det ected. Alla-1 antibody assayOrdered B y: Manny Das on 04-22-2024 ALLA-1 Antibody <0.2 AI 0.0-0.9 [facility] Comment on above: Previous reported re sult: TNP AIEdited by: MANDY on 04/23/24:1208 AMENDED REPORT 04/23/24 1208 ANTI-ALLA previously reported as: Test not performed Laboratory comment Sam (Repo rt)Ordered By: Manny Das on 04-22-2024 IBD Serology Comment Comment High . [facility] Comment on above: Suggestive of Ulcera tive Colitis Lactate dehydrogenase (LDH) measurementOrdered By: Manny Das on 04-22-2024 LDH [Catalytic activity/Vol] 211 U/L 84-246 [facility] Laminaribioside IgG IA QnOrd ered By: Manny Das on 04-22-2024 Laminaribioside Carbohyd (ALCA) IgG 6 units 0-60 [facility] Comment on above: Negative:<55 Equivoc al: 55-60 Positive: >60 M. tuberculosis tuberculin s tyra IFN-g Ql (Bld)Ordered By: Mannygustavo Das on 04-22-2024 TB Test (QFT) Antigen 1 0.14 IU/mL . [facility] Mannobioside IgG IA QnOrdere d By: Manny Das on 04-22-2024 Mannobioside Carbohydrat (AMCA) IgG 12 units 0-100 [facility] Comment on above: Negative: <90 Equivo nelson: 90-100 Positive: >100 This test was developed and its performance characteristics determined by [employer]. It has not been cleared or approved by the Food and Drug Administration. The FDA has determined that such clearance or approval is not necessary. Neutrophil cytoplasmic Ab.cl assic Qn (S)Ordered By: Mannygustavo Das on 04-22-2024 Cytoplasmic ANCA (c-ANCA) Antibody <1:20 titer Neg:<1:20 [facility] Neutrophil cytoplasmic Ab.pe rinuclear IF (S) [Titer]Ordered By: Mannygustavo Das on 04-22-2024 Perinuclear ANCA (p-ANCA) Antibody <1:20 titer Neg:<1:20 [facility] Comment on above: The presence of posi tive fluorescence exhibiting P-ANCA orC- ANCA patterns alone is not specific for the diagnosis ofWegener's Granulomatosis (WG) or microscopic polyangiitis.Decisions about treatment should not be based solely onANCA IFA results. The International ANCA Group Consensusrecommends follow up testing of positive sera with both AK-3 and MPO-ANCA enzyme immunoassays. As many as 5% serumsamples are positive only by EIA. Ref. AM J Clin Nqatte7114;111:507-513. Protein Fractions Immunofixa tion Sam [Interp]Ordered By: Manny Das on 04-22-2024 M-Lázaro (SUNNY) Not Observed g/dL Not Observed [facility] Quantiferon-TB Gold Plus heather tOrdered By: Manny Das on 04-22-2024 TB Test (QFT) Comment . [facility] Comment on above: QuantiFERON-TB Gold Plus is a qualitative indirect test forM tuberculosis infection (including disease) and isintended for use in conjunction with risk assessment,radiography, and other medical and diagnostic evaluations.The QuantiFERON-TB Gold Plus result is determined bysubtracting the Nil value from either TB antigen (Ag)value. The Mitogen tube serves as a control for the test. TB Test (QFT) Antigen 2 0.13 IU/mL . [facility] TB Test (QFT) Mitogen > 10.00 IU/mL . [facility] TB Test (QFT) Nil 0.14 IU/mL . [facility] TB Test (QFT) Positive Criteria Negative Negative [facility] Comment on above: No response to M tub erculosis antigens detected.Infection with M tuberculosis is unlikely, but high riskindividuals should be considered for additional testing(ATS/IDSA/CDC Clinical Practice Guidelines, 2017). Thereference range is an Antigen minus Nil result of <0.35IU/mL.The specimen received for QuantiFERON testing was incubatedby the ordering institution. Specific procedures outlinedin our Directory of Services and in the package insert forthe QuantiFERON Gold (In Tube) test must be followed toenable for proper stimulation of cells for the productionof interferon gamma. Chemiluminescence immunoassaymethodology AUTOCLAVE OPERATOR abOrdered By: Manny Cantu iend on 04-22-2024 AUTOCLAVE OPERATOR Antibody <0.2 AI 0.0-0.9 [facility] Comment on above: Previous reported re sult: TNP AIEdited by: MANDY on 04/23/24:1208 AMENDED REPORT 04/23/24 1208 AUTOCLAVE OPERATOR Ab previously reported as: Test not performed Rheumatoid factor Ql (S)Orde red By: Manny Das on 04-22-2024 Rheumatoid Factor < 10.0 IU/mL <15 [facility] SCL-70 extractable nuclear A b Qn (S)Ordered By: Manny Das on 04-22-2024 Scl-70 (Scleroderma) Antibody <0.2 AI 0.0-0.9 [facility] SS-A IgG antibody assayOrder ed By: Manny Das on 04-22-2024 SS-A/Ro IgG Antibody < 0.2 AI 0.0-0.9 [facility] Comment on above: Previous reported re sult: TNP AIEdited by: MANDY on 04/23/24:1208 AMENDED REPORT 04/23/241207 Anti-SS-A previously reported as: Test not performed SS-B IgG antibody assayOrder ed By: Manny Das on 04-22-2024 SS-B/La IgG Antibody < 0.2 AI 0.0-0.9 [facility] Comment on above: Previous reported re sult: TNP AIEdited by: MANDY on 04/23/24:1208 AMENDED REPORT 04/23/241207 Anti-SS-B previously reported as: Test not performed Serum albumin/globulin ratio Ordered By: Manny Das on 04-22-2024 Albumin/Globulin (SUNNY) 1.2 0.7-1.7 [facility] Serum globulin measurement ( mass/volume)Ordered By: Manny Das on 04-22-2024 Globulin (S) [Mass/Vol] 3.2 g/dL 2.2-3.9 [facility] Serum or plasma creatine kin ase activityOrdered By: Manny Das on 04-22-2024 CK [Catalytic activity/Vol] 78 U/L 24-195 [facility] Serum or plasma protein estrella urement (mass/volume)Ordered By: Manny Das on 04-22-2024 Protein [Mass/Vol] 7.0 g/dL 6.0-8.5 [facility] Bautista antibody assayOrdered By: Manny Das on 04-22-2024 SM Antibody <0.2 AI 0.0-0.9 [facility] Comment on above: Previous reported re sult: TNP AIEdited by: MANDY on 04/23/24:1208 AMENDED REPORT 04/23/241207 BAUTISTA Ab previously reported as: Test not performed tTG IgA Qn (S)Ordered By: Ra petros Das on 04-22-2024 Tissue Transglutaminase IgA Ab <2 U/mL 0-3 [facility] Comment on above: Negative 0 - 3 Weak Positive 4 - 10 Positive >10 Tissue Transglutaminase (tTG) has been identified as the endomysial antigen. Studies have demonstr- ated that endomysial IgA antibodies have over 99% specificity for gluten sensitive enteropathy. Oncology Visit Reporton 03-[address] [facility] [place] [address] OFFICE VISIT Date of Service: 04/21/24 1056 MR#: [id number] Acct: [id number] Name: ELIS HA Rep #: [id number] : 1955 From: Lorenzo Larose MD Age/Sex: 68/F [place] [facility] [place] Status: Signed HPI Subjective Date of Service 04/21/24 Chief Complaint Colon cancer follow-up History of Present Illness 68-year-old female with a past medical history notable for colon cancer (to patient's knowledge was node-negative stage II) status post colon resection in 2019, hypertension, obstructive sleep apnea, degenerative arthritis, asthma, history of cerebrovascular disease and a thyroid nodule. She presented with 1 to 2 months history of increasing pain behind the left knee with no preceding injury or an activity and on September 03, 2020 approximately a month after onset Doppler ultrasound of the left lower extremity showed evidence of a distal left acute DVT (soleus vein) in addition to a left popliteal structure thought to be a Escamilla's cyst. She was treated with systemic anticoagulation for 6 months (August 2020???January 2021) which she tolerated without bleeding complications. Repeat D-dimer February 2021 was still elevated with no explanation. She was advised to resume systemic anticoagulation. A hypercoagulability panel was done off anticoagulants February 2021 was negative. August 05, 2021 thyroid ultrasound: COMPARISON: ??? 6.9.21 FINDINGS: RIGHT LOBE:??? The right lobe of the thyroid gland measures 3.7 x 1.4 cm. There is a homogeneous echotexture.??? Single mid nodule is visualized measuring 3 x 4 x 2 mm.??? This has irregular margins.??? The lesion is solid with irregular??? margins and grupo nodular doppler flow. LEFT LOBE:??? The left lobe of the thyroid gland measures 3.4 x 1.3 cm. There is a homogeneous echotexture. There are no demonstrated solid, cystic or complex lesions. ISTHMUS:??? The isthmus measures 2 mm. Left neck lymph node measures 12 x 8 x 4 mm. IMPRESSION: Stable right thyroid nodule.??? However, This nodule is solid or almost completely solid, hypoechoic, [id number], is lobulated or irregular and contains no echogenic foci.??? TI-RADS points: 6.??? TI-RADS category: TR4. This nodule is moderately suspicious but no FNA or follow-up is necessary given the small size of this nodule. Stable left neck lymph node. August 23, 2021 CT chest abdomen and pelvis: IMPRESSION: Diffuse fatty infiltration of the liver. Small bilateral renal cysts. October 19, 2022 CT chest abdomen and pelvis: IMPRESSION: No acute findings in the thorax. Stable 10 mm smoothly marginated nodule in the posterior lingula. With history of colon cancer a further follow-up chest CT is recommended in 6 and 12 months. Sigmoid diverticulosis with mild changes of acute sigmoid diverticulitis. No abscess or free air. Abnormal soft tissue lesions in the bladder. Recommend cystoscopic correlation to exclude neoplasia. [facility] Medical History Cough Borderline type 2 diabetes mellitus PONV (postoperative nausea and vomiting) Right foot pain Neuropathy Radiculopathy Hx of bladder cancer Bladder cancer IBS (irritable bowel syndrome) Malaise and fatigue Screening for thyroid disorder Restless legs Asthma Stroke/cerebrovascular accident History of steroid therapy Flu vaccine need History of CVA (cerebrovascular accident) Carotid bruit Restless legs syndrome Obesity (BMI 30-39.9) History of colon cancer Petechiae Anemia Leukocytosis Enlarged lymph node in neck History of colon cancer Nodular goiter Preoperative evaluation to rule out surgical contraindication Post-menopausal Wears glasses Cancer Ambulates with cane DVT (deep venous thrombosis) Back pain Migraine headache Injury of head and neck History of IBS Gastric reflux Non-smoker CPAP (continuous positive airway pressure) dependence Chronic cough Leg cramps History of edema History of irregular heartbeat History of stress test History of echocardiogram Recurrent deep vein thrombosis (DVT) Cramp in lower leg Elevated d-dimer GERD (gastroesophageal reflux disease) Left knee pain Escamilla's cyst of knee Left leg DVT HTN (hypertension) Thyroid nodule Ventral incisional hernia without obstruction or gangrene removal of ascending colon High blood pressure Frequent headaches Chronic bronchitis UTI (urinary tract infection) Neck pain Difficulty balancing Asthma Stroke Stomach ulcer Hay fever Shortness of breath Arthritis Surgical History History of colonoscopy History of esophagogastroduodenoscopy (EGD) History of hip replacement, total Hx of total knee arthroplasty Status post total knee r (more content not included)... Normal [facility] Carcinoembryonic Antigenon 0 - CEA 1.2 ng/mL Normal 0.0-4.7 [facility] Comment on above: Result Comment: Nons mokers <3.9 Smokers <5.6 [facility] Electrochemiluminescence Immunoassay (ECLIA) Values obtained with different assay methods or kits cannot be used interchangeably. Results cannot be interpreted as absolute evidence of the presence or absence of malignant disease. Performed at: [facility] [id number] Volleyball Assembler: Kwame Atkinson PhD, Phone: [phone] Performed By: #### L 4223.5287 ####[facility] [id number] [place], [address] High density lipoprotein (HD L) measurementOrdered By: Adam Husain on 04-14-2024 Cholesterol in HDL [Mass/Vol] 57 mg/dL >40 [facility] Comment on above: The drugs N-Acetylcy steine and Metamizole may falsely depress this assay. Reference Range HDL <40 mg/dL Low HDL Cholesterol HDL >or= 60 mg/dL High HDL Cholesterol Lipid Profileon 04-14-2024 Cholesterol [Mass/Vol] 205 mg/dL High 200 [facility] Comment on above: Result Comment: <200 mg/dL Desirable 200-240 mg/dL Borderline >240 mg/dL High Risk Performed By: #### L 350.9009 ####[facility] [id number] [place], [place], [id number] Cholesterol in HDL [Mass/Vol] 57 mg/dL Normal [facility] Comment on above: Result Comment: The drugs N-Acetylcysteine and Metamizole may falsely depress this assay. Reference Range HDL <40 mg/dL Low HDL Cholesterol HDL >or= 60 mg/dL High HDL Cholesterol Performed By: #### L 500.4100 ####[facility] [address] [place], [address] Cholesterol in LDL [Mass/Vol] 79 mg/dL Normal 0-130 [facility] Comment on above: Performed By: #### L 500.4100 ####[facility] [address] [place], [address] Cholesterol in VLDL [Mass/Vol] 69 mg/dL High 5-40 [facility] Comment on above: Performed By: #### L 500.4100 ####[facility] [address] [place], [address] Triglyceride [Mass/Vol] 344 mg/dL High [facility] Comment on above: Result Comment: The drugs N-Acetylcysteine and Metamizole may falsely depress this assay. Serum Triglycerides Reference Interval Normal <150 mg/dL Borderline high 150 - 199 mg/dL High 200 - 499 mg/dL Very High > or = 500 mg/dL Performed By: #### L 500.4100 ####[facility] [address] [place], [address] Low density lipoprotein (LDL ) cholesterol measurementOrdered By: Adam Husain on 04-14-2024 Cholesterol in LDL [Mass/Vol] 79 mg/dL 0-130 [facility] Serum or plasma cholesterol measurement (mass/volume)Ordered By: Adam Husain on 04-14-2024 Cholesterol [Mass/Vol] 205 mg/dL High <200 [facility] Comment on above: <200 mg/dL Desirable 200-240 mg/dL Borderline >240 mg/dL High Risk Triglycerides measurementOrd ered By: Adam Husain on 04-14-2024 Triglyceride [Mass/Vol] 344 mg/dL High <199 [facility] Comment on above: The drugs N-Acetylcy steine and Metamizole may falsely depress this assay.Serum Triglycerides Reference Interval Normal <150 mg/dL Borderline high 150 - 199 mg/dL High 200 - 499 mg/dL Very High > or = 500 mg/dL Very low density lipoprotein (VLDL) cholesterol measurementOrdered By: Adam Husain on 04-14-2024 VLDL Cholesterol 69 mg/dL High 5-40 [facility] SP/HP.SP.Chava 04-09-2024 SP/HP.SP.EV [facility] Speech Pathology [facility] [address] [place] [address] / REHABILITATION SERVICES INITIAL EVALUATION MR#: [id number] Acct: [id number] Name: ELIS HA Rep #: [id number] : 1955 68 From: Samantha Bruno Referring Dr.: Dr. Kyle Cooper MD Status: REG RCR Insurance: MEDICARE PART A B [facility] Visit History Visit Info Date of Eval: 04/09/24 Visit: 1 Emergency Communications Operator: ELIANA History Attending Doctor: Referring Doctor: Reason for Referral: [facility] Medical Diagnosis: Functional Dysphonia Date of Onset of Diagnosis: 04-02-24 Previous speech therapy: No Other Relevant Medical History/Diagnoses/Surgery: Obstructive sleep apnea (CPAP), Asthma, COVID-19, GERD Medications related to this diagnosis: n/a Smoking Status: Never smoker Diagnosis Diagnosis: Dysphonia Pain Is pain an issue with your current prescribed condition?: No Personal Preferred language: Nauruan Patient Allergies Allergies Allergies: Allergies codeine Allergy (Verified 03/28/24 08:30) Vomiting Opioids - Morphine Analogues Allergy (Verified 03/28/24 08:30) Vomiting hydroxyzine (From Vistaril) Adverse Reaction (Verified 03/28/24 08:30) Vomiting meperidine (From Demerol) Adverse Reaction (Verified 03/28/24 08:30) Vomiting Voice Handicap Index (VHI) VHI VHI Administered: Yes VHI: Patient completed the Voice Handicap Index, which is a 30 item, self administered questionnaire that asks an individual to describe their voice and the effects of their voice on their life. Three subscales cover the areas of functional, emotional, and physical aspects of the voice disorders. Points from the questions can be combined to assign a total score, or they can be combined by subscale. Results for the VHI are as follows: Date: 04/09/24 VHI Test Functional: 36 Physical: 17 Emotional: 24 Total Severity Rating: Severe (61-120) Comments Comments:: -: 68 y/o female patient has been experiencing dysphonia since 01-24-24 following COVID, as only able to speak in a whisper. Patient initially treated by regional transfer liaison with steroids and ATB, and instructed ???it will just take time???. Patient experienced no changes in voicing despite multiple courses of steroids and vocal rest. Patient scheduled consult with Dr. Cooper, ENT with spouse???s encouragement. Patient diagnosed with ???Hoarseness after COVID/Functional Dysphonia??? with ???no anatomical or physiological abnormalities???. Patient unable to achieve true phonation in all therapeutic attempts, all attempts in whisper: humming, cervical posture changes, easy onset, extended vocal fold adduction. Patient endorses increased dyspnea and exertion in attempt to ???verbally communicate???. Reference: Neuro-QoL instrument Radiation Oncology Patient Plan Plan Plan: Treatment of speech-voice as Resonant Voice Therapy, patient education on vocal hygiene and condition management, laryngeal and cervical relaxation ther ex Recommendations Treatment Warranted: Yes Treatment Warranted: Voice Progress Prognosis: Excellent Frequency Frequency: 1x/Week Duration: 2 Months Patient/Family Goal Patient/Family Goal: Get my voice back Goals that are Established Determination:: Goals will be added/modified as deemed necessary and appropriate. Therapy will be discontinued when results of re-evaluation indicate therapy is no longer needed or lack of progress has been documented. Goal #1-5 Goal #1: To reduce laryngeal tension impacting production of true phonation, Pt will demonstrate relaxation techniques with greater than 90% acc independently. Goal #2: To reduce laryngeal tension impacting production of true phonation, Pt will demonstrate relaxation ther ex with greater than 90% acc independently. Goal #3: Patient will achieve true voicing in structure therapeutic tasks at least 6x in a session. Education Patient has Indicated that the Following Identified Educational Needs: None The Patient has indicated that they have no educational or learning abilities that may effect their care.: Yes Patient Instruction Patient Education: Diagnosis, Treatment Plan, Goals and Home Exercise Program Person Taught: Patient Teaching Method: Discussion, Demonstration and Handout Response to teaching: Verbalize Understanding and Reinforcement Needed 04/09/24 6841 CC: Dr. Adam Husain MD; Dr. Kyle Cooper MD TLM Signed Normal [facility] No Panel InformationOrdered By: Roddy Chery on 03-28-2024 Influenza Types A,B Rapid (Clinic) Pos FLU A &Neg FLU B [facility] POC SARS CoV-2 Antigen Negative [facility] Urgent Care Visit Reporton 0 03-28-2024 Urgent Care Visit Report [facility] [address], [address] [place] [address] OFFICE VISIT Date of Service: 03/28/24 MR#: [id number] Acct: [id number] Name: ELIS HA Rep #: [id number] : 1955 Provider: JEZ Jones Age/Sex: 68/F Location: [facility] [place] Status: Signed Intake Vital Signs 03/24/24 08:55 03/28/24 08:29 Height 5 ft 4 in Weight: 221 lb 8 oz BMI 38.0 BP 124/62 H 170/62 H Blood Pressure Location Lt brachial Position Sitting Sitting Respiration 18 Pulse 92 95 Pulse Source NIBP Temp 98.9 F 99.7 F H Temp Source Oral Oral Pulse Oximetry (%) 97 97 Oxygen Delivery Method room air room air Intake Visit Reasons: Cough Chief Complaint: cough, fever, nausea, ROLON, BA Cut File Clerk Required: No Is patient in pain?: No Allergies codeine Allergy (Verified 03/28/24 08:30) Vomiting Opioids - Morphine Analogues Allergy (Verified 03/28/24 08:30) Vomiting hydroxyzine (From Vistaril) Adverse Reaction (Verified 03/28/24 08:30) Vomiting meperidine (From Demerol) Adverse Reaction (Verified 03/28/24 08:30) Vomiting Medications ???Medication ???Instructions ???Recorded ???Confirmed ???Type d-mannose 500 mg capsule 500 mg PO BID urinary 03/01/21 History albuterol sulfate 90 mcg/actuation 2 puff inhalation PRN PRN ASTHMA 06/07/21 03/24/24 History aerosol inhaler (ProAir HFA) cholecalciferol (vitamin D3) 25 25 mcg PO DAILY 06/07/21 03/24/24 History mcg (1,000 unit) tablet (Vitamin D3) loratadine 10 mg tablet (Claritin) 10 mg PO DAILY #90 tabs 06/19/22 03/24/24 Rx calcium carbonate (Calcium 600) 600 mg PO DAILY 12/28/22 03/24/24 History valsartan 320 mg tablet 320 mg PO QHS #90 TABLETS 05/23/23 03/24/24 Rx apixaban 5 mg tablet (Eliquis) 5 mg PO BID #180 tabs 08/10/23 Rx hydrochlorothiazide 25 mg tablet 25 mg PO DAILY #90 tabs 08/14/23 0 03/24/24 Rx hydrocortisone 2.5 % topical cream 1 applic topical BID PRN rash #3 0 08/14/23 03/24/24 Rx grams omeprazole 40 mg capsule,delayed 40 mg PO DAILY #90 caps 10/04/23 0 03/24/24 Rx release montelukast 10 mg tablet 10 mg PO DAILY #90 tabs 11/06/23 0 03/24/24 Rx (Singulair) magnesium oxide 1,000 mg PO DAILY 11/07/23 5 History pantoprazole 20 mg tablet,delayed 20 mg PO QDAY 11/07/23 03/24/24 H istory release (Protonix) amlodipine 10 mg tablet 10 mg PO DAILY #90 tabs 02/13/24 0 03/24/24 Rx prednisone 10 mg tablet 10 mg PO QDAY #30 tabs 03/11/24 Rx nitrofurantoin 100 mg PO Q12H 5 days #10 caps 03/24/24 Rx monohydrate/macrocrystals 100 mg capsule (Macrobid) ipratropium 0.5 mg-albuterol 3 mg 3 ml inhalation Q6H 5 days #90 mL 03/28/24 03/28/24 Rx (2.5 mg base)/3 mL nebulization soln oseltamivir 75 mg capsule (Tamiflu) 75 mg PO Q12H 5 days #10 caps 0 03/28/24 03/28/24 Rx Is last menstrual period known: No Post menopausal: Yes Patient : No Have you fallen in the past year?: No Nurse's Note: cough, fever, nausea, ROLON, BA x 2 days. hx asthma, meds helping very little. PFSH Medical History (Updated 03/28/24 @ 08:33 by Roddy STORY, PA) Cough Borderline type 2 diabetes mellitus PONV (postoperative nausea and vomiting) Right foot pain Neuropathy Radiculopathy Hx of bladder cancer Bladder cancer IBS (irritable bowel syndrome) Malaise and fatigue Screening for thyroid disorder Restless legs Asthma Stroke/cerebrovascular accident History of steroid therapy Flu vaccine need History of CVA (cerebrovascular accident) Carotid bruit Restless legs syndrome Obesity (BMI 30-39.9) History of colon cancer Petechiae Anemia Leukocytosis Enlarged lymph node in neck History of colon cancer Nodular goiter Preoperative evaluation to rule out surgical contraindication Post-menopausal Wears glasses Cancer Ambulates with cane DVT (deep venous thrombosis) Back pain Migraine headache Injury of head and neck History of IBS Gastric reflux Non-smoker CPAP (continuous positive airway pressure) dependence Chronic cough Leg cramps History of edema History of irregular heartbeat History of stress test History of echocardiogram Recurrent deep vein thrombosis (DVT) Cramp in lower leg Elevated d-dimer GERD (gastroesophageal reflux disease) Left knee pain Escamilla's cyst of knee Left leg DVT HTN (hypertension) Thyroid nodule Ventral incisional hernia without obstruction or gangrene removal of ascending colon High blood pressure Frequent headaches Chronic bronchitis UTI (urinary tract infection) Neck pain Difficulty balancing Asthma Stroke Stomach ulcer Hay fever Shortness of breath Arthritis Surgical History History of colonosc (more content not included)... Normal [facility] Urine Cultureon 03-26-2024 URC Mixed Gram Pos Gram Neg Org Hooper Count 11,000-25,000 MIXC Mixed contaminants. Submit a new specimen if indicated. Normal [facility] Comment on above: Performed By: #### M 100.2200 ####[facility] [id number] [place], [place], [id number] Laboratory - Chemistry and C hemistry - challengeon 03-24-2024 Bilirubin Ql (U) Negative [facility] Glucose Ql (U) Negative [facility] Ketones Ql (U) Trace (5) [facility] pH (U) 6.5 [pH] [facility] Specific gravity (U) [Rel density] 1.015 [facility] Urobilinogen (U) [Mass/Vol] 0.6052057 mg/dL [facility] Laboratory - Hematology and Cell countson 03-24-2024 Hemoglobin Ql (U) Trace [facility] Laboratory - Specimen inform ationon 03-24-2024 Clarity (U) Clear [facility] Color (U) Yellow [facility] Laboratory - Urinalysison Nitrite Ql (U) Negative [facility] Protein Ql (U) Negative [facility] No Panel Informationon 03-24 Urine Leukocytes Positive [facility] Comment on above: moderate Urine Non-Hemolyzed Blood Non-Hemolyzed [facility] Urgent Care Visit Reporton 0 03-24-[address] [facility] [address], [address] [place] [id number] OFFICE VISIT Date of Service: 03/24/24 MR#: [id number] Acct: [id number] Name: ELIS HA Rep #: [id number] : 1955 Provider: JEZ Smyth Age/Sex: 68/F Location: [facility] [place] Status: Signed Intake Vital Signs 02/13/24 14:03 03/24/24 08:55 Height 5 ft 4 in 5 ft 4 in Weight: 220 lb 2 oz 221 lb 8 oz BMI 37.8 38.0 BP 138/82 H 124/62 H Position Sitting Respiration 18 Pulse 83 92 Temp 97 F L 98.9 F Temp Source Oral Pulse Oximetry (%) 97 97 Oxygen Delivery Method room air Intake Visit Reasons: Urinary tract infection Accompanied by: Self Allergies codeine Allergy (Verified 03/24/24 09:04) Vomiting Opioids - Morphine Analogues Allergy (Verified 03/24/24 09:04) Vomiting hydroxyzine (From Vistaril) Adverse Reaction (Verified 03/24/24 09:04) Vomiting meperidine (From Demerol) Adverse Reaction (Verified 03/24/24 09:04) Vomiting Medications ???Medication ???Instructions ???Recorded ???Confirmed ???Type d-mannose 500 mg capsule 500 mg PO BID urinary 03/01/21 03/24/24 History albuterol sulfate 90 mcg/actuation 2 puff inhalation PRN PRN ASTHMA 06/07/21 03/24/24 History aerosol inhaler (ProAir HFA) cholecalciferol (vitamin D3) 25 25 mcg PO DAILY 06/07/21 03/24/24 History mcg (1,000 unit) tablet (Vitamin D3) loratadine 10 mg tablet (Claritin) 10 mg PO DAILY #90 tabs 06/19/22 03/24/24 Rx calcium carbonate (Calcium 600) 600 mg PO DAILY 12/28/22 03/24/24 History valsartan 320 mg tablet 320 mg PO QHS #90 TABLETS 05/23/23 03/24/24 Rx apixaban 5 mg tablet (Eliquis) 5 mg PO BID #180 tabs 08/10/23 03/24/24 Rx hydrochlorothiazide 25 mg tablet 25 mg PO DAILY #90 tabs 08/14/23 03/24/24 Rx hydrocortisone 2.5 % topical cream 1 applic topical BID PRN rash #30 08/14/23 03/24/24 Rx grams omeprazole 40 mg capsule,delayed 40 mg PO DAILY #90 caps 10/04/23 03/24/24 Rx release montelukast 10 mg tablet 10 mg PO DAILY #90 tabs 11/06/23 03/24/24 Rx (Singulair) magnesium oxide 1,000 mg PO DAILY 11/07/23 03/24/24 History pantoprazole 20 mg tablet,delayed 20 mg PO QDAY 11/07/23 03/24/24 History release (Protonix) amlodipine 10 mg tablet 10 mg PO DAILY #90 tabs 02/13/24 03/24/24 Rx amoxicillin 875 mg-potassium 1 tab PO BID #20 tabs 03/11/24 03/24/24 Rx clavulanate 125 mg tablet prednisone 10 mg tablet 10 mg PO QDAY #30 tabs 03/11/24 03/24/24 Rx nitrofurantoin 100 mg PO Q12H 5 days #10 caps 03/24/24 03/24/24 Rx monohydrate/macrocrystals 100 mg capsule (Macrobid) Have you fallen in the past year?: No Nurse's Note: Patient has burning with urination and pressure that has been going on 4-5 days. [facility] Medical History (Updated 02/13/24 @ 16:[address] Adam Husain MD) Cough Borderline type 2 diabetes mellitus PONV (postoperative nausea and vomiting) Right foot pain Neuropathy Radiculopathy Hx of bladder cancer Bladder cancer IBS (irritable bowel syndrome) Malaise and fatigue Screening for thyroid disorder Restless legs Asthma Stroke/cerebrovascular accident History of steroid therapy Flu vaccine need History of CVA (cerebrovascular accident) Carotid bruit Restless legs syndrome Obesity (BMI 30-39.9) History of colon cancer Petechiae Anemia Leukocytosis Enlarged lymph node in neck History of colon cancer Nodular goiter Preoperative evaluation to rule out surgical contraindication Post-menopausal Wears glasses Cancer Ambulates with cane DVT (deep venous thrombosis) Back pain Migraine headache Injury of head and neck History of IBS Gastric reflux Non-smoker CPAP (continuous positive airway pressure) dependence Chronic cough Leg cramps History of edema History of irregular heartbeat History of stress test History of echocardiogram Recurrent deep vein thrombosis (DVT) Cramp in lower leg Elevated d-dimer GERD (gastroesophageal reflux disease) Left knee pain Escamilla's cyst of knee Left leg DVT HTN (hypertension) Thyroid nodule Ventral incisional hernia without obstruction or gangrene removal of ascending colon High blood pressure Frequent headaches Chronic bronchitis UTI (urinary tract infection) Neck pain Difficulty balancing Asthma Stroke Stomach ulcer Hay fever Shortness of breath Arthritis Surgical History History of colonoscopy History of esophagogastroduodenoscopy (EGD) History of hip replacement, total Hx of total knee arthroplasty Status post total knee replacement, left S/P colectomy History of cystocele History of ankle surgery History of cholecystectomy History of hysterectomy History of tonsillectomy Family History ... Normal [facility] Urine cultureOrdered By: Eloy Proctor on 03-24-2024 Bacteria identified Cx Nom (U) Mixed Gram Pos & Gram Neg Org Abnormal [facility] Internal Medicine Office Vis iton 02-13-2024 Internal Medicine Office Visit [facility] [address] [place], [place] [address] OFFICE VISIT Date of Service: 02/13/24 MR#: [id number] Acct: [id number] Name: ELIS HA Rep #: [id number] : 1955 Provider: Dr. Adam vera MD Age/Sex: 68/F Location: [facility] [place] Status: Signed Intake Vital Signs 11/06/23 08:39 02/13/24 14:03 Height 5 ft 4 in 5 ft 4 in Weight: 220 lb 2 oz BMI 37.8 BP 138/82 H Respiration 18 Pulse 83 Temp 97 F L Pulse Oximetry (%) 97 Intake Visit Reasons: 3 M FU Chief Complaint: 3 m fu Cut File Clerk Required: No Is patient in pain?: No (congested and headache ) Allergies codeine Allergy (Verified 11/07/23 13:50) Vomiting Opioids - Morphine Analogues Allergy (Verified 11/07/23 13:50) Vomiting hydroxyzine (From Vistaril) Adverse Reaction (Verified 11/07/23 13:50) Vomiting meperidine (From Demerol) Adverse Reaction (Verified 11/07/23 13:50) Vomiting Medications ???Medication ???Instructions ???Recorded ???Confirmed ???Type d-mannose 500 mg capsule 500 mg PO BID urinary 03/01/21 02/13/24 History albuterol sulfate 90 mcg/actuation 2 puff inhalation PRN PRN ASTHMA 06/07/21 02/13/24 History aerosol inhaler (ProAir HFA) cholecalciferol (vitamin D3) 25 25 mcg PO DAILY 06/07/21 02/13/24 History mcg (1,000 unit) tablet (Vitamin D3) loratadine 10 mg tablet (Claritin) 10 mg PO DAILY #90 tabs 06/19/22 02/13/24 Rx calcium carbonate (Calcium 600) 600 mg PO DAILY 12/28/22 02/13/24 History valsartan 320 mg tablet 320 mg PO QHS #90 TABLETS 05/23/23 02/13/24 Rx apixaban 5 mg tablet (Eliquis) 5 mg PO BID #180 tabs 08/10/23 02/13/24 Rx hydrochlorothiazide 25 mg tablet 25 mg PO DAILY #90 tabs 08/14/23 02/13/24 Rx hydrocortisone 2.5 % topical cream 1 applic topical BID PRN rash #30 08/14/23 02/13/24 Rx grams amlodipine 10 mg tablet 10 mg PO DAILY #90 tabs 08/31/23 02/13/24 Rx omeprazole 40 mg capsule,delayed 40 mg PO DAILY #90 caps 10/04/23 02/13/24 Rx release montelukast 10 mg tablet 10 mg PO DAILY #90 tabs 11/06/23 02/13/24 Rx (Singulair) magnesium oxide 1,000 mg PO DAILY 11/07/23 02/13/24 History pantoprazole 20 mg tablet,delayed 20 mg PO QDAY 11/07/23 02/13/24 History release (Protonix) Have you fallen in the past year?: No PFSH Medical History (Updated 02/13/24 @ 16:[address] Adam Husain MD) Cough Borderline type 2 diabetes mellitus PONV (postoperative nausea and vomiting) Right foot pain Neuropathy Radiculopathy Hx of bladder cancer Bladder cancer IBS (irritable bowel syndrome) Malaise and fatigue Screening for thyroid disorder Restless legs Asthma Stroke/cerebrovascular accident History of steroid therapy Flu vaccine need History of CVA (cerebrovascular accident) Carotid bruit Restless legs syndrome Obesity (BMI 30-39.9) History of colon cancer Petechiae Anemia Leukocytosis Enlarged lymph node in neck History of colon cancer Nodular goiter Preoperative evaluation to rule out surgical contraindication Post-menopausal Wears glasses Cancer Ambulates with cane DVT (deep venous thrombosis) Back pain Migraine headache Injury of head and neck History of IBS Gastric reflux Non-smoker CPAP (continuous positive airway pressure) dependence Chronic cough Leg cramps History of edema History of irregular heartbeat History of stress test History of echocardiogram Recurrent deep vein thrombosis (DVT) Cramp in lower leg Elevated d-dimer GERD (gastroesophageal reflux disease) Left knee pain Escamilla's cyst of knee Left leg DVT HTN (hypertension) Thyroid nodule Ventral incisional hernia without obstruction or gangrene removal of ascending colon High blood pressure Frequent headaches Chronic bronchitis UTI (urinary tract infection) Neck pain Difficulty balancing Asthma Stroke Stomach ulcer Hay fever Shortness of breath Arthritis Surgical History History of colonoscopy History of esophagogastroduodenoscopy (EGD) History of hip replacement, total Hx of total knee arthroplasty Status post total knee replacement, left S/P colectomy History of cystocele History of ankle surgery History of cholecystectomy History of hysterectomy History of tonsillectomy Family History Mother Arthritis Parkinson disease Hypertension Father Heart disease Hypertension Social History Smoking Status: Never smoker alcohol intake: never substance use type: does not use what type of physical activity do you participate in: none HPI HPI Chief Complaint: 3 m fu Details: ELIS HA, is a 68 F who presents to the office today for follow-up of her chronic (more content not included)... Normal [facility] - Chemistry and C hemistry - challengeOrdered By: Adam Husain on 05-07-2023 Cobalamin (Vitamin B12) [Mass/Vol] 408 pg/mL 211-911 [facility] Basophil percentageOrdered B y: Mickie Domínguez on 04-16-2023 Bilirubin [Mass/Vol] 0.70 mg/dL 0.20-1.00 [facility] Comment on above: For patients on eltr ombopag therapy, use of Dimension Thida TBIL is not recommended. Cholesterol [Mass/Vol] 197 mg/dL <200 [facility] Comment on above: <200 mg/dL Desirable 200-240 mg/dL Borderline >240 mg/dL High Risk Protein [Mass/Vol] 7.4 g/dL 6.4-8.2 [facility] Triglyceride [Mass/Vol] 179 mg/dL <199 [facility] Comment on above: The drugs N-Acetylcy steine and Metamizole may falsely depress this assay.Serum Triglycerides Reference Interval Normal <150 mg/dL Borderline high 150 - 199 mg/dL High 200 - 499 mg/dL Very High > or = 500 mg/dL Direct bilirubinOrdered By: Mickie Domínguez on 04-16-2023 Bilirubin.direct [Mass/Vol] 0.15 mg/dL 0.00-0.30 [facility] - Chemistry and C hemistry - challengeOrdered By: Mickie Domínguez on 04-16-2023 ALP [Catalytic activity/Vol] 75 U/L 45-117 [facility] ALT [Catalytic activity/Vol] 21 U/L 13-56 [facility] Cholesterol in HDL [Mass/Vol] 54 mg/dL >40 [facility] Comment on above: The drugs N-Acetylcy steine and Metamizole may falsely depress this assay. Reference Range HDL <40 mg/dL Low HDL Cholesterol HDL >or= 60 mg/dL High HDL Cholesterol Cholesterol in LDL [Mass/Vol] 107 mg/dL 0-130 [facility] Globulin (S) [Mass/Vol] 3.6 g/dL 2.2-4.2 [facility] No Panel InformationOrdered By: Mickie Domínguez on 04-16-2023 VLDL Cholesterol 36 mg/dL 5-40 [facility] Serum or plasma carcinoembry onic antigen measurement (mass/volume)Ordered By: Lorenzo Larose on 04-16-2023 Carcinoembryonic Ag [Mass/Vol] 1.2 ng/mL 0.0-4.7 [facility] Comment on above: Nonsmokers <3.9 Smok ers <5.6[employer] Electrochemiluminescence Immunoassay(ECLIA)Values obtained with different assay methods or kitscannot be used interchangeably. Results cannot beinterpreted as absolute evidence of the presence orabsence of malignant disease.Performed at: [facility] [id number] Director: Kwame Atkinson PhD, Phone: [phone] Thin prep Papanicolaou smear with manual screeningOrdered By: Mickie Domínguez on 04-16-2023 Thin prep Papanicolaou smear with manual screening 3.8 g/dL 3.2-5.0 [facility] Thin prep Papanicolaou smear with manual screening 21 U/L 15-37 [facility] Whole blood hemoglobin A1c/t otal hemoglobin ratio (mass fraction)Ordered By: Mickie Domínguez on 04-16-2023 HbA1c (Bld) [Mass fraction] 5.8 % 3.8-5.6 [facility] Comment on above: Normal < 5.7 % Predi abetic 5.7 - 6.4 % Diabetic >or= 6.5 % Please note range changes. Absolute lymphocyte countOrd ered By: Mickie Perrineulalia on 03-27-2023 Lymphocytes Auto (Unsp spec) [#/Vol] 1.85 10*3/uL 0.83-4.51 [facility] Automated lymphocyte count a s percentage of total leukocytesOrdered By: Imckie Catrachita on 03-27-2023 Lymphocytes/100 WBC Auto (Unsp spec) 26.2 % 19-41 [facility] Basophil percentageOrdered B y: Mickie Perrineulalia on 03-27-2023 Basophils/100 WBC (Bld) 1.0 % 0-1 [facility] Chloride [Moles/Vol] 103 mmol/L 98-107 [facility] Eosinophils/100 WBC (Bld) 2.0 % 0-5 [facility] Glucose [Mass/Vol] 126 mg/dL 74-106 [facility] Comment on above: Fasting Glucose resu lt greater than or equal to 126 mg/dL suggests DIABETES MELLITUS per A.D.A. criteria. Hemoglobin (Bld) [Mass/Vol] 14.1 g/dL 12.0-15.0 [facility] Monocytes/100 WBC (Bld) 8.9 % 0-10 [facility] Neutrophils (Bld) [#/Vol] 4.3 10*3/uL 2.0-7.7 [facility] Neutrophils/100 WBC (Bld) 61.3 % 47-70 [facility] Potassium [Moles/Vol] 3.8 mmol/L 3.5-5.1 [facility] Sodium [Moles/Vol] 139 mmol/L 136-145 [facility] WBC (Bld) [#/Vol] 7.1 10*3/uL 4.4-11.0 [facility] Determination of erythrocyte mean corpuscular volume (MCV)Ordered By: Mickie Domínguez on 03-27-2023 MCV (RBC) [Entitic vol] 85.4 fL 81-99 [facility] Erythrocyte distribution wid th ratioOrdered By: Mickie Domínguez on 03-27-2023 Erythrocyte distribution width (RBC) [Ratio] 13.6 % 11.6-14.6 [facility] Erythrocyte distribution wid th standard deviationOrdered By: Mickie Domínguez on 03-27-2023 Erythrocyte distribution width (RBC) [Entitic vol] 42.3 fL 35.1-43.9 [facility] Hematocrit Auto (Bld) [Volum e fraction]Ordered By: Mickie Domínguez on 03-27-2023 Hematocrit (Bld) [Volume fraction] 45.5 % 37-47 [facility] Immature granulocytes/100 WB C Auto (Bld)Ordered By: Mickie Domínguez on 03-27-2023 Immature granulocytes/100 WBC (Bld) 0.600 % 0.0-0.9 [facility] Comment on above: IG% - Immature Granu locytes (promyelocytes, myelocytes and metamyelocytes) > 1% indicates that a LEFT SHIFT is Present. Laboratory - Chemistry and C hemistry - challengeOrdered By: Mickie Domínguez on 03-27-2023 CO2 [Moles/Vol] 28.0 mmol/L 21.0-32.0 [facility] Natriuretic peptide B (Bld) [Mass/Vol] 11.7 pg/mL 0-100 [facility] Urea nitrogen/Creatinine [Mass ratio] 20.0 mg/mg 10-20 [facility] - Hematology and Cell countsOrdered By: Mickie Domínguez on 03-27-2023 MCH (RBC) [Entitic mass] 26.5 pg 27.0-32.0 [facility] MCHC (RBC) [Mass/Vol] 31.0 g/dL 32-36 [facility] Nucleated RBC/100 WBC (Bld) [Ratio] 0 % 0-5 [facility] Platelets (Bld) [#/Vol] 332 10*3/uL 150-450 [facility] No Panel InformationOrdered By: Mickie Domínguez on 03-27-2023 Estimated GFR (MDRD) Amer 116 mL/min >60 [facility] Comment on above: GFR Calc Estimated GFR (MDRD) Non-Af Amer 96 mL/min >60 [facility] Comment on above: Non- GFR Calc Platelet mean volume Buddy-Ec ker (Bld) [Entitic vol]Ordered By: Mickie Domínguez on 03-27-2023 Platelet mean volume (Bld) [Entitic vol] 9.8 fL 6.2-12.0 [facility] RBC Auto (Bld) [#/Vol]Ordere d By: Mickie Domínguez on 03-27-2023 RBC (Bld) [#/Vol] 5.33 10*6/uL 4.2-5.4 [facility] Serum or plasma calcium estrella urement (mass/volume)Ordered By: Mickie Domínguez on 03-27-2023 Calcium [Mass/Vol] 9.6 mg/dL 8.5-10.1 [facility] Serum or plasma creatinine m easurement (mass/volume)Ordered By: Mickie Domínguez on 03-27-2023 Creatinine [Mass/Vol] 0.65 mg/dL 0.55-1.02 [facility] Comment on above: The validity of the calculated GFR & GFRAA in patients over 70 years has not been determined. Clinical correlation is essential. Serum or plasma urea nitroge n measurement (mass/volume)Ordered By: Mickie Domínguez on 03-27-2023 Urea nitrogen [Mass/Vol] 13 mg/dL 7-18 [facility] Thin prep Papanicolaou smear with manual screeningOrdered By: Mickie Domínguez on 03-27-2023 Thin prep Papanicolaou smear with manual screening 8 5-15 [facility] Basophil percentageOrdered B y: Michael Sen on 11-28-2022 Chloride [Moles/Vol] 104 mmol/L 98-107 [facility] Glucose [Mass/Vol] 113 mg/dL 74-106 [facility] Comment on above: Fasting Glucose resu lt from 100 to 125 mg/dL suggests IMPAIRED HOMEOSTASIS per A.D.A. criteria. Potassium [Moles/Vol] 4.1 mmol/L 3.5-5.1 [facility] Sodium [Moles/Vol] 138 mmol/L 136-145 [facility] WBC (Bld) [#/Vol] 8.1 10*3/uL 4.4-11.0 [facility] Blood erythrocytes count (nu mber/volume)Ordered By: Michael Sen on 11-28-2022 RBC (Bld) [#/Vol] 5.35 10*6/uL 4.2-5.4 [facility] Blood hemoglobin measurement (mass/volume)Ordered By: Michael Sen on 11-28-2022 Hemoglobin (Bld) [Mass/Vol] 14.2 g/dL 12.0-15.0 [facility] Blood platelet mean volumeOr dered By: Michael Sen on 11-28-2022 Platelet mean volume (Bld) [Entitic vol] 9.3 fL 6.2-12.0 [facility] Determination of erythrocyte mean corpuscular volume (MCV)Ordered By: Michael Sen on 11-28-2022 MCV (RBC) [Entitic vol] 85.4 fL 81-99 [facility] Hematocrit Auto (Bld) [Volum e fraction]Ordered By: Michael Sen on 11-28-2022 Hematocrit (Bld) [Volume fraction] 45.7 % 37-47 [facility] - Chemistry and C hemistry - challengeOrdered By: Michael Sen on 11-28-2022 CO2 [Moles/Vol] 30.0 mmol/L 21.0-32.0 [facility] Urea nitrogen/Creatinine [Mass ratio] 27.0 mg/mg 10-20 [facility] - Hematology and Cell countsOrdered By: Michael Sen on 11-28-2022 Erythrocyte distribution width (RBC) [Entitic vol] 42.6 fL 35.1-43.9 [facility] Erythrocyte distribution width (RBC) [Ratio] 13.7 % 11.6-14.6 [facility] MCH (RBC) [Entitic mass] 26.5 pg 27.0-32.0 [facility] MCHC Auto (RBC) [Mass/Vol]Or dered By: Michael Sen on 11-28-2022 MCHC (RBC) [Mass/Vol] 31.1 g/dL 32-36 [facility] No Panel InformationOrdered By: Michael Sen on 11-28-2022 Estimated GFR (MDRD) Amer 130 mL/min >60 [facility] Comment on above: GFR Calc Estimated GFR (MDRD) Non-Af Amer 107 mL/min >60 [facility] Comment on above: Non- GFR Calc Platelets bldOrdered By: Junaid Sen on 11-28-2022 Platelets (Bld) [#/Vol] 376 10*3/uL 150-450 [facility] Serum or plasma calcium estrella urement (mass/volume)Ordered By: Michael Sen on 11-28-2022 Calcium [Mass/Vol] 9.2 mg/dL 8.5-10.1 [facility] Serum or plasma creatinine m easurement (mass/volume)Ordered By: Michael Sen on 11-28-2022 Creatinine [Mass/Vol] 0.59 mg/dL 0.55-1.02 [facility] Comment on above: The validity of the calculated GFR & GFRAA in patients over 70 years has not been determined. Clinical correlation is essential. Serum or plasma urea nitroge n measurement (mass/volume)Ordered By: Michael Sen on 11-28-2022 Urea nitrogen [Mass/Vol] 16 mg/dL 7-18 [facility] Thin prep Papanicolaou smear with manual screeningOrdered By: Michael Sen on 11-28-2022 Thin prep Papanicolaou smear with manual screening 4 5-15 [facility] Absolute lymphocyte countOrd ered By: Laura Chris on 10-10-2022 Lymphocytes Auto (Unsp spec) [#/Vol] 2.31 10*3/uL 0.83-4.51 [facility] Basophil percentageOrdered B y: Laura Chris on 10-10-2022 Basophils/100 WBC (Bld) 1.1 % 0-1 [facility] Bilirubin [Mass/Vol] 0.60 mg/dL 0.20-1.00 [facility] Comment on above: For patients on eltr ombopag therapy, use of Dimension Thida TBIL is not recommended. Chloride [Moles/Vol] 102 mmol/L 98-107 [facility] Eosinophils/100 WBC (Bld) 2.8 % 0-5 [facility] Glucose [Mass/Vol] 107 mg/dL 74-106 [facility] Comment on above: Fasting Glucose resu lt from 100 to 125 mg/dL suggests IMPAIRED HOMEOSTASIS per A.D.A. criteria. Neutrophils (Bld) [#/Vol] 4.8 10*3/uL 2.0-7.7 [facility] Neutrophils/100 WBC (Bld) 59.0 % 47-70 [facility] Potassium [Moles/Vol] 3.5 mmol/L 3.5-5.1 [facility] Protein [Mass/Vol] 7.9 g/dL 6.4-8.2 [facility] Sodium [Moles/Vol] 140 mmol/L 136-145 [facility] WBC (Bld) [#/Vol] 8.2 10*3/uL 4.4-11.0 [facility] Blood erythrocytes count (nu mber/volume)Ordered By: Laura Chris on 10-10-2022 RBC (Bld) [#/Vol] 5.23 10*6/uL 4.2-5.4 [facility] Blood hemoglobin measurement (mass/volume)Ordered By: Laura Chris on 10-10-2022 Hemoglobin (Bld) [Mass/Vol] 13.9 g/dL 12.0-15.0 [facility] Blood lymphocytes/100 leukoc ytesOrdered By: Laura Chris on 10-10-2022 Lymphocytes/100 WBC (Bld) 28.3 % 19-41 [facility] Blood monocytes/100 leukocyt esOrdered By: Laura Chris on 10-10-2022 Monocytes/100 WBC (Bld) 8.6 % 0-10 [facility] Blood platelet mean volumeOr dered By: Laura Chris on 10-10-2022 Platelet mean volume (Bld) [Entitic vol] 9.0 fL 6.2-12.0 [facility] Determination of erythrocyte mean corpuscular volume (MCV)Ordered By: Laura Chris on 10-10-2022 MCV (RBC) [Entitic vol] 84.7 fL 81-99 [facility] Hematocrit Auto (Bld) [Volum e fraction]Ordered By: Laura Chris on 10-10-2022 Hematocrit (Bld) [Volume fraction] 44.3 % 37-47 [facility] - Chemistry and C hemistry - challengeOrdered By: Laura Chris on 10-10-2022 ALP [Catalytic activity/Vol] 82 U/L 45-117 [facility] ALT [Catalytic activity/Vol] 15 U/L 13-56 [facility] CO2 [Moles/Vol] 31.0 mmol/L 21.0-32.0 [facility] Globulin (S) [Mass/Vol] 4.1 g/dL 2.2-4.2 [facility] Urea nitrogen/Creatinine [Mass ratio] 27.9 mg/mg 10-20 [facility] - Hematology and Cell countsOrdered By: Laura Chris on 10-10-2022 Erythrocyte distribution width (RBC) [Entitic vol] 44.5 fL 35.1-43.9 [facility] Erythrocyte distribution width (RBC) [Ratio] 14.5 % 11.6-14.6 [facility] Immature granulocytes/100 WBC (Bld) 0.200 % 0.0-0.9 [facility] Comment on above: IG% - Immature Granu locytes (promyelocytes, myelocytes and metamyelocytes) > 1% indicates that a LEFT SHIFT is Present. MCH (RBC) [Entitic mass] 26.6 pg 27.0-32.0 [facility] Nucleated RBC/100 WBC (Bld) [Ratio] 0 % 0-5 [facility] MCHC Auto (RBC) [Mass/Vol]Or dered By: Laura Chris on 10-10-2022 MCHC (RBC) [Mass/Vol] 31.4 g/dL 32-36 [facility] No Panel InformationOrdered By: Laura Chris on 10-10-2022 Estimated Creatinine Clearance Calc 46.50 ml/min [facility] Estimated GFR (MDRD) Amer 135 mL/min >60 [facility] Comment on above: GFR Calc Estimated GFR (MDRD) Non-Af Amer 111 mL/min >60 [facility] Comment on above: Non- GFR Calc Platelets bldOrdered By: Johanny Chris on 10-10-2022 Platelets (Bld) [#/Vol] 325 10*3/uL 150-450 [facility] Serum or plasma albumin estrella urement (mass/volume)Ordered By: Laura Chris on 10-10-2022 Albumin [Mass/Vol] 3.8 g/dL 3.2-5.0 [facility] Serum or plasma albumin/glob ulin mass ratioOrdered By: Laura Chris on 10-10-2022 Albumin/Globulin [Mass ratio] 0.9 {ratio} 0.9-2.4 [facility] Serum or plasma calcium estrella urement (mass/volume)Ordered By: Laura Chris on 10-10-2022 Calcium [Mass/Vol] 9.1 mg/dL 8.5-10.1 [facility] Serum or plasma creatinine m easurement (mass/volume)Ordered By: Laura Chris on 10-10-2022 Creatinine [Mass/Vol] 0.57 mg/dL 0.55-1.02 [facility] Comment on above: The validity of the calculated GFR & GFRAA in patients over 70 years has not been determined. Clinical correlation is essential. Serum or plasma urea nitroge n measurement (mass/volume)Ordered By: Laura Chris on 10-10-2022 Urea nitrogen [Mass/Vol] 16 mg/dL 18 [facility] Thin prep Papanicolaou smear with manual screeningOrdered By: Laura Chris on 10-10-2022 Thin prep Papanicolaou smear with manual screening 15 U/L [facility] Thin prep Papanicolaou smear with manual screening 7 - [facility] Serum or plasma carcinoembry onic antigen measurement (mass/volume)Ordered By: Lorenzo Larose on 10-03-2022 Carcinoembryonic Ag [Mass/Vol] 2.2 ng/mL 0.0-4.7 [facility] Comment on above: Nonsmokers <3.9 Smok ers <5.6[employer] Electrochemiluminescence Immunoassay(ECLIA)Values obtained with different assay methods or kitscannot be used interchangeably. Results cannot beinterpreted as absolute evidence of the presence orabsence of malignant disease.Performed at: [facility] [id number] Director: Kwame Atkinson PhD, Phone: [phone] Absolute lymphocyte countOrd ered By: Adam Husain on 08-28-2022 Lymphocytes Auto (Unsp spec) [#/Vol] 1.97 10*3/uL 0.83-4.51 [facility] Basophil percentageOrdered B y: Adam Husain on 08-28-2022 Basophils/100 WBC (Bld) 1.0 % 0-1 [facility] Bilirubin [Mass/Vol] 0.60 mg/dL 0.20-1.00 [facility] Comment on above: For patients on eltr ombopag therapy, use of Dimension Thida TBIL is not recommended. Chloride [Moles/Vol] 106 mmol/L 98-107 [facility] Eosinophils/100 WBC (Bld) 2.8 % 0-5 [facility] Glucose [Mass/Vol] 107 mg/dL 74-106 [facility] Comment on above: Fasting Glucose resu lt from 100 to 125 mg/dL suggests IMPAIRED HOMEOSTASIS per A.D.A. criteria. Neutrophils (Bld) [#/Vol] 4.2 10*3/uL 2.0-7.7 [facility] Neutrophils/100 WBC (Bld) 59.8 % 47-70 [facility] Potassium [Moles/Vol] 4.3 mmol/L 3.5-5.1 [facility] Protein [Mass/Vol] 7.4 g/dL 6.4-8.2 [facility] Sodium [Moles/Vol] 140 mmol/L 136-145 [facility] WBC (Bld) [#/Vol] 7.1 10*3/uL 4.4-11.0 [facility] Blood erythrocytes count (nu mber/volume)Ordered By: Adam Husain on 08-28-2022 RBC (Bld) [#/Vol] 5.32 10*6/uL 4.2-5.4 [facility] Blood hemoglobin measurement (mass/volume)Ordered By: Adam Husain on 08-28-2022 Hemoglobin (Bld) [Mass/Vol] 14.1 g/dL 12.0-15.0 [facility] Blood lymphocytes/100 leukoc ytesOrdered By: Adam Husain on 08-28-2022 Lymphocytes/100 WBC (Bld) 27.9 % 19-41 [facility] Blood monocytes/100 leukocyt esOrdered By: Adam Husain on 08-28-2022 Monocytes/100 WBC (Bld) 7.9 % 0-10 [facility] Blood platelet mean volumeOr dered By: Adam Husain on 08-28-2022 Platelet mean volume (Bld) [Entitic vol] 9.2 fL 6.2-12.0 [facility] Determination of erythrocyte mean corpuscular volume (MCV)Ordered By: Adam Husain on 08-28-2022 MCV (RBC) [Entitic vol] 83.5 fL 81-99 [facility] Hematocrit Auto (Bld) [Volum e fraction]Ordered By: Josemayflowermohan Husain on 08-28-2022 Hematocrit (Bld) [Volume fraction] 44.4 % 37-47 [facility] - Chemistry and C hemistry - challengeOrdered By: Adam Husain on 08-28-2022 ALP [Catalytic activity/Vol] 85 U/L 45-117 [facility] ALT [Catalytic activity/Vol] 12 U/L 13-56 [facility] CO2 [Moles/Vol] 31.0 mmol/L 21.0-32.0 [facility] Globulin (S) [Mass/Vol] 3.8 g/dL 2.2-4.2 [facility] Urea nitrogen/Creatinine [Mass ratio] 22.0 mg/mg 10-20 [facility] - Hematology and Cell countsOrdered By: Adam Husain on 08-28-2022 Erythrocyte distribution width (RBC) [Entitic vol] 45.1 fL 35.1-43.9 [facility] Erythrocyte distribution width (RBC) [Ratio] 15.0 % 11.6-14.6 [facility] Immature granulocytes/100 WBC (Bld) 0.600 % 0.0-0.9 [facility] Comment on above: IG% - Immature Granu locytes (promyelocytes, myelocytes and metamyelocytes) > 1% indicates that a LEFT SHIFT is Present. MCH (RBC) [Entitic mass] 26.5 pg 27.0-32.0 [facility] Nucleated RBC/100 WBC (Bld) [Ratio] 0 % 0-5 [facility] MCHC Auto (RBC) [Mass/Vol]Or dered By: Adam Husain on 08-28-2022 MCHC (RBC) [Mass/Vol] 31.8 g/dL 32-36 [facility] No Panel InformationOrdered By: Adam Husain on 08-28-2022 Estimated GFR (MDRD) Amer 130 mL/min >60 [facility] Comment on above: GFR Calc Estimated GFR (MDRD) Non-Af Amer 108 mL/min >60 [facility] Comment on above: Non- GFR Calc Platelets bldOrdered By: Trey Husain on 08-28-2022 Platelets (Bld) [#/Vol] 317 10*3/uL 150-450 [facility] Serum or plasma albumin estrella urement (mass/volume)Ordered By: Adam Husain on 08-28-2022 Albumin [Mass/Vol] 3.6 g/dL 3.2-5.0 [facility] Serum or plasma albumin/glob ulin mass ratioOrdered By: Adam Husain on 08-28-2022 Albumin/Globulin [Mass ratio] 0.9 {ratio} 0.9-2.4 [facility] Serum or plasma calcium estrella urement (mass/volume)Ordered By: Adam Husain on 08-28-2022 Calcium [Mass/Vol] 9.2 mg/dL 8.5-10.1 [facility] Serum or plasma creatinine m easurement (mass/volume)Ordered By: Adam Husain on 08-28-2022 Creatinine [Mass/Vol] 0.59 mg/dL 0.55-1.02 [facility] Comment on above: The validity of the calculated GFR & GFRAA in patients over 70 years has not been determined. Clinical correlation is essential. Serum or plasma urea nitroge n measurement (mass/volume)Ordered By: Adam Husain on 08-28-2022 Urea nitrogen [Mass/Vol] 13 mg/dL 7-18 [facility] Thin prep Papanicolaou smear with manual screeningOrdered By: Adam Husain on 08-28-2022 Thin prep Papanicolaou smear with manual screening 15 U/L 15-37 [facility] Thin prep Papanicolaou smear with manual screening 3 5-15 [facility] No Panel InformationOrdered By: Milton Coronado on 08-16-2022 Estimated GFR (MDRD) Amer 136 mL/min >60 [facility] Comment on above: GFR Calc Estimated GFR (MDRD) Non-Af Amer 113 mL/min >60 [facility] Comment on above: Non- GFR Calc Serum or plasma creatinine m easurement (mass/volume)Ordered By: Milton Coronado on 08-16-2022 Creatinine [Mass/Vol] 0.57 mg/dL 0.55-1.02 [facility] Comment on above: The validity of the calculated GFR & GFRAA in patients over 70 years has not been determined. Clinical correlation is essential. Absolute lymphocyte countOrd ered By: Dr. Husain on 06-19-2022 Lymphocytes Auto (Unsp spec) [#/Vol] 2.18 10*3/uL 0.83-4.51 [facility] Basophil percentageOrdered B y: Dr. Husain on 06-19-2022 Basophils/100 WBC (Bld) 1.0 % 0-1 [facility] Eosinophils/100 WBC (Bld) 3.6 % 0-5 [facility] Neutrophils (Bld) [#/Vol] 4.9 10*3/uL 2.0-7.7 [facility] Neutrophils/100 WBC (Bld) 60.8 % 47-70 [facility] WBC (Bld) [#/Vol] 8.1 10*3/uL 4.4-11.0 [facility] Blood erythrocytes count (nu mber/volume)Ordered By: Dr. Husain on 06-19-2022 RBC (Bld) [#/Vol] 5.53 10*6/uL 4.2-5.4 [facility] Blood hemoglobin measurement (mass/volume)Ordered By: Dr. Husain on 06-19-2022 Hemoglobin (Bld) [Mass/Vol] 14.5 g/dL 12.0-15.0 [facility] Blood lymphocytes/100 leukoc ytesOrdered By: Dr. Husain on 06-19-2022 Lymphocytes/100 WBC (Bld) 26.8 % 19-41 [facility] Blood monocytes/100 leukocyt esOrdered By: Dr. Husain on 06-19-2022 Monocytes/100 WBC (Bld) 7.6 % 0-10 [facility] Blood platelet mean volumeOr dered By: Dr. Husain on 06-19-2022 Platelet mean volume (Bld) [Entitic vol] 9.2 fL 6.2-12.0 [facility] Determination of erythrocyte mean corpuscular volume (MCV)Ordered By: Dr. Husain on 06-19-2022 MCV (RBC) [Entitic vol] 84.3 fL 81-99 [facility] Hematocrit Auto (Bld) [Volum e fraction]Ordered By: Dr. Husain on 06-19-2022 Hematocrit (Bld) [Volume fraction] 46.6 % 37-47 [facility] Laboratory - Chemistry and C hemistry - challengeOrdered By: Dr. Husain on 06-19-2022 Free T4 [Mass/Vol] 0.92 ng/dL 0.76-1.46 [facility] Laboratory - Hematology and Cell countsOrdered By: Dr. Husain on 06-19-2022 Erythrocyte distribution width (RBC) [Entitic vol] 41.0 fL 35.1-43.9 [facility] Erythrocyte distribution width (RBC) [Ratio] 13.3 % 11.6-14.6 [facility] Immature granulocytes/100 WBC (Bld) 0.200 % 0.0-0.9 [facility] Comment on above: IG% - Immature Granu locytes (promyelocytes, myelocytes and metamyelocytes) > 1% indicates that a LEFT SHIFT is Present. MCH (RBC) [Entitic mass] 26.2 pg 27.0-32.0 [facility] Nucleated RBC/100 WBC (Bld) [Ratio] 0 % 0-5 [facility] MCHC Auto (RBC) [Mass/Vol]Or dered By: Dr. Husain on 06-19-2022 MCHC (RBC) [Mass/Vol] 31.1 g/dL 32-36 [facility] No Panel InformationOrdered By: Dr. Husain on 06-19-2022 Thyroid Stimulating Hormone (TSH) 1.77 uIU/mL 0.358-3.74 [facility] Platelets bldOrdered By: Dr. Husain on 06-19-2022 Platelets (Bld) [#/Vol] 345 10*3/uL 150-450 [facility] Basophil percentageOrdered B y: Dr. Hassan on 04-13-2022 Chloride [Moles/Vol] 102 mmol/L 98-107 [facility] Glucose [Mass/Vol] 132 mg/dL 74-106 [facility] Comment on above: Fasting Glucose resu lt greater than or equal to 126 mg/dL suggests DIABETES MELLITUS per A.D.A. criteria. Potassium [Moles/Vol] 4.0 mmol/L 3.5-5.1 [facility] Sodium [Moles/Vol] 139 mmol/L 136-145 [facility] WBC (Bld) [#/Vol] 14.3 10*3/uL 4.4-11.0 [facility] Blood erythrocytes count (nu mber/volume)Ordered By: Dr. Hassan on 04-13-2022 RBC (Bld) [#/Vol] 4.27 10*6/uL 4.2-5.4 [facility] Blood hemoglobin measurement (mass/volume)Ordered By: Dr. Hassan on 04-13-2022 Hemoglobin (Bld) [Mass/Vol] 11.5 g/dL 12.0-15.0 [facility] Blood platelet mean volumeOr dered By: Dr. Hassan on 04-13-2022 Platelet mean volume (Bld) [Entitic vol] 9.4 fL 6.2-12.0 [facility] Determination of erythrocyte mean corpuscular volume (MCV)Ordered By: Dr. Hassan on 04-13-2022 MCV (RBC) [Entitic vol] 84.1 fL 81-99 [facility] Hematocrit Auto (Bld) [Volum e fraction]Ordered By: Dr. Hassan on 04-13-2022 Hematocrit (Bld) [Volume fraction] 35.9 % 37-47 [facility] Laboratory - Chemistry and C hemistry - challengeOrdered By: Dr. Hassan on 04-13-2022 CO2 [Moles/Vol] 31.0 mmol/L 21.0-32.0 [facility] Urea nitrogen/Creatinine [Mass ratio] 25.0 mg/mg 10-20 [facility] Laboratory - Hematology and Cell countsOrdered By: Dr. Hassan on 04-13-2022 Erythrocyte distribution width (RBC) [Entitic vol] 43.3 fL 35.1-43.9 [facility] Erythrocyte distribution width (RBC) [Ratio] 14.1 % 11.6-14.6 [facility] MCH (RBC) [Entitic mass] 26.9 pg 27.0-32.0 [facility] MCHC Auto (RBC) [Mass/Vol]Or dered By: Dr. Hassan on 04-13-2022 MCHC (RBC) [Mass/Vol] 32.0 g/dL 32-36 [facility] No Panel InformationOrdered By: Dr. Hassan on 04-13-2022 Estimated Creatinine Clearance Calc 45.16 ml/min [facility] Estimated GFR (MDRD) Amer 151 mL/min >60 [facility] Comment on above: GFR Calc Estimated GFR (MDRD) Non-Af Amer 125 mL/min >60 [facility] Comment on above: Non- GFR Calc Platelets bldOrdered By: Dr. Hassan on 04-13-2022 Platelets (Bld) [#/Vol] 266 10*3/uL 150-450 [facility] Serum or plasma calcium estrella urement (mass/volume)Ordered By: Dr. Hassan on 04-13-2022 Calcium [Mass/Vol] 8.2 mg/dL 8.5-10.1 [facility] Serum or plasma creatinine m easurement (mass/volume)Ordered By: Dr. Hassan on 04-13-2022 Creatinine [Mass/Vol] 0.52 mg/dL 0.55-1.02 [facility] Comment on above: The validity of the calculated GFR & GFRAA in patients over 70 years has not been determined. Clinical correlation is essential. Serum or plasma urea nitroge n measurement (mass/volume)Ordered By: Dr. Hassan on 04-13-2022 Urea nitrogen [Mass/Vol] 13 mg/dL 7-18 [facility] Thin prep Papanicolaou smear with manual screeningOrdered By: Dr. Hassan on 04-13-2022 Thin prep Papanicolaou smear with manual screening 6 5-15 [facility] No Panel InformationOrdered By: Dr. Hassan on 04-05-2022 Nasal Screen MRSA/MSSA [facility] Laboratory - Chemistry and C hemistry - challengeOrdered By: Dr. Cardona on 04-04-2022 Magnesium [Mass/Vol] 2.5 mg/dL 1.6-2.6 [facility] Serum or plasma carcinoembry onic antigen measurement (mass/volume)Ordered By: Dr. Larose on 04-04-2022 Carcinoembryonic Ag [Mass/Vol] 1.1 ng/mL 0.0-4.7 [facility] Comment on above: Nonsmokers <3.9 Smok ers <5.6[employer] Electrochemiluminescence Immunoassay(ECLIA)Values obtained with different assay methods or kitscannot be used interchangeably. Results cannot beinterpreted as absolute evidence of the presence orabsence of malignant disease.Performed at: [facility] [place] [id number] Director: Kwame Atkinson PhD, Phone: [phone] Absolute lymphocyte countOrd ered By: Dr. Husain on 03-15-2022 Lymphocytes Auto (Unsp spec) [#/Vol] 1.67 10*3/uL 0.83-4.51 [facility] Basophil percentageOrdered B y: Dr. Husain on 03-15-2022 Basophils/100 WBC (Bld) 0.7 % 0-1 [facility] Bilirubin [Mass/Vol] 0.90 mg/dL 0.20-1.00 [facility] Comment on above: For patients on eltr ombopag therapy, use of Dimension Thida TBIL is not recommended. Chloride [Moles/Vol] 103 mmol/L 98-107 [facility] Eosinophils/100 WBC (Bld) 2.2 % 0-5 [facility] Glucose [Mass/Vol] 102 mg/dL 74-106 [facility] Comment on above: Fasting Glucose resu lt from 100 to 125 mg/dL suggests IMPAIRED HOMEOSTASIS per A.D.A. criteria. Neutrophils (Bld) [#/Vol] 5.0 10*3/uL 2.0-7.7 [facility] Neutrophils/100 WBC (Bld) 67.3 % 47-70 [facility] Potassium [Moles/Vol] 4.1 mmol/L 3.5-5.1 [facility] Protein [Mass/Vol] 7.9 g/dL 6.4-8.2 [facility] Sodium [Moles/Vol] 138 mmol/L 136-145 [facility] WBC (Bld) [#/Vol] 7.4 10*3/uL 4.4-11.0 [facility] Blood erythrocytes count (nu mber/volume)Ordered By: Dr. Husain on 03-15-2022 RBC (Bld) [#/Vol] 5.55 10*6/uL 4.2-5.4 [facility] Blood hemoglobin measurement (mass/volume)Ordered By: Dr. Husain on 03-15-2022 Hemoglobin (Bld) [Mass/Vol] 14.6 g/dL 12.0-15.0 [facility] Blood lymphocytes/100 leukoc ytesOrdered By: Dr. Husain on 03-15-2022 Lymphocytes/100 WBC (Bld) 22.6 % 19-41 [facility] Blood monocytes/100 leukocyt esOrdered By: Dr. Husain on 03-15-2022 Monocytes/100 WBC (Bld) 6.9 % 0-10 [facility] Blood platelet mean volumeOr dered By: Dr. Husain on 03-15-2022 Platelet mean volume (Bld) [Entitic vol] 9.4 fL 6.2-12.0 [facility] Determination of erythrocyte mean corpuscular volume (MCV)Ordered By: Dr. Husain on 03-15-2022 MCV (RBC) [Entitic vol] 83.2 fL 81-99 [facility] Hematocrit Auto (Bld) [Volum e fraction]Ordered By: Dr. Husain on 03-15-2022 Hematocrit (Bld) [Volume fraction] 46.2 % 37-47 [facility] Laboratory - Chemistry and C hemistry - challengeOrdered By: Dr. Husain on 03-15-2022 ALP [Catalytic activity/Vol] 95 U/L 45-117 [facility] ALT [Catalytic activity/Vol] 16 U/L 13-56 [facility] CO2 [Moles/Vol] 29.0 mmol/L 21.0-32.0 [facility] Globulin (S) [Mass/Vol] 3.9 g/dL 2.2-4.2 [facility] Urea nitrogen/Creatinine [Mass ratio] 21.7 mg/mg 10-20 [facility] Laboratory - Hematology and Cell countsOrdered By: Dr. Husain on 03-15-2022 Erythrocyte distribution width (RBC) [Entitic vol] 42.2 fL 35.1-43.9 [facility] Erythrocyte distribution width (RBC) [Ratio] 14.1 % 11.6-14.6 [facility] Immature granulocytes/100 WBC (Bld) 0.300 % 0.0-0.9 [facility] Comment on above: IG% - Immature Granu locytes (promyelocytes, myelocytes and metamyelocytes) > 1% indicates that a LEFT SHIFT is Present. MCH (RBC) [Entitic mass] 26.3 pg 27.0-32.0 [facility] Nucleated RBC/100 WBC (Bld) [Ratio] 0 % 0-5 [facility] MCHC Auto (RBC) [Mass/Vol]Or dered By: Dr. Husain on 03-15-2022 MCHC (RBC) [Mass/Vol] 31.6 g/dL 32-36 [facility] No Panel InformationOrdered By: Dr. Husain on 03-15-2022 Estimated GFR (MDRD) Amer 118 mL/min >60 [facility] Comment on above: GFR Calc Estimated GFR (MDRD) Non-Af Amer 98 mL/min >60 [facility] Comment on above: Non- GFR Calc Platelets bldOrdered By: Dr. Husain on 03-15-2022 Platelets (Bld) [#/Vol] 310 10*3/uL 150-450 [facility] Serum or plasma albumin estrella urement (mass/volume)Ordered By: Dr. Husain on 03-15-2022 Albumin [Mass/Vol] 4.0 g/dL 3.2-5.0 [facility] Serum or plasma albumin/glob ulin mass ratioOrdered By: Dr. Husain on 03-15-2022 Albumin/Globulin [Mass ratio] 1.0 {ratio} 0.9-2.4 [facility] Serum or plasma calcium estrella urement (mass/volume)Ordered By: Dr. Husain on 03-15-2022 Calcium [Mass/Vol] 9.5 mg/dL 8.5-10.1 [facility] Serum or plasma creatinine m easurement (mass/volume)Ordered By: Dr. Husain on 03-15-2022 Creatinine [Mass/Vol] 0.64 mg/dL 0.55-1.02 [facility] Comment on above: The validity of the calculated GFR & GFRAA in patients over 70 years has not been determined. Clinical correlation is essential. Serum or plasma urea nitroge n measurement (mass/volume)Ordered By: Dr. Husain on 03-15-2022 Urea nitrogen [Mass/Vol] 14 mg/dL 09-12 [facility] Thin prep Papanicolaou smear with manual screeningOrdered By: Dr. Husain on 03-15-2022 Thin prep Papanicolaou smear with manual screening 14 U/L 15 [facility] Thin prep Papanicolaou smear with manual screening 6 5-15 [facility] Absolute lymphocyte countOrd ered By: Laura Chris on 12-12-2021 Lymphocytes Auto (Unsp spec) [#/Vol] 2.35 10*3/uL 0.83-4.51 [facility] Basophil percentageOrdered B y: Laura Chris on 12-12-2021 Basophils/100 WBC (Bld) 1.1 % 0-1 [facility] Bilirubin [Mass/Vol] 0.70 mg/dL 0.20-1.00 [facility] Comment on above: For patients on eltr ombopag therapy, use of Dimension Thida TBIL is not recommended. Chloride [Moles/Vol] 97 mmol/L 98-107 [facility] Eosinophils/100 WBC (Bld) 2.6 % 0-5 [facility] Glucose [Mass/Vol] 108 mg/dL 74-106 [facility] Comment on above: Fasting Glucose resu lt from 100 to 125 mg/dL suggests IMPAIRED HOMEOSTASIS per A.D.A. criteria. Neutrophils (Bld) [#/Vol] 4.9 10*3/uL 2.0-7.7 [facility] Neutrophils/100 WBC (Bld) 59.1 % 47-70 [facility] Potassium [Moles/Vol] 3.9 mmol/L 3.5-5.1 [facility] Protein [Mass/Vol] 7.4 g/dL 6.4-8.2 [facility] Sodium [Moles/Vol] 135 mmol/L 136-145 [facility] WBC (Bld) [#/Vol] 8.2 10*3/uL 4.4-11.0 [facility] Basophil percentageOrdered B y: Dr. Husain on 12-12-2021 Cholesterol [Mass/Vol] 181 mg/dL <200 [facility] Comment on above: <200 mg/dL Desirable 200-240 mg/dL Borderline >240 mg/dL High Risk Triglyceride [Mass/Vol] 168 mg/dL <199 [facility] Comment on above: The drugs N-Acetylcy steine and Metamizole may falsely depress this assay.Serum Triglycerides Reference Interval Normal <150 mg/dL Borderline high 150 - 199 mg/dL High 200 - 499 mg/dL Very High > or = 500 mg/dL Blood erythrocytes count (nu mber/volume)Ordered By: Laura Chris on 12-12-2021 RBC (Bld) [#/Vol] 5.20 10*6/uL 4.2-5.4 [facility] Blood hemoglobin measurement (mass/volume)Ordered By: Laura Chris on 12-12-2021 Hemoglobin (Bld) [Mass/Vol] 13.5 g/dL 12.0-15.0 [facility] Blood lymphocytes/100 leukoc ytesOrdered By: Laura Chris on 12-12-2021 Lymphocytes/100 WBC (Bld) 28.6 % 19-41 [facility] Blood monocytes/100 leukocyt esOrdered By: Laurajose RayAries on 12-12-2021 Monocytes/100 WBC (Bld) 8.4 % 0-10 [facility] Blood platelet mean volumeOr dered By: Laura RayAries on 12-12-2021 Platelet mean volume (Bld) [Entitic vol] 9.1 fL 6.2-12.0 [facility] Determination of erythrocyte mean corpuscular volume (MCV)Ordered By: Laura Chris on 12-12-2021 MCV (RBC) [Entitic vol] 80.8 fL 81-99 [facility] Hematocrit Auto (Bld) [Volum e fraction]Ordered By: Laurajose Chris on 12-12-2021 Hematocrit (Bld) [Volume fraction] 42.0 % 37-47 [facility] Laboratory - Chemistry and C hemistry - challengeOrdered By: Laurajose Chris on 12-12-2021 ALP [Catalytic activity/Vol] 89 U/L 45-117 [facility] ALT [Catalytic activity/Vol] 18 U/L 13-56 [facility] CO2 [Moles/Vol] 29.0 mmol/L 21.0-32.0 [facility] Globulin (S) [Mass/Vol] 3.7 g/dL 2.2-4.2 [facility] Urea nitrogen/Creatinine [Mass ratio] 18.6 mg/mg 10-20 [facility] Laboratory - Hematology and Cell countsOrdered By: Laura Aries on 12-12-2021 Erythrocyte distribution width (RBC) [Entitic vol] 42.8 fL 35.1-43.9 [facility] Erythrocyte distribution width (RBC) [Ratio] 14.6 % 11.6-14.6 [facility] Immature granulocytes/100 WBC (Bld) 0.200 % 0.0-0.9 [facility] Comment on above: IG% - Immature Granu locytes (promyelocytes, myelocytes and metamyelocytes) > 1% indicates that a LEFT SHIFT is Present. MCH (RBC) [Entitic mass] 26.0 pg 27.0-32.0 [facility] Nucleated RBC/100 WBC (Bld) [Ratio] 0 % 0-5 [facility] MCHC Auto (RBC) [Mass/Vol]Or dered By: Laura Chris on 12-12-2021 MCHC (RBC) [Mass/Vol] 32.1 g/dL 32-36 [facility] No Panel InformationOrdered By: Laura Chris on 12-12-2021 Estimated GFR (MDRD) Amer 130 mL/min >60 [facility] Comment on above: GFR Calc Estimated GFR (MDRD) Non-Af Amer 108 mL/min >60 [facility] Comment on above: Non- GFR Calc Platelets bldOrdered By: Johanny Chris on 12-12-2021 Platelets (Bld) [#/Vol] 317 10*3/uL 150-450 [facility] Serum or plasma albumin estrella urement (mass/volume)Ordered By: Laura Chris on 12-12-2021 Albumin [Mass/Vol] 3.7 g/dL 3.2-5.0 [facility] Serum or plasma albumin/glob ulin mass ratioOrdered By: Laura Chris on 12-12-2021 Albumin/Globulin [Mass ratio] 1.0 {ratio} 0.9-2.4 [facility] Serum or plasma calcium estrella urement (mass/volume)Ordered By: Laura Chris on 12-12-2021 Calcium [Mass/Vol] 9.1 mg/dL 8.5-10.1 [facility] Serum or plasma carcinoembry onic antigen measurement (mass/volume)Ordered By: Dr. Larose on 12-12-2021 Carcinoembryonic Ag [Mass/Vol] 1.0 ng/mL 0.0-4.7 [facility] Comment on above: Nonsmokers <3.9 Smok ers <5.6[employer] Electrochemiluminescence Immunoassay(ECLIA)Values obtained with different assay methods or kitscannot be used interchangeably. Results cannot beinterpreted as absolute evidence of the presence orabsence of malignant disease.Performed at: [address] [id number] Director: Kwame Atkinson PhD, Phone: [phone] Serum or plasma cholesterol in HDL measurement (mass/volume)Ordered By: Dr. Husain on 12-12-2021 Cholesterol in HDL [Mass/Vol] 55 mg/dL >40 [facility] Comment on above: The drugs N-Acetylcy steine and Metamizole may falsely depress this assay. Reference Range HDL <40 mg/dL Low HDL Cholesterol HDL >or= 60 mg/dL High HDL Cholesterol Serum or plasma cholesterol in VLDL measurement (mass/volume)Ordered By: Dr. Husain on 12-12-2021 Cholesterol in VLDL [Mass/Vol] 34 mg/dL 5-40 [facility] Serum or plasma creatinine m easurement (mass/volume)Ordered By: Laura Chris on 12-12-2021 Creatinine [Mass/Vol] 0.59 mg/dL 0.55-1.02 [facility] Comment on above: The validity of the calculated GFR & GFRAA in patients over 70 years has not been determined. Clinical correlation is essential. Serum or plasma low density lipoprotein (LDL) cholesterol measurement (mass/volume)Ordered By: Dr. Husain on 12-12-2021 Cholesterol in LDL [Mass/Vol] 92 mg/dL 0-130 [facility] Serum or plasma urea nitroge n measurement (mass/volume)Ordered By: Laura Chris on 12-12-2021 Urea nitrogen [Mass/Vol] 11 mg/dL 7-18 [facility] Thin prep Papanicolaou smear with manual screeningOrdered By: Laura Chris on 12-12-2021 Thin prep Papanicolaou smear with manual screening 13 U/L 15-37 [facility] Thin prep Papanicolaou smear with manual screening 9 5-15 [facility] Absolute lymphocyte counton 08-15-2021 Lymphocytes Auto (Unsp spec) [#/Vol] 2.14 10*3/uL 0.83-4.51 [facility] Work Phone: Basophil percentageon 2021 Basophils/100 WBC (Bld) 0.9 % 0-1 [facility] Work Phone: Bilirubin [Mass/Vol] 0.60 mg/dL 0.20-1.00 [facility] Work Phone: Comment on above: For patients on eltr ombopag therapy, use of Dimension Thida TBIL is not recommended. Chloride [Moles/Vol] 103 mmol/L 98-107 [facility] Work Phone: Eosinophils/100 WBC (Bld) 4.0 % 0-5 [facility] Work Phone: Glucose [Mass/Vol] 127 mg/dL 74-106 [facility] Work Phone: Comment on above: Fasting Glucose resu lt greater than or equal to 126 mg/dL suggests DIABETES MELLITUS per A.D.A. criteria. Neutrophils (Bld) [#/Vol] 5.7 10*3/uL 2.0-7.7 [facility] Work Phone: [phone] Neutrophils/100 WBC (Bld) 62.1 % 47-70 [facility] Work Phone: Potassium [Moles/Vol] 3.3 mmol/L 3.5-5.1 [facility] Work Phone: Protein [Mass/Vol] 7.7 g/dL 6.4-8.2 [facility] Work Phone: Sodium [Moles/Vol] 140 mmol/L 136-145 [facility] Work Phone: [phone] WBC (Bld) [#/Vol] 9.2 10*3/uL 4.4-11.0 [facility] Work Phone: Blood erythrocytes count (nu mber/volume)on 08-15-2021 RBC (Bld) [#/Vol] 4.69 10*6/uL 4.2-5.4 [facility] Work Phone: Blood hemoglobin measurement (mass/volume)on 08-15-2021 Hemoglobin (Bld) [Mass/Vol] 12.9 g/dL 12.0-15.0 [facility] Work Phone: Blood lymphocytes/100 leukoc yteson 08-15-2021 Lymphocytes/100 WBC (Bld) 23.3 % 19-41 [facility] Work Phone: Blood monocytes/100 leukocyt eson 08-15-2021 Monocytes/100 WBC (Bld) 9.2 % 0-10 [facility] Work Phone: [phone] Blood platelet mean volumeon 08-15-2021 Platelet mean volume (Bld) [Entitic vol] 9.0 fL 6.2-12.0 [facility] Work Phone: Determination of erythrocyte mean corpuscular volume (MCV)on 08-15-2021 MCV (RBC) [Entitic vol] 87.0 fL 81-99 [facility] Work Phone: Hematocrit Auto (Bld) [Volum e fraction]on 08-15-2021 Hematocrit (Bld) [Volume fraction] 40.8 % 37-47 [facility] Work Phone: Laboratory - Chemistry and C hemistry - challengeon 08-15-2021 ALP [Catalytic activity/Vol] 104 U/L 45-117 [facility] Work Phone: ALT [Catalytic activity/Vol] 16 U/L 13-56 [facility] Work Phone: CO2 [Moles/Vol] 30.0 mmol/L 21.0-32.0 [facility] Work Phone: Globulin (S) [Mass/Vol] 3.9 g/dL 2.2-4.2 [facility] Work Phone: Urea nitrogen/Creatinine [Mass ratio] 17.6 mg/mg 10- [facility] Work Phone: Laboratory - Hematology and Cell countson 08-15-2021 Erythrocyte distribution width (RBC) [Entitic vol] 44.0 fL 35.1-43.9 [facility] Work Phone: Erythrocyte distribution width (RBC) [Ratio] 13.9 % 11.6-14.6 [facility] Work Phone: Immature granulocytes/100 WBC (Bld) 0.500 % 0.0-0.9 [facility] Work Phone: Comment on above: IG% - Immature Granu locytes (promyelocytes, myelocytes and metamyelocytes) > 1% indicates that a LEFT SHIFT is Present. MCH (RBC) [Entitic mass] 27.5 pg 27.0-32.0 [facility] Work Phone: Nucleated RBC/100 WBC (Bld) [Ratio] 0 % 0-5 [facility] Work Phone: MCHC Auto (RBC) [Mass/Vol]on 08-15-2021 MCHC (RBC) [Mass/Vol] 31.6 g/dL 32-36 [facility] Work Phone: No Panel Informationon 08-15 Estimated GFR (MDRD) Amer 101 mL/min >60 [facility] Work Phone: Comment on above: GFR Calc Estimated GFR (MDRD) Non-Af Amer 84 mL/min >60 [facility] Work Phone: Comment on above: Non- GFR Calc Platelets bldon 08-15-2021 Platelets (Bld) [#/Vol] 363 10*3/uL 150-450 [facility] Work Phone: Serum or plasma albumin estrella urement (mass/volume)on 08-15-2021 Albumin [Mass/Vol] 3.8 g/dL 3.2-5.0 [facility] Work Phone: Serum or plasma albumin/glob ulin mass ratioon 08-15-2021 Albumin/Globulin [Mass ratio] 1.0 {ratio} 0.9-2.4 [facility] Work Phone: Serum or plasma calcium estrella urement (mass/volume)on 08-15-2021 Calcium [Mass/Vol] 9.1 mg/dL 8.5-10.1 [facility] Work Phone: Serum or plasma creatinine m easurement (mass/volume)on 08-15-2021 Creatinine [Mass/Vol] 0.74 mg/dL 0.55-1.02 [facility] Work Phone: Comment on above: The validity of the calculated GFR & GFRAA in patients over 70 years has not been determined. Clinical correlation is essential. Serum or plasma urea nitroge n measurement (mass/volume)on 08-15-2021 Urea nitrogen [Mass/Vol] 13 mg/dL 7-18 [facility] Work Phone: Thin prep Papanicolaou smear with manual screeningon 08-15-2021 Thin prep Papanicolaou smear with manual screening 14 U/L 15-37 [facility] Work Phone: Thin prep Papanicolaou smear with manual screening 7 5-15 [facility] Work Phone: No Panel Informationon 07-28 Thyroid Stimulating Hormone (TSH) 1.79 uIU/mL 0.358-3.74 [facility] Serum or plasma carcinoembry onic antigen measurement (mass/volume)on 07-28-2021 Carcinoembryonic Ag [Mass/Vol] 0.8 ng/mL 0.0-4.7 [facility] Work Phone: Comment on above: Nonsmokers <3.9 Smok ers <5.6[employer] Electrochemiluminescence Immunoassay(ECLIA)Values obtained with different assay methods or kitscannot be used interchangeably. Results cannot beinterpreted as absolute evidence of the presence orabsence of malignant disease.Performed at: [facility] [address] [id number] Director: Kwame Atkinson PhD, Phone: [phone] Serum or plasma thyroperoxid ase antibody assay (units/volume)on 07-28-2021 TPO Ab Qn 13 [IU]/mL 0-34 [facility] Comment on above: Performed at: [facility] [address] [place] [id number] Director: Kwame Atkinson PhD, Phone: [phone] Basophil percentageon 2021 Chloride [Moles/Vol] 103 mmol/L 98-107 [facility] Work Phone: Glucose [Mass/Vol] 146 mg/dL 74-106 [facility] Work Phone: Comment on above: Fasting Glucose resu lt greater than or equal to 126 mg/dL suggests DIABETES MELLITUS per A.D.A. criteria. Potassium [Moles/Vol] 4.2 mmol/L 3.5-5.1 [facility] Work Phone: Sodium [Moles/Vol] 137 mmol/L 136-145 [facility] Work Phone: WBC (Bld) [#/Vol] 13.9 10*3/uL 4.4-11.0 [facility] Work Phone: Blood erythrocytes count (nu mber/volume)on 07-19-2021 RBC (Bld) [#/Vol] 4.01 10*6/uL 4.2-5.4 [facility] Work Phone: Blood hemoglobin measurement (mass/volume)on 07-19-2021 Hemoglobin (Bld) [Mass/Vol] 11.1 g/dL 12.0-15.0 [facility] Work Phone: Blood platelet mean volumeon 07-19-2021 Platelet mean volume (Bld) [Entitic vol] 9.9 fL 6.2-12.0 [facility] Work Phone: Determination of erythrocyte mean corpuscular volume (MCV)on 07-19-2021 MCV (RBC) [Entitic vol] 85.5 fL 81-99 [facility] Work Phone: Hematocrit Auto (Bld) [Volum e fraction]on 07-19-2021 Hematocrit (Bld) [Volume fraction] 34.3 % 37-47 [facility] Work Phone: Laboratory - Chemistry and C hemistry - challengeon 07-19-2021 CO2 [Moles/Vol] 29.0 mmol/L 21.0-32.0 [facility] Work Phone: Urea nitrogen/Creatinine [Mass ratio] 21.6 mg/mg 10-20 [facility] Work Phone: Laboratory - Hematology and Cell countson 07-19-2021 Erythrocyte distribution width (RBC) [Entitic vol] 43.0 fL 35.1-43.9 [facility] Work Phone: Erythrocyte distribution width (RBC) [Ratio] 13.6 % 11.6-14.6 [facility] Work Phone: MCH (RBC) [Entitic mass] 27.7 pg 27.0-32.0 [facility] Work Phone: MCHC Auto (RBC) [Mass/Vol]on 07-19-2021 MCHC (RBC) [Mass/Vol] 32.4 g/dL 32-36 [facility] Work Phone: No Panel Informationon 07-19 Estimated Creatinine Clearance Calc 47.14 ml/min [facility] Work Phone: Estimated GFR (MDRD) Amer 173 mL/min >60 [facility] Work Phone: Comment on above: GFR Calc Estimated GFR (MDRD) Non-Af Amer 143 mL/min >60 [facility] Work Phone: Comment on above: Non- GFR Calc Platelets bldon 07-19-2021 Platelets (Bld) [#/Vol] 284 10*3/uL 150-450 [facility] Work Phone: Serum or plasma calcium estrella urement (mass/volume)on 07-19-2021 Calcium [Mass/Vol] 8.1 mg/dL 8.5-10.1 [facility] Work Phone: Serum or plasma creatinine m easurement (mass/volume)on 07-19-2021 Creatinine [Mass/Vol] 0.46 mg/dL 0.55-1.02 [facility] Work Phone: Comment on above: The validity of the calculated GFR & GFRAA in patients over 70 years has not been determined. Clinical correlation is essential. Serum or plasma urea nitroge n measurement (mass/volume)on 07-19-2021 Urea nitrogen [Mass/Vol] 10 mg/dL 7-18 [facility] Work Phone: Thin prep Papanicolaou smear with manual screeningon 07-19-2021 Thin prep Papanicolaou smear with manual screening 5 5-15 [facility] Work Phone: Glucose Glucometer (dC) [M ass/Vol]on 07-18-2021 Glucose [Mass/Vol] 101 mg/dL 74-106 [facility] Work Phone: Comment on above: MANAGEMENT OF PATIEN T CARE PER NURSING PROTOCOL Laboratory - Chemistry and C hemistry - challengeon 06-10-2021 Magnesium [Mass/Vol] 2.2 mg/dL 1.6-2.6 [facility] Work Phone: No Panel Informationon 06-10 Nasal Screen MRSA/MSSA [facility] Work Phone: No Panel Informationon 03-01 Miscellaneous Test See comment [facility] Comment on above: TEST RESULT LIMITSVe nous Thrombosis ProfileHomocysteine 11.0 umol/LHomocysteine levels in patients >60 years increase 1-2umol/L. Reference Range: 5.0 - 15.0Factor VIII Activity 139 % Reference Range: 57 - 163Antithrombin Activity, Plasma 117 %Direct oral anticoagulants such as rivaroxaban, apixaban andedoxaban will lead to spuriously elevated antithrombinactivity levels possibly masking a deficiency. Reference Range: 7 months and older: 75 - 135Prt C Activity (Chromogenic) 151 TESTING PERFORMED AT [facility]. ORIGINAL REPORT ON FILE IN LAB CONTAINS ADDITIONAL TEST SITE INFORMATION. ____%Reference Range:17 years and older: 73 - 180Protein S Antigen, Free 01 104 %Reference Range:7 months and older: 57 - 157This test was developed and its performance characteristicsdetermined by [facility]. It has not been cleared or approvedby the Food and Drug Administration. D-Dimer Quantitative (PE/DVT) 0.76 FEU/ug/m 0.27-0.49 [facility] Comment on above: D-Dimer ELEVATED (>0 .49): Additional studies and clinicalassessments are indicated to conclude diagnosis of:Deep Vein Thrombosis (DVT) or Pulmonary Embolism (PE)CRITICAL VALUE VERIFIED. CALLED TO MANDY ESPARZA03/01/21 Reji Blanchard.RESULTS READ BACK BY SAME . Serum or plasma carcinoembry onic antigen measurement (mass/volume)on 03-01-2021 Carcinoembryonic Ag [Mass/Vol] 0.8 ng/mL [facility] Work Phone: Comment on above: Nonsmokers <3.9 Smok ers <5.6[employer] Electrochemiluminescence Immunoassay(ECLIA)Values obtained with different assay methods or kitscannot be used interchangeably. Results cannot beinterpreted as absolute evidence of the presence orabsence of malignant disease.Performed at: [facility] [id number] Director: Kwame Atkinson PhD, Phone: [phone] Final Surgical Pathology Rep lor 03-12-2019 Final Surgical Pathology Report . Pathology Reports Accession: Collected Date/Time: Received Date/Time: Pathologist: [id number] 03/06/2019 13:42 EST 03/07/2019 15:00 MD LINDA MAJANO Final Surgical Pathology Report DIAGNOSIS: RIGHT COLON, RESECTION: INVASIVE, MODERATELY DIFFERENTIATED ADENOCARCINOMA. MAXIMUM DEPTH OF INVASION: THROUGH THE MUSCULARIS PROPRIA INTO THE PERICOLIC FAT. MARGINS: NEGATIVE. LYMPH NODES: TWELVE LYMPH NODES NEGATIVE FOR CARCINOMA (0/12). APPENDIX: APPENDIX WITH MUCINOUS ADENOMA. SENT FOR MSI/MMR CASE SUMMARY: PROCEDURE: RIGHT COLECTOMY TUMOR SITE: ILEOCECUM TUMOR SIZE: 3.3 CM MACROSCOPIC TUMOR PERFORATION: NOT IDENTIFIED HISTOLOGIC TYPE: INVASIVE ADENOCARCINOMA HISTOLOGIC GRADE: MODERATELY DIFFERENTIATED TUMOR EXTENSION: THROUGH THE MUSCULARIS PROPRIA INTO THE PERICOLIC FAT TO WITHIN 0.1 CM OF THE FREE SEROSAL MARGIN MARGINS: NEGATIVE PROXIMAL MARGIN -- 4.2 CM DISTAL MARGIN -- 3.5 CM FATTY RADIAL MARGIN -- 4 CM FREE SEROSAL MARGIN -- WITHIN 0.1 CM TREATMENT EFFECT: NOT IDENTIFIED LYMPHOVASCULAR INVASION: NOT IDENTIFIED PERINEURAL INVASION: NOT IDENTIFIED TUMOR DEPOSITS: NOT IDENTIFIED LYMPH NODES: NUMBER OF LYMPH NODES INVOLVED -- 0 NUMBER OF LYMPH NODES EXAMINED -- 12 TN CLASSIFICATION pT=3 pN=0 CLINICAL INFORMATION: Procedure: RIGHT COLECTOMY Preoperative diagnosis: ILEOCECAL CANCER Postoperative diagnosis: ILEOCECAL CANCER SPECIMEN: A RIGHT COLON GROSS DESCRIPTION: Received in formalin labeled right colon is an 8.5 cm in length right colon with 4.5 cm of attached terminal ileum. The serosa is kumar-pink and smooth. There is a moderate amount of attached pericolonic and mesenteric fat. The cecum shows a 4.3 x 0.9 cm grossly unremarkable appendix. Opening shows a 3.3 x 2.8 cm kumar-red tumor in the cecum and ascending colon, that rests against the ileocecal valve. The lesion comes to within 3.5 cm of the distal margin, 4.2 cm from the proximal margin, and 4 cm from the closest fatty radial margin. Sectioning shows the tumor extends through the muscularis and approaches the serosal surface. The remaining mucosa is kumar and glistening with usual intestinal folds. The adipose tissue is fixed in grossing aid for lymph node enhancement. Multiple nodes are identified. RS -10 Pathology Reports Accession: Collected Date/Time: Received Date/Time: Pathologist: [id number] 03/06/2019 13:42 EST 03/07/2019 15:00 MD LINDA MAJANO GROSS DESCRIPTION: 1 proximal distal margins 2 closest fatty radial margin 3 -5 tumor 6 random mucosa and appendix 7 -9 multiple lymph nodes 10 a single possible lymph node Dictated by Kavita STORY ([facility]) MICROSCOPIC DESCRIPTION: Slides reviewed. Electronically Signed by Pathology Report verified by [facility] Electronically signed by LINDA ESPARZA MD Sign out Date: 03/12/2019 09:54 Performing Lab: [address] Normal [facility] ([place]) Comment on above: Performed By: #### S PFR #### [place] [id number] .Auto Diffon 03-07-2019 Ammonia (P) [Mass/Vol] 0.60 10 3/mcL Normal 0.09-1.40 [facility] ([place]) Comment on above: Performed By: #### C BC, ADIFF, ANEU, BMP, GFR #### [address] [address] Basophils (Bld) [#/Vol] 0.00 10 3/mcL Normal 0.00-0.27 [facility] ([place]) Comment on above: Performed By: #### C BC, ADIFF, ANEU, BMP, GFR #### [place] [id number] Basophils/100 WBC (Bld) 0.1 % Normal 0.0-2.5 [facility] ([place]) Comment on above: Performed By: #### C BC, ADIFF, ANEU, BMP, GFR #### [address] [address] Eosinophils (Bld) [#/Vol] 0.00 10 3/mcL Normal 0.00-0.65 [facility] ([place]) Comment on above: Performed By: #### C BC, ADIFF, ANEU, BMP, GFR #### [address] [address] Eosinophils/100 WBC (Bld) 0.0 % Normal 0.0-6.0 [facility] ([place]) Comment on above: Performed By: #### C BC, ADIFF, ANEU, BMP, GFR #### [address] [address] Lymphocytes (Bld) [#/Vol] 0.80 10 3/mcL Low 0.90-4.32 [facility] ([place]) Comment on above: Performed By: #### C BC, ADIFF, ANEU, BMP, GFR #### [address] [address] Lymphocytes/100 WBC (Bld) 6.5 % Low 20.0-40.0 [facility] ([place]) Comment on above: Performed By: #### C BC, ADIFF, ANEU, BMP, GFR #### [address] [address] Monocytes/100 WBC (Bld) 4.4 % Normal 2.0-13.0 [facility] ([place]) Comment on above: Performed By: #### C BC, ADIFF, ANEU, BMP, GFR #### [address] [address] Neutrophils/100 WBC (Bld) 89.0 % High 50.0-75.0 [facility] ([place]) Comment on above: Performed By: #### C BC, ADIFF, ANEU, BMP, GFR #### [address] [address] .GFRon 03-07-2019 GFR >60 Normal [facility] ([place]) Comment on above: Result Comment: GFR Population mean for , Non- Americans Ages 20-29 = 116 mL/min/1.73 sq.m. Ages 30-39 = 107 mL/min/1.73 sq.m. Ages 40-49 = 99 mL/min/1.73 sq.m. Ages 50-59 = 93 mL/min/1.73 sq.m. Ages 60-69 = 85 mL/min/1.73 sq.m. Ages 70+ = 75 mL/min/1.73 sq.m. Chronic Kidney Disease: Less than 60 mL/min/1.73 square meters End Stage Renal Disease: Less than 15 mL/min/1.73 square meters Performed By: #### C BC, ADIFF, ANEU, BMP, GFR #### [address] [address] GFR Non- >60 Normal [facility] ([place]) Comment on above: Result Comment: GFR Population mean for , Non- Americans Ages 20-29 = 116 mL/min/1.73 sq.m. Ages 30-39 = 107 mL/min/1.73 sq.m. Ages 40-49 = 99 mL/min/1.73 sq.m. Ages 50-59 = 93 mL/min/1.73 sq.m. Ages 60-69 = 85 mL/min/1.73 sq.m. Ages 70+ = 75 mL/min/1.73 sq.m. Chronic Kidney Disease: Less than 60 mL/min/1.73 square meters End Stage Renal Disease: Less than 15 mL/min/1.73 square meters Performed By: #### C BC, ADIFF, ANEU, BMP, GFR #### [address] [address] .NEUABSon 03-07-2019 Neutrophils (Bld) [#/Vol] 11.20 10 3/mcL High 2.25-8.10 [facility] ([place]) Comment on above: Performed By: #### C BC, ADIFF, ANEU, BMP, GFR #### [address] [address] BMPon 03-07-2019 Calcium [Mass/Vol] 8.2 mg/dL Low 8.4-10.1 [facility] ([place]) Comment on above: Performed By: #### C BC, ADIFF, ANEU, BMP, GFR #### [address] [address] Chloride [Moles/Vol] 102 mmol/L Normal 98-110 [facility] ([place]) Comment on above: Performed By: #### C BC, ADIFF, ANEU, BMP, GFR #### [address] [address] CO2 [Moles/Vol] 28 mmol/L Normal 22-32 [facility] ([place]) Comment on above: Performed By: #### C BC, ADIFF, ANEU, BMP, GFR #### [address] [address] Creatinine [Mass/Vol] 0.46 mg/dL Low 0.50-1.20 [facility] ([place]) Comment on above: Performed By: #### C BC, ADIFF, ANEU, BMP, GFR #### [address] [address] Electrolyte Balance 6.0 mEq/L Normal 4.0-15.0 [facility] ([place]) Comment on above: Performed By: #### C BC, ADIFF, ANEU, BMP, GFR #### [address] [address] Glucose [Mass/Vol] 145 mg/dL High 82-115 [facility] ([place]) Comment on above: Performed By: #### C BC, ADIFF, ANEU, BMP, GFR #### [address] [address] Potassium [Moles/Vol] 4.3 mmol/L Normal 3.5-5.0 [facility] ([place]) Comment on above: Performed By: #### C BC, ADIFF, ANEU, BMP, GFR #### [address] [address] Sodium [Moles/Vol] 136 mmol/L Normal 136-145 [facility] ([place]) Comment on above: Performed By: #### C BC, ADIFF, ANEU, BMP, GFR #### [place] [id number] Urea nitrogen [Mass/Vol] 7.0 mg/dL Low 8.0-22.0 [facility] ([place]) Comment on above: Performed By: #### C BC, ADIFF, ANEU, BMP, GFR #### [place] [id number] Urea nitrogen/Creatinine [Mass ratio] 15.2 ratio Normal 10.0-22.0 [facility] ([place]) Comment on above: Performed By: #### C BC, ADIFF, ANEU, BMP, GFR #### [place] [id number] CBCon 03-07-2019 Erythrocyte distribution width (RBC) [Ratio] 22.1 % High 11.5-15.5 [facility] ([place]) Comment on above: Performed By: #### C BC, ADIFF, ANEU, BMP, GFR #### [place] [id number] Hematocrit (Bld) [Volume fraction] 38.7 % Normal 34.0-46.0 [facility] ([place]) Comment on above: Performed By: #### C BC, ADIFF, ANEU, BMP, GFR #### [place] [id number] Hemoglobin (Bld) [Mass/Vol] 12.4 G/dL Normal 12.0-16.0 [facility] ([place]) Comment on above: Performed By: #### C BC, ADIFF, ANEU, BMP, GFR #### [place] [id number] MCH (RBC) [Entitic mass] 25.0 pg Low 27.0-33.0 [facility] ([place]) Comment on above: Performed By: #### C BC, ADIFF, ANEU, BMP, GFR #### [place] [id number] MCHC (RBC) [Mass/Vol] 32.0 G/dL Normal 32.0-36.0 [facility] ([place]) Comment on above: Performed By: #### C BC, ADIFF, ANEU, BMP, GFR #### [place] [id number] MCV (RBC) [Entitic vol] 78.2 fL Low 80.0-99.0 [facility] ([place]) Comment on above: Performed By: #### C BC, ADIFF, ANEU, BMP, GFR #### [place] [id number] Platelet mean volume (Bld) [Entitic vol] 7.0 fL Normal 6.6-10.5 [facility] ([place]) Comment on above: Performed By: #### C BC, ADIFF, ANEU, BMP, GFR #### [place] [id number] Platelets (Bld) [#/Vol] 296 10 3/mcL Normal 150-450 [facility] ([place]) Comment on above: Performed By: #### C BC, ADIFF, ANEU, BMP, GFR #### [place] [id number] RBC (Bld) [#/Vol] 4.95 10 6/mcL Normal 4.10-5.30 [facility] ([place]) Comment on above: Performed By: #### C BC, ADIFF, ANEU, BMP, GFR #### [place] [id number] WBC (Bld) [#/Vol] 12.50 10 3/mcL High 4.50-10.80 [facility] ([place]) Comment on above: Performed By: #### C BC, ADIFF, ANEU, BMP, GFR #### [place] [id number] NAon 03-06-2019 Sodium [Moles/Vol] 137 mmol/L Normal 136-145 [facility] ([place]) Comment on above: Performed By: #### N A #### [place] [address] Final Surgical Pathology Rep lor 01-30-2019 Final Surgical Pathology Report . Pathology Reports Accession: Collected Date/Time: Received Date/Time: Pathologist: [id number] 01/28/2019 14:54 EST 01/29/2019 14:54 EST MD LINDA ESPARZA Final Surgical Pathology Report DIAGNOSIS: ILEOCECUM, BIOPSY - INVASIVE MODERATELY DIFFERENTIATED ADENOCARCINOMA. DEPTH OF INVASION CAN NOT BE ASSESSED BASED ON THIS SPECIMEN. TN CLASSIFICATION pT=X pN=X CLINICAL INFORMATION: SCREENING SPECIMEN: A ILEOCECAL VALVE MASS BX- R/O CANCER GROSS DESCRIPTION: Received in formalin labeled ileocecal valve mass are several kumar glistening soft tissues ranging from 0.1 to 0.4 cm. TS -1 Dictated by Kavita STORY ([facility]) MICROSCOPIC DESCRIPTION: Slides reviewed. Electronically Signed by Pathology Report verified by [facility] Electronically signed by LINDA ESPARZA MD Sign out Date: 01/30/2019 14:31 Performing Lab: [facility], [address] [place] [address] ([place]) Comment on above: Performed By: #### S PFR #### [address] 11[address]2016 CNOV Office Visit (UCTR) ----ELIS HA ([id number]) 1955 [facility] Vlkqiiozfl75/5/17 7:45 AM NIKI COOL (NADIR) [facility] During your visit today, we recorded the following information about you: Temperature Pulse Respiration Blood pressure 99.7 degrees 126/minute 24/minute 152/70 Weight 76.7 kgNiki Cool CNP 11/30/2016 8:27 AM SignedNaseem Goldjolanta Ha is a 61 year old female who presents with a cough for 5 days,getting worse. She is wheezing. She has taken inhaler, claritin and mucinex athome without relief. No fever. She has no known sick contacts.Review of SystemsConstitutional: Positive for fever.HENT: Positive for congestion and sore throat (scratchy). Negative for earpain.Respiratory: Positive for cough, sputum production, shortness of breath andwheezing.Cardiovascular: Negative. Negative for chest pain.Gastrointestinal: Negative. Negative for abdominal pain, diarrhea, nausea andvomiting.Skin: Negative. Negative for rash.Neurological: Positive for headaches (sinus headache).BP 152/70 Pulse (!) 126 Temp 37.6 ?C (99.7 ?F) (Tympanic) Resp 24 Wt76.7 kg (169 lb) BMI 29.94 kg/m2PAST MEDICAL HISTORYDiagnosis Date- Diarrhea- Hemorrhage of gastrointestinal tract, unspecified- Hypersomnia with sleep apnea, unspecified 01/29 treated with CPAP- Irritable bowel syndromePAST SURGICAL HISTORYProcedure Laterality Date- EXPLOR ANKLE JOINT- REMOVAL GALLBLADDER- SIGMOIDOSCOPY FLEX DIAG 09/14/05- TOTAL ABDOM HYSTERECTOMY without oophorectomyALLERGIES Codeine; Demerol [Opioids-Meperidine And Related]; Grass Pollen; MoldMEDICATIONSalbuterol HFA (VENTOLIN HFA) 90 mcg/actuation inhaler Inhale 2 Puffs asinstructed every 4 hours as needed for Wheezing/Shortness of Breath.loratadine (CLARITIN) 10 mg tablet Take 10 mg by mouth once daily.Benzonatate 200 mg capsule Take 200 mg by mouth three times daily as needed.naproxen (NAPROSYN) 500 mg tablet Take 1 tablet by mouth twice daily as needed(for pain/inflammation). Take with food.KRILL OIL ORAL Take 1,000 mg by mouth once daily.lisinopril 20 mg tablet Take 1 tablet by mouth once daily.FAMILY HISTORYProblem Relation Age of Onset- Multiple sclerosis[Other] [OTHER] Other first degree cousin- Heart Mother- Ischemic Heart Disease Father- Breast Cancer Paternal Aunt- Diabetes Father- dementia [Other] [OTHER] Maternal Grandfather ANDamp; following that branch backSocial HistorySubstance Use Topics- Smoking status: Never Smoker- Smokeless tobacco: Not on file- Alcohol use Yes Comment: rarelyPhysical ExamConstitutional: She is well-developed, well-nourished, and in no distress.HENT:Head: Normocephalic and atraumatic.Right Ear: Tympanic membrane, external ear and ear canal normal.Left Ear: Tympanic membrane, external ear and ear canal normal.Nose: Rhinorrhea present.Mouth/Throat: Uvula is midline, oropharynx is clear and moist and mucousmembranes are normal. No posterior oropharyngeal edema or posteriororopharyngeal erythema.Eyes: Conjunctivae are normal. Right eye exhibits no discharge. Left eyeexhibits no discharge.Neck: Neck supple.Cardiovascular: Regular rhythm and normal heart sounds.Pulmonary/Chest: Effort normal. She has wheezes in the right lower field andthe left lower field.SpO2 99%Post albuterol: Lungs CTA and SpO2 99%Lymphadenopathy: She has no cervical adenopathy.Neurological: She is alert.Skin: Skin is warm and dry. No rash noted.Nursing note and vitals reviewed.ASSESSMENT/PLAN:1. Sinobronchitis - ICD9: 473.9, 490, ICD10: J32.9, J40 (primary diagnosis)- Will begin treatment with Zithromax 500 mg for five days- Supportive care with plenty of fluids, rest, and analgesia prn.- AZITHROMYCIN 500 MG TABLET- METHYLPREDNISOLONE 4 MG TABLETS IN A DOSE PACK- ALBUTEROL SULFATE HFA 90 MCG/ACTUATION AEROSOL INHALER2. Wheezing - ICD9: 786.07, ICD10: R06.2- ALBUTEROL SULFATE CONCENTRATE 5 MG/ML(0.5 %) SOLUTION FOR NEBULIZATION- ALBUTEROL SULFATE HFA 90 MCG/ACTUATION AEROSOL INHALER- Follow-up with your PCP in 3-5 days if symptoms have not improved or soonerif symptoms worsen- Discussed red flags and need for immediate medical evaluation if any occur.- Discussed supportive care treatment with fluids, rest and analgesia.- Discussed expected course of illnessMary Seay CNP 11/30/2016 8:20 AM SignedUse inhaler every 4 hours.Take antibiotic and steroid as prescribed.ACUTE BRONCHITIS:You have acute bronchitis. This means the airway passages in your lungs areinflamed. Bronchitis may be caused by viruses or bacteria. Inhaling cigarettesmoke will always make it worse. Exposure to irritating chemicals or secondhand smoke as well as allergies can contribute to bronchitis. Repeat episodesof bronchitis may cause lifelong lung problems.Acute bronchitis is usually treated with rest, fluids, cough medicine, andpossibly antibiotics or inhaled medicine to open up the small airways. It isvery important that you avoid smoke and drink increased amounts of fluids. Acool air vaporizer can help thin bronchial secretions. This makes it easier tocough and clear your chest. If you are a cigarette smoker, consider usingnicotine gum or skin patches to help you withdraw.Recovery from bronchitis is often slow, but you should start feeling betterafter 2-3 days of treatment. Please call your doctor or return here if youhave any of the following symptoms: - Increased fever, chills, or chest pain. - Severe shortness of breath or bloody sputum. - Do not improve after 3 days of proper treatment.Lesli Broussard LPN 11/30/2016 10:13 AM Signed2.5 solution aerosol treatment given per doctor's order. Prior to treatment,O2 sat is 99% on room air.Treatment completed.Tolerated well.Referring Provider: SELF [[id number]]Allergies As of Date: 11/30/2016 Noted Allergy ReactionCODEINE 05/07/2004 11 - VomitingDEMEROL (OPIOIDS-MEPERIDINE AND R*05/07/2004 11 - VomitingGRASS POLLEN 05/07/2004MOLD 05/07/2004Date Reviewed: 11/30/2016Reviewed by: Niki ([facility]) Silvina - Lucía AssessedReason for Visit: Nasal Congestion [235] Cmt: with cough X 5 dayPrimary Visit Diagnosis:Sinobronchitis [J32.9, J40] Other Visit Diagnosis:Wheezing [R06.2]Order(s):albuterol (PROVENTIL) 5 mg/mL nebuInhale 0.5 mL as instructed one time only for 1 dose. 1 DOSE NOW - BACK OFFICE. PLACE 0.5 ML PER DROPPER AND 2.5 ML OF NORMAL SALINE INTO RESERVOIR.Disp: 1 mLRfl: 0 azithromycin (ZITHROMAX) 500 mg tabletTake 1 tablet by mouth once daily for 5 days.Disp: 5 tabletRfl: 0 methylPREDNISolone (MEDROL DOSE-PACK) 4 mg Dose-PackAs Instructed per packageDisp: 1 PackageRfl: 0 albuterol HFA (VENTOLIN HFA) 90 mcg/actuation inhalerInhale 2 Puffs as instructed every 4 hours as needed for Wheezing/Shortness of Breath.Disp: 1 InhalerRfl: 0Prescriptions as of 11/30/2016 Sig: ALBUTEROL SULFATE HFA 90 MCG/* Inhale 2 Puffs as instructed * LORATADINE 10 MG TABLET Take 10 mg by mouth once antionette* ALBUTEROL SULFATE CONCENTRATE* Inhale 0.5 mL as instructed o* AZITHROMYCIN 500 MG TABLET Take 1 tablet by mouth once d* METHYLPREDNISOLONE 4 MG TABLE* As Instructed per packageProblem List As Of Date 11/30/2016 Noted Resolved SKIN SENSATION DISTURB [R20.9] INVALID FOR* More... 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 Take antibiotic and steroid as prescribed. ACUTE BRONCHITIS: You have acute bronchitis. This means the airway passages in your lungs are inflamed. Bronchitis may be caused by viruses or bacteria. Inhaling cigarette smoke will always make it worse. Exposure to irritating chemicals or second hand smoke as well as allergies can contribute to bronchitis. Repeat episodes of bronchitis may cause lifelong lung problems. Acute bronchitis is usually treated with rest, fluids, cough medicine, and possibly antibiotics or inhaled medicine to open up the small airways. It is very important that you avoid smoke and drink increased amounts of fluids. A cool air vaporizer can help thin bronchial secretions. This makes it easier to cough and clear your chest. If you are a cigarette smoker, consider using nicotine gum or skin patches to help you withdraw. Recovery from bronchitis is often slow, but you should start feeling better after 2-3 days of treatment. Please call your doctor or return here if you have any of the following symptoms: - Increased fever, chills, or chest pain. - Severe shortness of breath or bloody sputum. - Do not improve after 3 days of proper treatment.Visit Notes:>> Lesli Broussard LPN Erin Nov 30, 2016 10:12 AM Status: Signed2.5 solution aerosol treatment given per doctor's order. Prior totreatment, O2 sat is 99% on room air.Treatment completed.Tolerated well.Prescriptions ordered this encounter Disp Refills Start End ALBUTEROL SULFATE CONCENTRATE 5 MG/M* 1 mL 0 11/30/2016 11/30/2016 Class: Back Office Route: INHALATION Sig: Inhale 0.5 mL as instructed one time only for 1 dose. 1 DOSE NOW - BACK OFFICE. PLACE 0.5 ML PER DROPPER AND 2.5 ML OF NORMAL SALINE INTO RESERVOIR. AZITHROMYCIN 500 MG TABLET 5 ta* 0 11/30/2016 12/05/2016 Route: ORAL Sig: Take 1 tablet by mouth once daily for 5 days. METHYLPREDNISOLONE 4 MG TABLETS IN A* 1 Pa* 0 11/30/2016 Sig: As Instructed per package ALBUTEROL SULFATE HFA 90 MCG/ACTUATI* 1 In* 0 11/30/2016 Route: INHALATION Sig: Inhale 2 Puffs as instructed every 4 hours as needed for Wheezing/Shortness of Breath.Medications Discontinued During This Encounter Benzonatate 200 mg capsule 21 c* 0 12/04/2015 11/30/2016 Route: ORAL Sig: Take 200 mg by mouth three times daily as needed. Disc: Reason for discontinue is not on file. naproxen (NAPROSYN) 500 mg tablet 60 t* 0 01/19/2014 11/30/2016 Route: ORAL Sig: Take 1 tablet by mouth twice daily as needed (for pain/inflammation). Take with food. Disc: Reason for discontinue is not on file. lisinopril 20 mg tablet 90 t* 3 05/29/2013 11/30/2016 Route: ORAL Sig: Take 1 tablet by mouth once daily. Disc: Reason for discontinue is not on file. KRILL OIL ORAL 11/30/2016 Class: Historical Med Route: ORAL Sig: Take 1,000 mg by mouth once daily. Disc: Reason for discontinue is not on file. albuterol HFA (VENTOLIN HFA) 90 mcg/* 1 In* 0 03/27/2016 11/30/2016 Route: INHALATION Sig: Inhale 2 Puffs as instructed every 4 hours as needed for Wheezing/Shortness of Breath. Disc: Reason for discontinue is not on file. Status:Closed by NIKI COOL on 11/30/16 Normal [facility] PROGRESSon 11-30-2016 PROGRESS HNO ID: [id number] thor: Niki ([facility]) Avril: (none)Author Type: Nurse PractitionerType: Progress NotesFiled: 11/30/2016 8:27 AMNote Text:HPI Elis Ha is a 61 year old female who presents with a cough for 5days, getting worse. She is wheezing. She has taken inhaler, claritin andmucinex at home without relief. No fever. She has no known sick contacts.Review of SystemsConstitutional: Positive for fever.HENT: Positive for congestion and sore throat (scratchy). Negative for earpain.Respiratory: Positive for cough, sputum production, shortness of breathand wheezing.Cardiovascular: Negative. Negative for chest pain.Gastrointestinal: Negative. Negative for abdominal pain, diarrhea, nauseaand vomiting.Skin: Negative. Negative for rash.Neurological: Positive for headaches (sinus headache).BP 152/70 Pulse (!) 126 Temp 37.6 ?C (99.7 ?F) (Tympanic) Resp 24 Wt 76.7 kg (169 lb) BMI 29.94 kg/m2PAST MEDICAL HISTORYDiagnosis Date- Diarrhea- Hemorrhage of gastrointestinal tract, unspecified- Hypersomnia with sleep apnea, unspecified 01/29 treated with CPAP- Irritable bowel syndromePAST SURGICAL HISTORYProcedure Laterality Date- EXPLOR ANKLE JOINT- REMOVAL GALLBLADDER- SIGMOIDOSCOPY FLEX DIAG 09/14/05- TOTAL ABDOM HYSTERECTOMY without oophorectomyALLERGIES Codeine; Demerol [Opioids-Meperidine And Related]; Grass Pollen;MoldMEDICATIONSalbute rol HFA (VENTOLIN HFA) 90 mcg/actuation inhaler Inhale 2 Puffs asinstructed every 4 hours as needed for Wheezing/Shortness of Breath.loratadine (CLARITIN) 10 mg tablet Take 10 mg by mouth once daily.Benzonatate 200 mg capsule Take 200 mg by mouth three times daily asneeded.naproxen (NAPROSYN) 500 mg tablet Take 1 tablet by mouth twice daily asneeded (for pain/inflammation). Take with food.KRILL OIL ORAL Take 1,000 mg by mouth once daily.lisinopril 20 mg tablet Take 1 tablet by mouth once daily.FAMILY HISTORYProblem Relation Age of Onset- Multiple sclerosis[Other] [OTHER] Other first degree cousin- Heart Mother- Ischemic Heart Disease Father- Breast Cancer Paternal Aunt- Diabetes Father- dementia [Other] [OTHER] Maternal Grandfather AND following that branch backSocial HistorySubstance Use Topics- Smoking status: Never Smoker- Smokeless tobacco: Not on file- Alcohol use Yes Comment: rarelyPhysical ExamConstitutional: She is well-developed, well-nourished, and in no distress.HENT:Head: Normocephalic and atraumatic.Right Ear: Tympanic membrane, external ear and ear canal normal.Left Ear: Tympanic membrane, external ear and ear canal normal.Nose: Rhinorrhea present.Mouth/Throat: Uvula is midline, oropharynx is clear and moist and mucousmembranes are normal. No posterior oropharyngeal edema or posteriororopharyngeal erythema.Eyes: Conjunctivae are normal. Right eye exhibits no discharge. Left eyeexhibits no discharge.Neck: Neck supple.Cardiovascular: Regular rhythm and normal heart sounds.Pulmonary/Chest: Effort normal. She has wheezes in the right lower fieldand the left lower field.SpO2 99%Post albuterol: Lungs CTA and SpO2 99%Lymphadenopathy: She has no cervical adenopathy.Neurological: She is alert.Skin: Skin is warm and dry. No rash noted.Nursing note and vitals reviewed.ASSESSMENT/PLAN:1. Sinobronchitis - ICD9: 473.9, 490, ICD10: J32.9, J40 (primarydiagnosis)- Will begin treatment with Zithromax 500 mg for five days- Supportive care with plenty of fluids, rest, and analgesia prn.- AZITHROMYCIN 500 MG TABLET- METHYLPREDNISOLONE 4 MG TABLETS IN A DOSE PACK- ALBUTEROL SULFATE HFA 90 MCG/ACTUATION AEROSOL INHALER2. Wheezing - ICD9: 786.07, ICD10: R06.2- ALBUTEROL SULFATE CONCENTRATE 5 MG/ML(0.5 %) SOLUTION FOR NEBULIZATION- ALBUTEROL SULFATE HFA 90 MCG/ACTUATION AEROSOL INHALER- Follow-up with your PCP in 3-5 days if symptoms have not improved orsooner if symptoms worsen- Discussed red flags and need for immediate medical evaluation if anyoccur.- Discussed supportive care treatment with fluids, rest and analgesia.- Discussed expected course of illnessNiki Middleton-NADIR Chapa Normal [facility] No Panel Information Nasal Screen MRSA/MSSA [facility] Work Phone: Vital Signs Date Time Vital Sign Value Performing Clinician Tania benito 11-11-2024 08:44-0400 Body mass index (BMI) [Ratio] 37.5 kg/m2 Dr. Adam Husain MD Work Phone: [facility] 11-11-2024 08:44-0400 Body temperature 97.2 [degF] Dr. Adam Husain MD Work Phone: [facility] 11-11-2024 08:44-0400 Body weight 99.[address] Adam Husain MD Work Phone: [facility] 11-11-2024 08:44-0400 Diastolic blood pressure 81 mm[Hg] Dr. Adam Husain MD Work Phone: [facility] 11-11-2024 08:44-0400 Heart rate 86 /min Dr. Adam Husain MD Work Phone: [facility] 11-11-2024 08:44-0400 Respiratory rate 18 /min Dr. Adam Husain MD Work Phone: [facility] 11-11-2024 08:44-0400 SaO2% (BldA) [Mass fraction] 98 % Dr. Adam Husain MD Work Phone: [facility] 11-11-2024 08:44-0400 Systolic blood pressure 147 mm[Hg] Dr. Adam Husain MD Work Phone: [facility] 05-26-2024 11:26-0400 Diastolic blood pressure 63 mm[Hg] Dr. Manny Das DO Work Phone: [facility] 05-26-2024 11:26-0400 Heart rate 82 /min Dr. Manny Das DO Work Phone: [facility] 05-26-2024 11:26-0400 Respiratory rate 16 /min Dr. Manny Das DO Work Phone: [facility] 05-26-2024 11:26-0400 SaO2% (BldA) [Mass fraction] 95 % Dr. Bryant Friend DO Work Phone: [facility] 05-26-2024 11:26-0400 Systolic blood pressure 156 mm[Hg] Dr. Bryant Friend DO Work Phone: [facility] 05-26-2024 09:29-0400 Body height 162.[address] Bryant Friend DO Work Phone: [facility] 05-26-2024 09:29-0400 Body mass index (BMI) [Ratio] 37.8 kg/m2 Dr. Bryant Friend DO Work Phone: [facility] 05-26-2024 09:29-0400 Body weight 99.[address] Manny Das DO Work Phone: [facility] 04-21-2024 10:58-0500 Body height 162.[address] Adam Husain MD Work Phone: [facility] 04-21-2024 10:58-0500 Body mass index (BMI) [Ratio] 37.3 kg/m2 Dr. Adam Husain MD Work Phone: [facility] 04-21-2024 10:58-0500 Body temperature 99.3 [degF] Dr. Adam Husain MD Work Phone: [facility] 04-21-2024 10:58-0500 Body weight 98.[address] Adam Husain MD Work Phone: [facility] 04-21-2024 10:58-0500 Diastolic blood pressure 63 mm[Hg] Dr. Adam Husain MD Work Phone: [facility] 04-21-2024 10:58-0500 Heart rate 95 /min Dr. Adam Husain MD Work Phone: [facility] 04-21-2024 10:58-0500 Respiratory rate 16 /min Dr. Adam Husain MD Work Phone: [facility] 04-21-2024 10:58-0500 SaO2% (BldA) [Mass fraction] 97 % Dr. Adam Husain MD Work Phone: [facility] 04-21-2024 10:58-0500 Systolic blood pressure 140 mm[Hg] Dr. Adam Husain MD Work Phone: [facility] 03-28-2024 08:29-0500 Body temperature 99.7 [degF] Dr. Adam Husain MD Work Phone: [facility] 03-28-2024 08:29-0500 Diastolic blood pressure 62 mm[Hg] Dr. Adam Husain MD Work Phone: [facility] 03-28-2024 08:29-0500 Heart rate 95 /min Dr. Adam Husain MD Work Phone: [facility] 03-28-2024 08:29-0500 Respiratory rate 18 /min Dr. Adam Husain MD Work Phone: [facility] 03-28-2024 08:29-0500 SaO2% (BldA) [Mass fraction] 97 % Dr. Adam Husain MD Work Phone: [facility] 03-28-2024 08:29-0500 Systolic blood pressure 170 mm[Hg] Dr. Adam Husain MD Work Phone: [facility] 03-24-2024 08:55-0500 Body mass index (BMI) [Ratio] 38 kg/m2 Dr. Adam Husain MD Work Phone: [facility] 03-24-2024 08:55-0500 Body temperature 98.9 [degF] Dr. Adam Husain MD Work Phone: [facility] 03-24-2024 08:55-0500 Body weight 100.[address] Adam Husain MD Work Phone: [facility] 03-24-2024 08:55-0500 Diastolic blood pressure 62 mm[Hg] Dr. Adam Husain MD Work Phone: [facility] 03-24-2024 08:55-0500 Heart rate 92 /min Dr. Adam Husain MD Work Phone: [facility] 03-24-2024 08:55-0500 SaO2% (BldA) [Mass fraction] 97 % Dr. Adam Husain MD Work Phone: [facility] 03-24-2024 08:55-0500 Systolic blood pressure 124 mm[Hg] Dr. Adam Husain MD Work Phone: [facility] 02-13-2024 14:03-0500 Body mass index (BMI) [Ratio] 37.8 kg/m2 Dr. Adam Husain MD Work Phone: [facility] 02-13-2024 14:03-0500 Body temperature 97 [degF] Dr. Adam Husain MD Work Phone: [facility] 02-13-2024 14:03-0500 Body weight 99.[address] Adam Husain MD Work Phone: [facility] 02-13-2024 14:03-0500 Diastolic blood pressure 82 mm[Hg] Dr. Adam Husain MD Work Phone: [facility] 02-13-2024 14:03-0500 Heart rate 83 /min Dr. Adam Husain MD Work Phone: [facility] 02-13-2024 14:03-0500 Respiratory rate 18 /min Dr. Adam Husain MD Work Phone: [facility] 02-13-2024 14:03-0500 SaO2% (BldA) [Mass fraction] 97 % Dr. Adam Husain MD Work Phone: [facility] 02-13-2024 14:03-0500 Systolic blood pressure 138 mm[Hg] Dr. Adam Husain MD Work Phone: [facility] 07-02-2023 07:57-0400 Body temperature 98.6 [degF] Dr. Adam Husain Work Phone: [facility] 07-02-2023 07:57-0400 Diastolic blood pressure 63 mm[Hg] Dr. Adam Husain Work Phone: [facility] 07-02-2023 07:57-0400 Heart rate 79 /min Dr. Adam Husain Work Phone: [facility] 07-02-2023 07:57-0400 Respiratory rate 16 /min Dr. Adam Husain Work Phone: [facility] 07-02-2023 07:57-0400 SaO2% (BldA) [Mass fraction] 98 % Dr. Adam Husain Work Phone: [facility] 07-02-2023 07:57-0400 Systolic blood pressure 130 mm[Hg] Dr. Adam Husain Work Phone: [facility] 07-02-2023 06:24-0400 Body height 162.[address] Adam Husain Work Phone: [facility] 07-02-2023 06:24-0400 Body mass index (BMI) [Ratio] 37.4 kg/m2 Dr. Adam Husain Work Phone: [facility] 07-02-2023 06:24-0400 Body weight [address] Adam Husain Work Phone: [facility] 05-16-2023 14:22-0400 Body height 162.[address] Adam Husain Work Phone: [facility] 05-16-2023 14:22-0400 Body mass index (BMI) [Ratio] 38 kg/m2 Dr. Adam Husain Work Phone: [facility] 05-16-2023 14:22-0400 Body temperature 97.6 [degF] Dr. Adam Husain Work Phone: [facility] 05-16-2023 14:22-0400 Body weight 100.[address] Adam Husain Work Phone: [facility] 05-16-2023 14:22-0400 Diastolic blood pressure 75 mm[Hg] Dr. Adam Husain Work Phone: [facility] 05-16-2023 14:22-0400 Heart rate 90 /min Dr. Adam Husain Work Phone: [facility] 05-16-2023 14:22-0400 Respiratory rate 18 /min Dr. Adam Husain Work Phone: [facility] 05-16-2023 14:22-0400 SaO2% (BldA) [Mass fraction] 96 % Dr. Adam Husain Work Phone: [facility] 05-16-2023 14:22-0400 Systolic blood pressure 150 mm[Hg] Dr. Adam Husain Work Phone: [facility] 05-07-2023 13:10-0400 Body height 162.[address] Adam Husain Work Phone: [facility] 05-07-2023 13:10-0400 Body mass index (BMI) [Ratio] 37 kg/m2 Dr. Adam Husain Work Phone: [facility] 05-07-2023 13:10-0400 Body temperature 98.4 [degF] Dr. Adam Husain Work Phone: [facility] 05-07-2023 13:10-0400 Body weight 97.[address] Adam Husain Work Phone: [facility] 05-07-2023 13:10-0400 Diastolic blood pressure 75 mm[Hg] Dr. Adam Husain Work Phone: [facility] 05-07-2023 13:10-0400 Heart rate 96 /min Dr. Adam Husain Work Phone: [facility] 05-07-2023 13:10-0400 Respiratory rate 24 /min Dr. Adam Husain Work Phone: [facility] 05-07-2023 13:10-0400 SaO2% (BldA) [Mass fraction] 98 % Dr. Adam Husain Work Phone: [facility] 05-07-2023 13:10-0400 Systolic blood pressure 141 mm[Hg] Dr. Adam Husain Work Phone: [facility] 05-07-2023 08:58-0400 Body mass index (BMI) [Ratio] 36.8 kg/m2 Dr. Adam Husain Work Phone: [facility] 05-07-2023 08:58-0400 Body temperature 98.4 [degF] Dr. Adam Husain Work Phone: [facility] 05-07-2023 08:58-0400 Body weight 97.[address] Adam Husain Work Phone: [facility] 05-07-2023 08:58-0400 Diastolic blood pressure 78 mm[Hg] Dr. Adam Husain Work Phone: [facility] 05-07-2023 08:58-0400 Heart rate 85 /min Dr. Adam Husain Work Phone: [facility] 05-07-2023 08:58-0400 Respiratory rate 16 /min Dr. Adam Husain Work Phone: [facility] 05-07-2023 08:58-0400 SaO2% (BldA) [Mass fraction] 99 % Dr. Adam Husain Work Phone: [facility] 05-07-2023 08:58-0400 Systolic blood pressure 130 mm[Hg] Dr. Adam Husain Work Phone: [facility] 04-24-2023 11:13-0500 Body height 162.[address] Adam Husain Work Phone: [facility] 04-24-2023 11:13-0500 Body mass index (BMI) [Ratio] 36.8 kg/m2 Dr. Adam Husain Work Phone: [facility] 04-24-2023 11:13-0500 Body temperature 98.8 [degF] Dr. Adam Husain Work Phone: [facility] 04-24-2023 11:13-0500 Body weight 97.[address] Adam Husain Work Phone: [facility] 04-24-2023 11:13-0500 Diastolic blood pressure 73 mm[Hg] Dr. Adam Husain Work Phone: [facility] 04-24-2023 11:13-0500 Heart rate 83 /min Dr. Adam Husain Work Phone: [facility] 04-24-2023 11:13-0500 Respiratory rate 18 /min Dr. Adam Husain Work Phone: [facility] 04-24-2023 11:13-0500 SaO2% (BldA) [Mass fraction] 97 % Dr. Adam Husain Work Phone: [facility] 04-24-2023 11:13-0500 Systolic blood pressure 121 mm[Hg] Dr. Adam Husain Work Phone: [facility] 03-27-2023 08:23-0500 Body height 162.[address] Adam Husain Work Phone: [facility] 03-27-2023 08:23-0500 Body mass index (BMI) [Ratio] 37.2 kg/m2 Dr. Adam Husain Work Phone: [facility] 03-27-2023 08:23-0500 Body temperature 97.6 [degF] Dr. Adam Husain Work Phone: [facility] 03-27-2023 08:23-0500 Body weight 98.[address] Adam Husain Work Phone: [facility] 03-27-2023 08:23-0500 Diastolic blood pressure 66 mm[Hg] Dr. Adam Husain Work Phone: [facility] 03-27-2023 08:23-0500 Heart rate 86 /min Dr. Adam Husain Work Phone: [facility] 03-27-2023 08:23-0500 Respiratory rate 18 /min Dr. Adam Husain Work Phone: [facility] 03-27-2023 08:23-0500 SaO2% (BldA) [Mass fraction] 98 % Dr. Adma Husain Work Phone: [facility] 03-27-2023 08:23-0500 Systolic blood pressure 110 mm[Hg] Dr. Adam Husain Work Phone: [facility] 01-16-2023 09:26-0500 Body temperature 98.1 [degF] Dr. Adam Husain Work Phone: [facility] 01-16-2023 09:26-0500 Diastolic blood pressure 66 mm[Hg] Dr. Adam Husain Work Phone: [facility] 01-16-2023 09:26-0500 Heart rate 71 /min Dr. Adam Husain Work Phone: [facility] 01-16-2023 09:26-0500 Respiratory rate 16 /min Dr. Adam Husain Work Phone: [facility] 01-16-2023 09:26-0500 SaO2% (BldA) [Mass fraction] 100 % Dr. Adam Husain Work Phone: [facility] 01-16-2023 09:26-0500 Systolic blood pressure 137 mm[Hg] Dr. Adam Husain Work Phone: [facility] 01-16-2023 07:35-0500 Body height 162.[address] Adam Husain Work Phone: [facility] 01-16-2023 07:35-0500 Body mass index (BMI) [Ratio] 36.3 kg/m2 Dr. Adam Husain Work Phone: [facility] 01-16-2023 07:35-0500 Body weight [address] Adam Husain Work Phone: [facility] 01-08-2023 08:39-0500 Body mass index (BMI) [Ratio] 36.4 kg/m2 Dr. Adam Husain Work Phone: [facility] 01-08-2023 08:39-0500 Body temperature 97.1 [degF] Dr. Adam Husain Work Phone: [facility] 01-08-2023 08:39-0500 Body weight 96.[address] Adam Husain Work Phone: [facility] 01-08-2023 08:39-0500 Diastolic blood pressure 74 mm[Hg] Dr. Adam Husain Work Phone: [facility] 01-08-2023 08:39-0500 Heart rate 97 /min Dr. Adam Husain Work Phone: [facility] 01-08-2023 08:39-0500 Respiratory rate 15 /min Dr. Adam Husain Work Phone: [facility] 01-08-2023 08:39-0500 SaO2% (BldA) [Mass fraction] 99 % Dr. Adam Husain Work Phone: [facility] 01-08-2023 08:39-0500 Systolic blood pressure 134 mm[Hg] Dr. Adam Husain Work Phone: [facility] 01-05-2023 13:56-0500 Body mass index (BMI) [Ratio] 36.8 kg/m2 Dr. Adam Husain Work Phone: [facility] 01-05-2023 13:56-0500 Body weight 97.[address] Adam Husain Work Phone: [facility] 01-05-2023 13:56-0500 Diastolic blood pressure 78 mm[Hg] Dr. Adam Husain Work Phone: [facility] 01-05-2023 13:56-0500 Heart rate 88 /min Dr. Adam Husain Work Phone: [facility] 01-05-2023 13:56-0500 Respiratory rate 17 /min Dr. Adam Husain Work Phone: [facility] 01-05-2023 13:56-0500 SaO2% (BldA) [Mass fraction] 97 % Dr. Adam Husain Work Phone: [facility] 01-05-2023 13:56-0500 Systolic blood pressure 156 mm[Hg] Dr. Adam Husain Work Phone: [facility] 10-24-2022 09:34-0400 Body height 162.[address] Adam Husain Work Phone: [facility] 10-24-2022 09:34-0400 Body mass index (BMI) [Ratio] 35.5 kg/m2 Dr. Adam Husain Work Phone: [facility] 10-24-2022 09:34-0400 Body temperature 99.2 [degF] Dr. Adam Husain Work Phone: [facility] 10-24-2022 09:34-0400 Body weight [address] Adam Husain Work Phone: [facility] 10-24-2022 09:34-0400 Diastolic blood pressure 81 mm[Hg] Dr. Adam Husain Work Phone: [facility] 10-24-2022 09:34-0400 Heart rate 85 /min Dr. Adam Husain Work Phone: [facility] 10-24-2022 09:34-0400 Respiratory rate 16 /min Dr. Adam Husain Work Phone: [facility] 10-24-2022 09:34-0400 SaO2% (BldA) [Mass fraction] 98 % Dr. Adam Husain Work Phone: [facility] 10-24-2022 09:34-0400 Systolic blood pressure 147 mm[Hg] Dr. Adam Husain Work Phone: [facility] 10-10-2022 15:23-0400 Body mass index (BMI) [Ratio] 35 kg/m2 Dr. Adam Husain Work Phone: [facility] 10-10-2022 15:23-0400 Body temperature 97.9 [degF] Dr. Adam Husain Work Phone: [facility] 10-10-2022 15:23-0400 Body weight 92.[address] Adam Husain Work Phone: [facility] 10-10-2022 15:23-0400 Diastolic blood pressure 74 mm[Hg] Dr. Adam Husain Work Phone: [facility] 10-10-2022 15:23-0400 Heart rate 84 /min Dr. Adam Husain Work Phone: [facility] 10-10-2022 15:23-0400 Respiratory rate 18 /min Dr. Adam Husain Work Phone: [facility] 10-10-2022 15:23-0400 SaO2% (BldA) [Mass fraction] 95 % Dr. Adam Husain Work Phone: [facility] 10-10-2022 15:23-0400 Systolic blood pressure 133 mm[Hg] Dr. Adam Husain Work Phone: [facility] 08-28-2022 09:52-0400 Body height 162.[address] Adam Husain Work Phone: [facility] 08-28-2022 09:52-0400 Body mass index (BMI) [Ratio] 34 kg/m2 Dr. Adam Husain Work Phone: [facility] 08-28-2022 09:52-0400 Body temperature 98.1 [degF] Dr. Adam Husain Work Phone: [facility] 08-28-2022 09:52-0400 Body weight 89.[address] Adam Husain Work Phone: [facility] 08-28-2022 09:52-0400 Diastolic blood pressure 78 mm[Hg] Dr. Adam Husain Work Phone: [facility] 08-28-2022 09:52-0400 Heart rate 84 /min Dr. Adam Husain Work Phone: [facility] 08-28-2022 09:52-0400 Respiratory rate 14 /min Dr. Adam Husain Work Phone: [facility] 08-28-2022 09:52-0400 SaO2% (BldA) [Mass fraction] 99 % Dr. Adam Husain Work Phone: [facility] 08-28-2022 09:52-0400 Systolic blood pressure 124 mm[Hg] Dr. Adam Husain Work Phone: [facility] 06-30-2022 14:23-0400 Body height 162.[address] Adam Husain Work Phone: [facility] 06-30-2022 14:23-0400 Body mass index (BMI) [Ratio] 35 kg/m2 Dr. Adam Husain Work Phone: [facility] 06-30-2022 14:23-0400 Body temperature 97.7 [degF] Dr. Adam Husain Work Phone: [facility] 06-30-2022 14:23-0400 Body weight 92.[address] Adam Husain Work Phone: [facility] 06-30-2022 14:23-0400 Diastolic blood pressure 58 mm[Hg] Dr. Adam Husain Work Phone: [facility] 06-30-2022 14:23-0400 Heart rate 108 /min Dr. Adam Husain Work Phone: [facility] 06-30-2022 14:23-0400 Respiratory rate 16 /min Dr. Adam Husain Work Phone: [facility] 06-30-2022 14:23-0400 SaO2% (BldA) [Mass fraction] 96 % Dr. Adam Husain Work Phone: [facility] 06-30-2022 14:23-0400 Systolic blood pressure 138 mm[Hg] Dr. Adam Husain Work Phone: [facility] 06-19-2022 10:13-0400 Body height 162.[address] Adam Husain Work Phone: [facility] 06-19-2022 10:13-0400 Body mass index (BMI) [Ratio] 34.1 kg/m2 Dr. Adam Husain Work Phone: [facility] 06-19-2022 10:13-0400 Body temperature 99.1 [degF] Dr. Adam Husain Work Phone: [facility] 06-19-2022 10:13-0400 Body weight 90.[address] Adam Husain Work Phone: [facility] 06-19-2022 10:13-0400 Diastolic blood pressure 80 mm[Hg] Dr. Adam Husain Work Phone: [facility] 06-19-2022 10:13-0400 Heart rate 86 /min Dr. Adam Husain Work Phone: [facility] 06-19-2022 10:13-0400 Respiratory rate 16 /min Dr. Adam Husain Work Phone: [facility] 06-19-2022 10:13-0400 SaO2% (BldA) [Mass fraction] 86 % Dr. Adam Husain Work Phone: [facility] 06-19-2022 10:13-0400 Systolic blood pressure 144 mm[Hg] Dr. Adam Husain Work Phone: [facility] 05-11-2022 07:55-0400 Body mass index (BMI) [Ratio] 34 kg/m2 Dr. Adam Husain Work Phone: [facility] 05-11-2022 07:55-0400 Body temperature 98.2 [degF] Dr. Adam Husain Work Phone: [facility] 05-11-2022 07:55-0400 Body weight 89.[address] Adam Husain Work Phone: [facility] 05-11-2022 07:55-0400 Diastolic blood pressure 74 mm[Hg] Dr. Adam Husain Work Phone: [facility] 05-11-2022 07:55-0400 Heart rate 78 /min Dr. Adam Husain Work Phone: [facility] 05-11-2022 07:55-0400 Respiratory rate 18 /min Dr. Adam Husain Work Phone: [facility] 05-11-2022 07:55-0400 SaO2% (BldA) [Mass fraction] 97 % Dr. Adam Husain Work Phone: [facility] 05-11-2022 07:55-0400 Systolic blood pressure 154 mm[Hg] Dr. Adam Husain Work Phone: [facility] 04-13-2022 12:30-0500 Body temperature 98.7 [degF] Dr. Adam Husain Work Phone: [facility] 04-13-2022 12:30-0500 Diastolic blood pressure 54 mm[Hg] Dr. Adam Husain Work Phone: [facility] 04-13-2022 12:30-0500 Heart rate 83 /min Dr. Adam Husain Work Phone: [facility] 04-13-2022 12:30-0500 Respiratory rate 14 /min Dr. Adam Husain Work Phone: [facility] 04-13-2022 12:30-0500 SaO2% (BldA) [Mass fraction] 100 % Dr. Adam Husain Work Phone: [facility] 04-13-2022 12:30-0500 Systolic blood pressure 112 mm[Hg] Dr. Adam Husain Work Phone: [facility] 04-12-2022 15:35-0500 Inhaled oxygen flow rate 4 L/min Dr. Adam Husain Work Phone: [facility] 04-12-2022 14:05-0500 Body mass index (BMI) [Ratio] 34 kg/m2 Dr. Adam Husain Work Phone: [facility] 04-12-2022 14:05-0500 Body weight [address] Adam Husain Work Phone: [facility] 04-11-2022 13:57-0500 Body mass index (BMI) [Ratio] 34 kg/m2 Dr. Adam Husain Work Phone: [facility] 04-11-2022 13:57-0500 Body temperature 98.1 [degF] Dr. Adam Husain Work Phone: [facility] 04-11-2022 13:57-0500 Body weight 87.[address] Adam Husain Work Phone: [facility] 04-11-2022 13:57-0500 Diastolic blood pressure 77 mm[Hg] Dr. Adam Husain Work Phone: [facility] 04-11-2022 13:57-0500 Heart rate 81 /min Dr. Adam Husain Work Phone: [facility] 04-11-2022 13:57-0500 Respiratory rate 16 /min Dr. Adam Husain Work Phone: [facility] 04-11-2022 13:57-0500 SaO2% (BldA) [Mass fraction] 97 % Dr. Adam Husain Work Phone: [facility] 04-11-2022 13:57-0500 Systolic blood pressure 132 mm[Hg] Dr. Adam Husain Work Phone: [facility] 03-15-2022 10:05-0500 Body height 160.[address] Adam Husain Work Phone: [facility] 03-15-2022 10:05-0500 Body mass index (BMI) [Ratio] 33.6 kg/m2 Dr. Adam Husain Work Phone: [facility] 03-15-2022 10:05-0500 Body temperature 97.5 [degF] Dr. Adam Husain Work Phone: [facility] 03-15-2022 10:05-0500 Body weight 86.[address] Adam Husain Work Phone: [facility] 03-15-2022 10:05-0500 Diastolic blood pressure 84 mm[Hg] Dr. Adam Husain Work Phone: [facility] 03-15-2022 10:05-0500 Heart rate 64 /min Dr. Adam Husain Work Phone: [facility] 03-15-2022 10:05-0500 Respiratory rate 18 /min Dr. Adam Husain Work Phone: [facility] 03-15-2022 10:05-0500 SaO2% (BldA) [Mass fraction] 98 % Dr. Adam Husain Work Phone: [facility] 03-15-2022 10:05-0500 Systolic blood pressure 158 mm[Hg] Dr. Adam Husain Work Phone: [facility] 12-12-2021 11:00-0400 Body height 160.[address] Adam Husain Work Phone: [facility] Work Phone: 12-12-2021 11:00-0400 Body mass index (BMI) [Ratio] 34.9 kg/m2 Dr. Adam Husain Work Phone: [facility] 12-12-2021 11:00-0400 Body temperature 98.2 [degF] Dr. Adam Husain Work Phone: [facility] 12-12-2021 11:00-0400 Body weight 89.[address] Adam Husain Work Phone: [facility] 12-12-2021 11:00-0400 Diastolic blood pressure 82 mm[Hg] Dr. Adam Husain Work Phone: [facility] 12-12-2021 11:00-0400 Heart rate 75 /min Dr. Adam Husain Work Phone: [facility] 12-12-2021 11:00-0400 Respiratory rate 18 /min Dr. Adam Husain Work Phone: [facility] 12-12-2021 11:00-0400 SaO2% (BldA) [Mass fraction] 96 % Dr. Adam Husain Work Phone: [facility] 12-12-2021 11:00-0400 Systolic blood pressure 112 mm[Hg] Dr. Adam Husain Work Phone: [facility] 12-07-2021 10:11-0400 Body mass index (BMI) [Ratio] 34.7 kg/m2 Dr. Adam Husain Work Phone: [facility] 12-07-2021 10:11-0400 Body temperature 98.1 [degF] Dr. Adam Husain Work Phone: [facility] 12-07-2021 10:11-0400 Body weight 88.[address] Adam Husain Work Phone: [facility] 12-07-2021 10:11-0400 Diastolic blood pressure 78 mm[Hg] Dr. Adam Husain Work Phone: [facility] 12-07-2021 10:11-0400 Heart rate 83 /min Dr. Adam Husain Work Phone: [facility] 12-07-2021 10:11-0400 Respiratory rate 16 /min Dr. Adam Husain Work Phone: [facility] 12-07-2021 10:11-0400 SaO2% (BldA) [Mass fraction] 98 % Dr. Adam Husain Work Phone: [facility] 12-07-2021 10:11-0400 Systolic blood pressure 132 mm[Hg] Dr. Adam Husain Work Phone: [facility] 08-25-2021 08:53-0400 Body height 160.[address] Adam Husain Work Phone: [facility] Work Phone: 08-25-2021 08:53-0400 Body mass index (BMI) [Ratio] 37.3 kg/m2 Dr. Adam Husain Work Phone: [facility] Work Phone: 08-25-2021 08:53-0400 Body temperature 97.7 [degF] Dr. Adam Husain Work Phone: [facility] Work Phone: 08-25-2021 08:53-0400 Body weight 95.[address] Adam Husain Work Phone: [facility] Work Phone: 08-25-2021 08:53-0400 Heart rate 85 /min Dr. Adam Husain Work Phone: [facility] Work Phone: 08-25-2021 08:53-0400 Respiratory rate 15 /min Dr. Adam Husain Work Phone: [facility] Work Phone: 08-25-2021 08:53-0400 SaO2% (BldA) [Mass fraction] 98 % Dr. Adam Husain Work Phone: [facility] Work Phone: 08-17-2021 16:03-0400 Body mass index (BMI) [Ratio] 37.7 kg/m2 Dr. Adam Husain Work Phone: [facility] Work Phone: 08-17-2021 16:03-0400 Body weight 96.[address] Adam Husain Work Phone: [facility] Work Phone: 08-17-2021 16:03-0400 Diastolic blood pressure 78 mm[Hg] Dr. Adam Husain Work Phone: [facility] Work Phone: 08-17-2021 16:03-0400 Respiratory rate 16 /min Dr. Adam Husain Work Phone: [facility] Work Phone: 08-17-2021 16:03-0400 Systolic blood pressure 140 mm[Hg] Dr. Adam Husain Work Phone: [facility] Work Phone: 08-15-2021 13:27-0400 Body mass index (BMI) [Ratio] 37.8 kg/m2 Dr. Adam Husain Work Phone: [facility] Work Phone: 08-15-2021 13:27-0400 Body temperature 98.6 [degF] Dr. Adam Husain Work Phone: [facility] Work Phone: 08-15-2021 13:27-0400 Body weight 96.[address] Adam Husain Work Phone: [facility] Work Phone: 08-15-2021 13:27-0400 Diastolic blood pressure 79 mm[Hg] Dr. Adam Husain Work Phone: [facility] Work Phone: 08-15-2021 13:27-0400 Heart rate 96 /min Dr. Adam Husain Work Phone: [facility] Work Phone: 08-15-2021 13:27-0400 Respiratory rate 18 /min Dr. Adam Huasin Work Phone: [facility] Work Phone: 08-15-2021 13:27-0400 SaO2% (BldA) [Mass fraction] 97 % Dr. Adam Husain Work Phone: [facility] Work Phone: 08-15-2021 13:27-0400 Systolic blood pressure 147 mm[Hg] Dr. dAam Husain Work Phone: [facility] Work Phone: 08-01-2021 09:22-0400 Body mass index (BMI) [Ratio] 37.2 kg/m2 Dr. Adam Husain Work Phone: [facility] Work Phone: 08-01-2021 09:22-0400 Body temperature 97.4 [degF] Dr. Adam Husain Work Phone: [facility] Work Phone: 08-01-2021 09:22-0400 Body weight 95.[address] Adam Husain Work Phone: [facility] Work Phone: 08-01-2021 09:22-0400 Diastolic blood pressure 68 mm[Hg] Dr. Adam Husain Work Phone: [facility] Work Phone: 08-01-2021 09:22-0400 Heart rate 93 /min Dr. Adam Husain Work Phone: [facility] Work Phone: 08-01-2021 09:22-0400 Respiratory rate 14 /min Dr. Adam Husain Work Phone: [facility] Work Phone: 08-01-2021 09:22-0400 SaO2% (BldA) [Mass fraction] 98 % Dr. Adam Husain Work Phone: [facility] Work Phone: 08-01-2021 09:22-0400 Systolic blood pressure 138 mm[Hg] Dr. Adam Husain Work Phone: [facility] Work Phone: 08-01-2021 09:22-0400 Body height 160.[address] Adam Husain Work Phone: [facility] Work Phone: 08-01-2021 09:22-0400 Body mass index (BMI) [Ratio] 37.2 kg/m2 Dr. Adam Husain Work Phone: [facility] Work Phone: 08-01-2021 09:22-0400 Body temperature 97.4 [degF] Dr. Adam Husain Work Phone: [facility] Work Phone: 08-01-2021 09:22-0400 Body weight 95.[address] Adam Husain Work Phone: [facility] Work Phone: 08-01-2021 09:22-0400 Diastolic blood pressure 68 mm[Hg] Dr. Adam Husain Work Phone: [facility] Work Phone: 08-01-2021 09:22-0400 Heart rate 93 /min Dr. Adam Husain Work Phone: [facility] Work Phone: 08-01-2021 09:22-0400 Respiratory rate 14 /min Dr. Adam Husain Work Phone: [facility] Work Phone: 08-01-2021 09:22-0400 SaO2% (BldA) [Mass fraction] 98 % Dr. Adam Husain Work Phone: [facility] Work Phone: 08-01-2021 09:22-0400 Systolic blood pressure 138 mm[Hg] Dr. Adam Husain Work Phone: [facility] Work Phone: 07-19-2021 13:51-0400 Body temperature 98.1 [degF] Dr. Adam Husain Work Phone: [facility] Work Phone: 07-19-2021 13:51-0400 Diastolic blood pressure 43 mm[Hg] Dr. Adam Husain Work Phone: [facility] Work Phone: 07-19-2021 13:51-0400 Heart rate 74 /min Dr. Adam Husain Work Phone: [facility] Work Phone: 07-19-2021 13:51-0400 Respiratory rate 16 /min Dr. Adam Husain Work Phone: [facility] Work Phone: 07-19-2021 13:51-0400 SaO2% (BldA) [Mass fraction] 98 % Dr. Adam Husain Work Phone: [facility] Work Phone: 07-19-2021 13:51-0400 Systolic blood pressure 108 mm[Hg] Dr. Adam Husain Work Phone: [facility] Work Phone: 07-18-2021 16:37-0400 Inhaled oxygen flow rate 2 L/min Dr. Adam Husain Work Phone: [facility] Work Phone: 07-18-2021 14:37-0400 Body height 162.[address] Adam Husain Work Phone: [facility] Work Phone: 07-18-2021 14:37-0400 Body mass index (BMI) [Ratio] 36.3 kg/m2 Dr. Adam Husain Work Phone: [facility] Work Phone: 07-18-2021 14:37-0400 Body weight 96.[address] Adam Husain Work Phone: [facility] Work Phone: 06-14-2021 10:51-0400 Body mass index (BMI) [Ratio] 37 kg/m2 Dr. Adam Husain Work Phone: [facility] Work Phone: 06-14-2021 10:51-0400 Body temperature 97 [degF] Dr. Adam Husain Work Phone: [facility] Work Phone: 06-14-2021 10:51-0400 Body weight 97.[address] Adam Husain Work Phone: [facility] Work Phone: 06-14-2021 10:51-0400 Diastolic blood pressure 70 mm[Hg] Dr. Adam Husain Work Phone: [facility] Work Phone: 06-14-2021 10:51-0400 Heart rate 50 /min Dr. Adam Husain Work Phone: [facility] Work Phone: 06-14-2021 10:51-0400 Respiratory rate 18 /min Dr. Adam Husain Work Phone: [facility] Work Phone: 06-14-2021 10:51-0400 SaO2% (BldA) [Mass fraction] 93 % Dr. Adam Husain Work Phone: [facility] Work Phone: 06-14-2021 10:51-0400 Systolic blood pressure 136 mm[Hg] Dr. Adam Husain Work Phone: [facility] Work Phone: 06-14-2021 10:51-0400 Body height 162.[address] Adam Husain Work Phone: [facility] Work Phone: 06-14-2021 10:51-0400 Body mass index (BMI) [Ratio] 37 kg/m2 Dr. Adam Husain Work Phone: [facility] Work Phone: 06-14-2021 10:51-0400 Body temperature 97 [degF] Dr. Adam Husain Work Phone: [facility] Work Phone: 06-14-2021 10:51-0400 Body weight 97.[address] Adam Husain Work Phone: [facility] Work Phone: 06-14-2021 10:51-0400 Diastolic blood pressure 70 mm[Hg] Dr. Adam Husain Work Phone: [facility] Work Phone: 06-14-2021 10:51-0400 Heart rate 50 /min Dr. Adam Husain Work Phone: [facility] Work Phone: 06-14-2021 10:51-0400 Respiratory rate 18 /min Dr. Adam Husain Work Phone: [facility] Work Phone: 06-14-2021 10:51-0400 SaO2% (BldA) [Mass fraction] 93 % Dr. Adam Husain Work Phone: [facility] Work Phone: 06-14-2021 10:51-0400 Systolic blood pressure 136 mm[Hg] Dr. Adam Husain Work Phone: [facility] Work Phone: 05-12-2021 11:18-0400 Body mass index (BMI) [Ratio] 37.2 kg/m2 Dr. Adam Husain Work Phone: [facility] Work Phone: 05-12-2021 11:18-0400 Body temperature 98.7 [degF] Dr. Adam Husain Work Phone: [facility] Work Phone: 05-12-2021 11:18-0400 Body weight 98.[address] Adam Husain Work Phone: [facility] Work Phone: 05-12-2021 11:18-0400 Diastolic blood pressure 97 mm[Hg] Dr. Adam Husain Work Phone: [facility] Work Phone: 05-12-2021 11:18-0400 Heart rate 88 /min Dr. Adam Husain Work Phone: [facility] Work Phone: 05-12-2021 11:18-0400 Respiratory rate 17 /min Dr. Adam Husain Work Phone: [facility] Work Phone: 05-12-2021 11:18-0400 SaO2% (BldA) [Mass fraction] 96 % Dr. Adam Husain Work Phone: [facility] Work Phone: 05-12-2021 11:18-0400 Systolic blood pressure 142 mm[Hg] Dr. Adam Husain Work Phone: [facility] Work Phone: 05-12-2021 11:18-0400 Body mass index (BMI) [Ratio] 37.2 kg/m2 Dr. Adam Husain Work Phone: [facility] Work Phone: 05-12-2021 11:18-0400 Body temperature 98.7 [degF] Dr. Adam Husain Work Phone: [facility] Work Phone: 05-12-2021 11:18-0400 Body weight 98.[address] Adam Husain Work Phone: [facility] Work Phone: 05-12-2021 11:18-0400 Diastolic blood pressure 97 mm[Hg] Dr. Adam Husain Work Phone: [facility] Work Phone: 05-12-2021 11:18-0400 Heart rate 88 /min Dr. Adam Husain Work Phone: [facility] Work Phone: 05-12-2021 11:18-0400 Respiratory rate 17 /min Dr. Adam Husain Work Phone: [facility] Work Phone: 05-12-2021 11:18-0400 SaO2% (BldA) [Mass fraction] 96 % Dr. Adam Husain Work Phone: [facility] Work Phone: 05-12-2021 11:18-0400 Systolic blood pressure 142 mm[Hg] Dr. Adam Husain Work Phone: [facility] Work Phone: 05-11-2021 10:29-0400 Body mass index (BMI) [Ratio] 36.8 kg/m2 Dr. Adam Husain Work Phone: [facility] Work Phone: 05-11-2021 10:29-0400 Body weight 97.[address] Adam Husain Work Phone: [facility] Work Phone: 05-11-2021 10:29-0400 Body mass index (BMI) [Ratio] 36.8 kg/m2 Dr. Adam Husain Work Phone: [facility] Work Phone: 05-11-2021 10:29-0400 Body weight 97.[address] Adam Husain Work Phone: [facility] Work Phone: 04-12-2021 08:19-0500 Body mass index (BMI) [Ratio] 36.2 kg/m2 Dr. Adam Husain Work Phone: [facility] Work Phone: 04-12-2021 08:19-0500 Body temperature 97 [degF] Dr. Adam Husain Work Phone: [facility] Work Phone: 04-12-2021 08:19-0500 Body weight 95.[address] Adam Husain Work Phone: [facility] Work Phone: 04-12-2021 08:19-0500 Diastolic blood pressure 70 mm[Hg] Dr. Adam Husain Work Phone: [facility] Work Phone: 04-12-2021 08:19-0500 Heart rate 91 /min Dr. Adam Husain Work Phone: [facility] Work Phone: 04-12-2021 08:19-0500 Respiratory rate 16 /min Dr. Adam Husain Work Phone: [facility] Work Phone: 04-12-2021 08:19-0500 SaO2% (BldA) [Mass fraction] 98 % Dr. Adam Husain Work Phone: [facility] Work Phone: 04-12-2021 08:19-0500 Systolic blood pressure 138 mm[Hg] Dr. Adam Husain Work Phone: [facility] Work Phone: 04-07-2021 13:56-0500 Body mass index (BMI) [Ratio] 34.7 kg/m2 Dr. Adam Husain Work Phone: [facility] Work Phone: 04-07-2021 13:56-0500 Body temperature 98.7 [degF] Dr. Adam Husain Work Phone: [facility] Work Phone: 04-07-2021 13:56-0500 Body weight 91.[address] Adam Husain Work Phone: [facility] Work Phone: 04-07-2021 13:56-0500 Diastolic blood pressure 79 mm[Hg] Dr. Adam Husain Work Phone: [facility] Work Phone: 04-07-2021 13:56-0500 Heart rate 82 /min Dr. Adam Husain Work Phone: [facility] Work Phone: 04-07-2021 13:56-0500 Respiratory rate 16 /min Dr. Adam Husain Work Phone: [facility] Work Phone: 04-07-2021 13:56-0500 SaO2% (BldA) [Mass fraction] 93 % Dr. Adam Husain Work Phone: [facility] Work Phone: 04-07-2021 13:56-0500 Systolic blood pressure 149 mm[Hg] Dr. Adam Husain Work Phone: [facility] Work Phone: 03-01-2021 12:14-0500 Body mass index (BMI) [Ratio] 37.9 kg/m2 Dr. Adam Husain Work Phone: [facility] Work Phone: 03-01-2021 12:14-0500 Body temperature 98.7 [degF] Dr. Adam Husain Work Phone: [facility] Work Phone: 03-01-2021 12:14-0500 Body weight 100.[address] Adam Husain Work Phone: [facility] Work Phone: 03-01-2021 12:14-0500 Diastolic blood pressure 77 mm[Hg] Dr. Adam Husain Work Phone: [facility] Work Phone: 03-01-2021 12:14-0500 Heart rate 82 /min Dr. Adam Husain Work Phone: [facility] Work Phone: 03-01-2021 12:14-0500 Respiratory rate 16 /min Dr. Adam Husain Work Phone: [facility] Work Phone: 03-01-2021 12:14-0500 SaO2% (BldA) [Mass fraction] 97 % Dr. Adam Husain Work Phone: [facility] Work Phone: 03-01-2021 12:14-0500 Systolic blood pressure 128 mm[Hg] Dr. Adam Husian Work Phone: [facility] Work Phone: 10-04-2020 15:00-0400 Body mass index (BMI) [Ratio] 37.6 kg/m2 Dr. Adam Husain Work Phone: [facility] Encounters Encounter Date Encounter Type Care Provider Facility Start: 01-05-2025 ambulatory Sandra Lars Facility:[facility] Start: 12-22-2024 End: 12-22-2024 ambulatory Natividad Valdez Facility:[facility] Start: 11-11-2024 End: 11-11-2024 Patient encounter procedure Cristin BRIDGES -[facility] Work Phone: Start: 11-11-2024 End: 11-11-[address] Adam Husain MD Work Phone: -[facility] Start: 10-21-2024 End: 10-21-2024 Patient encounter procedure Manny Das DO -[facility] Work Phone: Start: 10-21-2024 End: 10-21-[address] Adam Husain MD Work Phone: [facility] Start: 09-16-2024 End: 09-16-[address] Manny Das DO Work Phone: -[facility] Start: 09-16-2024 End: 09-16-2024 Patient encounter procedure Natividad Valdez LVN LPN-C -[facility] Work Phone: Start: 09-16-2024 End: 09-16-2024 ambulatory Natividad Valdez Facility:[facility] Start: 08-26-2024 Non-patient / Non-visit Dr. Lona Gordillo MD -[facility] Work Phone: Start: 07-18-2024 End: 07-18-2024 Patient encounter procedure Manny Das DO -[facility] Work Phone: Start: 07-18-2024 End: 07-18-2024 ambulatory Adam Husain Facility:[facility] Start: 06-18-2024 End: 06-18-2024 Patient encounter procedure Manny Das DO -Laboratory [facility] Start: 06-18-2024 End: 06-18-2024 ambulatory Manny Das Facility:[facility] Start: 05-26-2024 End: 05-26-2024 Patient encounter procedure Manny Das DO -MRI - [facility] Work Phone: Start: 05-26-2024 End: 05-26-2024 ambulatory Natividad Valdez Facility:[facility] Start: 05-09-2024 End: 05-09-[address] Adam Husain MD Work Phone: [facility] Work Phone: Start: 05-09-2024 End: 05-09-2024 Patient encounter procedure Manny Das DO -Laboratory, Specimen Work Phone: Start: 05-09-2024 End: 05-09-2024 ambulatory Adam Husain Facility:[facility] Start: 04-30-2024 End: 04-30-2024 ambulatory Kyle Cooper Facility:[facility] Start: 04-30-2024 End: 04-30-[address] Kyle Cooper MD -Speech Therapy Work Phone: Start: 04-22-2024 End: 04-22-[address] Adam Husain MD Work Phone: [facility] Work Phone: Start: 04-22-2024 End: 04-22-2024 Patient encounter procedure Manny Das DO -Laboratory Work Phone: Start: 04-22-2024 End: 04-22-2024 Patient encounter procedure Mannydg Das DO -[facility] Work Phone: Start: 04-22-2024 End: 04-22-2024 ambulatory Catherinejamar Quinnyeni Facility:[facility] Start: 04-21-2024 End: 04-21-[address] Lorenzo Larose MD -[facility] Work Phone: Start: 04-21-2024 End: 04-22-2024 ambulatory Manny Barnegat Facility:[facility] Start: 04-14-2024 End: 04-14-[address] Lorenzo Larose MD -Laboratory, [facility] Start: 04-14-2024 End: 04-14-2024 ambulatory [facility] Facility:[facility] Start: 03-28-2024 End: 03-28-2024 Patient encounter procedure Roddy STORY [facility] Work Phone: Start: 03-28-2024 End: 03-28-2024 ambulatory Roddy STORY Facility:[facility] Start: 03-24-2024 End: 03-24-2024 Patient encounter procedure Efren STORY -Laboratory, Specimen Work Phone: Start: 03-24-2024 End: 03-24-2024 Patient encounter procedure Efren STORY -[facility] Work Phone: Start: 03-24-2024 End: 03-24-2024 ambulatory [facility] Start: 03-24-2024 End: 01-27-2025 ambulatory Adam Husain Facility:[facility] Start: 02-13-2024 End: 02-13-2024 ambulatory Adam Husain Facility:[facility] Start: 02-13-2024 End: 02-13-[address] Adam Husain MD -[facility] Work Phone: Start: 07-02-2023 Non-patient / Non-visit Dr. Adam Husain Work Phone: [facility] Start: 07-02-2023 End: 07-02-2023 Admission to same day surgery center Dr. Adam Husain Work Phone: [facility] Work Phone: Start: 07-02-2023 End: 07-02-[address] Adam Husain Work Phone: [facility] Work Phone: Start: 05-16-2023 End: 05-16-[address] Adam Husain Work Phone: [facility] Work Phone: Start: 05-15-2023 End: 05-15-[address] Adam Husain Work Phone: [facility] Work Phone: Start: 05-15-2023 End: 05-15-[address] Adam Husain Work Phone: [facility]-MRI - [facility] Work Phone: Start: 05-08-2023 End: 05-08-[address] Adam Husain Work Phone: [facility] Start: 05-07-2023 End: 05-07-[address] Adam Husain Work Phone: [facility] Work Phone: Start: 05-07-2023 End: 05-07-[address] Adam Husain Work Phone: [facility] Work Phone: Start: 05-07-2023 End: 05-07-[address] Adam Husain Work Phone: [facility] Work Phone: Start: 04-26-2023 Non-patient / Non-visit Dr. Adam Husain Work Phone: [facility] Start: 04-26-2023 End: 04-26-[address] Adam Husain Work Phone: [facility] Work Phone: Start: 04-26-2023 End: 04-26-[address] Adam Husain Work Phone: [facility]-Cardi[facility] Work Phone: Start: 04-24-2023 End: 04-24-[address] Adam Husain Work Phone: [facility] Work Phone: Start: 04-16-2023 End: 04-16-[address] Adam Husain Work Phone: [facility] Work Phone: Start: 04-16-2023 End: 04-16-[address] Adam Husain Work Phone: [facility], [facility] Start: 04-04-2023 End: 04-04-[address] Adam Husain Work Phone: [facility] Work Phone: Start: 04-04-2023 End: 04-04-[address] Adam Husain Work Phone: [facility] Work Phone: Start: 03-27-2023 End: 03-27-[address] Adam Husain Work Phone: [facility] Work Phone: Start: 03-27-2023 End: 03-27-[address] Adam Husain Work Phone: [facility] Work Phone: Start: 01-16-2023 Non-patient / Non-visit Dr. Adam Husain Work Phone: [facility] Start: 01-16-2023 End: 01-16-2023 Admission to same day surgery center Dr. Adam Husain Work Phone: [facility]End[facility] Work Phone: Start: 01-16-2023 End: 01-16-[address] Adam Husain Work Phone: [facility] Work Phone: Start: 01-08-2023 End: 01-08-[address] Adam Husain Work Phone: [facility] Work Phone: Start: 01-05-2023 End: 01-05-[address] Adam Husain Work Phone: [facility] Work Phone: Start: 12-15-2022 End: 12-15-[address] Adam Husain Work Phone: [facility] Work Phone: Start: 12-15-2022 End: 12-15-[address] [facility] Start: 11-28-2022 End: 11-28-[address] Adam Husain Work Phone: [facility] Work Phone: Start: 10-24-2022 End: 10-24-[address] Adam Husain Work Phone: [facility] Work Phone: Start: 10-19-2022 End: 10-19-[address] Adam Husain Work Phone: [facility] Work Phone: Start: 10-19-2022 End: 10-19-[address] Adam Husain Work Phone: [facility] Work Phone: Start: 10-10-[address] Kenton Husain Work Phone: [facility] Start: 10-10-2022 End: 10-10-[address] Adam Husain Work Phone: [facility] Work Phone: Start: 08-28-2022 End: 08-28-[address] Adam Husain Work Phone: [facility] Work Phone: Start: 08-28-2022 End: 08-28-[address] Adam Husain Work Phone: [facility] Work Phone: Start: 08-25-2022 End: 08-25-[address] Adam Husain Work Phone: [facility] Work Phone: Start: 08-25-2022 End: 08-25-[address] Adam Husain Work Phone: [facility]-Outpatient Breast Imaging Work Phone: Start: 08-21-2022 End: 08-21-[address] Adam Husain Work Phone: [facility] Work Phone: Start: 08-21-2022 End: 08-21-[address] Adam Husain [facility] Phone[facility] Start: 08-16-2022 End: 08-16-[address] Adam Husain Work Phone: [facility] Work Phone: Start: 08-16-2022 End: 08-16-[address] Adam Husain Work Phone: [facility] [place] Start: 07-12-2022 End: 07-12-[address] Adam Husain Work Phone: [facility] Start: 06-30-2022 End: 06-30-[address] Adam Husain Work Phone: [facility] Start: 06-19-2022 End: 06-19-[address] Adam Husain Work Phone: [facility] Work Phone: Start: 06-19-2022 End: 06-19-[address] Adam Husain Work Phone: [facility] Start: 05-11-2022 End: 05-11-[address] [facility] Start: 04-13-2022 Non-patient / Non-visit Dr. Adam Husain Work Phone: [facility] Start: 04-12-2022 Non-patient / Non-visit Dr. Adam Husain Work Phone: [facility] Start: 04-12-2022 End: 04-13-2022 Evaluation and management of inpatient [facility] Start: 04-11-2022 End: 04-11-[address] Adam Husain Work Phone: [facility] Start: 03-31-2022 End: 03-31-2022 Non-patient / Non-visit Dr. Adam Husain Work Phone: [facility] Start: 03-15-2022 End: 03-15-[address] Adam Husain Work Phone: [facility] Work Phone: Start: 03-15-2022 End: 03-15-2022 Emergency department patient visit Dr. Adam Husain Work Phone: [facility] Start: 03-15-2022 End: 03-15-[address] Adam Husain Work Phone: [facility] Start: 01-02-2022 Non-patient / Non-visit Dr. Adam Husain Work Phone: [facility] Start: 01-02-2022 End: 01-02-[address] Adam Husain Work Phone: [facility] Work Phone: Start: 01-02-2022 End: 01-02-[address] Adam Husain Work Phone: [facility]-Cardiovascular Services Start: 12-12-[address] Kenton Husani Work Phone: [facility] Start: 12-12-2021 End: 12-12-[address] Adam Husain Work Phone: [facility] Start: 12-07-2021 End: 12-07-[address] Adam Husain Work Phone: [facility] Start: 08-25-2021 End: 08-25-[address] Adam Husain Work Phone: [facility] Start: 08-23-2021 End: 08-23-[address] Adam Husain Work Phone: [facility] Start: 08-17-2021 End: 08-17-[address] Adam Husain Work Phone: [facility] Start: 08-15-[address] Kenton Husain Work Phone: [facility] Start: 08-15-2021 End: 08-15-[address] Adam Husain Work Phone: [facility] Start: 08-05-2021 End: 08-05-[address] Adam Husain Work Phone: [facility] Start: 08-01-2021 End: 08-01-[address] Adam Husain Work Phone: [facility] Endocrinology Start: 07-28-[address] Kenton Husain Work Phone: [facility] Start: 07-18-2021 End: 07-19-2021 Evaluation and management of inpatient Dr. Adam Husain Work Phone: [facility]-Medical Surgical 3 Start: 06-14-[address] Adam Husain Work Phone: [facility] Start: 06-14-2021 End: 06-14-2021 Emergency department patient visit Dr. Adam Yang Phone: [facility] Start: 06-14-2021 End: 06-14-[address] Adam Husain Work Phone: [facility] Start: 06-10-2021 Non-patient / Non-visit Dr. Adam Husain Work Phone: [facility] Start: 06-08-2021 End: 06-08-[address] Adam Husain Work Phone: [facility] Start: 05-12-2021 End: 05-12-[address] Adam Husain Work Phone: [facility]-Pulmonary Medicine [facility] Start: 05-11-2021 End: 05-11-[address] Adam Husain Work Phone: [facility] Orthopaedic Specia Start: 04-12-2021 End: 04-12-[address] Adam Yang Phone: [facility] Start: 04-07-2021 End: 04-07-[address] Adma Husain Work Phone: [facility] Start: 03-01-[address] Kenton Husain Work Phone: [facility] Start: 03-01-2021 End: 03-01-[address] Adam Husain Work Phone: [facility] Start: 02-23-[address] Adam Husain Work Phone: [facility]-Outpatient Bone Densitometry Start: 11-30-2016 End: 12-01-[address] [facility] Procedures Date Procedure Procedure Detail Performing Clinician Start: 09-16-2024 Dual energy X-ray absorptiometry Dr. Alfonso Das DO Work Phone: Start: 09-16-[address] Manny Das DO Work Phone: Start: 06-18-2024 Chocolate GINA Das DO Work Phone: Start: 06-18-[address] Manny Das DO Work Phone: Start: 06-18-2024 Scallop GINA Das DO Work Phone: Start: 06-18-2024 Sesame seed GINA Das DO Work Phone: Comment on above: Performed at: [address] [id number] Director: Lucas Mota MD, Phone: [phone] Start: 06-18-[address] Manny Das DO Work Phone: Start: 05-26-2024 MRI of small intestine Dr. Manny painter DO Work Phone: Start: 05-09-[address] Jose Husain MD Work Phone: Start: 05-09-2024 Giardia lamb[address] antigen assay Dr. Tiana Husain MD Work Phone: Start: 05-09-[address] Adam Husain MD Work Phone: Start: 05-09-2024 Measurement of occult blood in stool specimen using immunoassay Dr. Adam Husain MD Work Phone: Start: 05-09-[address] Adam Husain MD Work Phone: Start: 05-09-2024 Ova [place] parasites identification Dr. Jose Husain MD Work Phone: Start: 04-14-[address] Nesha Husain MD Work Phone: Comment on above: Nonsmokers <3.9 Smokers <5.6[employer] Electrochemiluminescence Immunoassay(ECLIA)Values obtained with different assay methods or kitscannot be used interchangeably. Results cannot beinterpreted as absolute evidence of the presence orabsence of malignant disease.Performed at: [address] [id number] Director: Kwame Atkinson PhD, Phone: [phone] Start: 03-24-[address] Adam Husain MD Work Phone: Start: 07-02-[address] Adam Husain Work Phone: Start: 05-15-2023 MRI of lower extremity Dr. Adam Husain Work Phone: Start: 05-08-2023 X-ray of both feet Dr. Adam Husain Work Phone: Start: 04-26-2023 Cardiovascular stress test using pharmacologic stress agent Dr. Adam Husain Work Phone: Start: 04-04-2023 CT of chest without contrast Dr. Nesha Husain Work Phone: Start: 01-16-[address] Adam Husain Work Phone: Start: 10-19-2022 CT of chest and abdomen Dr. Adam Husain Work Phone: Start: 08-25-[address] Adam Husain Work Phone: Start: 08-21-2022 MRI of joint of lower extremity Dr. Jose Husain Work Phone: Start: 08-21-[address] Adam Husain Work Phone: Start: 07-12-2022 X-ray of lumbar spine, two or three views Dr. Adam Husain Work Phone: Start: 06-30-2022 Plain x-ray of pelvis and lower extremity Dr. Adam Husain Work Phone: Start: 04-12-2022 Plain X-ray of hip Dr. Adam Husain Work Phone: Start: 04-12-2022 Plain x-ray of pelvis and lower extremity Dr. Adam Husain Work Phone: Start: 04-12-[address] Adam Husain Work Phone: Start: 08-23-2021 CT of chest and abdomen Dr. Adam Husain Work Phone: Start: 08-23-[address] Adam Husain Work Phone: Start: 08-05-2021 US scan of thyroid Dr. Adam Husain Work Phone: Start: 07-18-2021 Total Knee Replacement Robotic Arm Jonny (Left) Dr. Adam Husain Work Phone: Start: 07-18-2021 Radiologic examination of knee Dr. Kenton Husain Work Phone: Start: 06-10-2021 Nasal Screen MRSA/MSSA Dr. Adam Husain Work Phone: Start: 06-08-2021 MRI of lower extremity Dr. Adam Husain Work Phone: Start: 05-11-2021 X-ray of lumbar spine, two or three views Dr. Adam Husain Work Phone: Start: 02-23-2021 Dual energy X-ray absorptiometry Dr. Trey Husain Work Phone: Nasal Screen MRSA/MSSA Dr. Yeni Husain Work Phone: Nasal Screen MRSA/MSSA Dr. Yeni Husain Work Phone: Plan of Treatment Date Care Activity Detail Author Start: 02-13-2024 Patient referral [facility] Work Phone: Start: 07-02-2023 Patient discharge [facility] Start: 05-07-2023 Patient referral [facility] Work Phone: Start: 01-16-2023 Colonoscopy flx dx w/collj spec when pfrmd DIAGNOSTIC COLONOSCOPY [facility] Start: 01-16-2023 Patient discharge [facility] Start: 10-24-2022 Patient referral [facility] Work Phone: Start: 08-21-2022 MR Lower Extremity Joint W contrast IV [facility] Start: 08-21-2022 MRI of joint of lower extremity Lower Ext/Jt Only/W Contrast [facility] Start: 04-13-2022 Patient discharge [facility] Start: 04-12-2022 Anesthesia open total hip arthroplasty ANESTH HIP ARTHROPLASTY [facility] Start: 04-12-2022 Arthrp acetblr/prox fem prostc agrft/algrft TOTAL HIP ARTHROPLASTY [facility] Start: 04-12-2022 Application of intermittent pneumatic compression device [facility] Start: 04-12-2022 Following clinical pathway protocol [facility] Start: 04-12-2022 Provision of overbed trapeze [facility] Start: 04-12-2022 Recommendation to continue with treatment [facility] Start: 04-12-2022 Admission procedure [facility] Start: 04-12-2022 Ambulation therapy management [facility] Start: 04-12-2022 Application of device [facility] Start: 04-12-2022 Assessment of risk of venous thromboembolism [facility] Start: 04-12-2022 Catheterization of vein [facility] Start: 04-12-2022 Consultation [facility] Start: 04-12-2022 Exercises [facility] Start: 04-12-2022 Following clinical pathway protocol [facility] Start: 04-12-2022 Introduction of urinary catheter [facility] Start: 04-12-2022 Measuring intake and output [facility] Start: 04-12-2022 Neurovascular assessment [facility] Start: 04-12-2022 Patient education [facility] Start: 04-12-2022 Procedure discontinued [facility] Start: 04-12-2022 Provision of activity privileges [facility] Start: 04-12-2022 Referral to occupational therapist [facility] Start: 04-12-2022 Referral to service [facility] Start: 04-12-2022 Vital signs measurements [facility] Start: 04-12-2022 Wound care [facility] Start: 04-12-2022 [facility] Start: 08-15-2021 Patient referral [facility] Work Phone: Start: 07-19-2021 Patient discharge [facility] Work Phone: Start: 07-18-2021 Admission procedure [facility] Work Phone: Start: 07-18-2021 Following clinical pathway protocol [facility] Work Phone: Start: 07-18-2021 Anesth open/surg arthrs total knee arthroplasty ANESTH KNEE ARTHROPLASTY [facility] Work Phone: Start: 07-18-2021 Arthrp kne condyle&platu medial&lat compartments TOTAL KNEE ARTHROPLASTY [facility] Work Phone: Start: 07-18-2021 Injection aa&/strd femoral nerve NJX AA&/STRD FEMORAL NERVE [facility] Work Phone: Start: 07-18-2021 Provision of overbed trapeze [facility] Work Phone: Start: 07-18-2021 Ambulation therapy management [facility] Work Phone: Start: 07-18-2021 Application of antithromboembolic stockings [facility] Work Phone: Start: 07-18-2021 Application of device [facility] Work Phone: Start: 07-18-2021 Application of elastic bandage [facility] Work Phone: Start: 07-18-2021 Application of intermittent pneumatic compression device [facility] Work Phone: Start: 07-18-2021 Assessment of risk of venous thromboembolism [facility] Work Phone: Start: 07-18-2021 Catheterization of vein [facility] Work Phone: Start: 07-18-2021 Exercises [facility] Work Phone: Start: 07-18-2021 Following clinical pathway protocol [facility] Work Phone: Start: 07-18-2021 Incentive spirometry [facility] Work Phone: Start: 07-18-2021 Introduction of urinary catheter [facility] Work Phone: Start: 07-18-2021 Measuring intake and output [facility] Work Phone: Start: 07-18-2021 Neurovascular assessment [facility] Work Phone: Start: 07-18-2021 Patient education [facility] Work Phone: Start: 07-18-2021 Procedure discontinued [facility] Work Phone: Start: 07-18-2021 Provision of activity privileges [facility] Work Phone: Start: 07-18-2021 Referral to occupational therapist [facility] Work Phone: Start: 07-18-2021 Referral to service [facility] Work Phone: Start: 07-18-2021 Vital signs measurements [facility] Work Phone: Start: 07-18-2021 Wound care [facility] Work Phone: Start: 07-18-2021 [facility] Work Phone: Start: 07-18-2021 Inhalation therapy procedure [facility] Work Phone: Start: 04-07-2021 Patient referral [facility] Work Phone: Carcinoembryonic Ag [Mass/volume] in Serum or Plasma [facility] Work Phone: Carcinoembryonic Ag [Mass/volume] in Serum or Plasma [facility] Carcinoembryonic Ag [Mass/volume] in Serum or Plasma [facility] Carcinoembryonic Ag [Mass/volume] in Serum or Plasma [facility] Carcinoembryonic Ag [Mass/volume] in Serum or Plasma [facility] CBC W Auto Different ial panel - Blood [facility] Work Phone: Clostridioides diffi cile DNA [Presence] in Unspecified specimen by TARSHA with probe detection [facility] Colonoscopy [facility] CT Chest WO contrast [facility] Elastase.pancreatic [Presence] in Stool [facility] Fat [Presence] in Stool [facility] Lactoferrin [Presenc e] in Stool by Immunoassay [facility] Measurement of occul t blood in stool specimen using immunoassay [facility] MG Breast - bilatera l Screening [facility] MG Breast - bilatera l Screening [facility] MG Breast - bilatera l Screening [facility] MRI of small intestine [facility] [place] Heart Views W str ess and W radionuclide IV [facility] Nucleic acid assay [facility] Patient referral [facility] Work Phone: Protein measurement [facility] US Heart [facility] US Thyroid gland [facility] Work Phone: XR Cervical spine 2 or 3 Views [facility] Immunizations Immunization Date Immunization Notes Care Provider Fa [facility] 12-07-2021 influenza, injectabl e, quadrivalent, preservative free Dr. Adam Husain Work Phone: [facility] 12-07-2021 influenza, seasonal, injectable Dr. Adam Husain Work Phone: [facility] 07-07-2021 Covid (Pfizer) Dr. Adam Husain Work Phone: [facility] 05-20-2020 Covid (Pfizer) Dr. Adam Husain Work Phone: [facility] 04-29-2020 Covid (Pfizer) Dr. Adam Husain Work Phone: [facility] Payers Date Payer Category Payer Self-pay [id number] 2021 Unknown [id number] 2019 Medicare [id number] Unknown [id number] Unknown [id number] 2.16.8 [id number] Unknown [id number] 2.16.8 [id number] Unknown [id number] 2.16.8 [id number] Unknown [id number] 2.16.8 [id number] Unknown [id number] 2.16.8 [id number] Unknown [id number] 2.16.8 [id number] Unknown [id number] 2.16.8 [id number] Unknown [id number] 2.16.8 [id number] Unknown [id number] 2.16.8 [id number] Unknown [id number] 2.16.8 [id number] Unknown [id number] 2.16.8 [id number] Unknown [id number] 2.16.8 [id number] Unknown [id number] 2.16.8 [id number] Unknown [id number] 2.16.8 [id number] Unknown [id number] 2.16.8 [id number] Unknown [id number] 2.16.8 [id number] Unknown [id number] 2.16.8 [id number] Unknown [id number] 2.16.8 [id number] Unknown [id number] 2.16.8 [id number] Social History Date Type Detail Facility Start: 06-14-2021 End: 07-02-2023 Tobacco smoking status NHIS Unknown if ever smoked [facility] Start: 11-14-2018 None [facility] Start: 09-19-2019 Spouse/ Signif icant Other [facility] Start: 01-02-2020 Non-smoker [facility] Start: 1955 Sex Assigned At Female [facility] Start: 04-09-2024 Tobacco smoking status NHIS Never smoked tobacco (finding) [facility] Start: 05-06-2024 End: 05-18-2024 Sex Female (finding) [facility] NEGATED: Highlighted row [facility] Medical Equipment Procedure Code Equipment Code Equipment Origin al Text Equipment Identifier Dates Repair, hernia, ventral or umbilical, laparoscopic MESH,VENTRALIGHT ST 8x10 FDA Start: 01-19-2020 Repair, hernia, ventral or umbilical, laparoscopic TACKER,SECURE STRAP FDA Start: 01-19-2020 Repair, hernia, ventral or umbilical, laparoscopic TACKER,SECURE STRAP FDA Start: 01-19-2020 Repair, hernia, ventral or umbilical, laparoscopic MESH,VENTRALIGHT ST 8x10 FDA Start: 01-19-2020 Repair, hernia, ventral or umbilical, laparoscopic TACKER,SECURE STRAP FDA Start: 01-19-2020 Repair, hernia, ventral or umbilical, laparoscopic TACKER,SECURE STRAP FDA Start: 01-19-2020 Repair, hernia, ventral or umbilical, laparoscopic MESH,VENTRALIGHT ST 8x10 FDA Start: 01-19-2020 Repair, hernia, ventral or umbilical, laparoscopic TACKER,SECURE STRAP FDA Start: 01-19-2020 Repair, hernia, ventral or umbilical, laparoscopic TACKER,SECURE STRAP FDA Start: 01-19-2020 Repair, hernia, ventral or umbilical, laparoscopic MESH,VENTRALIGHT ST 8x10 FDA Start: 01-19-2020 Repair, hernia, ventral or umbilical, laparoscopic TACKER,SECURE STRAP FDA Start: 01-19-2020 Repair, hernia, ventral or umbilical, laparoscopic TACKER,SECURE STRAP FDA Start: 01-19-2020 Repair, hernia, ventral or umbilical, laparoscopic MESH,VENTRALIGHT ST 8x10 FDA Start: 01-19-2020 Repair, hernia, ventral or umbilical, laparoscopic TACKER,SECURE STRAP FDA Start: 01-19-2020 Repair, hernia, ventral or umbilical, laparoscopic TACKER,SECURE STRAP FDA Start: 01-19-2020 Repair, hernia, ventral or umbilical, laparoscopic MESH,VENTRALIGHT ST 8x10 FDA Start: 01-19-2020 Repair, hernia, ventral or umbilical, laparoscopic TACKER,SECURE STRAP FDA Start: 01-19-2020 Repair, hernia, ventral or umbilical, laparoscopic TACKER,SECURE STRAP FDA Start: 01-19-2020 Repair, hernia, ventral or umbilical, laparoscopic MESH,VENTRALIGHT ST 8x10 FDA Start: 01-19-2020 Repair, hernia, ventral or umbilical, laparoscopic TACKER,SECURE STRAP FDA Start: 01-19-2020 Repair, hernia, ventral or umbilical, laparoscopic TACKER,SECURE STRAP FDA Start: 01-19-2020 Repair, hernia, ventral or umbilical, laparoscopic MESH,VENTRALIGHT ST 8x10 FDA Start: 01-19-2020 Repair, hernia, ventral or umbilical, laparoscopic TACKER,SECURE STRAP FDA Start: 01-19-2020 Repair, hernia, ventral or umbilical, laparoscopic TACKER,SECURE STRAP FDA Start: 01-19-2020 Repair, hernia, ventral or umbilical, laparoscopic MESH,VENTRALIGHT ST 8x10 FDA Start: 01-19-2020 Repair, hernia, ventral or umbilical, laparoscopic TACKER,SECURE STRAP FDA Start: 01-19-2020 Repair, hernia, ventral or umbilical, laparoscopic TACKER,SECURE STRAP FDA Start: 01-19-2020 Repair, hernia, ventral or umbilical, laparoscopic MESH,VENTRALIGHT ST 8x10 FDA Start: 01-19-2020 Repair, hernia, ventral or umbilical, laparoscopic TACKER,SECURE STRAP FDA Start: 01-19-2020 Repair, hernia, ventral or umbilical, laparoscopic TACKER,SECURE STRAP FDA Start: 01-19-2020 Repair, hernia, ventral or umbilical, laparoscopic MESH,VENTRALIGHT ST 8x10 FDA Start: 01-19-2020 Repair, hernia, ventral or umbilical, laparoscopic TACKER,SECURE STRAP FDA Start: 01-19-2020 Repair, hernia, ventral or umbilical, laparoscopic TACKER,SECURE STRAP FDA Start: 01-19-2020 Repair, hernia, ventral or umbilical, laparoscopic MESH,VENTRALIGHT ST 8x10 FDA Start: 01-19-2020 Repair, hernia, ventral or umbilical, laparoscopic TACKER,SECURE STRAP FDA Start: 01-19-2020 Repair, hernia, ventral or umbilical, laparoscopic TACKER,SECURE STRAP FDA Start: 01-19-2020 Repair, hernia, ventral or umbilical, laparoscopic MESH,VENTRALIGHT ST 8x10 FDA Start: 01-19-2020 Repair, hernia, ventral or umbilical, laparoscopic TACKER,SECURE STRAP FDA Start: 01-19-2020 Repair, hernia, ventral or umbilical, laparoscopic TACKER,SECURE STRAP FDA Start: 01-19-2020 Repair, hernia, ventral or umbilical, laparoscopic MESH,VENTRALIGHT ST 8x10 FDA Start: 01-19-2020 Repair, hernia, ventral or umbilical, laparoscopic TACKER,SECURE STRAP FDA Start: 01-19-2020 Repair, hernia, ventral or umbilical, laparoscopic TACKER,SECURE STRAP FDA Start: 01-19-2020 Repair, hernia, ventral or umbilical, laparoscopic MESH,VENTRALIGHT ST 8x10 FDA Start: 01-19-2020 Repair, hernia, ventral or umbilical, laparoscopic TACKER,SECURE STRAP FDA Start: 01-19-2020 Repair, hernia, ventral or umbilical, laparoscopic TACKER,SECURE STRAP FDA Start: 01-19-2020 Repair, hernia, ventral or umbilical, laparoscopic MESH,VENTRALIGHT ST 8x10 FDA Start: 01-19-2020 Repair, hernia, ventral or umbilical, laparoscopic TACKER,SECURE STRAP FDA Start: 01-19-2020 Repair, hernia, ventral or umbilical, laparoscopic TACKER,SECURE STRAP FDA Start: 01-19-2020 Repair, hernia, ventral or umbilical, laparoscopic MESH,VENTRALIGHT ST 8x10 FDA Start: 01-19-2020 Repair, hernia, ventral or umbilical, laparoscopic TACKER,SECURE STRAP FDA Start: 01-19-2020 Repair, hernia, ventral or umbilical, laparoscopic TACKER,SECURE STRAP FDA Start: 01-19-2020 Repair, hernia, ventral or umbilical, laparoscopic MESH,VENTRALIGHT ST 8x10 FDA Start: 01-19-2020 Repair, hernia, ventral or umbilical, laparoscopic TACKER,SECURE STRAP FDA Start: 01-19-2020 Repair, hernia, ventral or umbilical, laparoscopic TACKER,SECURE STRAP FDA Start: 01-19-2020 Repair, hernia, ventral or umbilical, laparoscopic MESH,VENTRALIGHT ST 8x10 FDA Start: 01-19-2020 Repair, hernia, ventral or umbilical, laparoscopic TACKER,SECURE STRAP FDA Start: 01-19-2020 Repair, hernia, ventral or umbilical, laparoscopic TACKER,SECURE STRAP FDA Start: 01-19-2020 Repair, hernia, ventral or umbilical, laparoscopic MESH,VENTRALIGHT ST 8x10 FDA Start: 01-19-2020 Repair, hernia, ventral or umbilical, laparoscopic TACKER,SECURE STRAP FDA Start: 01-19-2020 Repair, hernia, ventral or umbilical, laparoscopic TACKER,SECURE STRAP FDA Start: 01-19-2020 Repair, hernia, ventral or umbilical, laparoscopic MESH,VENTRALIGHT ST 8x10 FDA Start: 01-19-2020 Repair, hernia, ventral or umbilical, laparoscopic TACKER,SECURE STRAP FDA Start: 01-19-2020 Repair, hernia, ventral or umbilical, laparoscopic TACKER,SECURE STRAP FDA Start: 01-19-2020 Repair, hernia, ventral or umbilical, laparoscopic MESH,VENTRALIGHT ST 8x10 FDA Start: 01-19-2020 Repair, hernia, ventral or umbilical, laparoscopic TACKER,SECURE STRAP FDA Start: 01-19-2020 Repair, hernia, ventral or umbilical, laparoscopic TACKER,SECURE STRAP FDA Start: 01-19-2020 Repair, hernia, ventral or umbilical, laparoscopic MESH,VENTRALIGHT ST 8x10 FDA Start: 01-19-2020 Repair, hernia, ventral or umbilical, laparoscopic TACKER,SECURE STRAP FDA Start: 01-19-2020 Repair, hernia, ventral or umbilical, laparoscopic TACKER,SECURE STRAP FDA Start: 01-19-2020 Repair, hernia, ventral or umbilical, laparoscopic MESH,VENTRALIGHT ST 8x10 FDA Start: 01-19-2020 Repair, hernia, ventral or umbilical, laparoscopic TACKER,SECURE STRAP FDA Start: 01-19-2020 Repair, hernia, ventral or umbilical, laparoscopic TACKER,SECURE STRAP FDA Start: 01-19-2020 Repair, hernia, ventral or umbilical, laparoscopic MESH,VENTRALIGHT ST 8x10 FDA Start: 01-19-2020 Repair, hernia, ventral or umbilical, laparoscopic TACKER,SECURE STRAP FDA Start: 01-19-2020 Repair, hernia, ventral or umbilical, laparoscopic TACKER,SECURE STRAP FDA Start: 01-19-2020 Repair, hernia, ventral or umbilical, laparoscopic MESH,VENTRALIGHT ST 8x10 FDA Start: 01-19-2020 Repair, hernia, ventral or umbilical, laparoscopic TACKER,SECURE STRAP FDA Start: 01-19-2020 Repair, hernia, ventral or umbilical, laparoscopic TACKER,SECURE STRAP FDA Start: 01-19-2020 Minimally invasive total replacement of hip joint by anterior approach ([id number]) Ceramic femoral head prosthesis ([id number] FDA Start: 04-12-2022 Minimally invasive total replacement of hip joint by anterior approach ([id number]) Non-constrained polyethylene acetabular liner ()[id number] FDA Start: 04-12-2022 Minimally invasive total replacement of hip joint by anterior approach ([id number]) Acetabular shell ()[id number] FDA Start: 04-12-2022 Minimally invasive total replacement of hip joint by anterior approach Coated hip femur prosthesis, modular ()[id number] FDA Start: 04-12-2022 ([id number]) Metal-backed pat bryan prosthesis ()[id number] FDA Start: 07-18-2021 ([id number]) Coated knee femu r prosthesis ()[id number] FDA Start: 07-18-2021 ([id number]) Coated knee tibi a prosthesis ()[id number] FDA Start: 07-18-2021 ([id number]) Tibial insert ()[id number] FDA Start: 07-18-2021 Goals Date Patient Goal Desired Activity /State Functional Status Date Assessment Result Facility 04-13-2022 Functional status Chair [facility] Work Phone: 07-19-2021 Functional status Ambulates;Chair [facility] Work Phone: Mental Status Date Assessment Result Facility 05-26-2024 Cognitive function Level Of Cons ciousness Awake;Alert;Appropriate [facility] Work Phone: 07-02-2023 Cognitive function Level Of Cons ciousness Follows Commands;Drowsy [facility] Work Phone: 07-02-2023 Cognitive function Voice/Name [facility] Work Phone: 01-16-2023 Cognitive function Voice/Name [facility] Work Phone: 04-13-2022 Cognitive function Voice/Name [facility] Work Phone: 07-19-2021 Cognitive function Voice/Name [facility] Work Phone: Clinical Notes 01-16-2023 to 07-18-2024 Note Date & Type Note Facility 07-18-2024 Evaluation note Diagnosis Onset Date Resolution Diarrhea acute July 18, 2024 10:16am Epigastric pain acute July 18, 2024 10:16am [facility] Work Phone: 1(472) 406-384205-23-2025 Evaluation note* Diagnosis Onset Date Resolution Status Admit Date Diarrhea acute July 18, 2024 10:16am Epigastric pain acute July 18, 2024 10:16am Diarrhea acute October 21, 2 025 9:21am Epigastric pain acute October 212024 9:21am [facility] Work Phone: 1(823) 440-965712-18-2024 Evaluation note* Diagnosis Onset Date Resolution Status Admit Date Cough acute February 13, 2024 1:51pm GERD (gastroesophageal reflux disease) chronic February 12, 024 1:51pm HTN (hypertension) chronic [facility] er 2023 1:51pm Neuropathy chronic February 13, 2024 1:51pm UTI (urinary tract infection) resolved March 24 8:32am Influenza due to influenza virus, type A, human acute February 8:21am Colon cancer chronic March 10:49am Left leg DVT chronic March 10:49am Diarrhea acute April 22, 2024 8:41am Epigastric pain acute April 22, 2024 8:41am [facility] Work Phone: 1(332) 228-705905-06-2024 Procedure [facility] 07-02-2023 [facility]-2023 History and physical note Author Julieta Leblanc [facility] January 16, 2023 8:28am Note Date/Time January 16, 2023 7:22[facility] Medical Records Department [address] [place] [address] History & Physical Exam 01/16/23 0721 MR#: [id number] Acct: [id number] Name: ELIS HA Rep #:[id number] : 1955 67 From: Julieta Leblanc MD PCP: Dr. Adam Husain MD Status:R [facility] Location: [place] [address] History and Physical Date of Admission: 01/16/23 Date of Service: 01/05/23 MR#: [id number] Acct: [id number] Name: ELIS HA Rep #: [id number] : 1955 Provider: Dr. Julieta Leblanc MD Age/Sex: 67/F Location: [facility] Status: Signed Intake Vital Signs 10/24/2308:34 01/05/2313:56 Height 5 ft 4 in 5 ft 4 in Weight: 215 lb BMI 36.8 BP 156/78 H Blood Pressure Location Rt brachial Position Sitting Respiration 17 Pulse 88 Pulse Source Monitor Pulse Oximetry (%) 97 Oxygen Delivery Method room air Intake Visit Reasons: COLONOSCOPY Chief Complaint: colonoscopy Allergies codeine Allergy (Verified 01/08/23 08:37) VomitingOpioids - Morphine Analogues Allergy (Verified 01/08/23 08:37) Vomitinghydroxyzine [From Vistaril] Adverse Reaction (Verified 01/08/23 08:37) Vomitingmeperidine [From Demerol] Adverse Reaction (Verified 01/08/23 08:37) Vomiting Medications d-mannose 500 mg capsule 500 mg PO BID urinary 03/01/21 [History Confirmed 01/08/23] albuterol sulfate 90 mcg/actuation aerosol inhaler (ProAir HFA) 2 puff inhalation PRN PRN ASTHMA 06/07/21 [History Confirmed 01/08/23] cholecalciferol (vitamin D3) 25 mcg (1,000 unit) tablet (Vitamin D3) 25 mcg PO DAILY 06/07/21 [History Confirmed 01/08/23] amlodipine 10 mg tablet 10 mg PO DAILY #90 tabs 06/19/22 [Rx Confirmed 01/08/23] apixaban 5 mg tablet (Eliquis) 5 mg PO BID #180 tabs 06/19/22 [Rx Confirmed 01/08/23] hydrochlorothiazide 25 mg tablet 25 mg PO DAILY #90 tabs 06/19/22 [Rx Confirmed 01/08/23] loratadine 10 mg tablet (Claritin) 10 mg PO DAILY #90 tabs 06/19/22 [Rx Confirmed 01/08/23] montelukast 10 mg tablet (Singulair) 10 mg PO DAILY #90 tabs 06/19/22 [Rx Confirmed 01/08/23] pantoprazole 40 mg tablet,delayed release (Protonix) 40 mg PO DAILY #90 tabs 06/19/22 [Rx Confirmed 01/08/23] valsartan 320 mg tablet 320 mg PO QHS #90 tabs 06/19/22 [Rx Confirmed 01/08/23] fluticasone propionate 220 mcg/actuation HFA aerosol inhaler (Flovent HFA) 1 inhinhalation BID #12 grams 08/10/22 [Rx Confirmed 01/08/23] calcium carbonate 600 mg calcium (1,500 mg) tablet (Calcium) 600 mg PO DAILY 12/28/22 [History Confirmed 01/08/23] magnesium oxide 400 mg PO DAILY 12/28/22 [History Confirmed 01/08/23] [facility] Medical History Ambulates with cane Anemia Arthritis Asthma Asthma Back pain Escamilla's cyst of knee Bladder cancer Cancer Carotid bruit Chronic bronchitis Chronic cough CPAP (continuous positive airway pressure) dependence Cramp in lower leg Difficulty balancing DVT (deep venous thrombosis) Elevated d-dimer Enlarged lymph node in neck Flu vaccine need Frequent headaches Gastric reflux GERD (gastroesophageal reflux disease) Hay fever High blood pressure History of colon cancer History of colon cancer History of CVA (cerebrovascular accident) History of echocardiogram History of edema History of IBS History of irregular heartbeat History of steroid therapy History of stress test HTN (hypertension) IBS (irritable bowel syndrome) Injury of head and neck Left knee pain Left leg DVT Leg cramps Leukocytosis Malaise and fatigue Migraine headache Neck pain Nodular goiter Non-smoker Obesity (BMI 30-39.9) Petechiae Post-menopausal Preoperative evaluation to rule out surgical contraindication Recurrent deep vein thrombosis (DVT) removal of ascending colon Restless legs Restless legs syndrome Screening for thyroid disorder Shortness of breath Stomach ulcer Stroke Stroke/cerebrovascular accident Thyroid nodule UTI (urinary tract infection) Ventral incisional hernia without obstruction or gangrene Wears glasses Surgical History History of ankle surgery History of cholecystectomy History of cystocele History of hip replacement, total History of hysterectomy History of tonsillectomy Hx of total knee arthroplasty S/P colectomy Status post total knee replacement, left Family History Mother Arthritis Parkinson disease HypertensionFather Heart disease Hypertension Social History Smoking Status: Never smoker alcohol intake: never substance use type: does not use what type of physical activity do you participate in: none HPI HPI HPI: 67-year-old female presents for colonoscopy, history of colon cancer. Patient had colon cancer back in 2019 and had a right hemicolectomy at [place]. Patienthad a repeat screening in [address] Castaneda which was negative. Patient stateshas been having issues with diarrhea and constipation states in July she had increased diarrhea and did have some blood but patient does have internal hemorrhoids. Patient states her diarrhea is improved but she still has a cycle between constipation and diarrhea. Patient is also on Eliquis due to good left leg DVT in 2020 with no identify but will cause. Patient states she does occasionally get some lower abdominal pressure which typically improves after bowel movement. Patient states 3 weeks ago she was also diagnosed with bladder cancer and had a cystoscopy for removal. ROS General General: Yes weight change, fatigue and colon cancer; No appetite or breast cancer HEENT HEENT: No difficulty swallowing, eye injury, eye surgery, swollen glands or hoarseness Endo Endocrine: No thyroid disease, diabetes mellitus, thyroid cancer, Hair loss, heat intolerance or cold intolerance Skin Skin: No rash or changing moles Musc Musculoskeletal: Yes back problems and arthritis; No rheumatoid arthritis, gout or joint pain Cardio Cardiovascular: Yes murmur and high blood pressure; No pacemaker, heart disease, atrial fibrillation, heart attack, heart stent, palpitations, shortness of breat with exertion or chest pain Psych Psychiatric: No depression, anxiety or hearing voices Resp Respiratory: No shortness of breath, Yes sleep apnea, Yes cough, No COPD, Yes asthma, No emphysema and No wheezing Gastro Gastrointestinal: No abdominal pain, No nausea or vomiting, Yes diarrhea, Yes constipation, No blood in stool, Yes acid reflux, Yes hemorrhoids, No ulcers, Nogallbladder problem and No black,tarry stools [place]ito Hematologic: Yes blood thinners, No blood disorders, No bleeding, No anemia and Yes blood clots Neuro Neurologic: No numbness and No tingling Exam Const General: cooperative, healthy appearing, comfortable and no acute distress [facility] Head: normocephalic and atraumatic Neck Neck: supple Resp Effort & Inspection: normal respiratory effort Cardio Rate: regular rate GI Inspection: non-distended Palpation: soft, no hernias and nontender Skin General: no rashes or lesions noted Neuro General: CN's II-XI intact bilaterally Extrem General: normal to inspection Psych Mental Status: mental status grossly normal Attitude: cooperative Assessment and Plan Assessment and Plan (1) Colon cancer: Status: Chronic Qualifiers: Colon location: unspecified part of colon Qualified Code(s): C18.9 - Malignant neoplasm of colon, unspecified Comment: stage II-node neg--2019 right hemicolectomy, with normal colonoscopy 2020 (2) Diarrhea: Status: Acute (3) Constipation: Status: Acute Orders: Orders Colonoscopy 01/16/23 Plan Patient has been having diarrhea/constipation/change in bowel habits we will plan to do a colonoscopy sooner than her scheduled one in 2023. I have discussed the above with the patient. I have offered the patient colonoscopy for evaluation. I have explained the risks/benefits of the procedure and described the procedure. I have discussed the risks with the patient, including but not limited to: infection, bleeding, perforation of the GI tract requiring emergency surgery, inability to complete the procedure, injury to any internal organs, complications of anesthesia, etc. - the patient understands and agrees to proceed. I have answered all the patient's questions to the patient's satisfaction and the patient has no further questions. The patient has been given instructions for the colon cleansing preparation.1 day clears MiraLAX Dulcolax split prep Julieta Leblanc M.D. Pager: [phone] [facility] [address] [place] [address], [facility], [address] [place] [address] Office: [phone] Coding Level of Care Code Off vis,new,level 3 Diagnoses Malignant neoplasm of colon, unspecified part of colon C18.9 Colon location: unspecified part of colon Diarrhea R19.7 Constipation K59.00 01/08/23 1043 <Electronically signed by Julieta Leblanc MD> Date Julieta Leblanc MD 01/16/23 0721 <Electronically signed by Julieta Leblanc MD> Cosigner Signature (if applicable): CC: Dr. Adam Husain MD; Dr. Julieta Leblanc MD~ Signed ADDENDUM by Dr. Julieta Leblanc MD on 01/16/23 at 0828 Addendum I have examined the patient and the H&P has been reviewed. There are no clinicalchanges since date of exam. 01/16/23 08<Electronically signed by Julieta Leblanc MD> Cosigner Signature (if applicable): cc: Dr. Adam Husain MD; Dr. Julieta Leblanc MD ~* Signed [facility] Work Phone: 1(828) 856-161011-21-2023 [facility] Diagnosis Onset Date Resolution Status Left leg DVT acute Elevated d-dimer chronic Left leg DVT acute Elevated d-dimer chronic Cramp in lower leg chronic Left hip pain chronic Left knee pain chronic Recurrent deep vein thrombosis (DVT) chronic DDD (degenerative disc disease), lumbar acute Degenerative joint disease of left hip acute Low back pain acute RAHEEL (obstructive sleep apnea) acute Asthma chronic Preoperative evaluation to r ule out surgical contraindication acute HTN (hypertension) chronic Left knee pain chronic Recurrent deep vein thrombosis (DVT) chronic [facility] Work Phone: Evaluation note* Diagnosis Onset Date Resolution Status Left leg DVT acute Elevated d-dimer chronic Cramp in lower leg chronic Left hip pain chronic Left knee pain chronic Recurrent deep vein thrombosis (DVT) chronic DDD (degenerative disc disease), lumbar acute Degenerative joint disease of left hip acute Low back pain acute RAHEEL (obstructive sleep apnea) acute Asthma chronic Preoperative evaluation to r ule out surgical contraindication acute HTN (hypertension) chronic Left knee pain chronic Recurrent deep vein thrombosis (DVT) chronic Status post total knee replacement, left acute [facility] Work Phone: Evaluation note* Diagnosis Onset Date Resolution Status Cramp in lower leg chronic Left hip pain chronic Left knee pain chronic Recurrent deep vein thrombosis (DVT) chronic DDD (degenerative disc disease), lumbar acute Degenerative joint disease of left hip acute Low back pain acute RAHEEL (obstructive sleep apnea) acute Asthma chronic Preoperative evaluation to r ule out surgical contraindication acute HTN (hypertension) chronic Left knee pain chronic Recurrent deep vein thrombosis (DVT) chronic Status post total knee replacement, left acute Nodular goiter acute [facility] Work Phone: Evaluation note* Diagnosis Onset Date Resolution Status DDD (degenerative disc disease), lumbar acute Degenerative joint disease of left hip acute Low back pain acute RAHEEL (obstructive sleep apnea) acute Asthma chronic Preoperative evaluation to r ule out surgical contraindication acute HTN (hypertension) chronic Left knee pain chronic Recurrent deep vein thrombosis (DVT) chronic Status post total knee replacement, left acute Nodular goiter acute Enlarged lymph node in neck acute Left leg DVT acute Petechiae acute Elevated d-dimer chronic Anemia resolved Leukocytosis resolved Screening for malignant neoplasm of breast noneactive Enlarged lymph node in neck acute Enlarged lymph node in neck acute History of colon cancer acut e Left leg DVT acute Elevated d-dimer chronic Anemia resolved Leukocytosis resolved [facility] Work Phone: Evaluation note* Diagnosis Onset Date Resolution Status Carotid bruit acute Flu vaccine need acute History of CVA (cerebrovascular accident) acute HTN (hypertension) chronic Left leg DVT acute Elevated d-dimer chronic [facility] Work Phone: Evaluation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 Colon cancer Left leg DVT Chief Complaint ACUTE - SHORTNESS OF BREATH SOLITARY PULMONARY NODULE 6MO LABS PRIOR DYSPNEA 4 M FU 1 Y FU XRAY Reason for Visit Chest pain Lung nodule Dyspnea on exertion Colon cancer Left leg DVT Dyspnea on exertion GERD (gastroesophageal reflux disease) HTN (hypertension) Neuropathy Right foot pain Asthma Obesity (BMI 30-39.9) RAHEEL (obstructive sleep apnea) Chief Complaint ACUTE - SHORTNESS OF BREATH SOLITARY PULMONARY NODULE 6MO LABS PRIOR DYSPNEA 4 M FU 1 Y FU XRAY RIGHT FOOT Gastroesophageal reflux disease (GERD) Reason for Visit Chest pain Lung nodule Dyspnea on exertion Colon cancer Left leg DVT Dyspnea on exertion GERD (gastroesophageal reflux disease) HTN (hypertension) Neuropathy Right foot pain Asthma Obesity (BMI 30-39.9) RAHEEL (obstructive sleep apnea) Anticoagulant long-term use GERD (gastroesophageal reflux disease) Chief Complaint ACUTE - SHORTNESS OF BREATH SOLITARY PULMONARY NODULE 6MO LABS PRIOR DYSPNEA 4 M FU 1 Y FU XRAY RIGHT FOOT Gastroesophageal reflux disease (GERD) Reason for Visit Chest pain Lung nodule Dyspnea on exertion Colon cancer Left leg DVT Dyspnea on exertion GERD (gastroesophageal reflux disease) HTN (hypertension) Neuropathy Right foot pain Asthma Obesity (BMI 30-39.9) RAHEEL (obstructive sleep apnea) Anticoagulant long-term use GERD (gastroesophageal reflux disease) Anticoagulant long-term use GERD (gastroesophageal reflux disease) Chief Complaint Admit Date 3 M FU February 13, 2024 1:51pm Urinary tract infection March 24 8:32am Cough March 28, 2024 8 :21am 6 MO - LABS PRIOR April 21, 2024 10:49am New PT referral from [facility] March 8:41am EORDERS April 22, 2024 9:53am WHISPERS RX HERE April 30, 2024 10:3 0am Reason for Visit Admit Date Cough February 13, 2024 1:51pm GERD (gastroesophageal reflux disease) D ecember 2023 1:51pm HTN (hypertension) February 13, 2024 1:51pm Neuropathy February 13, 2024 1:51pm UTI (urinary tract infection) March 242024 8:32am Influenza due to influenza virus, type A , human March 28, 2024 8:21am Colon cancer April 21, 2024 10:49am Left leg DVT April 21, 2024 10:49am Diarrhea April 22, 2024 8:41am Epigastric pain April 22, 2024 8:41am Chief Complaint Admit Date 3 M FU February 13, 2024 1:51pm Urinary tract infection March 24 8:32am Cough March 28, 2024 8 :21am 6 MO - LABS PRIOR April 21, 2024 10:49am New PT referral from [facility] March 8:41am EORDERS April 22, 2024 9:53am WHISPERS RX HERE April 30, 2024 10:3 0am INT ORDER May 09, 2024 9:2 6am Chief Complaint Admit Date Diarrhea May 26, 2024 8:5 3am 3 M FU July 18, 2024 10:16 am SCREENING - TWO ORDERING DIOMEDES September 16, 2024 9:30am Reason for Visit Admit Date Diarrhea July 18, 2024 10:16 am Epigastric pain July 18, 2024 10:16 am Chief Complaint Admit Date 3 M FU July 18, 2024 10:16 am SCREENING - TWO ORDERING DIOMEDES September 16, 2024 9:30am 3 M FU October 21, 2024 9: 21am Chief Complaint Admit Date 3 M FU July 18, 2024 10:16 am SCREENING - TWO ORDERING DIOMEDES September 16, 2024 9:30am 3 M FU October 21, 2024 9: 21am 1 Y FU November 11, 2024 10:40am Reason for Visit Admit Date Diarrhea July 18, 2024 10:16 am Epigastric pain July 18, 2024 10:16 am Diarrhea October 21, 2024 9: 21am Epigastric pain October 21, 2024 9: 21am Additional Source Comments INFORMATION SOURCE (unrecogn ized section and content) DATE CREATED AUTHOR 08/22/2017 [facility] DATE CREATED AUTHOR AUTHOR'S ORGANIZ ATION 03/12/2019 [facility] ([place]) DATE CREATED AUTHOR AUTHOR'S ORGANIZ ATION 12/28/2024 [facility] Goals (unrecognized section and content) Goals may be documented in a n alternate sectionGoals may be documented in an alternate sectionGoals may be documented in an alternate sectionGoals may be documented in an alternate sectionGoals may be documented in an alternate sectionGoals may be documented in an alternate sectionGoals may be documented in an alternate sectionGoals may be documented in an alternate sectionGoals may be documented in an alternate sectionGoals may be documented in an alternate sectionGoals may be documented in an alternate sectionGoals may be documented in an alternate sectionGoals may be documented in an alternate sectionGoals may be documented in an alternate sectionGoals may be documented in an alternate sectionGoals may be documented in an alternate sectionGoals may be documented in an alternate section Care Teams (unrecognized sec tion and content) Team Status: Active Member Role Status Dates Dr. Adam Husain MD Family Provider Active Dr. Adam Husain MD Primary Care Provider Active Team Status: Inactive Member Role Status Dates Dr. Adam Husain MD Primary Care Provider, Refer ring Provider Active Dr. Lorenzo Larose MD Attending Provider Active Team Status: Inactive Member Role Status Dates Dr. Adam Husain MD Primary Care Cristóbal gordon, Attending Provider, Referring Provider Active Team Status: Active Member Role Status Dates Dr. Adam Husain MD Primary Care Provider, Refer ring Provider Active Dr. Harish Wang MD Attending Provider Active Team Status: Active Member Role Status Dates Dr. Adam Husain MD Primary Care Provider Active Dr. Lorenzo Larose MD Attending Provider, Referrin g Provider Active Team Status: Inactive Member Role Status Dates Dr. Adam Husain MD Primary Care Provider, Refer ring Provider Active Cristin Chung NP, LVN LPN-C Attending Provider Active Team Status: Active Member Role Status Dates Dr. Adam Husain MD Primary Care Provider Active Dr. Lazaro Buenrostro MD Attending Provider Active Dr. Efren Hassan MD Referring Provider Active Team Status: Active Member Role Status Dates Dr. Adam Husain MD Primary Care Provider Active Dr. fEren Hassan MD Admit Provider, R eferring Provider, Other Provider Active Dr. Lorenzo Larose MD Other Provider Active Dr. Terese Brumfield MD Attending Provider, Other Provider Active Team Status: Active Member Role Status Dates Dr. Adam Husain MD Primary Care Provider Active Dr. Efern Hassan MD Admit Provider, R eferring Provider, Other Provider Active Dr. Lorenzo Larose MD Other Provider Active Dr. Ian Campbell MD Attending Provider, Other Provi kurt Active Team Status: Inactive Member Role Status Dates Dr. Adam Husain MD Primary Care Provider Active Dr. Efren Hassan MD Admit Provider, A ttending Provider, Referring Provider Active Dr. Lorenzo Larose MD Other Provider Active Dr. Ian Campbell MD Other Provider Active Team Status: Inactive Member Role Status Dates Dr. Adam Husain MD Primary Care Provider, Atten ding Provider Active Team Status: Inactive Member Role Status Dates Dr. Adam Husain MD Primary Care Provider, Refer ring Provider Active VERO CardenasC Attending Provider Active Team Status: Inactive Member Role Status Dates Dr. Adam Husain MD Primary Care Provider Active Dr. Lazaro Buenrostro MD Attending Provider Active Team Status: Inactive Member Role Status Dates Dr. dAam Husain MD Primary Care Provider Active Milton STORY PA-C Attending Provider, Referring Pr ovider Active Team Status: Active Member Role Status Dates Dr. Adam Husain MD Primary Care Provider Active ALICE HaddadC Attending Provider, Referring Pr ovider Active Team Status: Inactive Member Role Status Dates Dr. Adam Husain MD Primary Care Provider Active Dr. Lorenzo Larose MD Attending Provider, Referrin g Provider Active Team Status: Active Member Role Status Dates Dr. Adam Husain MD Primary Care P robhavyader, Attending Provider, Referring Provider Active Team Status: Inactive Member Role Status Dates Dr. Adam Husain MD Primary Care Provider, Refer ring Provider Active Laura Chris LVN LPN, LVN LPN-C Attending Provider Active Team Status: Inactive Member Role Status Dates Dr. Adam Husain MD Primary Care Provider Active Laura Chris LVN LPN, LVN LPN-C Attending Provider, Referring Provider Active Team Status: Inactive Member Role Status Dates Dr. Adam Husain MD Primary Care Provider Active Dr. Michael Sen MD Attending Provider Active Team Status: Inactive Member Role Status Dates Dr. Adam Husain MD Primary Care Provider Active Dr. Michael Sen MD Attending Provider, Referr ing Provider Active Team Status: Inactive Member Role Status Dates Dr. Adam Husain MD Primary Care Provider, Refer ring Provider Active Dr. Julieta Leblanc MD Attending Provider Active Team Status: Active Member Role Status Dates Dr. Adam Husain MD Primary Care Provider, Refer ring Provider Active Dr. Julieta Leblanc MD Attending Provider, Other Pro vider Active Team Status: Inactive Member Role Status Dates Dr. Adam Husain MD Primary Care Provider, Refer ring Provider Active Mickie Domínguez NP-C Attending Provider Active Team Status: Inactive Member Role Status Dates Dr. Adam Husain MD Primary Care Provider Active CYRUS Thomas Attending Provider, Referring Pro vider Active Team Status: Active Member Role Status Dates Dr. Adam Husain MD Primary Care Provider Active Dr. Lazaro Buenrostro MD Attending Provider Active Team Status: Active Member Role Status Dates Dr. Adam Husain MD Primary Care Provider Active Dr. Lazaro Buenrostro MD Attending Provider, Referring Pro vider Active Team Status: Inactive Member Role Status Dates Dr. Adam Husain MD Primary Care Provider Active Dr. Billie Dangelo DPM Attending Provider, Referring Pr ovider Active Team Status: Active Member Role Status Dates Dr. Adam Husain MD Primary Care Provider Active Team Status: Inactive Member Role Status Dates Dr. Adam Husain MD Primary Care Provider Active Start: February 13, 2024 End: February 13, 2024 Dr. Adam Husain MD Attending Provider Active Start: February 13, 2024 End: February 13, 2024 Dr. Adam Husain MD Referring Provider Active Start: February 13, 2024 End: February 13, 2024 Team Status: Inactive Member Role Status Dates Dr. Adam Husain MD Primary Care Provider Active Start: March 24, 2024 End: March 24, 2024 Dr. Adam Husain MD Referring Provider Active Start: March 24, 2024 End: March 24, 2024 Efren STORY PA Attending Provider Active Start: March 24, 2024 End: March 24, 2024 Team Status: Inactive Member Role Status Dates Dr. Adam Husain MD Primary Care Provider Active Start: March 24, 2024 End: March 24, 2024 JEZ Bush Attending Provider Active Start: March 24, 2024 End: March 24, 2024 JEZ Bush Referring Provider Active Start: March 24, 2024 End: March 24, 2024 Team Status: Inactive Member Role Status Dates Dr. Adam Husain MD Primary Care Provider Active Start: March 28, 2024 End: March 28, 2024 Dr. Adam Husain MD Referring Provider Active Start: March 28, 2024 End: March 28, 2024 Roddy STORY PA Attending Provider Active Sta rt: March 28, 2024 End: March 28, 2024 Team Status: Inactive Member Role Status Dates Dr. Adam Husain MD Primary Care Provider Active Start: April 14, 2024 End: April 14, 2024 Dr. Lorenzo Larose MD Attending Provider Active Start: April 14, 2024 End: April 14, 2024 Dr. Lorenzo Larose MD Referring Provider Active Start: April 14, 2024 End: April 14, 2024 Team Status: Inactive Member Role Status Dates Dr. Adam Husain MD Primary Care Provider Active Start: April 21, 2024 End: April 21, 2024 Dr. Adam Husain MD Referring Provider Active Start: April 21, 2024 End: April 21, 2024 Dr. Lorenzo Larose MD Attending Provider Active Start: April 21, 2024 End: April 21, 2024 Team Status: Inactive Member Role Status Dates Dr. Aadm Husain MD Primary Care Provider Active Start: April 22, 2024 End: April 22, 2024 Dr. Adam Husain MD Referring Provider Active Start: April 22, 2024 End: April 22, 2024 Dr. Manny Das DO Attending Provider Active Start: April 22, 2024 End: April 22, 2024 Team Status: Inactive Member Role Status Dates Dr. Adam Husain MD Primary Care Provider Active Start: April 22, 2024 End: April 22, 2024 Dr. Manny Das DO Attending Provider Active Start: April 22, 2024 End: April 22, 2024 Dr. Manny Das DO Referring Provider Active Start: April 22, 2024 End: April 22, 2024 Team Status: Inactive Member Role Status Dates Dr. Adam Husain MD Primary Care Provider Active Start: April 30, 2024 End: April 30, 2024 Dr. Kyle Cooper MD Attending Provider Active Start: April 30, 2024 End: April 30, 2024 Dr. Kyle Cooper MD Referring Provider Active Start: April 30, 2024 End: April 30, 2024 Team Status: Inactive Member Role Status Dates Dr. Adam Husain MD Primary Care Provider Active Start: May 09, 2024 End: May 09, 2024 Dr. Manny Das DO Attending Provider Active Start: May 09, 2024 End: May 09, 2024 Dr. Manny Das DO Referring Provider Active Start: May 09, 2024 End: May 09, 2024 Team Status: Active Member Role/Relationship Status Dates CYRUS Davis Primary Care Provider Active Team Status: Inactive Member Role/Relationship Status Dates Dr. Manny Das DO Attending Provider Active Start: May 26, 2024 End: May 26, 2024 Dr. Manny Das DO Referring Provider Active Start: May 26, 2024 End: May 26, 2024 Natividad Valdez NP-C Primary Care Provider Active Start: May 26, 2024 End: May 26, 2024 Team Status: Inactive Member Role/Relationship Status Dates Natividad Valdez LVN LPN-C Primary Care Provider Active Start: June 18, 2024 End: June 18, 2024 Dr. Manny Das DO Attending Provider Active Start: June 18, 2024 End: June 18, 2024 Dr. Manny Das DO Referring Provider Active Start: June 18, 2024 End: June 18, 2024 Team Status: Inactive Member Role/Relationship Status Dates Dr. Adam Husain MD Referring Provider Active Start: July 18, 2024 End: July 18, 2024 Dr. Manny Das DO Attending Provider Active Start: July 18, 2024 End: July 18, 2024 Natividad Valdez NP-C Primary Care Provider Active Start: July 18, 2024 End: July 18, 2024 Team Status: Inactive Member Role/Relationship Status Dates Natividad Valdez NP-C Primary Care Provider Active Start: August 26, 2024 Dr. Lona Gordillo MD Attending Provider Active Start: August 26, 2024 Team Status: Inactive Member Role/Relationship Status Dates Dr. Lorenzo Larose MD Other Provider Active Start: September 16, 2024 End: September 16, 2024 Natividad Valdez NP-C Primary Care Provider Active Start: September 16, 2024 End: September 16, 2024 Natividad Valdez NP-C Attending Provider Active Start: September 16, 2024 End: September 16, 2024 Natividad Valdez NP-C Referring Provider Active Start: September 16, 2024 End: September 16, 2024 Team Status: Inactive Member Role/Relationship Status Dates Dr. Adam Husain MD Referring Provider Active Start: July 18, 2024 End: July 18, 2024 Dr. Manny Das DO Attending Provider Active Start: July 18, 2024 End: July 18, 2024 Natividad Valdez , LVN LPN-C Primary Care Provider Active Start: July 18, 2024 End: July 18, 2024 Team Status: Inactive Member Role/Relationship Status Dates Natividad Valdez , LVN LPN-C Primary Care Provider Active Start: August 26, 2024 Dr. Lona Gordillo MD Attending Provider Active Start: August 26, 2024 Team Status: Inactive Member Role/Relationship Status Dates Dr. Lorenzo Larose MD Other Provider Active Start: September 16, 2024 End: September 16, 2024 Natividad José Miguel , LVN LPN-C Primary Care Provider Active Start: September 16, 2024 End: September 16, 2024 Natividadmeagan Valdez , LVN LPN-C Attending Provider Active Start: September 16, 2024 End: September 16, 2024 Natividad Valdez , LVN LPN-C Referring Provider Active Start: September 16, 2024 End: September 16, 2024 Team Status: Inactive Member Role/Relationship Status Dates Natividad Valdez , LVN LPN-C Primary Care Provider Active Start: October 21, 2024 End: October 21, 2024 Natividad Valdez , LVN LPN-C Referring Provider Active Start: October 21, 2024 End: October 21, 2024 Dr. Manny Das DO Attending Provider Active Start: October 21, 2024 End: October 21, 2024 Team Status: Inactive Member Role/Relationship Status Dates Dr. Adam Husain MD Referring Provider Active Start: November 11, 2024 End: November 11, 2024 Cristin Chung NP, LVN LPN-C Attending Provider Active Start: November 11, 2024 End: November 11, 2024 Natividad Valdez , LVN LPN-C Primary Care Provider Active Start: November 11, 2024 End: November 11, 2024 FOR RECORDS PERTAINING TO PATIENTS WHO ARE [...] BE BASED ON THE PRIMARY CLINICAL RECORDS. [facility]. provides no warranty or guarantee of the accuracy or completeness of information in this document.
== END | disposition home or self-care (01) ==
PROVIDERS: PCP Nurse Practitioner Family; Referring Provider Student in an Organized Health Care Education/Training Program; Visit Provider Student in an Organized Health Care Education/Training Program
DX: M48.062 Spinal stenosis, lumbar region with neurogenic claudication (principal); M51.362 Other intervertebral disc degeneration, lumbar region with discogenic back pain and lower extremity pain; M43.16 Spondylolisthesis, lumbar region
CPT/HCPCS: 72148

== ENCOUNTER → 2025-02-16 | Outpatient (CLI) | payer MEDICARE, OTHER, SELFPAY ==
[2025-02-16 12:04] LABS: Hematocrit 46.2 % (37-47); Hemoglobin 14.8 g/dL (12.0-15.0); Immature Granulocytes Count 0.040 X10^3/uL (0.0-0.0); Mean Corp Hgb Conc 32.0 g/dL (32-36); Mean Corpuscular Volume 81.6 fL (81-99); Mean Platelet Vol. 9.6 fl (6.2-12.0); NRBC Flagged by Analyzer 0 % (0-5); Platelet Count 368 K/mm3 (150-450); RBC Distribution Width CV 14.6 % (11.6-14.6); RBC Distribution Width SD 43.3 fl (35.1-43.9); Red Blood Count 5.66 M/mm3 (4.2-5.4); White Blood Count 8.6 K/mm3 (4.4-11.0)
[2025-02-16 12:57] LABS: Microalbumin,Random Urine 27.9 mg/L (<20 mg/L)
[2025-02-16 13:09] LABS: AST(SGOT) 29 U/L (<=31); Alanine Aminotransfer ALT/SGPT 14 U/L (<=34); Albumin, Serum 4.3 g/dL (3.4-4.8); Alkaline Phosphatase 82 U/L (35-104); Anion Gap 13 (5-15); BUN 16 mg/dL (4-19); BUN/Creat Ratio 24.5 RATIO (10-20); Calcium,Total 9.5 mg/dL (7.6-11.0); Carbon Dioxide 26.9 mmol/L (21.0-32.0); Chloride 100 mmol/L (98-108); Cholesterol 220 mg/dL (<=200); Globulin 3.1 g/dL (2.2-4.2); Glucose 123 mg/dL (70-99); Low Density Lipoprotein Calc. 134 mg/dL; Potassium 3.7 mmol/L (3.5-5.1); Triglycerides 165 mg/dL; Very Low Density Lipoprotein 33 mg/dL (5-40); cholesterol:hdl ratio screen 3.90
== END | disposition home or self-care (01) ==
LOC: VSLAB 09:15
PROVIDERS: PCP Nurse Practitioner Family; Referring Provider Nurse Practitioner Family; Visit Provider Nurse Practitioner Family
DX: E78.1 Pure hyperglyceridemia (principal); R73.03 Prediabetes
CPT/HCPCS: 36415; 80053; 80061; 82043; 84443; 85025